=== PATIENT | female | born 1940 | race Caucasian/White ===

== ENCOUNTER 2017-11-26 09:01 | Inpatient (IN) | payer MEDICARE, BC ==
[2017-11-26 09:43] LABS: Basophils # (A) 0.1 k/uL (0-0.2); Basophils % (A) 0 %; Eosinophils # (A) 0.1 k/uL (0-0.7); Eosinophils % (A) 1 %; HCT 41.4 % (34.0-46.0); HGB 13.8 gm/dL (11.4-16.0); Lymphocytes # (A) 1.8 k/uL (1.0-4.8); Lymphocytes % (A) 13 %; MCH 28.4 pg (25.0-35.0); MCHC 33.2 g/dL (31.0-37.0); MCV 85.6 fL (80.0-100.0); Mean Platelet Volume 8.3; Monocytes # (A) 0.8 k/uL (0-1.0); Monocytes % (A) 6 %; Neutrophils # (A) 11.3 k/uL (1.3-7.7); Neutrophils % (A) 79 %; Platelet Count 183 k/uL (150-450); RBC 4.84 m/uL (3.80-5.40); RDW 13.2 % (11.5-15.5); WBC 14.3 k/uL (3.8-10.6)
--- NOTE | 2017-11-26 09:43 | ED ---
General Adult HPI - General Chief complaint: Altered Mental Status Stated complaint: altered mental status, weakness Time Seen by Provider: 11/26/17 09:05 Source: EMS, RN notes reviewed Mode of arrival: EMS - History of Present Illness Initial comments: This is a 77-year-old female who presents emergency Department for altered mental status. states that he woke up this morning and the patient was in this condition when she woke up. states yesterday she wasn't feeling well and didn't eat or drink much but was having no significant complaints. states this morning he talked to her and her words were all garbled and not making sense. Patient is able to follow some basic commands and seems to understandthe commands but cannot even count of 3. Patient tries to speak and all her words were garbled and none of them make sense. gives all history because she is unable to. states she has not been in any type of distress today didn't look like she was having difficulty breathing there's been no vomiting or diarrhea that he knows of. Patient has had no fever that he knows of. did not knows any facial droop or any weakness in a focal extremity. - Related Data Home Medications Medication Instructions Recorded Confirmed Atenolol/Chlorthalidone [Tenoretic 1 tab PO DAILY 11/26/17 11/26/17 100 Tablet] Atorvastatin Calcium [Lipitor] 20 mg PO MOTUWETHFRSA 11/26/17 11/26/17 Atorvastatin [Lipitor] 10 mg PO ANNE 11/26/17 11/26/17 Estradiol [Estrace] 1 mg PO MOWEFR 11/26/17 11/26/17 Fish Oil/Dha/Epa [Fish Oil 1,200 1 cap PO DAILY 11/26/17 11/26/17 mg Fish Oil] Gemfibrozil [Lopid] 600 mg PO AC-BID 11/26/17 11/26/17 Glucosamine/Chondr Anne A Sod [Osteo 1 tab PO BID 11/26/17 11/26/17 Bi-Flex Caplet] Levothyroxine Sodium [Synthroid] 44 mcg PO ANNE 11/26/17 11/26/17 Levothyroxine Sodium [Synthroid] 88 mcg PO MOTUWETHFRSA 11/26/17 11/26/17 Magnesium Oxide [Mag-Ox] 400 mg PO DAILY 11/26/17 11/26/17 Potassium Chloride ER [K-Dur 10] 10 meq PO DAILY 11/26/17 11/26/17 Solifenacin Succinate [Vesicare] 5 mg PO DAILY 11/26/17 11/26/17 Vitamin E (Dl,Tocopheryl Acet) 400 unit PO DAILY 11/26/17 11/26/17 [Vitamin E] Allergies Allergy/AdvReac Type Severity Reaction Status Date / Time No Known Allergies Allergy Verified 11/26/17 09:40 Review of Systems ROS Statement: Those systems with pertinent positive or pertinent negative responses have been documented in the HPI. ROS Other: All systems not noted in ROS Statement are negative. Past Medical History Past Medical History: Unable to Obtain History of Any Multi-Drug Resistant Organisms: None Reported Past Surgical History: Unable to Obtain Past Psychological History: No Psychological Hx Reported Smoking Status: Never smoker Past Alcohol Use History: None Reported Past Drug Use History: None Reported General Exam - General Exam Comments Initial Comments: GENERAL: Patient is well-developed and well-nourished. Patient is nontoxic and well- hydrated and is in no acute distress. ENT: Neck is soft and supple. No significant lymphadenopathy is noted. Oropharynx is clear. Moist mucous membranes. Neck has full range of motion without eliciting any pain. EYES: The sclera were anicteric and conjunctiva were pink and moist. Extraocular movements were intact and pupils were equal round and reactive to light. Eyelids were unremarkable. PULMONARY: Unlabored respirations. Good breath sounds bilaterally. No audible rales rhonchi or wheezing was noted. CARDIOVASCULAR: There is a regular rate and rhythm without any murmurs gallops or rubs. ABDOMEN: Patient has some slight left-sided abdominal pain.. No palpable organomegaly was noted. There is no palpable pulsatile mass. SKIN: Skin is clear with no lesions or rashes and otherwise unremarkable. NEUROLOGIC: Patient is alert and oriented unable to assess since patient cannot speak but she is able to understand basic commands and asked to sit up or move any of her extremities. Cranial nerves II through XII are grossly intact. Motor and sensory are also intact. Patient has garbled speech. Symmetrical smile. MUSCULOSKELETAL: Normal extremities with adequate strength and full range of motion. No lower extremity swelling or edema. No calf tenderness. LYMPHATICS: No significant lymphadenopathy is noted PSYCHIATRIC: Normal psychiatric evaluation. Normal interpersonal interactions appears functionally intact in deals appropriately with others. No signs of depression. No signs of anxiety. Course Vital Signs 11/26/17 11/26/17 11/26/17 09:03 10:03 11:05 Temperature 99.4 F Pulse Rate 77 83 71 Respiratory 17 18 18 Rate Blood Pressure 171/70 167/70 152/87 O2 Sat by Pulse 97 98 97 Oximetry Medical Decision Making - Medical Decision Making EKG shows sinus rhythm at 73 bpm WA interval is 224 QRS is 90 QT interval 394 QTC is 434. Patient's EKG does show some ST segment depression and T-wave inversion in the inferior leads. CT brain shows no acute abnormality. CT of the abdomen shows no significant abnormality. I will back into reevaluate the patient she continued to be unable to express herself but again continued to understand basic simple commands. - Lab Data Result diagrams: 11/26/17 09:20 11/26/17 09:20 Lab Results 11/26/17 11/26/17 11/26/17 Range/Units 09:20 09:20 09:20 WBC 14.3 H (3.8-10.6) k/uL RBC 4.84 (3.80-5.40) m/uL Hgb 13.8 (11.4-16.0) gm/dL Hct 41.4 (34.0-46.0) % MCV 85.6 (80.0-100.0) fL MCH 28.4 (25.0-35.0) pg MCHC 33.2 (31.0-37.0) g/dL RDW 13.2 (11.5-15.5) % Plt Count 183 (150-450) k/uL Neutrophils % 79 % Lymphocytes % 13 % Monocytes % 6 % Eosinophils % 1 % Basophils % 0 % Neutrophils # 11.3 H (1.3-7.7) k/uL Lymphocytes # 1.8 (1.0-4.8) k/uL Monocytes # 0.8 (0-1.0) k/uL Eosinophils # 0.1 (0-0.7) k/uL Basophils # 0.1 (0-0.2) k/uL PT (9.0-12.0) sec INR (<1.2) APTT (22.0-30.0) sec Sodium 140 (137-145) mmol/L Potassium 3.7 (3.5-5.1) mmol/L Chloride 103 (98-107) mmol/L Carbon Dioxide 20 L (22-30) mmol/L Anion Gap 17 mmol/L BUN 18 H (7-17) mg/dL Creatinine 0.91 (0.52-1.04) mg/dL Est GFR (CKD-EPI)AfAm 69 (>60 ml/min/1.73 sqM) Est GFR (CKD-EPI)NonAf 60 (>60 ml/min/1.73 sqM) Glucose 153 H (74-99) mg/dL Plasma Lactic Acid Ede (0.7-2.0) mmol/L Calcium 9.2 (8.4-10.2) mg/dL Total Bilirubin 0.9 (0.2-1.3) mg/dL AST 18 (14-36) U/L ALT 29 (9-52) U/L Alkaline Phosphatase 34 L (38-126) U/L Total Creatine Kinase 86 (30-135) U/L CK-MB (CK-2) 0.5 (0.0-2.4) ng/mL CK-MB (CK-2) Rel Index 0.6 Troponin I <0.012 (0.000-0.034) ng/mL Total Protein 6.3 (6.3-8.2) g/dL Albumin 4.0 (3.5-5.0) g/dL Urine Color Urine Appearance (Clear) Urine pH (5.0-8.0) Ur Specific Bristow (1.001-1.035) Urine Protein (Negative) Urine Glucose (UA) (Negative) Urine Ketones (Negative) Urine Blood (Negative) Urine Nitrite (Negative) Urine Bilirubin (Negative) Urine Urobilinogen (<2.0) mg/dL Ur Leukocyte Esterase (Negative) Urine RBC (0-5) /hpf Urine WBC (0-5) /hpf Ur Squamous Epith Cells (0-4) /hpf 11/26/17 11/26/17 11/26/17 Range/Units 09:20 09:20 09:20 WBC (3.8-10.6) k/uL RBC (3.80-5.40) m/uL Hgb (11.4-16.0) gm/dL Hct (34.0-46.0) % MCV (80.0-100.0) fL MCH (25.0-35.0) pg MCHC (31.0-37.0) g/dL RDW (11.5-15.5) % Plt Count (150-450) k/uL Neutrophils % % Lymphocytes % % Monocytes % % Eosinophils % % Basophils % % Neutrophils # (1.3-7.7) k/uL Lymphocytes # (1.0-4.8) k/uL Monocytes # (0-1.0) k/uL Eosinophils # (0-0.7) k/uL Basophils # (0-0.2) k/uL PT 10.8 (9.0-12.0) sec INR 1.1 (<1.2) APTT 19.5 L (22.0-30.0) sec Sodium (137-145) mmol/L Potassium (3.5-5.1) mmol/L Chloride (98-107) mmol/L Carbon Dioxide (22-30) mmol/L Anion Gap mmol/L BUN (7-17) mg/dL Creatinine (0.52-1.04) mg/dL Est GFR (CKD-EPI)AfAm (>60 ml/min/1.73 sqM) Est GFR (CKD-EPI)NonAf (>60 ml/min/1.73 sqM) Glucose (74-99) mg/dL Plasma Lactic Acid Ede 2.4 H* (0.7-2.0) mmol/L Calcium (8.4-10.2) mg/dL Total Bilirubin (0.2-1.3) mg/dL AST (14-36) U/L ALT (9-52) U/L Alkaline Phosphatase (38-126) U/L Total Creatine Kinase (30-135) U/L CK-MB (CK-2) (0.0-2.4) ng/mL CK-MB (CK-2) Rel Index Troponin I (0.000-0.034) ng/mL Total Protein (6.3-8.2) g/dL Albumin (3.5-5.0) g/dL Urine Color Yellow Urine Appearance Clear (Clear) Urine pH 6.0 (5.0-8.0) Ur Specific [place]ow 1.015 (1.001-1.035) Urine Protein Negative (Negative) Urine Glucose (UA) Negative (Negative) Urine Ketones Negative (Negative) Urine Blood Small H (Negative) Urine Nitrite Negative (Negative) Urine Bilirubin Negative (Negative) Urine Urobilinogen <2.0 (<2.0) mg/dL Ur Leukocyte Esterase Negative (Negative) Urine RBC 5 (0-5) /hpf Urine WBC <1 (0-5) /hpf Ur Squamous Epith Cells <1 (0-4) /hpf Disposition Clinical Impression: CVA (cerebral vascular accident) Disposition: ADMITTED IP TO THIS HOSP Referrals: Burke Wilson MD [Primary Care Provider] - 1-2 days Time of Disposition: 11:54
[2017-11-26 09:52] LABS: Appearance,Urine Clear (Clear); Bilirubin,Urine Negative (Negative); Blood,Urine Small (Negative); Color,Urine Yellow; Glucose,Urine (UA) Negative (Negative); Ketones,Urine Negative (Negative); Leukocyte Esterase,Urine Negative (Negative); Nitrite,Urine Negative (Negative); Protein,Urine Negative (Negative); RBC,Urine 5 /hpf (0-5); Specific Gravity,Urine 1.015 (1.001-1.035); Squamous Epithelial Cell,Urine <1 /hpf (0-4); Urobilinogen,Urine <2.0 mg/dL (<2.0); WBC,Urine <1 /hpf (0-5)
[2017-11-26 09:55] LABS: Calcium 9.2 mg/dL (8.4-10.2); Potassium 3.7 mmol/L (3.5-5.1); Total Bilirubin 0.9 mg/dL (0.2-1.3); Total Protein 6.3 g/dL (6.3-8.2)
[2017-11-26 10:02] LABS: INR 1.1 (<1.2); Prothrombin Time 10.8 sec (9.0-12.0)
[2017-11-26 10:12] LABS: Creatine Kinase 86 U/L (30-135)
--- NOTE | 2017-11-26 10:15 | CT ---
EXAMINATION TYPE: CT brain wo con DATE OF EXAM: 11/26/2017 COMPARISON: NONE HISTORY: Patient poor historian. COnfusion and weakness. CT DLP: 799.5 mGycm Automated exposure control for dose reduction was used. FINDINGS: Prominent choroid plexus cysts are noted. No midline shift or mass effect. No acute intracranial hemo rrhage. Mild generalized degenerative change. Intracranial atherosclerotic changes noted. IMPRESSION: Mild generalized degenerative change. If there is concern for acute ischemia correlate with MRI.
[2017-11-26 10:21] LABS: Partial Thromboplastin Time 19.5 sec (22.0-30.0)
[2017-11-26 10:25] LABS: Creatine Kinase MB 0.5 ng/mL (0.0-2.4); Troponin I <0.012 ng/mL (0.000-0.034)
--- NOTE | 2017-11-26 10:30 | XR ---
EXAMINATION TYPE: XR chest 2V DATE OF EXAM: 11/26/2017 COMPARISON: NONE HISTORY: Altered mental status TECHNIQUE: Frontal and lateral views of the chest are obtained. FINDINGS: There is no focal air space opacity, pleural effusion, or pneumothorax seen. The cardiac silhouette size is within normal limits. There are overlying cardiac leads and the patient is rotate d. The osseous structures are intact. IMPRESSION: No acute cardiopulmonary process.
[2017-11-26] MEDS ORDERED: RX INFO: IV CONTRAST WAS GIVEN 1 EACH MISC MISCELLANE PRN ×3 (10:50→12:28)
--- NOTE | 2017-11-26 11:47 | CT ---
EXAMINATION TYPE: CT abdomen pelvis w con DATE OF EXAM: 11/26/2017 COMPARISON: NONE HISTORY: Patient poor historian. abdominal pain. CT DLP: 955 mGycm Automated exposure control for dose reduction was used. TECHNIQUE: Helical acquisition of images from the lung bases through the pelvis have been completed. CONTRAST: Performed without Oral Contrast and with IV Contrast, patient injected with 80 mL of Isovue 300. FINDINGS: LUNG BASES: No significant abnormality is appreciated. AORTA: No significant abnormality is appreciated. LIVER/GB: Liver shows low attenuation possibly due to hepatic steatosis PANCREAS: No significant abnormality is seen. SPLEEN: No significant abnormality is seen. ADRENALS: No significant abnormality is seen. KIDNEYS: No significant abnormality is seen. REPRODUCTIVE ORGANS: Uterus is absent. Ovarian tissue suspected possibly bilaterally and is unremarka ble. BOWEL: Suspect the patient is post appendectomy. High dense material present at the level of the cec um may represent surgical clips. The stomach is not distended, difficult to exclude abnormal wall thi ckening. FREE AIR: No Free Air visible. ASCITES: None visible. PELVIC ADENOPATHY: None visualized. RETROPERITONEAL ADENOPATHY: No Retroperitoneal Adenopathy visible. URINARY BLADDER: No significant abnormality is seen. OSSEOUS STRUCTURES: Degenerative disc changes are present in the spine, anterolisthesis grade 1 L4-5 . Facet arthropathy also present. There is a spinal curvature. IMPRESSION: CONSIDER HEPATOCELLULAR DISEASE, HEPATIC STEATOSIS. DEGENERATIVE DISC DISEASE, FACET ARTHROPATHY, SPI NAL CURVATURE. Lack of distention of the stomach may limit evaluation. Postop changes.
[2017-11-26] MEDS ORDERED: ASPIRIN 325 MG TAB PO STA (12:08)
[2017-11-26] MEDS ORDERED: ACETAMINOPHEN TAB 325 MG TAB PO PRN (13:38)
--- NOTE | 2017-11-26 13:38 | P.HPIM ---
History of Present Illness H&P Date: 11/26/17 Chief Complaint: aphasia 77 years old female patient of Dr. Wilson with past medical history of hypertension, hyperlipidemia, hypothyroidism, overactive bladder presents in with confusion that started this morning. According to the family patient was not eating and drinking for the past 2 days. She woke up in the morning feeling confused, unable to speak appropriately. Patient was unable to comprehend and repeat appropriately. Her language was gibberish and lacked meaning. Patient denies any sensory or motor deficits. She denies any history of seizure or any similar episodes in the past. Patient denies any history of chest pain, palpitation, shortness of breath, abdominal pain, nausea or vomiting. No history of syncope or loss of consciousness prior to this episode. Patient is unable to provide much history is pleasantly confused. She does know where she is and can tell her name and date of . Vitals are stable with blood pressure slightly elevated 171/70. Saturating well on room air and afebrile. Patient did have a leukocytosis of 14.3 INR 1.1, lactic acid 2.4. Normal troponin. CT head negative for any acute abnormalities no masses seen. Did have prominent choroid plexus cyst. CT abdomen and pelvis was done as patient had some tenderness in the lower quadrant which was unremarkable. Due to patient's A. fib. Dysarthria MRI/MRA ordered. Neurology consulted from possible stroke versus brain mass. Review of Systems Constitutional: Denies chills, Denies fever, Denies lethargy, Denies malaise, Denies poor appetite, Denies weakness, Denies weight loss Eyes: denies decreased vision, denies diplopia, denies discharge, denies pain Ears: deny: decreased hearing Ears, nose, mouth and throat: Denies dental pain, Denies headache, Denies nasal discharge, Denies nose pain Cardiovascular: Denies chest pain, Denies decreased exercise tolerance, Denies edema, Denies high blood pressure, Denies irregular heart beat, Denies palpitations, Denies paroxysmal nocturnal dyspnea, Denies rapid heart beat, Denies shortness of breath Respiratory: Denies congestion, Denies cough, Denies cough with sputum, Denies dyspnea, Denies home oxygen, Denies wheezing Gastrointestinal: Denies abdominal pain, Denies change in bowel habits, Denies coffee ground emesis, Denies early satiety, Denies excessive gas, Denies heartburn, Denies hematemesis, Denies hematochezia, Denies loss of appetite, Denies nausea, Denies vomiting Genitourinary: Denies dysuria, Denies flank pain, Denies kidney stones, Denies menorrhagia, Denies urgency, Denies urinary frequency Musculoskeletal: Denies gait dysfunction, Denies limitation of motion, Denies morning stiffness, Denies muscle cramps Integumentary: Denies rash, Denies wounds, Denies brittle nails, Denies change in hair/nails, Denies darkening of skin Neurological: Denies balance difficulties, endorses change in speech, Denies double vision, Denies gait dysfunction, Denies loss of vision, Denies motor disturbance, Denies numbness, Denies paralysis, Denies paresthesias, Denies seizures Psychiatric: Denies anxiety, Denies depression Endocrine: Denies excessive sweating, Denies excessive thirst, Denies high blood sugars, Denies palpitations Hematologic/Lymphatic: Denies easy bruising, Denies lymphadenopathy Past Medical History Past Medical History: Hyperlipidemia, Hypertension, Osteoarthritis (OA), Thyroid Disorder Additional Past Medical History / Comment(s): Incontinent of urine at times. History of Any Multi-Drug Resistant Organisms: None Reported Past Surgical History: Appendectomy, Hysterectomy, Joint Replacement, Orthopedic Surgery Additional Past Surgical History / Comment(s): L knee arthroscopy, L total knee arthroplasty, colonoscopy, bilateral cataract removal/lens toric Smoking Status: Never smoker - Past Family History Father Family Medical History: Cancer Additional Family Medical History / Comment(s): Father had liver cancer and at the age of 52 yrs. Mother Family Medical History: Coronary Artery Disease (CAD), CVA/TIA Additional Family Medical History / Comment(s): Family believes pt's mother of a NE at the age of 85 yrs. Sister(s) Family Medical History: Cancer (Lymphoma 20 years ago) Additional Family Medical History / Comment(s): Patient lives with his has been. She has 2 kids both healthy without any medical problems. She denies any use of cane or walker at home. Does not wear oxygen at night Medications and Allergies Home Medications Medication Instructions Recorded Confirmed Type Atenolol/Chlorthalidone [Tenoretic 1 tab PO DAILY 11/26/17 11/26/17 History 100 Tablet] Atorvastatin Calcium [Lipitor] 20 mg PO MOTUWETHFRSA 11/26/17 11/26/17 History Atorvastatin [Lipitor] 10 mg PO CRUZ 11/26/17 11/26/17 History Estradiol [Estrace] 1 mg PO MOWEFR 11/26/17 11/26/17 History Fish Oil/Dha/Epa [Fish Oil 1,200 1 cap PO DAILY 11/26/17 11/26/17 History mg Fish Oil] Gemfibrozil [Lopid] 600 mg PO AC-BID 11/26/17 11/26/17 History Glucosamine/Chondr Cruz A Sod [Osteo 1 tab PO BID 11/26/17 11/26/17 History Bi-Flex Caplet] Levothyroxine Sodium [Synthroid] 44 mcg PO CRUZ 11/26/17 11/26/17 History Levothyroxine Sodium [Synthroid] 88 mcg PO MOTUWETHFRSA 11/26/17 11/26/17 History Magnesium Oxide [Mag-Ox] 400 mg PO DAILY 11/26/17 11/26/17 History Potassium Chloride ER [K-Dur 10] 10 meq PO DAILY 11/26/17 11/26/17 History Solifenacin Succinate [Vesicare] 5 mg PO DAILY 11/26/17 11/26/17 History Vitamin E (Dl,Tocopheryl Acet) 400 unit PO DAILY 11/26/17 11/26/17 History [Vitamin E] Allergies Allergy/AdvReac Type Severity Reaction Status Date / Time No Known Allergies Allergy Verified 11/26/17 09:40 Physical Exam Vitals: Vital Signs Temp Pulse Resp BP Pulse Ox 11/26/17 11:05 71 18 152/87 97 11/26/17 10:03 83 18 167/70 98 11/26/17 09:03 99.4 F 77 17 171/70 97 Intake and Output 11/25/17 11/26/17 11/26/17 22:59 06:59 14:59 Other: Weight 40.324 kg - Constitutional General appearance: cooperative, no acute distress, obese - EENT Eyes: anicteric sclerae, PERRLA, normal appearance ENT: hearing grossly normal - Neck Neck: no lymphadenopathy, normal ROM, no other, no rigidity, no stridor, no thyromegaly - Respiratory Respiratory: bilateral: CTA, negative: diminished, dullness, rales, rhonchi - Cardiovascular Rhythm: regular Heart sounds: normal: S1, S2 Abnormal Heart Sounds: no systolic murmur, no diastolic murmur, no rub, no S3 Gallop, no S4 Gallop, no click, no other - Gastrointestinal General gastrointestinal: normal bowel sounds, soft - Integumentary Integumentary: no rash - Neurologic Neurologic: CNII-XII intact, no motor or sensory deficit. Reflexes normal No nystagmus. Unable to comprehend or repeat words. Is able to tell her name, date of where she has. [place] when asked about the month or the year. Comprehension is normal intermittently. - Musculoskeletal Musculoskeletal: strength equal bilaterally - Psychiatric Psychiatric: A&O x's 2, appropriate affect Results CBC & Chem 7: 11/26/17 09:20 11/26/17 09:20 Labs: Abnormal Lab Results - Last 24 Hours (Table) 11/26/17 11/26/17 11/26/17 Range/Units 09:20 09:20 09:20 WBC 14.3 H (3.8-10.6) k/uL Neutrophils # 11.3 H (1.3-7.7) k/uL APTT 19.5 L (22.0-30.0) sec Carbon Dioxide 20 L (22-30) mmol/L BUN 18 H (7-17) mg/dL Glucose 153 H (74-99) mg/dL Plasma Lactic Acid Ede (0.7-2.0) mmol/L Alkaline Phosphatase 34 L (38-126) U/L Urine Blood (Negative) 11/26/17 11/26/17 Range/Units 09:20 09:20 WBC (3.8-10.6) k/uL Neutrophils # (1.3-7.7) k/uL APTT (22.0-30.0) sec Carbon Dioxide (22-30) mmol/L BUN (7-17) mg/dL Glucose (74-99) mg/dL Plasma Lactic Acid Ede 2.4 H* (0.7-2.0) mmol/L Alkaline Phosphatase (38-126) U/L Urine Blood Small H (Negative) Thrombosis Risk Factor Assmnt - DVT/VTE Prophylaxis DVT/VTE Prophylaxis: Pharmacologic Prophylaxis ordered - Choose All That Apply Any of the Below Risk Factors Present?: Yes Each Factor Represents 1 point: Obesity (BMI >25) Other Risk Factors: Yes Each Risk Factor Represents 3 Points: Age 75 years or older Other congenital or acquired thrombophilia - If yes, enter type in comment: Yes Each Risk Factor Represents 5 Points: Stroke (< 1 month) Thrombosis Risk Factor Assessment Total Risk Factor Score: 9 Thrombosis Risk Factor Assessment Level: High Risk Assessment and Plan Plan: #1 acute dysarthria/dysphagia likely secondary to stroke involving MCA. Wernicke's aphasia likely. CT brain was negative for any mass. MRI/MRA ordered. Neurology consult. Continue aspirin and statin. Echo ordered. Permissive hypertension. Treat blood pressure if systolic 220 speech evaluation #2 hyperlipidemia continue gemfibrozil and atorvastatin. Ordered lipid panel. #3 hypertension hold atenolol/chlorthalidone for permissive hypertension. #4 hypothyroidism continue levothyroxine 1-4 g on Sunday and 88 g rest of the days 5 DVT prophylaxis with SCDs and Lovenox every 24 hours #6 overactive bladder continue oxybutynin 10 mg by mouth daily 7 GI prophylaxis with Pepcid 20 mg daily. #8 leukocytosis likely reactive , repeat CBC tomorrow CODE STATUS full code Disposition patient to be in the hospital 1-2 inpatient nights.
[2017-11-26] MEDS ORDERED: IPRATROPIUM-ALBUTEROL 3 ML NEB INHALATION PRN (13:39)
[2017-11-26] MEDS ORDERED: ONDANSETRON 4 MG/2 ML VIAL IVP PRN (13:39)
[2017-11-26] MEDS: SODIUM CHLORIDE 0.9% 1,000 ML IV SCH (14:46)
[2017-11-26] MEDS: LEVOTHYROXINE 88 MCG TAB PO SCH (14:46)
[2017-11-26] MEDS: ATORVASTATIN 20 MG TAB PO SCH (14:46)
[2017-11-26] MEDS: GEMFIBROZIL 600 MG TAB PO SCH (18:35)
--- NOTE | 2017-11-26 18:57 | ECHOF ---
Referral Reason:Stroke MEASUREMENTS -------- HEIGHT: 167.6 cm WEIGHT: 85.3 kg BP: IVSd: 1.5 cm (0.6 - 1.1) LVIDd: 4.0 cm (3.9 - 5.3) LVPWd: 1.5 cm (0.6 - 1.1) IVSs: 1.5 cm LVIDs: 2.4 cm LVPWs: 1.7 cm Ao Diam: 3.1 cm (2.0 - 3.7) LA Diam: 3.4 cm (2.7 - 3.8) AV Cusp: 2.1 cm (1.5 - 2.6) EPSS: 0.4 cm MV E Kenton: 1.02 m/s MV DecT: 185 ms MV A Kenton: 1.07 m/s MV E/A Ratio: 0.95 RAP: 5.00 mmHg RVSP: 30.95 mmHg MV EF SLOPE: 56.42 mm/s (70 - 150) MV EXCURSION: 11.11 mm (> 18.000) FINDINGS -------- Sinus rhythm. This was a technically adequate study. This was a technically difficult study with suboptimal apica l views. Pt couldnt turn. The left ventricular size is normal. There is moderate concentric left ventricular hypertrophy. O verall left ventricular systolic function is normal with, an EF between 55 - 60 %. The right ventricle is normal in size and function. The left atrium is normal in size. The right atrium is normal in size. The aortic valve is trileaflet, and appears structurally normal. No aortic stenosis or regurgitation. The mitral valve leaflets are mildly thickened. There is trace mitral regurgitation. Trace tricuspid regurgitation present. The right ventricular systolic pressure, as measured by Dopp ler, is 30.95mmHg. Pulmonic valve appears structurally normal. The aortic root size is normal. The pericardium is normal. CONCLUSIONS -------- 1. Sinus rhythm. 2. This was a technically adequate study. 3. This was a technically difficult study with suboptimal apical views. Pt couldnt turn. 4. The left ventricular size is normal. 5. There is moderate concentric left ventricular hypertrophy. 6. Overall left ventricular systolic function is normal with, an EF between 55 - 60 %. 7. The right ventricle is normal in size and function. 8. The left atrium is normal in size. 9. The right atrium is normal in size. 10. The aortic valve is trileaflet, and appears structurally normal. No aortic stenosis or regurgitat ion. 11. The mitral valve leaflets are mildly thickened. 12. There is trace mitral regurgitation. 13. Trace tricuspid regurgitation present. 14. The right ventricular systolic pressure, as measured by Doppler, is 30.95mmHg. 15. Pulmonic valve appears structurally normal. 16. The aortic root size is normal. 17. The pericardium is normal. C[employer] FISH[employer] HAND: Heide Dennis RDCS
--- NOTE | 2017-11-26 21:20 | CONS ---
CONSULTATION DATE OF CONSULTATION: 11/26/2017. CHIEF COMPLAINT: Stroke. HISTORY OF PRESENT ILLNESS: Mrs Henderson is a pleasant, 77-year-old female, who is being evaluated by the neurology service per the request of Dr. Maldonado for a stroke. The patient was brought into [facility] Emergency room after her noticed that she was acting quite confused. He had tried to get her out of bed but she was not following any commands. According to the family, she had gone to bed the previous night without any of these symptoms. The patient was talking but she was not making much sense. When she did speak she is swallowing with no difficulties and does not appear to be having any lateralizing weakness. A CT scan of the brain was done, which showed small-vessel ischemic changes. Her CBC showed mild leukocytosis at 14.3. Her comprehensive metabolic profile showed slightly elevated BUN at 18 and hyperglycemia at 153. Her cardiac enzymes and urinalysis were normal. The patient was admitted for further workup and management and was started on aspirin 325 mg daily. She was not on any anti- platelet therapy at home. At the time of my evaluation, she is lying in her bed and appears to be in no acute distress. She appears to be having a receptive aphasia. PAST MEDICAL HISTORY: Dyslipidemia, hypertension, arthritis, hypothyroidism, history of appendectomy, hysterectomy, orthopedic surgeries, cataract surgery. SOCIAL HISTORY: There is no history of any tobacco, alcohol or drug use. FAMILY HISTORY: Positive for cancer, heart disease, and strokes. HOME MEDICATIONS: Reviewed in the chart. ALLERGIES: No known drug allergies. REVIEW OF SYSTEM: Unable to obtain due to her receptive aphasia. PHYSICAL EXAM: Vital signs show a temperature of 97.7, pulse 72, respiration 14, blood pressure 167/68. GENERAL APPEARANCE: The patient is a well-developed, elderly female, who appears to be in no acute distress. HEENT: Normocephalic, atraumatic, no facial asymmetry is seen. NECK: Supple with no masses felt. CARDIOVASCULAR: Regular rate and rhythm. ABDOMEN: Nontender nondistended. Extremities showed no edema or clubbing. Neurological exam the patient is awake. She does not follow any verbal commands. Does follow visual commands. No obvious lateralizing weakness is seen. Sensory exam was difficult to assess due to her aphasia. Language testing showed decreased comprehension, naming, and repetition. Fluency appears to be intact. No tremors or seizure-like activity is seen. No facial asymmetry is noticed on cranial nerve testing. IMPRESSION: 1. Acute ischemic stroke, left temporal region. 2. Receptive aphasia. 3. Hypertension. 4. Dyslipidemia. RECOMMENDATION: The patient does appear to have suffered an acute ischemic stroke involving the left temporal lobe. Her examination is consistent with a receptive aphasia/Wernicke aphasia. Her fluency is intact yet she has a deficit in naming, repetition, and comprehension. Speech therapy has been consulted. An MRI of the brain will be ordered along with a carotid Doppler, fasting lipid panel, EEG, and serum homocystine level. Continue aspirin for anti-platelet therapy. Continue heparin for DVT prophylaxis. Continue Pepcid for GI prophylaxis. Continue IV hydration as tolerated. I will continue to follow with you. Further recommendations to follow. Thank you for allowing me to participate in the care of your patient. If you have any questions, please feel free to contact me. Please send a copy of this dictation to Dr. Wilson and to Dr. Maldonado and to my office. MMISMAEL / JUANITO: [id number] /
[2017-11-27] MEDS: SODIUM CHLORIDE 0.9% 1,000 ML IV SCH ×2 (00:02→09:26)
[2017-11-27] MEDS: GEMFIBROZIL 600 MG TAB PO SCH (06:11)
[2017-11-27] MEDS: LEVOTHYROXINE 88 MCG TAB PO SCH (06:11)
[2017-11-27 07:10] LABS: Basophils % (A) 0 %; Eosinophils # (A) 0.1 k/uL (0-0.7); Eosinophils % (A) 1 %; HGB 13.4 gm/dL (11.4-16.0); Lymphocytes # (A) 1.9 k/uL (1.0-4.8); Lymphocytes % (A) 17 %; MCH 28.1 pg (25.0-35.0); MCHC 33.5 g/dL (31.0-37.0); MCV 83.9 fL (80.0-100.0); Mean Platelet Volume 7.8; Monocytes # (A) 0.9 k/uL (0-1.0); Monocytes % (A) 8 %; Neutrophils % (A) 71 %; Platelet Count 184 k/uL (150-450); RBC 4.76 m/uL (3.80-5.40); RDW 13.1 % (11.5-15.5); WBC 11.2 k/uL (3.8-10.6)
[2017-11-27 07:27] LABS: Albumin 3.9 g/dL (3.5-5.0); Calcium 9.3 mg/dL (8.4-10.2); Potassium 3.4 mmol/L (3.5-5.1); Total Bilirubin 0.9 mg/dL (0.2-1.3); Total Protein 6.2 g/dL (6.3-8.2)
[2017-11-27] MEDS ORDERED: MAGNESIUM OXIDE 400 MG TAB PO SCH (09:00)
[2017-11-27] MEDS ORDERED: FAMOTIDINE 20 MG TAB PO SCH (09:00)
[2017-11-27] MEDS ORDERED: ASPIRIN 325 MG TAB PO SCH (09:00)
[2017-11-27] MEDS ORDERED: ENOXAPARIN 40 MG/0.4 ML SYRINGE SQ SCH (09:00)
[2017-11-27] MEDS ORDERED: OXYBUTYNIN 10 MG TAB.ER.24 PO SCH (09:00)
[2017-11-27] MEDS: ATORVASTATIN 20 MG TAB PO SCH (11:46)
[2017-11-27] MEDS ORDERED: LORazepam 2 MG/ML INJ IV STA (12:06)
[2017-11-27] MEDS: DEXTROSE 5%-0.9% NACL 1,000 ML IV SCH (12:43)
[2017-11-27] MEDS: INSULIN ASPART 100 UNIT/ML 1 ML 10 ML VIAL SQ SCH ×3 (12:44→21:15)
[2017-11-27] MEDS ORDERED: DEXAMETHASONE SOD PHOSPHATE 4 MG/ML 1 ML VIAL IV SCH ×2 (13:00→18:00)
--- NOTE | 2017-11-27 13:43 | P.PN ---
Subjective Progress Note Date: 11/27/17 77 years old female patient of Dr. Wilson with past medical history of hypertension, hyperlipidemia, hypothyroidism, overactive bladder presents in with confusion that started this morning. According to the family patient was not eating and drinking for the past 2 days. She woke up in the morning feeling confused, unable to speak appropriately. Patient was unable to comprehend and repeat appropriately. Her language was gibberish and lacked meaning. Patient denies any sensory or motor deficits. She denies any history of seizure or any similar episodes in the past. Patient denies any history of chest pain, palpitation, shortness of breath, abdominal pain, nausea or vomiting. No history of syncope or loss of consciousness prior to this episode. Patient is unable to provide much history is pleasantly confused. She does know where she is and can tell her name and date of . Vitals are stable with blood pressure slightly elevated 171/70. Saturating well on room air and afebrile. Patient did have a leukocytosis of 14.3 INR 1.1, lactic acid 2.4. Normal troponin. CT head negative for any acute abnormalities no masses seen. Did have prominent choroid plexus cyst. CT abdomen and pelvis was done as patient had some tenderness in the lower quadrant which was unremarkable. Due to patient's A. fib. Dysarthria MRI/MRA ordered. Neurology consulted from possible stroke versus brain mass. 11/27: Echocardiogram reveals EF of 55-60%, trace mitral regurgitation, trace tricuspid regurgitation. Patient has been seen by Dr. 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 Homocysteine level is normal at 12.02. Triglycerides 201, cholesterol 201, LDL 128 and HDL 34. Repeat troponins came back negative. Patient was unable to swallow but her a.m. medications were given. Patient is having difficulty following directions. We will change what we can over to IV. MRI is scheduled for 4 this afternoon. PT OT and speech therapy are all involved. EEG is pending. EEG Objective - Vital Signs Vital signs: Vital Signs Temp 98.0 F 11/27/17 04:00 Pulse 89 11/27/17 04:00 Resp 16 11/27/17 04:00 BP 169/81 11/27/17 04:00 Pulse Ox 94 L 11/27/17 04:00 Intake & Output 04/09/18 04/10/18 04/10/18 18:59 06:59 18:59 Intake Total 1100 Balance 1100 Weight 88.1 kg 88 kg Intake: Intake, IV Titration 1100 Amount Sodium Chloride 0.9% 1, 1100 000 ml @ 100 mls/hr IV . Q10H [facility] Rx#:[id number] Oral 0 Other: Voiding Method Bedpan Bedpan Diaper Diaper Incontinent Incontinent # Voids 1 - Exam General appearance: cooperative, no acute distress, obese - EENT Eyes: anicteric sclerae, PERRLA, normal appearance ENT: hearing grossly normal - Neck Neck: no lymphadenopathy, normal ROM, no other, no rigidity, no stridor, no thyromegaly - Respiratory Respiratory: bilateral: CTA, negative: diminished, dullness, rales, rhonchi - Cardiovascular Rhythm: regular Heart sounds: normal: S1, S2 Abnormal Heart Sounds: no systolic murmur, no diastolic murmur, no rub, no S3 Gallop, no S4 Gallop, no click, no other - Gastrointestinal General gastrointestinal: normal bowel sounds, soft - Integumentary Integumentary: no rash - Neurologic Neurologic: CNII-XII intact, no motor or sensory deficit. Reflexes normal No nystagmus. Unable to comprehend or repeat words. Is able to tell her name, date of where she has. [place] when asked about the month or the year. Comprehension is normal intermittently. - Musculoskeletal Musculoskeletal: strength equal bilaterally - Psychiatric Psychiatric: A&O x's 1, increased confusion from admission, appropriate affect - Labs CBC & Chem 7: 11/27/17 06:29 11/27/17 06:29 Labs: Abnormal Lab Results - Last 24 Hours (Table) 11/26/17 11/26/17 11/26/17 Range/Units 09:20 09:20 09:20 WBC 14.3 H (3.8-10.6) k/uL Neutrophils # 11.3 H (1.3-7.7) k/uL APTT 19.5 L (22.0-30.0) sec Potassium (3.5-5.1) mmol/L Carbon Dioxide 20 L (22-30) mmol/L BUN 18 H (7-17) mg/dL Glucose 153 H (74-99) mg/dL Plasma Lactic Acid Ede (0.7-2.0) mmol/L Alkaline Phosphatase 34 L (38-126) U/L Total Protein (6.3-8.2) g/dL Triglycerides (<150) mg/dL Cholesterol (<200) mg/dL LDL Cholesterol, Calc (0-99) mg/dL HDL Cholesterol (40-60) mg/dL Urine Blood (Negative) 11/26/17 11/26/17 11/27/17 Range/Units 09:20 09:20 06:29 WBC (3.8-10.6) k/uL Neutrophils # (1.3-7.7) k/uL APTT (22.0-30.0) sec Potassium 3.4 L (3.5-5.1) mmol/L Carbon Dioxide (22-30) mmol/L BUN 18 H (7-17) mg/dL Glucose 123 H (74-99) mg/dL Plasma Lactic Acid Ede 2.4 H* (0.7-2.0) mmol/L Alkaline Phosphatase (38-126) U/L Total Protein 6.2 L (6.3-8.2) g/dL Triglycerides 201 H (<150) mg/dL Cholesterol 201 H (<200) mg/dL LDL Cholesterol, Calc 128 H (0-99) mg/dL HDL Cholesterol 33 L (40-60) mg/dL Urine Blood Small H (Negative) 11/27/17 Range/Units 06:29 WBC 11.2 H (3.8-10.6) k/uL Neutrophils # 8.0 H (1.3-7.7) k/uL APTT (22.0-30.0) sec Potassium (3.5-5.1) mmol/L Carbon Dioxide (22-30) mmol/L BUN (7-17) mg/dL Glucose (74-99) mg/dL Plasma Lactic Acid Ede (0.7-2.0) mmol/L Alkaline Phosphatase (38-126) U/L Total Protein (6.3-8.2) g/dL Triglycerides (<150) mg/dL Cholesterol (<200) mg/dL LDL Cholesterol, Calc (0-99) mg/dL HDL Cholesterol (40-60) mg/dL Urine Blood (Negative) Assessment and Plan Plan: 1. Acute ischemic stroke. Wernicke's aphasia likely. MRI/MRA ordered. Neurology consult appreciated. Continue aspirin and statin. Echo as above. Permissive hypertension. Treat blood pressure if systolic 220. PT, OT, speech therapy 2. Hyperlipidemia continue gemfibrozil and atorvastatin. Lipid panel as above. 3. Hypertension hold atenolol/chlorthalidone for permissive hypertension. 4. Hypothyroidism continue levothyroxine 1-4 g on Sunday and 88 g rest of the days 5. Overactive bladder continue oxybutynin 10 mg by mouth daily 6. Leukocytosis likely reactive , repeat CBC tomorrow 7. GI prophylaxis with Pepcid 20 mg daily. 8. DVT prophylaxis with SCDs and Lovenox every 24 hours CODE STATUS full code Discharge plan: Subacute rehab Impression and plan of care have been directed as dictated by the signing physician. Linda Mera nurse practitioner acting as scribe for signing physician.
[2017-11-27 14:03] LABS: Glucose,Whole Blood 179 mg/dL (75-99)
[2017-11-27] MEDS ORDERED: LORazepam 2 MG/ML INJ IV PRN (14:06)
--- NOTE | 2017-11-27 14:40 | CT ---
EXAMINATION TYPE: CODE STROKE: CT brain wo contr DATE OF EXAM: 11/27/2017 COMPARISON: NONE HISTORY: Seizure, unresponsive CT DLP: 1018.[address] of the brain was performed. The ventricles, basal cisterns and sulci overlying the cerebral convexities demonstrate mild enlargem ent. There is no evidence for intracranial hemorrhage or sulcal effacement. There is decreased attenuation about the periventricular white matter and deep white matter of both c erebral hemispheres, compatible with chronic small vessel ischemia. Differential diagnosis does inclu de demyelination. No mass effects are seen.No midline shift. Osseous calvarium is intact. If symptoms persist consider MRI. IMPRESSION: 1. Age related atrophic and chronic small vessel ischemic change without acute intracranial process s een at this time.
--- NOTE | 2017-11-27 15:39 | MR ---
EXAMINATION TYPE: MR angio head wo con DATE OF EXAM: 11/27/2017 3:04 PM COMPARISON: NONE HISTORY: Pt Confused, UnResponsive Three-dimensional [id number] intracranial MRA was performed with multiple intensity projection im ages submitted and source data reviewed at the workstation. The vertebrobasilar system as well as intracranial portions of the internal carotid arteries and thei r major tributaries are patent. Diminutive left A1 segment. I do not see evidence for sizable aneurys m or vascular malformation. IMPRESSION: No significant abnormality appreciated.
--- NOTE | 2017-11-27 15:56 | MR ---
EXAMINATION TYPE: MR brain wo/w mraneck wo/w con DATE OF EXAM: 11/27/2017 COMPARISON: CT brain earlier today. HISTORY: Pt Confused, UnResponsive, Gadavist 8.5ml TECHNIQUE: Multiplanar, multisequence images of the brain and brainstem is performed without and with IV contras t, utilizing 8.5 mL intravenous Gadavist . Multiplanar, multisequence images of the neck focusing on carotid and vertebral vessels was performed without and with IV contrast. 2-D and 3-D reconstructed i mages are created and reviewed. FINDINGS: Exam is noticed suboptimal as patient could not stay awake, was confused and unresponsive per technologist to commands. Diffusion weighted images demonstrate no evidence of a recent infarct o r other diffusion abnormality. There is no worrisome extra-axial fluid collection. There is ventricu lar and sulcal prominence consistent with diffuse cerebral atrophy Midline structures demonstrate nor mal morphology. The craniocervical junction appears within normal limits. Post contrast images demo nstrate no abnormal enhancement. The dural venous sinuses appear patent. The visualized sinuses are c lear and the globes are intact. There is three-vessel origin from aortic arch. The right common carotid artery shows normal origin fr om right brachiocephalic artery. There is no significant focal stenosis in common or internal carotid artery on the right including carotid bulb up to the petrous segment. There is no significant stenos is in left common or internal carotid artery clearly seen including at the level of the carotid bulb. There is no significant stenosis in visualized proximal external carotid arteries bilaterally. Motio n artifact limitation is present. There is dominant left vertebral artery. Vertebral arteries are pat ent to basilar junction. IMPRESSION: 1. No evidence of a recent infarct. 2. Mild diffuse age-related cerebral atrophy noted. 3. No significant focal stenosis in common or internal carotid arteries bilaterally clearly identifie d. Some motion artifact degradation noted.
[2017-11-27] MEDS: levETIRAcetam IV 1,000 MG in SALINE 1 100ML.BAG IVPB SCH (16:02)
--- NOTE | 2017-11-27 17:16 | P.PN ---
Subjective Progress Note Date: 11/27/17 Patient is a 77-year-old female who is being followed by the neurology service for stroke. Patient had gone to bed on Sunday night and no deficits were noted at that time. Patient woke up Sunday morning and was found to be very confused and was not able to understand what her was trying to say to her. She was not following any commands. Patient was speaking but not making sense. She did not appear to be having any lateralizing weakness. Computed tomography scan was done on admission which showed small vessel ischemic changes. Patient was admitted for further workup and was started on aspirin 325 mg daily. Patient was transferred up to the floor and was awake, alert, but not following any verbal commands. Staff reports patient was more somnolent this morning as compared to yesterday. Patient had gone down for EEG testing and had a seizure during EEG testing. No Ativan was given due to seizure activity stopping. Patient appeared to be in a postictal state. She was taken to MRI and had MRI/MRA of the head and neck with and without contrast. No evidence for recent infarct noted. Patient continues to be unarousable. She does respond to pain stimulus. Right upper extremity seems to be posturing. Patient has sonorous respirations with rate 14-20. Patient is clenching her jaw and grinding her teeth. Keppra 1000 mg was given IV. She will continue Keppra 1000 milligrams twice a day. No obvious facial asymmetry is noted. At the time of my evaluation, patient appears to be in mild distress. She will be transferred to the ICU. Objective - Vital Signs Vital signs: Vital Signs Temp 99.4 F 11/27/17 08:00 Pulse 96 11/27/17 16:00 Resp 18 11/27/17 16:00 BP 134/63 11/27/17 16:00 Pulse Ox 96 11/27/17 16:00 Intake & Output 11/26/17 11/27/17 11/27/17 18:59 06:59 18:59 Intake Total 1100 500 Balance 1100 500 Weight 88.1 kg 88 kg Intake: Intake, IV Titration 1100 500 Amount Sodium Chloride 0.9% 1, 1100 500 000 ml @ 100 mls/hr IV . Q10H [facility] Rx#:[id number] Oral 0 Other: Voiding Method Bedpan Bedpan Bedpan Diaper Diaper Diaper Incontinent Incontinent Incontinent # Voids 1 - Exam PHYSICAL EXAM: GENERAL APPEARANCE: Patient is a well-developed, female who appears to be in mild acute distress. HEENT: Normocephalic, atraumatic, no facial asymmetry is seen. Neck is supple with no masses felt. CARDIOVASCULAR: Heart rate is regular. Respirations are sonorous and mildly labored. ABDOMEN: Nontender, nondistended. EXTREMITIES: Show no edema or clubbing. Right upper extremity with signs of posturing. NEUROLOGICAL EXAM: Patient is not arousable but responds to painful stimuli. Pupils are equal and reactive to light. No obvious facial asymmetry is noted. Strength and sensory exam are not assessed due to her somnolence. Seizure activity was noted during the EEG and patient was loaded with Keppra 1000 mg IV. - Labs CBC & Chem 7: 11/27/17 06:29 11/27/17 06:29 Labs: Abnormal Lab Results - Last 24 Hours (Table) 11/27/17 11/27/17 11/27/17 Range/Units 06:29 06:29 14:00 WBC 11.2 H (3.8-10.6) k/uL Neutrophils # 8.0 H (1.3-7.7) k/uL Potassium 3.4 L (3.5-5.1) mmol/L BUN 18 H (7-17) mg/dL Glucose 123 H (74-99) mg/dL POC Glucose (mg/dL) 179 H (75-99) mg/dL Total Protein 6.2 L (6.3-8.2) g/dL Triglycerides 201 H (<150) mg/dL Cholesterol 201 H (<200) mg/dL LDL Cholesterol, Calc 128 H (0-99) mg/dL HDL Cholesterol 33 L (40-60) mg/dL Microbiology - Last 24 Hours (Table) 11/26/17 09:20 Blood Culture - Preliminary Blood No Growth after 24 hours Assessment and Plan Plan: Impression: 1. Acute ischemic stroke, left temporal region 2. Seizure 3. Receptive aphasia 4. Hypertension 5. Dyslipidemia Mentation: Patient does appear to have suffered an acute ischemic stroke involving the left temporal lobe. Her admitting examination was consistent with receptive aphasia which is consistent with left temporal region. Patient was alert and talking this morning. She was not following commands and continued with her receptive aphasia. Patient went down for EEG and had a seizure. Seizure resolved before Ativan was given. Patient was then taken to MRI. Upon returning to her room, change in neurological status was noted. Currently, patient is not arousable and appears to be in a postictal state. Due to her sonorous breathing and continued jaw clenching and teeth grinding, patient will be transferred to the ICU for possible need for airway assistance. Although patient is exhibiting postictal state, a new infarct cannot be ruled out. I will order an MRI and an EEG to be done in morning. Patient had MR angiogram of the head without contrast which showed no significant abnormality. Patient had MR of the brain with and without contrast and MR a of the neck with and without contrast. There was no evidence of recent infarct. Study did show mild diffuse age-related cerebral atrophy. There was no significant stenosis in common or internal carotid arteries bilaterally. Continue neurological checks. Continue seizure precautions. Continue rectal aspirin. Continue Keppra 1000 mg IV twice a day. I will continue to follow with you. Further recommendations to follow. I performed an examination of the patient and discussed the management with the RESIDENCE LIFE DIRECTOR. I have reviewed the RESIDENCE LIFE DIRECTOR notes and agree with the findings and plan of care.
[2017-11-27 17:47] LABS: Glucose,Whole Blood 197 mg/dL (75-99)
[2017-11-27 17:57] LABS: ABG Base Excess -2.4 mmol/L; ABG HCO3 22 mmol/L (21-25); ABG Oxygen Saturation 94.3 % (94-97); ABG PCO2 33 mmHg (35-45); ABG PH 7.43 (7.35-7.45); ABG PO2 73 mmHg (83-108); ABG TCO2 23 mmol/L (19-24)
--- NOTE | 2017-11-27 18:16 | XR ---
EXAMINATION TYPE: XR chest 1V portable DATE OF EXAM: 11/27/2017 COMPARISON: Yesterday HISTORY: Short of breath TECHNIQUE: Single frontal view of the chest is obtained. FINDINGS: Heart and mediastinum are normal. Lungs are clear. Diaphragm is normal. There are chest le ads. Bony thorax is intact. IMPRESSION: Normal chest. No change.
[2017-11-27] MEDS ORDERED: LABETALOL 5 MG/ML VIAL MDV IVP PRN ×2 (18:26→19:41)
[2017-11-27] MEDS ORDERED: PROPOFOL 100 ML IV ONE (18:50)
[2017-11-27] MEDS ORDERED: SUCCINYLCHOLINE CHLORIDE 100 MG/5 ML SYR IV ONE (19:18)
[2017-11-27] MEDS ORDERED: PROPOFOL 10 MG/ML 20 ML VIAL IV ONE (19:18)
--- NOTE | 2017-11-27 19:22 | EEG ---
ELECTROENCEPHALOGRAM REPORT DATE OF SERVICE: 11/27/2017 REASON FOR TESTING: Stroke. DESCRIPTION OF THE PROCEDURE: This EEG was performed using a 21-channel digital electroencephalograph, following international 10-20 system. DESCRIPTION OF THE RECORDING: From the beginning of the tracing, and with the patient's eyes closed, the background rhythm was mostly consisting of 7 Hz theta frequency in the posterior occipital leads. No obvious asymmetry is seen. Photic stimulation was performed, and during photic stimulation generalized sharp and slow wave activity is seen. Video monitoring was evaluated, and the patient was clinically having epileptic activity. More sharp wave activity is seen in the postictal state. Hyperventilation was not performed. Initially, her EKG lead showed a regular rate and rhythm. INTERPRETATION: This awake EEG is abnormal due to the presence of generalized epileptic activity seen during photic stimulation. Clinical correlation is recommended. ARTIE / JUANITO: [id number] /
--- NOTE | 2017-11-27 20:15 | XR ---
EXAMINATION TYPE: XR chest 1V portable DATE OF EXAM: 11/27/2017 COMPARISON: Today HISTORY: Tube placement TECHNIQUE: Single frontal view of the chest is obtained. FINDINGS: Endotracheal tube is in good position 4 cm from the odessa. Nasogastric tube appears in go od position. Lungs are clear of consolidation. There is no heart failure. There are chest leads. IMPRESSION: Endotracheal tube is in good position.
[2017-11-27] MEDS ORDERED: ACETAMINOPHEN SUPPOSITORY 650 MG SUPP RECTAL PRN (20:17)
[2017-11-27] MEDS ORDERED: NALOXONE 0.4 MG/ML 1 ML VIAL IV PRN (20:17)
[2017-11-27 20:45] LABS: ABG Base Excess -2.4 mmol/L; ABG HCO3 21 mmol/L (21-25); ABG Oxygen Saturation 98.4 % (94-97); ABG PCO2 29 mmHg (35-45); ABG PH 7.48 (7.35-7.45); ABG PO2 316 mmHg (83-108); ABG TCO2 22 mmol/L (19-24)
[2017-11-27 21:12] LABS: Glucose,Whole Blood 189 mg/dL (75-99)
[2017-11-27] MEDS: LABETALOL 5 MG/ML VIAL MDV IVP PRN ×3 (21:12→23:29)
[2017-11-27] MEDS: CHLORHEXIDINE GLUCONATE 15 ML CUP MUCOUS MEM SCH (21:15)
[2017-11-27] MEDS: PROPOFOL 1,000 MG in EMPTY BAG 1 BAG IV SCH ×2 (21:16→22:44)
--- NOTE | 2017-11-27 22:33 | CT ---
EXAMINATION TYPE: CT brain wo con DATE OF EXAM: 11/27/2017 COMPARISON: Today HISTORY: Altered mental status CT DLP: 822.6 mGycm Automated exposure control for dose reduction was used. FINDINGS: There is cerebral cortical atrophy. There is no mass effect nor midline shift. There is no sign of in tracranial hemorrhage. Calvarium is intact. IMPRESSION: CEREBRAL ATROPHY. NO ACUTE INTRACRANIAL ABNORMALITY. NO SIGN OF A CORTICAL INFARCT. NO CHANGE COMPARE D TO EXAM EARLIER TODAY.
[2017-11-28 00:03] LABS: HCT 29.1 % (34.0-46.0); HGB 10.2 gm/dL (11.4-16.0); MCH 28.6 pg (25.0-35.0); MCHC 34.9 g/dL (31.0-37.0); MCV 82.2 fL (80.0-100.0); Platelet Count 142 k/uL (150-450); RBC 3.55 m/uL (3.80-5.40); RDW 12.9 % (11.5-15.5); WBC 11.1 k/uL (3.8-10.6)
[2017-11-28 00:09] LABS: Glucose,Whole Blood 177 mg/dL (75-99)
[2017-11-28 00:21] LABS: D-Dimer 1.27 mg/L FEU (<0.60); INR 1.1 (<1.2); Partial Thromboplastin Time 22.4 sec (22.0-30.0); Prothrombin Time 10.8 sec (9.0-12.0)
[2017-11-28 00:31] LABS: Appearance,Urine Turbid (Clear); Bilirubin,Urine Negative (Negative); Blood,Urine Large (Negative); Color,Urine Yellow; Glucose,Urine (UA) Negative (Negative); Hyaline Casts,Urine 15 /lpf (0-2); Ketones,Urine Negative (Negative); Leukocyte Esterase,Urine Large (Negative); Mucus,Urine Rare /hpf; Nitrite,Urine Negative (Negative); PH, Urine 5.5 (5.0-8.0); Protein,Urine 1+ (Negative); RBC,Urine 38 /hpf (0-5); Specific Gravity,Urine 1.024 (1.001-1.035); Urobilinogen,Urine <2.0 mg/dL (<2.0); WBC,Urine 37 /hpf (0-5)
[2017-11-28] MEDS ORDERED: VANCOMYCIN IV PER PHARMACY 1 EACH MISC MISCELLANE PRN (00:52)
[2017-11-28] MEDS: IPRATROPIUM-ALBUTEROL 3 ML NEB INHALATION SCH ×6 (01:25→20:13)
[2017-11-28] MEDS ORDERED: DEXAMETHASONE SOD PHOSPHATE 4 MG/ML 1 ML VIAL IV PRN (01:27)
[2017-11-28] MEDS ORDERED: SODIUM CHLORIDE 0.9% IV ONE (01:28)
[2017-11-28] MEDS ORDERED: ACYCLOVIR SODIUM IV ONE (01:28)
[2017-11-28] MEDS ORDERED: VANCOMYCIN 1,500 MG in SODIUM CHLORIDE 0.9% 250 ML IVPB ONE (01:45)
[2017-11-28 01:59] LABS: Glucose,Whole Blood 145 mg/dL (75-99)
[2017-11-28] MEDS: DEXTROSE 5%-0.9% NACL 1,000 ML IV SCH (02:21)
[2017-11-28] MEDS: PROPOFOL 1,000 MG in EMPTY BAG 1 BAG IV SCH ×5 (02:55→19:14)
[2017-11-28] MEDS: levETIRAcetam IV 1,000 MG in SALINE 1 100ML.BAG IVPB SCH ×2 (04:39→16:59)
[2017-11-28 05:05] LABS: ABG Base Excess -3.7 mmol/L; ABG HCO3 20 mmol/L (21-25); ABG PCO2 27 mmHg (35-45); ABG PH 7.48 (7.35-7.45); ABG PO2 145 mmHg (83-108); ABG TCO2 21 mmol/L (19-24)
[2017-11-28 06:16] LABS: Basophils % (A) 0 %; Eosinophils # (A) 0.1 k/uL (0-0.7); Eosinophils % (A) 0 %; HCT 39.2 % (34.0-46.0); Lymphocytes # (A) 2.8 k/uL (1.0-4.8); Lymphocytes % (A) 16 %; MCH 28.5 pg (25.0-35.0); MCHC 33.7 g/dL (31.0-37.0); MCV 84.7 fL (80.0-100.0); Mean Platelet Volume 7.3; Monocytes # (A) 1.5 k/uL (0-1.0); Monocytes % (A) 8 %; Neutrophils # (A) 12.7 k/uL (1.3-7.7); Neutrophils % (A) 72 %; Platelet Count 189 k/uL (150-450); RBC 4.63 m/uL (3.80-5.40); RDW 12.9 % (11.5-15.5); WBC 17.5 k/uL (3.8-10.6)
[2017-11-28 06:21] LABS: HGB 13.2 gm/dL (11.4-16.0)
[2017-11-28] MEDS: LABETALOL 5 MG/ML VIAL MDV IVP PRN (06:23)
[2017-11-28 06:26] LABS: Calcium 8.7 mg/dL (8.4-10.2); Magnesium 1.7 mg/dL (1.6-2.3); Phosphorus 2.7 mg/dL (2.5-4.5); Potassium 3.4 mmol/L (3.5-5.1)
[2017-11-28] MEDS ORDERED: Magnesium Replacement Protocol 1 EACH MISC MISCELLANE PRN (06:55)
[2017-11-28] MEDS ORDERED: Potassium Replacement Protocol 1 EACH MISC MISCELLANE PRN (06:55)
[2017-11-28] MEDS ORDERED: POTASSIUM BICARBONATE/CIT AC 20 MEQ TABLET.EFF NG-TUBE SCH (07:00)
--- NOTE | 2017-11-28 07:45 | XR ---
EXAMINATION TYPE: XR chest 1V DATE OF EXAM: 11/28/2017 CLINICAL HISTORY: Difficulty breathing progress study. TECHNIQUE: Single AP portable semiupright view of the chest is obtained. COMPARISON: Chest x-ray from one day earlier and older studies. FINDINGS: And endotracheal tube and orogastric tube are stable in appearance. There is new left basi lar opacity. Right lung remains clear. No large pleural effusion or pneumothorax is seen bilaterally. Cardiac silhouette size is stable and within normal limits. Osseous structures are intact. IMPRESSION: New developing left basilar atelectasis and/or infiltrate.
[2017-11-28 07:53] LABS: Glucose,Whole Blood 138 mg/dL (75-99)
[2017-11-28] MEDS ORDERED: PIPERACILLIN-TAZOBACTAM 3.375 GM in DEXTROSE/WATER 1 50ML.BAG IVPB SCH ×2 (08:00→09:00)
[2017-11-28] MEDS ORDERED: FAMOTIDINE 20 MG/2 ML VIAL IV SCH (09:00)
[2017-11-28] MEDS ORDERED: cefTRIAXone IN SWFI 2,000 MG/20 ML SYRINGE IVP SCH (09:00)
[2017-11-28] MEDS: MAGNESIUM SULFATE-D5W PMX 1 GM in DEXTROSE/WATER 1 100ML.BAG IVPB SCH ×2 (09:03→11:15)
[2017-11-28] MEDS: INSULIN ASPART 100 UNIT/ML 1 ML 10 ML VIAL SQ SCH ×3 (09:04→18:44)
[2017-11-28] MEDS: LEVOTHYROXINE IVP 100 MCG/5 ML VIAL IV SCH (09:05)
[2017-11-28] MEDS: CHLORHEXIDINE GLUCONATE 15 ML CUP MUCOUS MEM SCH ×2 (09:05→21:43)
[2017-11-28] MEDS: PANTOPRAZOLE 40 MG/10 ML VIAL IV SCH (09:05)
--- NOTE | 2017-11-28 10:15 | P.CNPUL ---
History of Present Illness Consult date: 11/28/17 Reason for consult: other Chief complaint: Mental status changes, seizure, postictal state History of present illness: Consult dated 11/28/2017 77-year-old female who presented to the emergency department for mental status changes. She apparently was fine until she woke up in the morning according to her with the changes in her mental status. The patient states that apparently was not feeling well and did not eat or drink. Apparently were garbled according to her . She was seen in the emergency room and initially admitted to the sixth floor. She was seen by neurology. At sometime during the day yesterday she had a seizure may be during her EEG. A CAT scan was negative for ischemic stroke. She had an MRI/MRI which was also negative. I talked to the neurologist yesterday and the patient is a fairly thought to be post ictal. Anyway, after having one of my charge nurses go for the sixth floor to evaluate her, we ended up transferring her to the ICU. Here in the ICU , she had posturing and she was having some respiratory difficulty with sonorous respirations and I felt that she could not protect her airway. We had her intubated and mechanically ventilated. The patient is to have a lumbar puncture today. She has been having some fever and the thought that this could be meningitis. Again computed tomography scan and MRI/MRA were negative. Based on her medication profile, she likely has a history of hypertension hyperlipidemia hypothyroidism and possible urinary incontinence. She has NO KNOWN DRUG ALLERGIES. We do not know much about her social history. Currently , her vent settings include the assist control mode rate of 14 tidal volume 400 and FiO2 35% to be dropped down to 25% and a PEEP of 5. Arterial blood gases show a PaO2 of 145 a PaCO2 of 27 and a pH 7.48. These arterial blood gases are consistent with a respiratory alkalosis and a very mild metabolic acidosis. The pH for a PaCO2 of 27 should be about 7.5 to. She is on a dextrose and saline IV at 75 mL an hour propofol at 40 mics per kilogram per minute. Tube feeds have not been started as yet. She was admitted on November 26 and transferred to the ICU on the and intubated on the . Review of Systems ROS unobtainable: due to endotracheal tube Past Medical History Past Medical History: Hyperlipidemia, Hypertension, Osteoarthritis (OA), Thyroid Disorder Additional Past Medical History / Comment(s): Incontinent of urine at times. History of Any Multi-Drug Resistant Organisms: None Reported Past Surgical History: Appendectomy, Hysterectomy, Joint Replacement, Orthopedic Surgery Additional Past Surgical History / Comment(s): L knee arthroscopy, L total knee arthroplasty, colonoscopy, bilateral cataract removal/lens toric Smoking Status: Never smoker - Past Family History Father Family Medical History: Cancer Additional Family Medical History / Comment(s): Father had liver cancer and at the age of 52 yrs. Mother Family Medical History: Coronary Artery Disease (CAD), CVA/TIA Additional Family Medical History / Comment(s): Family believes pt's mother of a [place] at the age of 85 yrs. Sister(s) Family Medical History: Cancer (Lymphoma 20 years ago) Additional Family Medical History / Comment(s): Patient lives with his has been. She has 2 kids both healthy without any medical problems. She denies any use of cane or walker at home. Does not wear oxygen at night Medications and Allergies Home Medications Medication Instructions Recorded Confirmed Type Atenolol/Chlorthalidone [Tenoretic 1 tab PO DAILY 11/26/17 11/26/17 History 100 Tablet] Atorvastatin Calcium [Lipitor] 20 mg PO MOTUWETHFRSA 11/26/17 11/26/17 History Atorvastatin [Lipitor] 10 mg PO ANNE 11/26/17 11/26/17 History Estradiol [Estrace] 1 mg PO MOWEFR 11/26/17 11/26/17 History Fish Oil/Dha/Epa [Fish Oil 1,200 1 cap PO DAILY 11/26/17 11/26/17 History mg Fish Oil] Gemfibrozil [Lopid] 600 mg PO AC-BID 11/26/17 11/26/17 History Glucosamine/Chondr Anne A Sod [Osteo 1 tab PO BID 11/26/17 11/26/17 History Bi-Flex Caplet] Levothyroxine Sodium [Synthroid] 44 mcg PO ANNE 11/26/17 11/26/17 History Levothyroxine Sodium [Synthroid] 88 mcg PO MOTUWETHFRSA 11/26/17 11/26/17 History Magnesium Oxide [Mag-Ox] 400 mg PO DAILY 11/26/17 11/26/17 History Potassium Chloride ER [K-Dur 10] 10 meq PO DAILY 11/26/17 11/26/17 History Solifenacin Succinate [Vesicare] 5 mg PO DAILY 11/26/17 11/26/17 History Vitamin E (Dl,Tocopheryl Acet) 400 unit PO DAILY 11/26/17 11/26/17 History [Vitamin E] Allergies Allergy/AdvReac Type Severity Reaction Status Date / Time No Known Allergies Allergy Verified 11/26/17 09:40 Physical Exam Osteopathic Statement: *. No significant issues noted on an osteopathic structural exam other than those noted in the History and Physical/Consult. Vitals: Vital Signs Temp Pulse Pulse Resp BP BP Pulse Ox 11/28/17 08:25 84 22 11/28/17 08:13 85 22 11/28/17 07:10 99.8 F H 11/28/17 07:00 86 22 187/63 99 11/28/17 06:30 90 21 205/55 99 11/28/17 06:00 89 23 169/64 97 11/28/17 05:30 84 20 178/74 99 11/28/17 05:00 101.5 F H 88 28 H 166/49 98 11/28/17 04:30 88 29 H 197/63 100 11/28/17 04:00 101 F H 93 26 H 186/62 100 11/28/17 03:30 87 28 H 176/58 100 11/28/17 03:00 84 28 H 165/47 100 11/28/17 02:30 85 26 H 172/72 100 11/28/17 02:00 87 25 H 177/61 100 11/28/17 01:32 92 11/28/17 01:30 95 30 H 145/52 100 11/28/17 01:00 87 28 H 187/60 100 11/28/17 00:30 93 30 H 188/55 100 11/28/17 00:00 102.8 F H 90 26 H 186/67 100 11/27/17 23:30 93 24 180/66 100 11/27/17 23:00 101.8 F H 97 30 H 220/65 99 11/27/17 22:30 96 27 H 193/66 99 11/27/17 22:26 96 30 H 100 11/27/17 21:30 100 26 H 220/68 100 11/27/17 21:00 106 H 29 H 215/64 100 11/27/17 20:52 103 F H 104 H 28 H 219/99 100 11/27/17 20:50 103 H 219/99 100 11/27/17 20:40 103 H 219/99 100 11/27/17 20:30 103 H 148/68 100 11/27/17 20:20 102 H 148/68 100 11/27/17 20:10 103 H 148/68 100 11/27/17 20:00 101 H 148/68 100 11/27/17 19:50 102 H 148/68 100 11/27/17 19:40 100 148/68 100 11/27/17 19:30 105 H 158/98 94 L 11/27/17 19:20 108 H 158/98 100 11/27/17 19:10 118 H 158/98 100 11/27/17 19:00 121 H 225/98 98 11/27/17 18:50 117 H 218/77 94 L 11/27/17 18:40 108 H 227/129 94 L 11/27/17 18:30 118 H 198/99 91 L 11/27/17 18:20 104 H 198/99 94 L 11/27/17 18:10 103 H 208/84 95 11/27/17 18:00 110 H 201/90 96 11/27/17 17:50 103 H 213/88 94 L 11/27/17 17:40 107 H 218/90 95 11/27/17 17:33 97.9 F 119 H 11/27/17 16:00 96 18 134/63 96 11/27/17 11:25 96 16 173/77 97 Intake and Output 11/27/17 11/28/17 11/28/17 22:59 06:59 14:59 Intake Total 238.72 1423.818 Output Total 150 770 Balance 88.72 653.818 Intake: IV 200 1250 Acyclovir Sodium 500 mg 100 In Sodium Chloride 0.9% 100 ml @ 100 mls/hr IVPB Q8H [facility] Rx#:[id number] Sodium Chloride 0.9% 1, 200 900 000 ml @ 100 mls/hr IV . Q10H [facility] Rx#:[id number] Vancomycin 1,500 mg In 250 Sodium Chloride 0.9% 250 ml @ 125 mls/hr IVPB ONCE ONE Rx#:[id number] Intake, IV Titration 38.72 173.818 Amount Propofol 1,000 mg In 38.72 173.818 Empty Bag 1 bag @ Titrate IV .Q0M [facility] Rx#: [id number] Output: Urine 150 770 Other: Voiding Method Indwelling Catheter Indwelling Catheter Weight 97 kg ABP, PAP, CO, CI - Last 8 Hours Arterial Blood Pressure 141/62 Arterial Blood Pressure 145/63 Arterial Blood Pressure 140/62 Arterial Blood Pressure 143/66 Arterial Blood Pressure 118/111 Arterial Blood Pressure 113/66 No acute distress, sedated, with an oral endotracheal tube and NG tube in place. HEENT examination is grossly unremarkable. Mucous membranes are moist. Neck supple. Full range of motion. No adenopathy thyromegaly or neck vein distention. Cardiovascular examination reveals regular rhythm rate. S1-S2 normal. No S3 or S4. No discernible murmur noted. Lungs reveal mostly clear breath sounds. A few scattered rhonchi. No wheezes or crackles. Abdomen soft bowel sounds are heard. No masses or tenderness. Extremities are intact. No cyanosis clubbing or edema. Skin is without rash or lesion. Neurologic examination could not be properly assessed. The patient is currently sedated. Results - Laboratory Findings CBC and BMP: 11/28/17 06:06 11/28/17 06:06 ABG ABG pH 7.48 (7.35-7.45) H 11/28/17 05:00 ABG pCO2 27 mmHg (35-45) L 11/28/17 05:00 ABG pO2 145 mmHg (83-108) H 11/28/17 05:00 ABG O2 Saturation 99.0 % (94-97) H 11/28/17 05:00 PT/INR, D-dimer PT 10.8 sec (9.0-12.0) 11/27/17 23:55 INR 1.1 (<1.2) 11/27/17 23:55 D-Dimer 1.27 mg/L FEU (<0.60) H 11/27/17 23:55 Abnormal lab findings: Abnormal Labs 11/26/17 11/26/17 11/26/17 09:20 09:20 09:20 WBC 14.3 H RBC Hgb Hct Plt Count Neutrophils # 11.3 H Monocytes # APTT 19.5 L D-Dimer ABG pH ABG pCO2 ABG pO2 ABG HCO3 ABG O2 Saturation Potassium Carbon Dioxide 20 L BUN 18 H Glucose 153 H POC Glucose (mg/dL) Plasma Lactic Acid Ede Alkaline Phosphatase 34 L Total Protein Triglycerides Cholesterol LDL Cholesterol, Calc HDL Cholesterol Urine Appearance Urine Protein Urine Blood Ur Leukocyte Esterase Urine RBC Urine WBC Hyaline Casts Urine Mucus 11/26/17 11/26/17 11/27/17 09:20 09:20 06:29 WBC RBC Hgb Hct Plt Count Neutrophils # Monocytes # APTT D-Dimer ABG pH ABG pCO2 ABG pO2 ABG HCO3 ABG O2 Saturation Potassium 3.4 L Carbon Dioxide BUN 18 H Glucose 123 H POC Glucose (mg/dL) Plasma Lactic Acid Ede 2.4 H* Alkaline Phosphatase Total Protein 6.2 L Triglycerides 201 H Cholesterol 201 H LDL Cholesterol, Calc 128 H HDL Cholesterol 33 L Urine Appearance Urine Protein Urine Blood Small H Ur Leukocyte Esterase Urine RBC Urine WBC Hyaline Casts Urine Mucus 11/27/17 11/27/17 11/27/17 06:29 14:00 17:37 WBC 11.2 H RBC Hgb Hct Plt Count Neutrophils # 8.0 H Monocytes # APTT D-Dimer ABG pH ABG pCO2 ABG pO2 ABG HCO3 ABG O2 Saturation Potassium Carbon Dioxide BUN Glucose POC Glucose (mg/dL) 179 H 197 H Plasma Lactic Acid Ede Alkaline Phosphatase Total Protein Triglycerides Cholesterol LDL Cholesterol, Calc HDL Cholesterol Urine Appearance Urine Protein Urine Blood Ur Leukocyte Esterase Urine RBC Urine WBC Hyaline Casts Urine Mucus 11/27/17 11/27/17 11/27/17 17:54 20:43 21:11 WBC RBC Hgb Hct Plt Count Neutrophils # Monocytes # APTT D-Dimer ABG pH 7.48 H ABG pCO2 33 L 29 L ABG pO2 73 L 316 H ABG HCO3 ABG O2 Saturation 98.4 H Potassium Carbon Dioxide BUN Glucose POC Glucose (mg/dL) 189 H Plasma Lactic Acid Ede Alkaline Phosphatase Total Protein Triglycerides Cholesterol LDL Cholesterol, Calc HDL Cholesterol Urine Appearance Urine Protein Urine Blood Ur Leukocyte Esterase Urine RBC Urine WBC Hyaline Casts Urine Mucus 11/27/17 11/27/17 11/28/17 23:55 23:55 00:06 WBC 11.1 H RBC 3.55 L Hgb 10.2 L D Hct 29.1 L Plt Count 142 L Neutrophils # Monocytes # APTT D-Dimer 1.27 H ABG pH ABG pCO2 ABG pO2 ABG HCO3 ABG O2 Saturation Potassium Carbon Dioxide BUN Glucose POC Glucose (mg/dL) 177 H Plasma Lactic Acid Ede Alkaline Phosphatase Total Protein Triglycerides Cholesterol LDL Cholesterol, Calc HDL Cholesterol Urine Appearance Urine Protein Urine Blood Ur Leukocyte Esterase Urine RBC Urine WBC Hyaline Casts Urine Mucus 11/28/17 11/28/17 11/28/17 00:15 01:58 05:00 WBC RBC Hgb Hct Plt Count Neutrophils # Monocytes # APTT D-Dimer ABG pH 7.48 H ABG pCO2 27 L ABG pO2 145 H ABG HCO3 20 L ABG O2 Saturation 99.0 H Potassium Carbon Dioxide BUN Glucose POC Glucose (mg/dL) 145 H Plasma Lactic Acid Ede Alkaline Phosphatase Total Protein Triglycerides Cholesterol LDL Cholesterol, Calc HDL Cholesterol Urine Appearance Turbid H Urine Protein 1+ H Urine Blood Large H Ur Leukocyte Esterase Large H Urine RBC 38 H Urine WBC 37 H Hyaline Casts 15 H Urine Mucus Rare H 11/28/17 11/28/17 11/28/17 06:06 06:06 07:52 WBC 17.5 H RBC Hgb Hct Plt Count Neutrophils # 12.7 H Monocytes # 1.5 H APTT D-Dimer ABG pH ABG pCO2 ABG pO2 ABG HCO3 ABG O2 Saturation Potassium 3.4 L Carbon Dioxide 21 L BUN 24 H Glucose 148 H POC Glucose (mg/dL) 138 H Plasma Lactic Acid Ede Alkaline Phosphatase Total Protein Triglycerides Cholesterol LDL Cholesterol, Calc HDL Cholesterol Urine Appearance Urine Protein Urine Blood Ur Leukocyte Esterase Urine RBC Urine WBC Hyaline Casts Urine Mucus - Diagnostic Findings Chest x-ray: image reviewed (Labs x-rays a medications are all reviewed.) Assessment and Plan Assessment: Assessment Altered mental status, likely representing either a new onset seizure with a postictal state or possible meningitis Possible CVA, although, scanning is negative. Acute respiratory failure secondary to patient unable to protect her airway, requiring intubation and mechanical ventilation History of hypertension History of hyperlipidemia History of hypothyroidism Plan: Plan dated 11/28/2017 The patient's currently on antibiotics for presumed meningitis. A lumbar puncture is being performed by anesthesia. Her antibiotics including Rocephin and vancomycin and Zosyn and acyclovir. Her antibiotic should be Rocephin and vancomycin and ampicillin and acyclovir. Listeria monocytogenes would be one possible cause of her meningitis if that is the correct diagnosis. The patient remains on mechanical ventilator. FiO2 was dropped from 35-25%. We'll start tube feedings on the patient. Patient will continue with IV fluids. Additional recommendations and suggestions forthcoming. Prognosis is guarded since we don't have a clear-cut etiology at this time. I was able to speak to the neurologist yesterday. He feels that this patient had a new-onset seizure with a postictal state. One other possibility might be posterior reversible encephalopathy syndrome. We'll discuss with neurology about this. Time with Patient: Greater than 30
--- NOTE | 2017-11-28 10:43 | P.PCN ---
Date of Procedure: 11/28/17 Surgeon: Josh Lala Pathology: none sent Condition: stable Disposition: PACU Description of Procedure: PREOPERATIVE DIAGNOSIS: 1-rule out meningitis POSTOPERATIVE DIAGNOSIS: same PROCEDURE 1. Diagnostic lumbar puncture ANESTHESIA: Local with 1% lidocaine; patient currently intubated/sedated in ICU EBL: Minimal PROCEDURE INDICATION: This is a 77-year-old patient with altered mental status due to CVA vs. meningitis, currently intubated for airway protection in ICU; anesthesia service consulted for diagnostic LP to rule out meningitis. Patient has not had any blood thinners PROCEDURE DESCRIPTION / TECHNIQUE: The patient was seen and identified in the preoperative area. Risks, benefits, complications, and alternatives were discussed with the patient, including but not limited to bleeding, infection, nerve damage, allergic reactions to medications, and spinal headache. The patient agreed to proceed with the procedure and signed the consent after all questions were answered. Vital signs were stable. Patient was turned to the lateral decubitus position with the help of the ICU nursing staff. Time out was completed to confirm patient position, procedure, and allergies. The patient was placed in the sitting position on procedure table with help from nursing staff. The lumbosacral area was prepped and draped in the usual sterile fashion. Vital signs were closely monitored during the procedure. The patient had extremely poor landmarks as spinous processes in the lumbar spine were barely palpable. After localization with 1% lidocaine, a 22-gauge 3.5-inch spinal needle was placed in what was presumed to be the L3-L4 interspace. What was presumed to be a dural pop was noted but no cerebrospinal fluid returned. The needle was repositioned but no CSF could be obtained. I then attempted the procedure at a higher level (L2-L3) but no CSF could be obtained. After a total of three attempts with several repositionings, the procedure was aborted. Bandages were applied by ICU team. COMPLICATIONS: None COMMENTS: None DISPOSITION / PLANS: Vital signs were stable after procedure and the patient was returned to the care of the intensivists. Recommend consulting interventional radiology team for LP under fluoroscopic guidance.
[2017-11-28] MEDS: ACYCLOVIR SODIUM 500 MG in SODIUM CHLORIDE 0.9% 100 ML IVPB SCH ×2 (11:16→17:00)
[2017-11-28] MEDS: ASPIRIN 300 MG SUPP RECTAL SCH (11:16)
[2017-11-28 12:47] LABS: Glucose,Whole Blood 182 mg/dL (75-99)
[2017-11-28] MEDS ORDERED: AMPICILLIN 2,000 MG in SODIUM CHLORIDE 0.9% 100 ML IVPB SCH (13:00)
[2017-11-28] MEDS: DEXAMETHASONE SOD PHOSPHATE 4 MG/ML 1 ML VIAL IV SCH ×2 (14:17→18:44)
[2017-11-28] MEDS: VANCOMYCIN 1,500 MG in SODIUM CHLORIDE 0.9% 250 ML IVPB SCH (14:18)
--- NOTE | 2017-11-28 14:47 | P.PN ---
Subjective Progress Note Date: 11/28/17 77 years old female patient of Dr. Wilson with past medical history of hypertension, hyperlipidemia, hypothyroidism, overactive bladder presents in with confusion that started this morning. According to the family patient was not eating and drinking for the past 2 days. She woke up in the morning feeling confused, unable to speak appropriately. Patient was unable to comprehend and repeat appropriately. Her language was gibberish and lacked meaning. Patient denies any sensory or motor deficits. She denies any history of seizure or any similar episodes in the past. Patient denies any history of chest pain, palpitation, shortness of breath, abdominal pain, nausea or vomiting. No history of syncope or loss of consciousness prior to this episode. Patient is unable to provide much history is pleasantly confused. She does know where she is and can tell her name and date of . Vitals are stable with blood pressure slightly elevated 171/70. Saturating well on room air and afebrile. Patient did have a leukocytosis of 14.3 INR 1.1, lactic acid 2.4. Normal troponin. CT head negative for any acute abnormalities no masses seen. Did have prominent choroid plexus cyst. CT abdomen and pelvis was done as patient had some tenderness in the lower quadrant which was unremarkable. Due to patient's A. fib. Dysarthria MRI/MRA ordered. Neurology consulted from possible stroke versus brain mass. 11/27: Echocardiogram reveals EF of 55-60%, trace mitral regurgitation, trace tricuspid regurgitation. Patient has been seen by Dr. 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 Homocysteine level is normal at 12.02. Triglycerides 201, cholesterol 201, LDL 128 and HDL 34. Repeat troponins came back negative. Patient was unable to swallow but her a.m. medications were given. Patient is having difficulty following directions. We will change what we can over to IV. MRI is scheduled for 4 this afternoon. PT OT and speech therapy are all involved. EEG is pending. EEG 11/28: When patient went for EEG yesterday afternoon, she developed seizure activity while having the procedure done. The seizure activity stopped without any medication. She was subsequently post ictal and was transferred to the intensive care unit. She underwent MRI and MRI/MRA of the head and neck that showed no evidence of recent infarct. Patient was unarousable after this responded to pain stimuli. There was concern decorticated posturing at that time. Patient was started on Keppra 1000 mg IV twice daily. She also underwent a repeat CAT scan of the brain that showed cerebral atrophy. No acute intracranial abnormality seen. No sign of cortical infarct. No change. Repeat chest x-ray shows no developing left basilar atelectasis and/or infiltrate. LP was attempted by anesthesia which was unsuccessful. She continued to have posturing and respiratory status was declining and patient was intubated and placed on mechanical ventilation. There is order for interventional radiology to perform lumbar puncture. She is currently on antimicrobials in the form of Rocephin, vancomycin, acyclovir and ampicillin. Patient also developed fever up to 103 there was consult placed with Dr. Roche. Dr. Nash is intensive care management. Objective - Vital Signs Vital signs: Vital Signs Temp 101.3 F H 11/28/17 08:00 Pulse 98 11/28/17 11:06 Resp 25 H 11/28/17 11:06 BP 122/72 11/28/17 11:00 Pulse Ox 96 11/28/17 11:00 Intake & Output 11/27/17 11/28/17 11/28/17 18:59 06:59 18:59 Intake Total 500 1662.538 842.273 Output Total 920 275 Balance 500 742.538 567.273 Weight 97 kg 97 kg Intake: IV 1450 750 Acyclovir Sodium 500 mg 100 100 In Sodium Chloride 0.9% 100 ml @ 100 mls/hr IVPB Q8H [facility] Rx#:[id number] Magnesium Sulfate-D5w Pmx 200 1 gm In Dextrose/Water 1 100ml.bag @ 100 mls/hr IVPB Q1H [facility] Rx#: [id number] Piperacillin-Tazobactam 3 50 .375 gm In Dextrose/Water 1 50ml.bag @ 12.5 mls/hr IVPB Q12HR [facility] Rx#: [id number] Sodium Chloride 0.9% 1, 1100 400 000 ml @ 100 mls/hr IV . Q10H [facility] Rx#:[id number] Vancomycin 1,500 mg In 250 Sodium Chloride 0.9% 250 ml @ 125 mls/hr IVPB ONCE ONE Rx#:[id number] Intake, IV Titration 500 212.538 92.273 Amount Propofol 1,000 mg In 212.538 92.273 Empty Bag 1 bag @ Titrate IV .Q0M [facility] Rx#: [id number] Sodium Chloride 0.9% 1, 500 000 ml @ 100 mls/hr IV . Q10H [facility] Rx#:[id number] Output: Urine 920 275 Other: Voiding Method Bedpan Indwelling Catheter Indwelling Catheter Diaper Incontinent ABP, PAP, CO, CI - Last Documented Arterial Blood Pressure 141/62 - Exam General appearance: cooperative, no acute distress, obese - EENT Eyes: anicteric sclerae, PERRLA, normal appearance ENT: hearing grossly normal - Neck Neck: no lymphadenopathy, normal ROM, no other, no rigidity, no stridor, no thyromegaly - Respiratory Respiratory: bilateral: CTA, negative: diminished, dullness, rales, rhonchi - Cardiovascular Rhythm: regular Heart sounds: normal: S1, S2 Abnormal Heart Sounds: no systolic murmur, no diastolic murmur, no rub, no S3 Gallop, no S4 Gallop, no click, no other - Gastrointestinal General gastrointestinal: normal bowel sounds, soft - Integumentary Integumentary: no rash - Neurologic Neurologic: CNII-XII intact, no motor or sensory deficit. Reflexes normal No nystagmus. Unable to comprehend or repeat words. Is able to tell her name, date of where she has. [place] when asked about the month or the year. Comprehension is normal intermittently. - Musculoskeletal Musculoskeletal: strength equal bilaterally - Psychiatric Psychiatric: A&O x's 1, increased confusion from admission, appropriate affect - Labs CBC & Chem 7: 11/28/17 06:06 11/28/17 06:06 Labs: Abnormal Lab Results - Last 24 Hours (Table) 11/27/17 11/27/17 11/27/17 Range/Units 14:00 17:37 17:54 WBC (3.8-10.6) k/uL RBC (3.80-5.40) m/uL Hgb (11.4-16.0) gm/dL Hct (34.0-46.0) % Plt Count (150-450) k/uL Neutrophils # (1.3-7.7) k/uL Monocytes # (0-1.0) k/uL D-Dimer (<0.60) mg/L FEU ABG pH (7.35-7.45) ABG pCO2 33 L (35-45) mmHg ABG pO2 73 L (83-108) mmHg ABG HCO3 (21-25) mmol/L ABG O2 Saturation (94-97) % Potassium (3.5-5.1) mmol/L Carbon Dioxide (22-30) mmol/L BUN (7-17) mg/dL Glucose (74-99) mg/dL POC Glucose (mg/dL) 179 H 197 H (75-99) mg/dL Urine Appearance (Clear) Urine Protein (Negative) Urine Blood (Negative) Ur Leukocyte Esterase (Negative) Urine RBC (0-5) /hpf Urine WBC (0-5) /hpf Hyaline Casts (0-2) /lpf Urine Mucus (None) /hpf 11/27/17 11/27/17 11/27/17 Range/Units 20:43 21:11 23:55 WBC 11.1 H (3.8-10.6) k/uL RBC 3.55 L (3.80-5.40) m/uL Hgb 10.2 L D (11.4-16.0) gm/dL Hct 29.1 L (34.0-46.0) % Plt Count 142 L (150-450) k/uL Neutrophils # (1.3-7.7) k/uL Monocytes # (0-1.0) k/uL D-Dimer (<0.60) mg/L FEU ABG pH 7.48 H (7.35-7.45) ABG pCO2 29 L (35-45) mmHg ABG pO2 316 H (83-108) mmHg ABG HCO3 (21-25) mmol/L ABG O2 Saturation 98.4 H (94-97) % Potassium (3.5-5.1) mmol/L Carbon Dioxide (22-30) mmol/L BUN (7-17) mg/dL Glucose (74-99) mg/dL POC Glucose (mg/dL) 189 H (75-99) mg/dL Urine Appearance (Clear) Urine Protein (Negative) Urine Blood (Negative) Ur Leukocyte Esterase (Negative) Urine RBC (0-5) /hpf Urine WBC (0-5) /hpf Hyaline Casts (0-2) /lpf Urine Mucus (None) /hpf 11/27/17 11/28/17 11/28/17 Range/Units 23:55 00:06 00:15 WBC (3.8-10.6) k/uL RBC (3.80-5.40) m/uL Hgb (11.4-16.0) gm/dL Hct (34.0-46.0) % Plt Count (150-450) k/uL Neutrophils # (1.3-7.7) k/uL Monocytes # (0-1.0) k/uL D-Dimer 1.27 H (<0.60) mg/L FEU ABG pH (7.35-7.45) ABG pCO2 (35-45) mmHg ABG pO2 (83-108) mmHg ABG HCO3 (21-25) mmol/L ABG O2 Saturation (94-97) % Potassium (3.5-5.1) mmol/L Carbon Dioxide (22-30) mmol/L BUN (7-17) mg/dL Glucose (74-99) mg/dL POC Glucose (mg/dL) 177 H (75-99) mg/dL Urine Appearance Turbid H (Clear) Urine Protein 1+ H (Negative) Urine Blood Large H (Negative) Ur Leukocyte Esterase Large H (Negative) Urine RBC 38 H (0-5) /hpf Urine WBC 37 H (0-5) /hpf Hyaline Casts 15 H (0-2) /lpf Urine Mucus Rare H (None) /hpf 11/28/17 11/28/17 11/28/17 Range/Units 01:58 05:00 06:06 WBC (3.8-10.6) k/uL RBC (3.80-5.40) m/uL Hgb (11.4-16.0) gm/dL Hct (34.0-46.0) % Plt Count (150-450) k/uL Neutrophils # (1.3-7.7) k/uL Monocytes # (0-1.0) k/uL D-Dimer (<0.60) mg/L FEU ABG pH 7.48 H (7.35-7.45) ABG pCO2 27 L (35-45) mmHg ABG pO2 145 H (83-108) mmHg ABG HCO3 20 L (21-25) mmol/L ABG O2 Saturation 99.0 H (94-97) % Potassium 3.4 L (3.5-5.1) mmol/L Carbon Dioxide 21 L (22-30) mmol/L BUN 24 H (7-17) mg/dL Glucose 148 H (74-99) mg/dL POC Glucose (mg/dL) 145 H (75-99) mg/dL Urine Appearance (Clear) Urine Protein (Negative) Urine Blood (Negative) Ur Leukocyte Esterase (Negative) Urine RBC (0-5) /hpf Urine WBC (0-5) /hpf Hyaline Casts (0-2) /lpf Urine Mucus (None) /hpf 11/28/17 11/28/17 11/28/17 Range/Units 06:06 07:52 12:45 WBC 17.5 H (3.8-10.6) k/uL RBC (3.80-5.40) m/uL Hgb (11.4-16.0) gm/dL Hct (34.0-46.0) % Plt Count (150-450) k/uL Neutrophils # 12.7 H (1.3-7.7) k/uL Monocytes # 1.5 H (0-1.0) k/uL D-Dimer (<0.60) mg/L FEU ABG pH (7.35-7.45) ABG pCO2 (35-45) mmHg ABG pO2 (83-108) mmHg ABG HCO3 (21-25) mmol/L ABG O2 Saturation (94-97) % Potassium (3.5-5.1) mmol/L Carbon Dioxide (22-30) mmol/L BUN (7-17) mg/dL Glucose (74-99) mg/dL POC Glucose (mg/dL) 138 H 182 H (75-99) mg/dL Urine Appearance (Clear) Urine Protein (Negative) Urine Blood (Negative) Ur Leukocyte Esterase (Negative) Urine RBC (0-5) /hpf Urine WBC (0-5) /hpf Hyaline Casts (0-2) /lpf Urine Mucus (None) /hpf Microbiology - Last 24 Hours (Table) 11/26/17 09:20 Blood Culture - Preliminary Blood No Growth after 48 hours 11/27/17 20:55 Sputum Culture - Preliminary Sputum 11/28/17 00:15 Urine Culture - Preliminary Urine,Catheterized Assessment and Plan Plan: 1. Acute metabolic encephalopathy of unclear etiology, with new onset of seizure possible meningitis, encephalitis. Acute stroke has been ruled out. Neurology, pulmonary medicine, infectious disease consults in place. Patient is currently on antimicrobials in the form of ampicillin, ceftriaxone, acyclovir and vancomycin. Patient started on dexamethasone 4 mg IV every 6 hours. Continue Keppra 1000 mg twice daily IV piggyback, Ativan 1 mg every 6 hours as needed for seizure, Tylenol by suppository An interventional radiology to perform a diagnostic lumbar puncture. 2. Acute hypoxic respiratory failure secondary to inability to protect her airway. Patient has been intubated and on mechanical ventilation. Dr. Hernandez is managing. 3. Hyperlipidemia. Lipid panel as above. 4. Hypertension hold atenolol/chlorthalidone. 5. Hypothyroidism continue levothyroxine 44 g on Sunday and 88 g rest of the days and just IV 6. Overactive bladder. Hold oxybutynin 10 mg by mouth daily 7. Leukocytosis likely reactive. 7. GI prophylaxis with Protonix daily. 8. DVT prophylaxis with SCDs . CODE STATUS full code Discharge plan: Subacute rehab Impression and plan of care have been directed as dictated by the signing physician. Linda Mera nurse practitioner acting as scribe for signing physician.
--- NOTE | 2017-11-28 15:21 | P.CONS ---
History of Present Illness - Reason for Consult Consult date: 11/28/17 - History of Present Illness 77 years old female came into [facility] emergency center on November 26 and according to the family was not eating and drinking for the past 2 days. She went to bed on Sunday evening and was feeling fine. She woke up in the morning not feeling well and had some abdominal discomfort for which she took pepto-bismol but there was no vomiting or diarrhea at that time. She then developed confusion and difficulty with her speech. Patient was unable to comprehend and repeat appropriately. Her language was gibberish and lacked meaning. Patient denies any sensory or motor deficits. She denies any history of seizure or any similar episodes in the past. Patient was pleasantly confused. She does know where she is and can tell her name and date of . She presented afebrile with white count of 14.3. Vitals are stable with blood pressure slightly elevated 171/70. Saturating well on room air and afebrile. Patient did have a leukocytosis of 14.3. Urinalysis showed a small amount of blood otherwise negative for infection. Lactic acid 2.4. Normal troponin. CT head negative for any acute abnormalities no masses seen. Did have prominent choroid plexus cyst. CT abdomen and pelvis was done as patient had some tenderness in the lower quadrant which was unremarkable. Patient was initially admitted to the selective care unit where she was seen by neurology. By the following morning patient had more confusion and was having difficulty following any commands. She was made nothing by mouth. Echocardiogram reveals EF of 55-60%, trace mitral regurgitation, trace tricuspid regurgitation. Homocysteine level is normal at 12.02. Triglycerides 201, cholesterol 201, LDL 128 and HDL 34. Repeat troponins came back negative. Patient went for EEG yesterday afternoon, she developed seizure activity while having the procedure done. The seizure activity stopped without any medication. She was subsequently post ictal and not responding normally. She underwent MRI and MRI/ MRA of the head and neck that showed no evidence of recent infarct. Patient was unarousable after this responded to pain stimuli. There was concern decorticated posturing at that time. Patient was started on Keppra 1000 mg IV twice daily. She also underwent a repeat CAT scan of the brain that showed cerebral atrophy. No acute intracranial abnormality seen. No sign of cortical infarct. No change. Repeat chest x-ray shows no developing left basilar atelectasis and/or infiltrate. She was transferred into the intensive care unit. LP was attempted by anesthesia which was unsuccessful. She continued to have posturing and respiratory status was declining and patient was intubated and placed on mechanical ventilation. Interventional radiology to perform diagnostic lumbar puncture. She is currently on antimicrobials in the form of Rocephin, vancomycin, acyclovir and ampicillin. Patient also developed fever up to 103 yesterday afternoon and patient also developed a petechial papule rash that was new.. Patient is followed by Dr. Nash is intensive care management. Family states the patient has not had any recent travel. She goes to [facility] to visit her daughter and went to [place] for Thanksgiving. Family denied any bird, bat exposure. One month ago she did have the flu and this is what she thought was going on on Sunday morning when she woke up. They deny any unusual animal exposures. Review of Systems ROS unobtainable: due to mental status Past Medical History Past Medical History: Hyperlipidemia, Hypertension, Osteoarthritis (OA), Thyroid Disorder Additional Past Medical History / Comment(s): Incontinent of urine at times. History of Any Multi-Drug Resistant Organisms: None Reported Past Surgical History: Appendectomy, Hysterectomy, Joint Replacement, Orthopedic Surgery Additional Past Surgical History / Comment(s): L knee arthroscopy, L total knee arthroplasty, colonoscopy, bilateral cataract removal/lens toric Smoking Status: Never smoker - Past Family History Father Family Medical History: Cancer Additional Family Medical History / Comment(s): Father had liver cancer and at the age of 52 yrs. Mother Family Medical History: Coronary Artery Disease (CAD), CVA/TIA Additional Family Medical History / Comment(s): Family believes pt's mother of a CO at the age of 85 yrs. Sister(s) Family Medical History: Cancer (Lymphoma 20 years ago) Additional Family Medical History / Comment(s): Patient lives with his has been. She has 2 kids both healthy without any medical problems. She denies any use of cane or walker at home. Does not wear oxygen at night Medications and Allergies Home Medications Medication Instructions Recorded Confirmed Type Atenolol/Chlorthalidone [Tenoretic 1 tab PO DAILY 11/26/17 11/26/17 History 100 Tablet] Atorvastatin Calcium [Lipitor] 20 mg PO MOTUWETHFRSA 11/26/17 11/26/17 History Atorvastatin [Lipitor] 10 mg PO CRUZ 11/26/17 11/26/17 History Estradiol [Estrace] 1 mg PO MOWEFR 11/26/17 11/26/17 History Fish Oil/Dha/Epa [Fish Oil 1,200 1 cap PO DAILY 11/26/17 11/26/17 History mg Fish Oil] Gemfibrozil [Lopid] 600 mg PO AC-BID 11/26/17 11/26/17 History Glucosamine/Chondr Cruz A Sod [Osteo 1 tab PO BID 11/26/17 11/26/17 History Bi-Flex Caplet] Levothyroxine Sodium [Synthroid] 44 mcg PO CRUZ 11/26/17 11/26/17 History Levothyroxine Sodium [Synthroid] 88 mcg PO MOTUWETHFRSA 11/26/17 11/26/17 History Magnesium Oxide [Mag-Ox] 400 mg PO DAILY 11/26/17 11/26/17 History Potassium Chloride ER [K-Dur 10] 10 meq PO DAILY 11/26/17 11/26/17 History Solifenacin Succinate [Vesicare] 5 mg PO DAILY 11/26/17 11/26/17 History Vitamin E (Dl,Tocopheryl Acet) 400 unit PO DAILY 11/26/17 11/26/17 History [Vitamin E] Allergies Allergy/AdvReac Type Severity Reaction Status Date / Time No Known Allergies Allergy Verified 11/26/17 09:40 Physical Exam Vitals: Vital Signs Temp Pulse Pulse Resp BP BP Pulse Ox 11/28/17 11:06 98 25 H 11/28/17 11:00 89 14 122/72 96 11/28/17 10:53 92 22 11/28/17 10:00 85 194/61 98 11/28/17 09:00 95 202/58 99 11/28/17 08:25 84 22 11/28/17 08:13 85 22 11/28/17 08:00 101.3 F H 81 170/56 99 11/28/17 07:10 99.8 F H 11/28/17 07:00 86 22 187/63 99 11/28/17 06:30 90 21 205/55 99 11/28/17 06:00 89 23 169/64 97 11/28/17 05:30 84 20 178/74 99 11/28/17 05:00 101.5 F H 88 28 H 166/49 98 11/28/17 04:30 88 29 H 197/63 100 11/28/17 04:00 101 F H 93 26 H 186/62 100 11/28/17 03:30 87 28 H 176/58 100 11/28/17 03:00 84 28 H 165/47 100 11/28/17 02:30 85 26 H 172/72 100 11/28/17 02:00 87 25 H 177/61 100 11/28/17 01:32 92 11/28/17 01:30 95 30 H 145/52 100 11/28/17 01:00 87 28 H 187/60 100 11/28/17 00:30 93 30 H 188/55 100 11/28/17 00:00 102.8 F H 90 26 H 186/67 100 11/27/17 23:30 93 24 180/66 100 11/27/17 23:00 101.8 F H 97 30 H 220/65 99 11/27/17 22:30 96 27 H 193/66 99 11/27/17 22:26 96 30 H 100 11/27/17 21:30 100 26 H 220/68 100 11/27/17 21:00 106 H 29 H 215/64 100 11/27/17 20:52 103 F H 104 H 28 H 219/99 100 11/27/17 20:50 103 H 219/99 100 11/27/17 20:40 103 H 219/99 100 11/27/17 20:30 103 H 148/68 100 11/27/17 20:20 102 H 148/68 100 11/27/17 20:10 103 H 148/68 100 11/27/17 20:00 101 H 148/68 100 11/27/17 19:50 102 H 148/68 100 11/27/17 19:40 100 148/68 100 11/27/17 19:30 105 H 158/98 94 L 11/27/17 19:20 108 H 158/98 100 11/27/17 19:10 118 H 158/98 100 11/27/17 19:00 121 H 225/98 98 11/27/17 18:50 117 H 218/77 94 L 04/10/18 18:40 108 H 227/129 94 L 11/27/17 18:30 118 H 198/99 91 L 11/27/17 18:20 104 H 198/99 94 L 11/27/17 18:10 103 H 208/84 95 11/27/17 18:00 110 H 201/90 96 11/27/17 17:50 103 H 213/88 94 L 11/27/17 17:40 107 H 218/90 95 11/27/17 17:33 97.9 F 119 H 11/27/17 16:00 96 18 134/63 96 Intake and Output 11/27/17 11/28/17 11/28/17 22:59 06:59 14:59 Intake Total 238.72 1423.818 842.273 Output Total 150 770 275 Balance 88.72 653.818 567.273 Intake: IV 200 1250 750 Acyclovir Sodium 500 mg 100 100 In Sodium Chloride 0.9% 100 ml @ 100 mls/hr IVPB Q8H [facility] Rx#:[id number] Magnesium Sulfate-D5w Pmx 200 1 gm In Dextrose/Water 1 100ml.bag @ 100 mls/hr IVPB Q1H [facility] Rx#: [id number] Piperacillin-Tazobactam 3 50 .375 gm In Dextrose/Water 1 50ml.bag @ 12.5 mls/hr IVPB Q12HR [facility] Rx#: [id number] Sodium Chloride 0.9% 1, 200 900 400 000 ml @ 100 mls/hr IV . Q10H [facility] Rx#:[id number] Vancomycin 1,500 mg In 250 Sodium Chloride 0.9% 250 ml @ 125 mls/hr IVPB ONCE ONE Rx#:[id number] Intake, IV Titration 38.72 173.818 92.273 Amount Propofol 1,000 mg In 38.72 173.818 92.273 Empty Bag 1 bag @ Titrate IV .Q0M [facility] Rx#: [id number] Output: Urine 150 770 275 Other: Voiding Method Indwelling Catheter Indwelling Catheter Indwelling Catheter Weight 97 kg 97 kg ABP, PAP, CO, CI - Last 8 Hours Arterial Blood Pressure 141/62 Arterial Blood Pressure 145/63 Arterial Blood Pressure 140/62 Gen: This is a 77-year-old female. She is intubated and on mechanical ventilation in the intensive care unit. She appears to be comfortable. HEENT: Head is atraumatic, normocephalic. Pupils equal, round. Sclerae is anicteric. Mucous membranes are moist. NECK: Supple. No JVD. No lymphadenopathy. No thyromegaly. LUNGS: Diminished with a few scattered rhonchi. No intercostal retractions. HEART: Regular rate and rhythm. No murmur. ABDOMEN: Soft. Bowel sounds are present. No masses. No tenderness. SKIN: Patient has rash noted on her abdomen and extremities some areas it is petechial like is not blanchable or other areas papule-like. EXTREMITIES: No pedal edema. NEUROLOGICAL: Patient is intubated but off sedation. Results Results: Laboratory Results WBC 17.5 k/uL (3.8-10.6) H 11/28/17 06:06 RBC 4.63 m/uL (3.80-5.40) 11/28/17 06:06 Hgb 13.2 gm/dL (11.4-16.0) D 11/28/17 06:06 Hct 39.2 % (34.0-46.0) 11/28/17 06:06 MCV 84.7 fL (80.0-100.0) 11/28/17 06:06 MCH 28.5 pg (25.0-35.0) 11/28/17 06:06 MCHC 33.7 g/dL (31.0-37.0) 11/28/17 06:06 RDW 12.9 % (11.5-15.5) 11/28/17 06:06 Plt Count 189 k/uL (150-450) 11/28/17 06:06 Neutrophils % 72 % 11/28/17 06:06 Lymphocytes % 16 % 11/28/17 06:06 Monocytes % 8 % 11/28/17 06:06 Eosinophils % 0 % 11/28/17 06:06 Basophils % 0 % 11/28/17 06:06 Neutrophils # 12.7 k/uL (1.3-7.7) H 11/28/17 06:06 Lymphocytes # 2.8 k/uL (1.0-4.8) 11/28/17 06:06 Monocytes # 1.5 k/uL (0-1.0) H 11/28/17 06:06 Eosinophils # 0.1 k/uL (0-0.7) 11/28/17 06:06 Basophils # 0.0 k/uL (0-0.2) 11/28/17 06:06 Manual Slide Review Performed 11/28/17 06:06 PT 10.8 sec (9.0-12.0) 11/27/17 23:55 INR 1.1 (<1.2) 11/27/17 23:55 APTT 22.4 sec (22.0-30.0) 11/27/17 23:55 Fibrinogen 436 mg/dL (200-500) 11/28/17 06:06 D-Dimer 1.27 mg/L FEU (<0.60) H 11/27/17 23:55 Sample Site jorge 11/28/17 05:00 ABG pH 7.48 (7.35-7.45) H 11/28/17 05:00 ABG pCO2 27 mmHg (35-45) L 11/28/17 05:00 ABG pO2 145 mmHg (83-108) H 11/28/17 05:00 ABG HCO3 20 mmol/L (21-25) L 11/28/17 05:00 ABG Total CO2 21 mmol/L (19-24) 11/28/17 05:00 ABG O2 Saturation 99.0 % (94-97) H 11/28/17 05:00 ABG Base Excess -3.7 mmol/L 11/28/17 05:00 Nico Test Yes 11/28/17 05:00 FiO2 50 % 11/28/17 05:00 Sodium 140 mmol/L (137-145) 11/28/17 06:06 Potassium 3.4 mmol/L (3.5-5.1) L 11/28/17 06:06 Chloride 103 mmol/L (98-107) 11/28/17 06:06 Carbon Dioxide 21 mmol/L (22-30) L 11/28/17 06:06 Anion Gap 16 mmol/L 11/28/17 06:06 BUN 24 mg/dL (7-17) H 11/28/17 06:06 Creatinine 0.98 mg/dL (0.52-1.04) 11/28/17 06:06 Est GFR (CKD-EPI)AfAm 63 (>60 ml/min/1.73 sqM) 11/28/17 06:06 Est GFR (CKD-EPI)NonAf 55 (>60 ml/min/1.73 sqM) 11/28/17 06:06 Glucose 148 mg/dL (74-99) H 11/28/17 06:06 POC Glucose (mg/dL) 182 mg/dL (75-99) H 11/28/17 12:45 POC Glu Cake Icer ID Hawa Parisi 11/28/17 12:45 Lactic Ac Sepsis Rflx Y 11/26/17 10:13 Plasma Lactic Acid Ede 1.1 mmol/L (0.7-2.0) 11/26/17 14:14 Calcium 8.7 mg/dL (8.4-10.2) 11/28/17 06:06 Phosphorus 2.7 mg/dL (2.5-4.5) 11/28/17 06:06 Magnesium 1.7 mg/dL (1.6-2.3) 11/28/17 06:06 Total Bilirubin 0.9 mg/dL (0.2-1.3) 11/27/17 06:29 AST 18 U/L (14-36) 11/27/17 06:29 ALT 27 U/L (9-52) 11/27/17 06:29 Alkaline Phosphatase 43 U/L (38-126) 11/27/17 06:29 Total Creatine Kinase 86 U/L (30-135) 11/26/17 09:20 CK-MB (CK-2) 0.5 ng/mL (0.0-2.4) 11/26/17 09:20 CK-MB (CK-2) Rel Index 0.6 11/26/17 09:20 Troponin I <0.012 ng/mL (0.000-0.034) 11/26/17 20:56 Total Protein 6.2 g/dL (6.3-8.2) L 11/27/17 06:29 Albumin 3.9 g/dL (3.5-5.0) 11/27/17 06:29 Triglycerides 201 mg/dL (<150) H 11/27/17 06:29 Cholesterol 201 mg/dL (<200) H 11/27/17 06:29 LDL Cholesterol, Calc 128 mg/dL (0-99) H 11/27/17 06:29 HDL Cholesterol 33 mg/dL (40-60) L 11/27/17 06:29 Homocysteine 12.02 umol/L (4.00-14.00) 11/26/17 20:56 Urine Color Yellow 11/28/17 00:15 Urine Appearance Turbid (Clear) H 11/28/17 00:15 Urine pH 5.5 (5.0-8.0) 11/28/17 00:15 Ur Specific [place] 1.024 (1.001-1.035) 11/28/17 00:15 Urine Protein 1+ (Negative) H 11/28/17 00:15 Urine Glucose (UA) Negative (Negative) 11/28/17 00:15 Urine Ketones Negative (Negative) 11/28/17 00:15 Urine Blood Large (Negative) H 11/28/17 00:15 Urine Nitrite Negative (Negative) 11/28/17 00:15 Urine Bilirubin Negative (Negative) 11/28/17 00:15 Urine Urobilinogen <2.0 mg/dL (<2.0) 11/28/17 00:15 Ur Leukocyte Esterase Large (Negative) H 11/28/17 00:15 Urine RBC 38 /hpf (0-5) H 11/28/17 00:15 Urine WBC 37 /hpf (0-5) H 11/28/17 00:15 Ur Squamous Epith Cells <1 /hpf (0-4) 11/26/17 09:20 Hyaline Casts 15 /lpf (0-2) H 11/28/17 00:15 Urine Mucus Rare /hpf (None) H 11/28/17 00:15 CBC & Chem 7: 11/28/17 06:06 11/28/17 06:06 Labs: Abnormal Lab Results - Last 24 Hours (Table) 11/27/17 11/27/17 11/27/17 Range/Units 14:00 17:37 17:54 WBC (3.8-10.6) k/uL RBC (3.80-5.40) m/uL Hgb (11.4-16.0) gm/dL Hct (34.0-46.0) % Plt Count (150-450) k/uL Neutrophils # (1.3-7.7) k/uL Monocytes # (0-1.0) k/uL D-Dimer (<0.60) mg/L FEU ABG pH (7.35-7.45) ABG pCO2 33 L (35-45) mmHg ABG pO2 73 L (83-108) mmHg ABG HCO3 (21-25) mmol/L ABG O2 Saturation (94-97) % Potassium (3.5-5.1) mmol/L Carbon Dioxide (22-30) mmol/L BUN (7-17) mg/dL Glucose (74-99) mg/dL POC Glucose (mg/dL) 179 H 197 H (75-99) mg/dL Urine Appearance (Clear) Urine Protein (Negative) Urine Blood (Negative) Ur Leukocyte Esterase (Negative) Urine RBC (0-5) /hpf Urine WBC (0-5) /hpf Hyaline Casts (0-2) /lpf Urine Mucus (None) /hpf 11/27/17 11/27/17 11/27/17 Range/Units 20:43 21:11 23:55 WBC 11.1 H (3.8-10.6) k/uL RBC 3.55 L (3.80-5.40) m/uL Hgb 10.2 L D (11.4-16.0) gm/dL Hct 29.1 L (34.0-46.0) % Plt Count 142 L (150-450) k/uL Neutrophils # (1.3-7.7) k/uL Monocytes # (0-1.0) k/uL D-Dimer (<0.60) mg/L FEU ABG pH 7.48 H (7.35-7.45) ABG pCO2 29 L (35-45) mmHg ABG pO2 316 H (83-108) mmHg ABG HCO3 (21-25) mmol/L ABG O2 Saturation 98.4 H (94-97) % Potassium (3.5-5.1) mmol/L Carbon Dioxide (22-30) mmol/L BUN (7-17) mg/dL Glucose (74-99) mg/dL POC Glucose (mg/dL) 189 H (75-99) mg/dL Urine Appearance (Clear) Urine Protein (Negative) Urine Blood (Negative) Ur Leukocyte Esterase (Negative) Urine RBC (0-5) /hpf Urine WBC (0-5) /hpf Hyaline Casts (0-2) /lpf Urine Mucus (None) /hpf 11/27/17 11/28/17 11/28/17 Range/Units 23:55 00:06 00:15 WBC (3.8-10.6) k/uL RBC (3.80-5.40) m/uL Hgb (11.4-16.0) gm/dL Hct (34.0-46.0) % Plt Count (150-450) k/uL Neutrophils # (1.3-7.7) k/uL Monocytes # (0-1.0) k/uL D-Dimer 1.27 H (<0.60) mg/L FEU ABG pH (7.35-7.45) ABG pCO2 (35-45) mmHg ABG pO2 (83-108) mmHg ABG HCO3 (21-25) mmol/L ABG O2 Saturation (94-97) % Potassium (3.5-5.1) mmol/L Carbon Dioxide (22-30) mmol/L BUN (7-17) mg/dL Glucose (74-99) mg/dL POC Glucose (mg/dL) 177 H (75-99) mg/dL Urine Appearance Turbid H (Clear) Urine Protein 1+ H (Negative) Urine Blood Large H (Negative) Ur Leukocyte Esterase Large H (Negative) Urine RBC 38 H (0-5) /hpf Urine WBC 37 H (0-5) /hpf Hyaline Casts 15 H (0-2) /lpf Urine Mucus Rare H (None) /hpf 11/28/17 11/28/17 11/28/17 Range/Units 01:58 05:00 06:06 WBC (3.8-10.6) k/uL RBC (3.80-5.40) m/uL Hgb (11.4-16.0) gm/dL Hct (34.0-46.0) % Plt Count (150-450) k/uL Neutrophils # (1.3-7.7) k/uL Monocytes # (0-1.0) k/uL D-Dimer (<0.60) mg/L FEU ABG pH 7.48 H (7.35-7.45) ABG pCO2 27 L (35-45) mmHg ABG pO2 145 H (83-108) mmHg ABG HCO3 20 L (21-25) mmol/L ABG O2 Saturation 99.0 H (94-97) % Potassium 3.4 L (3.5-5.1) mmol/L Carbon Dioxide 21 L (22-30) mmol/L BUN 24 H (7-17) mg/dL Glucose 148 H (74-99) mg/dL POC Glucose (mg/dL) 145 H (75-99) mg/dL Urine Appearance (Clear) Urine Protein (Negative) Urine Blood (Negative) Ur Leukocyte Esterase (Negative) Urine RBC (0-5) /hpf Urine WBC (0-5) /hpf Hyaline Casts (0-2) /lpf Urine Mucus (None) /hpf 11/28/17 11/28/17 11/28/17 Range/Units 06:06 07:52 12:45 WBC 17.5 H (3.8-10.6) k/uL RBC (3.80-5.40) m/uL Hgb (11.4-16.0) gm/dL Hct (34.0-46.0) % Plt Count (150-450) k/uL Neutrophils # 12.7 H (1.3-7.7) k/uL Monocytes # 1.5 H (0-1.0) k/uL D-Dimer (<0.60) mg/L FEU ABG pH (7.35-7.45) ABG pCO2 (35-45) mmHg ABG pO2 (83-108) mmHg ABG HCO3 (21-25) mmol/L ABG O2 Saturation (94-97) % Potassium (3.5-5.1) mmol/L Carbon Dioxide (22-30) mmol/L BUN (7-17) mg/dL Glucose (74-99) mg/dL POC Glucose (mg/dL) 138 H 182 H (75-99) mg/dL Urine Appearance (Clear) Urine Protein (Negative) Urine Blood (Negative) Ur Leukocyte Esterase (Negative) Urine RBC (0-5) /hpf Urine WBC (0-5) /hpf Hyaline Casts (0-2) /lpf Urine Mucus (None) /hpf Microbiology - Last 24 Hours (Table) 11/26/17 09:20 Blood Culture - Preliminary Blood No Growth after 48 hours 11/27/17 20:55 Sputum Culture - Preliminary Sputum 11/28/17 00:15 Urine Culture - Preliminary Urine,Catheterized Assessment and Plan Plan: This is a 77-year-old female patient who presented with mental status changes and subsequently developed a witnessed seizure activity, rash and fever with postictal state and further decline of her mental status, requiring intubation and mechanical ventilation to secure airway. There is concern for meningitis, encephalitis, stroke. Patient is currently on Keppra for seizure activity and neurology is following. Lumbar puncture to be scheduled today and diagnostic tests ordered. At this time, antimicrobials will be streamlined to acyclovir, vancomycin and ceftriaxone. Continue supportive care. Further recommendations as patient progresses. The above dictated assessment and findings were discussed with Dr. Roche. The impression and plan of care have been directed as dictated. Linda Mera nurse practitioner acting as scribe for Dr. Roche.
--- NOTE | 2017-11-28 16:22 | FL ---
EXAMINATION TYPE: FL guided lumbar puncture LP DATE OF EXAM: 11/28/2017 COMPARISON: CT and MRI brain from yesterday. CT abdomen and pelvis from 2 days ago. HISTORY: Confusion, possible meningitis. Failed on floor lumbar spinal puncture. TECHNIQUE: Fluoroscopic assisted lumbar puncture for CSF analysis. FINDINGS: Fluoroscopic guidance was provided during lumbar puncture procedure performed by myself. A total of 64 seconds of fluoroscopic time was utilized during the procedure and one spot image was s aved. Benefits, alternatives, and risks were discussed with patient's by anesthesiologist. Informed consent was obtained on floor. Overlying skin is prepped and draped in usual sterile fashion. Review of CT shows targeted level of L 2 just above scoliotic curvature and degenerative change with spinal canal stenosis mid lumbar spine. Lidocaine is used as anesthetic. Under fluoroscopic guidance, access mid L2 level between L2 and L3 spinous processes was successful. There is successful withdrawal of approximately 15 cc of slightly t inged CSF fluid. There is fairly rapid flow of CSF noted. Patient was intubated with sedation control by anesthesia before during and after procedure. Vital si gns were monitored before throughout and after procedure. Patient was taken to ICU shortly after proc edure was terminated. IMPRESSION: Successful, uncomplicated fluoroscopic assisted lumbar puncture for CSF obtainment/analys is.
[2017-11-28 17:33] LABS: Glucose,CSF 97 mg/dL (40-70); Total Protein,CSF 198 mg/dL (12-60)
[2017-11-28 18:05] LABS: Appearance,CSF Blood Tinged; CSF Tube Number 4; CSF Tube Volume 3.5; Nucleated Cells, CSF 170 u/L (0-5); Red Blood Cell,CSF 1230 u/L (0-10)
[2017-11-28 18:06] LABS: Diff, Total Cells Cnt, CSF 100; Mononuclear WBC,CSF 66 %; Polynuclear WBC,CSF 34 %
[2017-11-28 18:30] LABS: Glucose,Whole Blood 176 mg/dL (75-99)
[2017-11-28] MEDS: SODIUM CHLORIDE 0.9% 1,000 ML IV SCH (18:44)
--- NOTE | 2017-11-28 19:34 | P.PN ---
Subjective Progress Note Date: 11/28/17 Patient is a 77-year-old female who is being followed by the neurology service for stroke. Patient had gone to bed on Sunday night and no deficits were noted at that time. Patient woke up Sunday morning and was found to be very confused and was not able to understand what her was trying to say to her. She was not following any commands. Patient was speaking but not making sense. She did not appear to be having any lateralizing weakness. Computed tomography scan was done on admission which showed small vessel ischemic changes. Patient was admitted for further workup and was started on aspirin 325 mg daily. Patient was transferred up to the floor and was awake, alert, but not following any verbal commands. Staff reports patient was more somnolent this morning as compared to yesterday. Patient had gone down for EEG testing and had a seizure during EEG testing. No Ativan was given due to seizure activity stopping. Patient appeared to be in a postictal state. She was taken to MRI and had MRI/MRA of the head and neck with and without contrast. No evidence for recent infarct noted. Patient continues to be unarousable. She does respond to pain stimulus. Right upper extremity seems to be posturing. Patient has sonorous respirations with rate 14-20. Patient is clenching her jaw and grinding her teeth. Keppra 1000 mg was given IV. She will continue Keppra 1000 milligrams twice a day. No obvious facial asymmetry is noted. At the time of my evaluation, patient appears to be in mild distress. She will be transferred to the ICU. 11/28/2017 Patient is a 77-year-old female who is being followed by the neurology service for altered mental status. Patient is currently intubated on mechanical ventilation in the ICU setting. Patient had originally come in with strokelike symptoms but MRIs have been negative for any recent infarct. Patient had a seizure while having the EEG done and neurological status was declining so patient was taken to the ICU and intubated. Patient did spike a temperature of 103 and infectious disease was consulted. Patient is currently sedated on the ventilator. Staff reports while on sedation holiday patient had minimal withdrawal to pain and continues to posture. She was started on antibiotics and is being followed by infectious disease. At the time of my evaluation, patient appears to be resting comfortably and is in no acute distress. Family is at the bedside. Objective - Vital Signs Vital signs: Vital Signs Temp 98.6 F 11/28/17 16:00 Pulse 92 11/28/17 19:00 Resp 24 11/28/17 19:00 BP 153/48 11/28/17 19:00 Pulse Ox 93 L 11/28/17 19:00 Intake & Output 11/28/17 11/28/17 11/29/17 06:59 18:59 06:59 Intake Total 4734.420 7184.273 223.4 Output Total 920 540 150 Balance 398.113 0455.273 73.4 Weight 97 kg 97 kg Intake: IV 1450 2100 100 Acyclovir Sodium 500 mg 100 200 In Sodium Chloride 0.9% 100 ml @ 100 mls/hr IVPB Q8H [facility] Rx#:[id number] Ampicillin 2,000 mg In 200 Sodium Chloride 0.9% 100 ml @ 200 mls/hr IVPB Q6HR [facility] Rx#:[id number] Magnesium Sulfate-D5w Pmx 200 1 gm In Dextrose/Water 1 100ml.bag @ 100 mls/hr IVPB Q1H [facility] Rx#: [id number] Piperacillin-Tazobactam 3 50 .375 gm In Dextrose/Water 1 50ml.bag @ 12.5 mls/hr IVPB Q12HR [facility] Rx#: [id number] Sodium Chloride 0.9% 1, 1100 1000 000 ml @ 100 mls/hr IV . Q10H [facility] Rx#:[id number] Sodium Chloride 0.9% 1, 100 100 000 ml @ 100 mls/hr IV . Q10H [facility] Rx#:[id number] Vancomycin 1,500 mg In 250 250 Sodium Chloride 0.9% 250 ml @ 125 mls/hr IVPB ONCE ONE Rx#:[id number] levETIRAcetam IV 1,000 mg 100 In Saline 1 100ml.bag @ 400 mls/hr IVPB Q12H [facility] Rx#:[id number] Intake, IV Titration 212.538 92.273 89.4 Amount Propofol 1,000 mg In 212.538 92.273 89.4 Empty Bag 1 bag @ Titrate IV .Q0M [facility] Rx#: [id number] Tube Feeding 126 34 Output: Urine 920 540 150 Other: Voiding Method Indwelling Catheter Indwelling Catheter ABP, PAP, CO, CI - Last Documented Arterial Blood Pressure 141/62 - Exam PHYSICAL EXAM: GENERAL APPEARANCE: Patient is a well-developed, female who is intubated on mechanical ventilation. HEENT: Normocephalic, atraumatic, no facial asymmetry is seen. Neck is supple with no masses felt. CARDIOVASCULAR: Heart rate is regular. ABDOMEN: Nontender, nondistended. EXTREMITIES: Show no edema or clubbing. NEUROLOGICAL EXAM: A meaningful neurological exam could not be performed due to patient being intubated on mechanical ventilation and sedated. - Labs CBC & Chem 7: 11/28/17 06:06 11/28/17 06:06 Labs: Abnormal Lab Results - Last 24 Hours (Table) 11/27/17 11/27/17 11/27/17 Range/Units 20:43 21:11 23:55 WBC 11.1 H (3.8-10.6) k/uL RBC 3.55 L (3.80-5.40) m/uL Hgb 10.2 L D (11.4-16.0) gm/dL Hct 29.1 L (34.0-46.0) % Plt Count 142 L (150-450) k/uL Neutrophils # (1.3-7.7) k/uL Monocytes # (0-1.0) k/uL D-Dimer (<0.60) mg/L FEU ABG pH 7.48 H (7.35-7.45) ABG pCO2 29 L (35-45) mmHg ABG pO2 316 H (83-108) mmHg ABG HCO3 (21-25) mmol/L ABG O2 Saturation 98.4 H (94-97) % Potassium (3.5-5.1) mmol/L Carbon Dioxide (22-30) mmol/L BUN (7-17) mg/dL Glucose (74-99) mg/dL POC Glucose (mg/dL) 189 H (75-99) mg/dL Magnesium (1.6-2.3) mg/dL Urine Appearance (Clear) Urine Protein (Negative) Urine Blood (Negative) Ur Leukocyte Esterase (Negative) Urine RBC (0-5) /hpf Urine WBC (0-5) /hpf Hyaline Casts (0-2) /lpf Urine Mucus (None) /hpf CSF RBC (0-10) u/L CSF Tot Nucleated Cells (0-5) u/L CSF Glucose (40-70) mg/dL CSF Total Protein (12-60) mg/dL 11/27/17 11/28/17 11/28/17 Range/Units 23:55 00:06 00:15 WBC (3.8-10.6) k/uL RBC (3.80-5.40) m/uL Hgb (11.4-16.0) gm/dL Hct (34.0-46.0) % Plt Count (150-450) k/uL Neutrophils # (1.3-7.7) k/uL Monocytes # (0-1.0) k/uL D-Dimer 1.27 H (<0.60) mg/L FEU ABG pH (7.35-7.45) ABG pCO2 (35-45) mmHg ABG pO2 (83-108) mmHg ABG HCO3 (21-25) mmol/L ABG O2 Saturation (94-97) % Potassium (3.5-5.1) mmol/L Carbon Dioxide (22-30) mmol/L BUN (7-17) mg/dL Glucose (74-99) mg/dL POC Glucose (mg/dL) 177 H (75-99) mg/dL Magnesium (1.6-2.3) mg/dL Urine Appearance Turbid H (Clear) Urine Protein 1+ H (Negative) Urine Blood Large H (Negative) Ur Leukocyte Esterase Large H (Negative) Urine RBC 38 H (0-5) /hpf Urine WBC 37 H (0-5) /hpf Hyaline Casts 15 H (0-2) /lpf Urine Mucus Rare H (None) /hpf CSF RBC (0-10) u/L CSF Tot Nucleated Cells (0-5) u/L CSF Glucose (40-70) mg/dL CSF Total Protein (12-60) mg/dL 11/28/17 11/28/17 11/28/17 Range/Units 01:58 05:00 06:06 WBC (3.8-10.6) k/uL RBC (3.80-5.40) m/uL Hgb (11.4-16.0) gm/dL Hct (34.0-46.0) % Plt Count (150-450) k/uL Neutrophils # (1.3-7.7) k/uL Monocytes # (0-1.0) k/uL D-Dimer (<0.60) mg/L FEU ABG pH 7.48 H (7.35-7.45) ABG pCO2 27 L (35-45) mmHg ABG pO2 145 H (83-108) mmHg ABG HCO3 20 L (21-25) mmol/L ABG O2 Saturation 99.0 H (94-97) % Potassium 3.4 L (3.5-5.1) mmol/L Carbon Dioxide 21 L (22-30) mmol/L BUN 24 H (7-17) mg/dL Glucose 148 H (74-99) mg/dL POC Glucose (mg/dL) 145 H (75-99) mg/dL Magnesium (1.6-2.3) mg/dL Urine Appearance (Clear) Urine Protein (Negative) Urine Blood (Negative) Ur Leukocyte Esterase (Negative) Urine RBC (0-5) /hpf Urine WBC (0-5) /hpf Hyaline Casts (0-2) /lpf Urine Mucus (None) /hpf CSF RBC (0-10) u/L CSF Tot Nucleated Cells (0-5) u/L CSF Glucose (40-70) mg/dL CSF Total Protein (12-60) mg/dL 11/28/17 11/28/17 11/28/17 Range/Units 06:06 07:52 12:45 WBC 17.5 H (3.8-10.6) k/uL RBC (3.80-5.40) m/uL Hgb (11.4-16.0) gm/dL Hct (34.0-46.0) % Plt Count (150-450) k/uL Neutrophils # 12.7 H (1.3-7.7) k/uL Monocytes # 1.5 H (0-1.0) k/uL D-Dimer (<0.60) mg/L FEU ABG pH (7.35-7.45) ABG pCO2 (35-45) mmHg ABG pO2 (83-108) mmHg ABG HCO3 (21-25) mmol/L ABG O2 Saturation (94-97) % Potassium (3.5-5.1) mmol/L Carbon Dioxide (22-30) mmol/L BUN (7-17) mg/dL Glucose (74-99) mg/dL POC Glucose (mg/dL) 138 H 182 H (75-99) mg/dL Magnesium (1.6-2.3) mg/dL Urine Appearance (Clear) Urine Protein (Negative) Urine Blood (Negative) Ur Leukocyte Esterase (Negative) Urine RBC (0-5) /hpf Urine WBC (0-5) /hpf Hyaline Casts (0-2) /lpf Urine Mucus (None) /hpf CSF RBC (0-10) u/L CSF Tot Nucleated Cells (0-5) u/L CSF Glucose (40-70) mg/dL CSF Total Protein (12-60) mg/dL 11/28/17 11/28/17 11/28/17 Range/Units 15:30 17:14 18:28 WBC (3.8-10.6) k/uL RBC (3.80-5.40) m/uL Hgb (11.4-16.0) gm/dL Hct (34.0-46.0) % Plt Count (150-450) k/uL Neutrophils # (1.3-7.7) k/uL Monocytes # (0-1.0) k/uL D-Dimer (<0.60) mg/L FEU ABG pH (7.35-7.45) ABG pCO2 (35-45) mmHg ABG pO2 (83-108) mmHg ABG HCO3 (21-25) mmol/L ABG O2 Saturation (94-97) % Potassium (3.5-5.1) mmol/L Carbon Dioxide (22-30) mmol/L BUN (7-17) mg/dL Glucose (74-99) mg/dL POC Glucose (mg/dL) 176 H (75-99) mg/dL Magnesium 2.4 H (1.6-2.3) mg/dL Urine Appearance (Clear) Urine Protein (Negative) Urine Blood (Negative) Ur Leukocyte Esterase (Negative) Urine RBC (0-5) /hpf Urine WBC (0-5) /hpf Hyaline Casts (0-2) /lpf Urine Mucus (None) /hpf CSF RBC 1230 H (0-10) u/L CSF Tot Nucleated Cells 170 H (0-5) u/L CSF Glucose 97 H (40-70) mg/dL CSF Total Protein 198 H (12-60) mg/dL Microbiology - Last 24 Hours (Table) 11/26/17 09:20 Blood Culture - Preliminary Blood No Growth after 48 hours 11/27/17 20:55 Sputum Culture - Preliminary Sputum 11/28/17 00:15 Urine Culture - Preliminary Urine,Catheterized Assessment and Plan Plan: Impression: 1. Altered mental status 2. Seizure 3. Respiratory failure 4. Fever Recommendation: Patient is currently intubated on mechanical ventilation in the ICU. As mentioned above, patient spiked a fever and infectious disease was consulted. Patient is being followed by ICU advanced nursing professor. Patient is on Keppra 1000 mg IV twice a day and no further seizure activity reported. Repeat EEG from this morning showed muscle artifact but no seizure activity. Patient had computed tomography scan of the brain as well as MRI/MRA which showed no evidence of recent infarct or aneurysm. Study did show mild diffuse age- related cerebral atrophy. There was no significant stenosis in common or internal carotid arteries bilaterally. Patient underwent a lumbar puncture performed in interventional radiology. Results are pending. She is currently on antimicrobials per infectious disease including acyclovir, vancomycin and ceftriaxone. Continue current ICU management. Continue neurological checks. Continue seizure precautions. Continue rectal aspirin. Continue Keppra 1000 mg IV twice a day. I will continue to follow with you. Further recommendations to follow. I performed an examination of the patient and discussed the management with the FISHING BOAT MATE. I have reviewed the FISHING BOAT MATE notes and agree with the findings and plan of care.
--- NOTE | 2017-11-28 20:17 | EEG ---
ELECTROENCEPHALOGRAM REPORT DATE OF SERVICE: 11/28/2017 REASON FOR TESTING: Stroke and seizure. CURRENT ANTIEPILEPTIC MEDICATIONS: Keppra. DESCRIPTION OF THE PROCEDURE: This EEG was performed using a 21-channel digital electroencephalograph, following international 10-20 system. DESCRIPTION OF THE RECORDING: From the beginning of the tracing, and with the patient's eyes closed, the background rhythm was mostly consisting of 7 Hz theta frequency in the posterior occipital leads. Frequent muscle artifacts are seen throughout the tracing. Photic stimulation was performed, with no driving response seen. No pathological waves were elicited. No epileptiform discharges were seen. INTERPRETATION: This EEG is limited due to the frequency of muscle artifacts. No obvious epileptiform discharges were seen. The absence of epileptiform discharges does not rule out the diagnosis of epilepsy; therefore clinical correlation is recommended. MMODL / IJN: [id number] /
[2017-11-28] MEDS: cefTRIAXone IN SWFI 2,000 MG/20 ML SYRINGE IVP SCH (21:42)
[2017-11-28] MEDS ORDERED: ACETAMINOPHEN IV (For NPO) 1,000 MG in EMPTY BAG 1 BAG IVPB PRN (23:17)
--- NOTE | 2017-11-28 23:58 | P.CON ---
Consult Note - . Consult date: 11/28/17 Assessment/Plan:: 77 years old female came into [facility] emergency center on November 26 and according to the family was not eating and drinking for the past 2 days. She went to bed on Sunday evening and was feeling fine. She woke up in the morning not feeling well and had some abdominal discomfort for which she took pepto-bismol but there was no vomiting or diarrhea at that time. She then developed confusion and difficulty with her speech. Patient was unable to comprehend and repeat appropriately. Her language was gibberish and lacked meaning. Patient denies any sensory or motor deficits. She denies any history of seizure or any similar episodes in the past. Patient was pleasantly confused. She does know where she is and can tell her name and date of . She presented afebrile with white count of 14.3. Vitals are stable with blood pressure slightly elevated 171/70. Saturating well on room air and afebrile. Patient did have a leukocytosis of 14.3. Urinalysis showed a small amount of blood otherwise negative for infection. Lactic acid 2.4. Normal troponin. CT head negative for any acute abnormalities no masses seen. Did have prominent choroid plexus cyst. CT abdomen and pelvis was done as patient had some tenderness in the lower quadrant which was unremarkable. Patient was initially admitted to the selective care unit where she was seen by neurology. By the following morning patient had more confusion and was having difficulty following any commands. She was made nothing by mouth. Echocardiogram reveals EF of 55-60%, trace mitral regurgitation, trace tricuspid regurgitation. Homocysteine level is normal at 12.02. Triglycerides 201, cholesterol 201, LDL 128 and HDL 34. Repeat troponins came back negative. Patient went for EEG yesterday afternoon, she developed seizure activity while having the procedure done. The seizure activity stopped without any medication. She was subsequently post ictal and not responding normally. She underwent MRI and MRI/ MRA of the head and neck that showed no evidence of recent infarct. Patient was unarousable after this responded to pain stimuli. There was concern decorticated posturing at that time. Patient was started on Keppra 1000 mg IV twice daily. She also underwent a repeat CAT scan of the brain that showed cerebral atrophy. No acute intracranial abnormality seen. No sign of cortical infarct. No change. Repeat chest x-ray shows no developing left basilar atelectasis and/or infiltrate. She was transferred into the intensive care unit. LP was attempted by anesthesia which was unsuccessful. She continued to have posturing and respiratory status was declining and patient was intubated and placed on mechanical ventilation. Interventional radiology to perform diagnostic lumbar puncture. She is currently on antimicrobials in the form of Rocephin, vancomycin, acyclovir and ampicillin. Patient also developed fever up to 103 yesterday afternoon and patient also developed a petechial papule rash that was new. Patient is followed by Dr. Nash is intensive care management. Family states the patient has not had any recent travel. She goes to visit her daughter and went to [place] for [employer]. Family denied any bird, bat exposure. One month ago she did have the flu and this is what she thought was going on on Sunday morning when she woke up. They deny any unusual animal exposures. Please see the consult note is dictated by nurse practitioner Mrs. Linda Mera. Is noted the patient has had a rapid decline of her status associated with high- grade fever, altered mental status and respiratory failure requiring intubation and sedation with mechanical ventilation. The patient's family is present. We review the findings. There is evidence of fever with altered mental status and leukocytosis which is strongly consistent with a central nervous system infection. Lumbar puncture has now been performed and there is evidence of pleocytosis and consequently bacterial meningitis with seem to be most likely, and with the rash in 77-year-old could be consistent with meningococcal infection. We await the Gram stain to help further direct prophylactic therapy if needed. Antibiotic therapy was adjusted with 2 g of Rocephin every 12 hours, with the development of the rash ampicillin was discontinued, she has no alcoholism and seems to be a low risk for listeria, vancomycin is being utilized for now. With the concern for encephalitis acyclovir is also been initiated and will be continued until we have further data from her lumbar puncture. The family is aware of the severity and acuity of the illness and there is potential for long- term effects and potential even for . I agree with evaluation, assessment and plan as dictated by nurse practitioner Mrs. Linda Mera.
[2017-11-29 00:22] LABS: Glucose,Whole Blood 231 mg/dL (75-99)
[2017-11-29] MEDS: INSULIN ASPART 100 UNIT/ML 1 ML 10 ML VIAL SQ SCH ×4 (00:31→18:57)
[2017-11-29] MEDS: DEXAMETHASONE SOD PHOSPHATE 4 MG/ML 1 ML VIAL IV SCH ×4 (00:33→18:41)
[2017-11-29] MEDS: IPRATROPIUM-ALBUTEROL 3 ML NEB INHALATION SCH ×7 (00:34→23:30)
[2017-11-29] MEDS: PROPOFOL 1,000 MG in EMPTY BAG 1 BAG IV SCH ×6 (00:37→23:36)
[2017-11-29] MEDS: ACYCLOVIR SODIUM 500 MG in SODIUM CHLORIDE 0.9% 100 ML IVPB SCH ×3 (01:14→18:42)
[2017-11-29] MEDS: levETIRAcetam IV 1,000 MG in SALINE 1 100ML.BAG IVPB SCH ×2 (03:05→14:46)
[2017-11-29] MEDS: SODIUM CHLORIDE 0.9% 1,000 ML IV SCH ×2 (03:05→14:46)
[2017-11-29 04:39] LABS: ABG Base Excess -3.9 mmol/L; ABG HCO3 21 mmol/L (21-25); ABG Oxygen Saturation 97.2 % (94-97); ABG PCO2 34 mmHg (35-45); ABG PO2 103 mmHg (83-108); ABG TCO2 22 mmol/L (19-24)
[2017-11-29 04:48] LABS: Basophils % (A) 0 %; Eosinophils # (A) 0.1 k/uL (0-0.7); Eosinophils % (A) 0 %; HCT 38.5 % (34.0-46.0); HGB 12.3 gm/dL (11.4-16.0); Lymphocytes # (A) 0.9 k/uL (1.0-4.8); Lymphocytes % (A) 6 %; MCH 27.8 pg (25.0-35.0); MCHC 31.9 g/dL (31.0-37.0); MCV 87.1 fL (80.0-100.0); Mean Platelet Volume 8.4; Monocytes # (A) 0.8 k/uL (0-1.0); Monocytes % (A) 5 %; Neutrophils # (A) 13.9 k/uL (1.3-7.7); Neutrophils % (A) 88 %; Platelet Count 146 k/uL (150-450); RBC 4.42 m/uL (3.80-5.40); RDW 13.4 % (11.5-15.5); WBC 15.8 k/uL (3.8-10.6)
[2017-11-29 04:58] LABS: Calcium 8.3 mg/dL (8.4-10.2); Magnesium 2.4 mg/dL (1.6-2.3); Phosphorus 3.1 mg/dL (2.5-4.5)
[2017-11-29 05:01] LABS: Potassium 2.8 mmol/L (3.5-5.1)
[2017-11-29] MEDS: POTASSIUM BICARBONATE/CIT AC 20 MEQ TABLET.EFF NG-TUBE SCH ×4 (05:59→22:15)
[2017-11-29] MEDS: VANCOMYCIN 1,500 MG in SODIUM CHLORIDE 0.9% 250 ML IVPB SCH ×2 (06:04→21:50)
[2017-11-29 06:08] LABS: Glucose,Whole Blood 193 mg/dL (75-99)
[2017-11-29] MEDS: CHLORHEXIDINE GLUCONATE 15 ML CUP MUCOUS MEM SCH ×2 (08:18→20:18)
[2017-11-29] MEDS: LEVOTHYROXINE IVP 100 MCG/5 ML VIAL IV SCH (08:18)
[2017-11-29] MEDS: cefTRIAXone IN SWFI 2,000 MG/20 ML SYRINGE IVP SCH ×2 (08:18→20:29)
[2017-11-29] MEDS: PANTOPRAZOLE 40 MG/10 ML VIAL IV SCH (08:18)
[2017-11-29] MEDS: ASPIRIN 300 MG SUPP RECTAL SCH (08:18)
--- NOTE | 2017-11-29 08:39 | XR ---
EXAMINATION TYPE: XR chest 1V DATE OF EXAM: 11/29/2017 COMPARISON: 11/28/2017 HISTORY: 77-year-old female follow-up chest x-ray abnormality TECHNIQUE: Single frontal view of the chest is obtained. FINDINGS: ET tube tip at the level of the medial clavicular heads. NG tube courses below the diaphragm. Heart r emains normal size. Aorta within normal limits. Focal airspace opacity in the retrocardiac region raul ears slightly increased. There may be a trace left effusion now. IMPRESSION: Interval increase in left basilar infiltrate and/or atelectasis. A trace left effusion appears new.
--- NOTE | 2017-11-29 09:39 | P.PN ---
Subjective Progress Note Date: 11/29/17 Principal diagnosis: Mental status changes with respiratory failure, seizures, rule out CVA and meningitis Progress note dated 11/29/2017 77-year-old female admitted with a diagnosis of mental status changes. The patient was initially thought to have a CVA. In addition, she apparently had some seizures during her EEG. The neurologist felt like her mental status changes were secondary to the postictal state following his seizures. Anyway, a computed tomography scan MRI/MRA did not reveal any ischemic stroke or hemorrhagic stroke. The patient apparently had an EEG. He did reveal some seizure activity. In addition, meningitis was a concern. Lumbar puncture showed evidence of elevated white blood cells and elevated protein but glucose was also high. The patient was started on Rocephin and vancomycin as well as Zosyn and acyclovir. The Zosyn was discontinued. The patient apparently developed a rash which was thought to be related to ampicillin administration. The rash developed before the ampicillin was given. The patient will have lines placed. I did talk to the family yesterday. Been keeping them informed. The patient has a history of acute respiratory failure with inability to protect airway, necessitating intubation and mechanical ventilation, hypertension, hyperlipidemia and hypothyroidism. The patient's on the volume assist control mode, rate of 14, tidal volume 400, and FiO2 35% PEEP of 5. Arterial blood gases show a PaO2 of 103 a PaCO2 34 and a pH is 7.39. The patient is currently on propofol at 40 mics per kilogram per minute, saline IV to 100 mL an hour and tube feeds with vital high protein at 34 with a goal of 34 mL per hour. Chest x-ray is okay. The elevated glucose in the cerebrospinal fluid is not consistent with meningitis. Objective - Vital Signs Vital signs: Vital Signs Temp 96.3 F L 11/29/17 05:00 Pulse 62 11/29/17 07:56 Resp 14 11/29/17 07:00 BP 131/49 11/29/17 07:00 Pulse Ox 98 11/29/17 07:00 Intake & Output 11/28/17 11/29/17 11/29/17 18:59 06:59 18:59 Intake Total 2318.273 2138.6 50.7 Output Total 540 1075 Balance 9068.477 2351.6 50.7 Weight 97 kg 96.2 kg Intake: IV 2100 1300 Acyclovir Sodium 500 mg 200 In Sodium Chloride 0.9% 100 ml @ 100 mls/hr IVPB Q8H [facility] Rx#:[id number] Ampicillin 2,000 mg In 200 Sodium Chloride 0.9% 100 ml @ 200 mls/hr IVPB Q6HR [facility] Rx#:[id number] Magnesium Sulfate-D5w Pmx 200 1 gm In Dextrose/Water 1 100ml.bag @ 100 mls/hr IVPB Q1H [facility] Rx#: [id number] Piperacillin-Tazobactam 3 50 .375 gm In Dextrose/Water 1 50ml.bag @ 12.5 mls/hr IVPB Q12HR [facility] Rx#: [id number] Sodium Chloride 0.9% 1, 1000 000 ml @ 100 mls/hr IV . Q10H [facility] Rx#:[id number] Sodium Chloride 0.9% 1, 100 1300 000 ml @ 100 mls/hr IV . Q10H [facility] Rx#:[id number] Vancomycin 1,500 mg In 250 Sodium Chloride 0.9% 250 ml @ 125 mls/hr IVPB ONCE ONE Rx#:[id number] levETIRAcetam IV 1,000 mg 100 In Saline 1 100ml.bag @ 400 mls/hr IVPB Q12H [facility] Rx#:[id number] Intake, IV Titration 92.273 264.6 50.7 Amount Propofol 1,000 mg In 92.273 264.6 50.7 Empty Bag 1 bag @ Titrate IV .Q0M [facility] Rx#: [id number] Tube Feeding 126 544 Other 30 Output: Urine 540 1075 Other: Voiding Method Indwelling Catheter Indwelling Catheter ABP, PAP, CO, CI - Last Documented Arterial Blood Pressure 141/62 - Exam No acute distress, sedated, with an orally place NG tube and endotracheal tube. HEENT examination is grossly unremarkable. Mucous membranes are moist. Neck supple. Full range of motion. No adenopathy thyromegaly or neck vein distention. Cardiovascular examination reveals regular rhythm rate. S1-S2 normal. No S3 or S4. No discernible murmur noted. Lungs reveal a few scattered rhonchi. Breath sounds are equal. No crackles. No wheezes. Abdomen soft bowel sounds are heard. No masses or tenderness. Extremities are intact. No cyanosis clubbing or edema. Skin is without rash or lesion. Neurologic examination is difficult to assess given the patient's mental status changes and sedation - Labs CBC & Chem 7: 11/29/17 04:15 11/29/17 04:15 Labs: Abnormal Lab Results - Last 24 Hours (Table) 11/28/17 11/28/17 11/28/17 Range/Units 12:45 15:30 17:14 WBC (3.8-10.6) k/uL Plt Count (150-450) k/uL Neutrophils # (1.3-7.7) k/uL Lymphocytes # (1.0-4.8) k/uL ABG pCO2 (35-45) mmHg ABG O2 Saturation (94-97) % Potassium (3.5-5.1) mmol/L Carbon Dioxide (22-30) mmol/L BUN (7-17) mg/dL Glucose (74-99) mg/dL POC Glucose (mg/dL) 182 H (75-99) mg/dL Calcium (8.4-10.2) mg/dL Magnesium 2.4 H (1.6-2.3) mg/dL CSF RBC 1230 H (0-10) u/L CSF Tot Nucleated Cells 170 H (0-5) u/L CSF Glucose 97 H (40-70) mg/dL CSF Total Protein 198 H (12-60) mg/dL 11/28/17 11/29/17 11/29/17 Range/Units 18:28 00:20 04:15 WBC 15.8 H (3.8-10.6) k/uL Plt Count 146 L (150-450) k/uL Neutrophils # 13.9 H (1.3-7.7) k/uL Lymphocytes # 0.9 L (1.0-4.8) k/uL ABG pCO2 (35-45) mmHg ABG O2 Saturation (94-97) % Potassium (3.5-5.1) mmol/L Carbon Dioxide (22-30) mmol/L BUN (7-17) mg/dL Glucose (74-99) mg/dL POC Glucose (mg/dL) 176 H 231 H (75-99) mg/dL Calcium (8.4-10.2) mg/dL Magnesium (1.6-2.3) mg/dL CSF RBC (0-10) u/L CSF Tot Nucleated Cells (0-5) u/L CSF Glucose (40-70) mg/dL CSF Total Protein (12-60) mg/dL 11/29/17 11/29/17 11/29/17 Range/Units 04:15 04:34 06:07 WBC (3.8-10.6) k/uL Plt Count (150-450) k/uL Neutrophils # (1.3-7.7) k/uL Lymphocytes # (1.0-4.8) k/uL ABG pCO2 34 L (35-45) mmHg ABG O2 Saturation 97.2 H (94-97) % Potassium 2.8 L* (3.5-5.1) mmol/L Carbon Dioxide 20 L (22-30) mmol/L BUN 25 H (7-17) mg/dL Glucose 225 H (74-99) mg/dL POC Glucose (mg/dL) 193 H (75-99) mg/dL Calcium 8.3 L (8.4-10.2) mg/dL Magnesium 2.4 H (1.6-2.3) mg/dL CSF RBC (0-10) u/L CSF Tot Nucleated Cells (0-5) u/L CSF Glucose (40-70) mg/dL CSF Total Protein (12-60) mg/dL Microbiology - Last 24 Hours (Table) 11/28/17 01:45 Blood Culture - Preliminary Blood No Growth after 24 hours 11/28/17 02:05 Blood Culture - Preliminary Blood No Growth after 24 hours 11/28/17 15:30 CSF Gram Stain - Preliminary Cerebral Spinal Fluid CSF Culture - Preliminary 11/27/17 20:55 Gram Stain - Preliminary Sputum Sputum Culture - Preliminary 11/26/17 09:20 Blood Culture - Preliminary Blood No Growth after 48 hours 11/28/17 00:15 Urine Culture - Preliminary Urine,Catheterized Assessment and Plan Assessment: Assessment Altered mental status, likely representing either a new onset seizure with a postictal state or possible meningitis Possible CVA, although, scanning is negative. Acute respiratory failure secondary to patient unable to protect her airway, requiring intubation and mechanical ventilation History of hypertension History of hyperlipidemia History of hypothyroidism Possible meningitis given the findings on lumbar puncture Plan: Plan dated 11/28/2017 The patient's currently on antibiotics for presumed meningitis. A lumbar puncture is being performed by anesthesia. Her antibiotics including Rocephin and vancomycin and Zosyn and acyclovir. Her antibiotic should be Rocephin and vancomycin and ampicillin and acyclovir. Listeria monocytogenes would be one possible cause of her meningitis if that is the correct diagnosis. The patient remains on mechanical ventilator. FiO2 was dropped from 35-25%. We'll start tube feedings on the patient. Patient will continue with IV fluids. Additional recommendations and suggestions forthcoming. Prognosis is guarded since we don't have a clear-cut etiology at this time. I was able to speak to the neurologist yesterday. He feels that this patient had a new-onset seizure with a postictal state. One other possibility might be posterior reversible encephalopathy syndrome. We'll discuss with neurology about this. Plan dated 11/29/2017 The patient's currently on appropriate antibiotics. We'll continue to follow closely. Labs x-rays a medications are all reviewed. The patient remains on Rocephin and vancomycin and acyclovir. Additional recommendations and suggestions are forthcoming. Hyaline a central line replaced. Additional recommendations and suggestions are forthcoming. Critical care time 36 minutes Time with Patient: Greater than 30
[2017-11-29] MEDS ORDERED: CISATRACURIUM 2 MG/ML 5 ML VIAL IV ONE (09:41)
--- NOTE | 2017-11-29 11:36 | PCN ---
PROCEDURE NOTE TRIPLE LUMEN CATHETER PLACEMENT: Indication: Hemodynamic monitoring/Intravenous access. A time-out was completed verifying correct patient, procedure, site, positioning, and implant(s) or special equipment if applicable. The patient was placed in a dependent position appropriate for triple lumen catheter placement based on the vein to be cannulated. The patient's right groin was prepped and draped in sterile fashion. 1% Lidocaine was used to anesthetize the surrounding skin area. A triple lumen 9F Cordis catheter was introduced into the common femoral vein using Seldinger technique. The catheter was threaded smoothly over the guide wire and appropriate blood return was obtained. Each lumen of the catheter was evacuated of air and flushed with sterile saline. The catheter was then sutured in place to the skin and a sterile dressing applied. Perfusion to the extremity distal to the point of catheter insertion was checked and found to be adequate. PREOPERATIVE DIAGNOSIS: Administration of fluids and pressors. POSTOPERATIVE DIAGNOSIS: Administration of fluids and pressors. There were no immediate complications. The catheter was sutured in place. There was good blood return from all 3 ports. The patient tolerated the procedure well and a sterile dressing was applied by the nurse. MMODL / IJN: [id number] /
--- NOTE | 2017-11-29 12:03 | P.PN ---
Subjective Progress Note Date: 11/29/17 77 years old female patient of Dr. Wilson with past medical history of hypertension, hyperlipidemia, hypothyroidism, overactive bladder presents in with confusion that started this morning. According to the family patient was not eating and drinking for the past 2 days. She woke up in the morning feeling confused, unable to speak appropriately. Patient was unable to comprehend and repeat appropriately. Her language was gibberish and lacked meaning. Patient denies any sensory or motor deficits. She denies any history of seizure or any similar episodes in the past. Patient denies any history of chest pain, palpitation, shortness of breath, abdominal pain, nausea or vomiting. No history of syncope or loss of consciousness prior to this episode. Patient is unable to provide much history is pleasantly confused. She does know where she is and can tell her name and date of . Vitals are stable with blood pressure slightly elevated 171/70. Saturating well on room air and afebrile. Patient did have a leukocytosis of 14.3 INR 1.1, lactic acid 2.4. Normal troponin. CT head negative for any acute abnormalities no masses seen. Did have prominent choroid plexus cyst. CT abdomen and pelvis was done as patient had some tenderness in the lower quadrant which was unremarkable. Due to patient's A. fib. Dysarthria MRI/MRA ordered. Neurology consulted from possible stroke versus brain mass. 11/27: Echocardiogram reveals EF of 55-60%, trace mitral regurgitation, trace tricuspid regurgitation. Patient has been seen by Dr. 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 Homocysteine level is normal at 12.02. Triglycerides 201, cholesterol 201, LDL 128 and HDL 34. Repeat troponins came back negative. Patient was unable to swallow but her a.m. medications were given. Patient is having difficulty following directions. We will change what we can over to IV. MRI is scheduled for 4 this afternoon. PT OT and speech therapy are all involved. EEG is pending. EEG 11/28: When patient went for EEG yesterday afternoon, she developed seizure activity while having the procedure done. The seizure activity stopped without any medication. She was subsequently post ictal and was transferred to the intensive care unit. She underwent MRI and MRI/MRA of the head and neck that showed no evidence of recent infarct. Patient was unarousable after this responded to pain stimuli. There was concern decorticated posturing at that time. Patient was started on Keppra 1000 mg IV twice daily. She also underwent a repeat CAT scan of the brain that showed cerebral atrophy. No acute intracranial abnormality seen. No sign of cortical infarct. No change. Repeat chest x-ray shows no developing left basilar atelectasis and/or infiltrate. LP was attempted by anesthesia which was unsuccessful. She continued to have posturing and respiratory status was declining and patient was intubated and placed on mechanical ventilation. There is order for interventional radiology to perform lumbar puncture. She is currently on antimicrobials in the form of Rocephin, vancomycin, acyclovir and ampicillin. Patient also developed fever up to 103 there was consult placed with Dr. Roche. Dr. Nash is intensive care management. 11/29: Repeat EEG was limited due to muscle artifact. No obvious epileptiform discharges. Lumbar puncture was finally obtained by interventional radiology with removal of 15 mL of slightly tinge spinal fluid with evidence of pleocytosis consistent with meningeal coccal infection. Dr. Roche as adjusted Rocephin to 2 g every 12 hours. Ampicillin was discontinued. Neurology continues to follow. Patient is on Keppra 1000 mg twice daily IV as well as rectal aspirin. Patient has been afebrile since yesterday at 8 AM. Vital signs have been stable and patient has not required vasopressors. She remains intubated and on mechanical ventilation. White count is down slightly from yesterday to 15, potassium is low at 2.8 and will be replaced by protocol. Influenza testing came back negative. Blood cultures remain with no growth. Cerebral spinal fluid cultures are in progress. 2 feedings have been started. Objective - Vital Signs Vital signs: Vital Signs Temp 96.3 F L 11/29/17 05:00 Pulse 62 11/29/17 07:56 Resp 14 11/29/17 07:00 BP 131/49 11/29/17 07:00 Pulse Ox 98 11/29/17 07:00 Intake & Output 11/28/17 11/29/17 11/29/17 18:59 06:59 18:59 Intake Total 2318.273 2138.6 50.7 Output Total 540 1075 Balance 5365.735 2410.6 50.7 Weight 97 kg 96.2 kg Intake: IV 2100 1300 Acyclovir Sodium 500 mg 200 In Sodium Chloride 0.9% 100 ml @ 100 mls/hr IVPB Q8H [facility] Rx#:[id number] Ampicillin 2,000 mg In 200 Sodium Chloride 0.9% 100 ml @ 200 mls/hr IVPB Q6HR [facility] Rx#:[id number] Magnesium Sulfate-D5w Pmx 200 1 gm In Dextrose/Water 1 100ml.bag @ 100 mls/hr IVPB Q1H [facility] Rx#: [id number] Piperacillin-Tazobactam 3 50 .375 gm In Dextrose/Water 1 50ml.bag @ 12.5 mls/hr IVPB Q12HR [facility] Rx#: [id number] Sodium Chloride 0.9% 1, 1000 000 ml @ 100 mls/hr IV . Q10H [facility] Rx#:[id number] Sodium Chloride 0.9% 1, 100 1300 000 ml @ 100 mls/hr IV . Q10H [facility] Rx#:[id number] Vancomycin 1,500 mg In 250 Sodium Chloride 0.9% 250 ml @ 125 mls/hr IVPB ONCE ONE Rx#:[id number] levETIRAcetam IV 1,000 mg 100 In Saline 1 100ml.bag @ 400 mls/hr IVPB Q12H [facility] Rx#:[id number] Intake, IV Titration 92.273 264.6 50.7 Amount Propofol 1,000 mg In 92.273 264.6 50.7 Empty Bag 1 bag @ Titrate IV .Q0M [facility] Rx#: [id number] Tube Feeding 126 544 Other 30 Output: Urine 540 1075 Other: Voiding Method Indwelling Catheter Indwelling Catheter ABP, PAP, CO, CI - Last Documented Arterial Blood Pressure 141/62 - Exam General appearance: no acute distress, obese - EENT Eyes: anicteric sclerae, PERRLA, normal appearance, ET tube and gastric tube in place orally ENT: hearing grossly normal - Neck Neck: no lymphadenopathy, normal ROM, no other, no rigidity, no stridor, no thyromegaly - Respiratory Respiratory: bilateral: Rhonchi, negative: Wheezes - Cardiovascular Rhythm: regular Heart sounds: normal: S1, S2 Abnormal Heart Sounds: no systolic murmur, no diastolic murmur, no rub, no S3 Gallop, no S4 Gallop, no click, no other - Gastrointestinal General gastrointestinal: normal bowel sounds, soft - Integumentary Integumentary: no rash - Neurologic Neurologic: Patient is on sedation - Musculoskeletal Musculoskeletal: Unable to evaluate - Psychiatric Psychiatric: On sedation - Labs CBC & Chem 7: 11/29/17 04:15 11/29/17 04:15 Labs: Abnormal Lab Results - Last 24 Hours (Table) 11/28/17 11/28/17 11/28/17 Range/Units 12:45 15:30 17:14 WBC (3.8-10.6) k/uL Plt Count (150-450) k/uL Neutrophils # (1.3-7.7) k/uL Lymphocytes # (1.0-4.8) k/uL ABG pCO2 (35-45) mmHg ABG O2 Saturation (94-97) % Potassium (3.5-5.1) mmol/L Carbon Dioxide (22-30) mmol/L BUN (7-17) mg/dL Glucose (74-99) mg/dL POC Glucose (mg/dL) 182 H (75-99) mg/dL Calcium (8.4-10.2) mg/dL Magnesium 2.4 H (1.6-2.3) mg/dL CSF RBC 1230 H (0-10) u/L CSF Tot Nucleated Cells 170 H (0-5) u/L CSF Glucose 97 H (40-70) mg/dL CSF Total Protein 198 H (12-60) mg/dL 11/28/17 11/29/17 11/29/17 Range/Units 18:28 00:20 04:15 WBC 15.8 H (3.8-10.6) k/uL Plt Count 146 L (150-450) k/uL Neutrophils # 13.9 H (1.3-7.7) k/uL Lymphocytes # 0.9 L (1.0-4.8) k/uL ABG pCO2 (35-45) mmHg ABG O2 Saturation (94-97) % Potassium (3.5-5.1) mmol/L Carbon Dioxide (22-30) mmol/L BUN (7-17) mg/dL Glucose (74-99) mg/dL POC Glucose (mg/dL) 176 H 231 H (75-99) mg/dL Calcium (8.4-10.2) mg/dL Magnesium (1.6-2.3) mg/dL CSF RBC (0-10) u/L CSF Tot Nucleated Cells (0-5) u/L CSF Glucose (40-70) mg/dL CSF Total Protein (12-60) mg/dL 11/29/17 11/29/17 11/29/17 Range/Units 04:15 04:34 06:07 WBC (3.8-10.6) k/uL Plt Count (150-450) k/uL Neutrophils # (1.3-7.7) k/uL Lymphocytes # (1.0-4.8) k/uL ABG pCO2 34 L (35-45) mmHg ABG O2 Saturation 97.2 H (94-97) % Potassium 2.8 L* (3.5-5.1) mmol/L Carbon Dioxide 20 L (22-30) mmol/L BUN 25 H (7-17) mg/dL Glucose 225 H (74-99) mg/dL POC Glucose (mg/dL) 193 H (75-99) mg/dL Calcium 8.3 L (8.4-10.2) mg/dL Magnesium 2.4 H (1.6-2.3) mg/dL CSF RBC (0-10) u/L CSF Tot Nucleated Cells (0-5) u/L CSF Glucose (40-70) mg/dL CSF Total Protein (12-60) mg/dL Microbiology - Last 24 Hours (Table) 11/28/17 01:45 Blood Culture - Preliminary Blood No Growth after 24 hours 11/28/17 02:05 Blood Culture - Preliminary Blood No Growth after 24 hours 11/28/17 15:30 CSF Gram Stain - Preliminary Cerebral Spinal Fluid CSF Culture - Preliminary 11/27/17 20:55 Gram Stain - Preliminary Sputum Sputum Culture - Preliminary 11/26/17 09:20 Blood Culture - Preliminary Blood No Growth after 48 hours 11/28/17 00:15 Urine Culture - Preliminary Urine,Catheterized Assessment and Plan Plan: 1. Acute metabolic encephalopathy with new onset of seizure secondary to meningitis, encephalitis. Acute stroke has been ruled out. Neurology, pulmonary medicine, infectious disease consults in place. Patient is currently on antimicrobials in the form of ceftriaxone, acyclovir and vancomycin. Patient started on dexamethasone discontinued. Continue Keppra 1000 mg twice daily IV piggyback, Ativan 1 mg every 6 hours as needed for seizure, Tylenol by suppository, aspirin daily rectally. 2. Acute hypoxic respiratory failure secondary to inability to protect her airway. Patient has been intubated and on mechanical ventilation. Dr. Nash is managing. 3. Hyperlipidemia. Lipid panel as above. 4. Hypertension hold atenolol/chlorthalidone. 5. Hypothyroidism continue levothyroxine 44 g on Sunday and 88 g rest of the days and just IV 6. Overactive bladder. Hold oxybutynin 10 mg by mouth daily 7. Leukocytosis likely reactive. 7. GI prophylaxis with Protonix daily. 8. DVT prophylaxis with SCDs . CODE STATUS full code Discharge plan: Subacute rehab Impression and plan of care have been directed as dictated by the signing physician. Linda Mera nurse practitioner acting as scribe for signing physician.
--- NOTE | 2017-11-29 12:06 | PCN ---
PROCEDURE NOTE ARTERIAL LINE PLACEMENT: Indication Hemodynamic monitoring. A time-out was completed verifying correct patient, procedure, site, positioning, and implant(s) or special equipment if applicable. Nico's test was performed to ensure adequate perfusion. The patient's right wrist was prepped and draped in sterile fashion. 1% Lidocaine was used to anesthetize the area. An 18G Arrow arterial line was introduced into the right radial artery. The catheter was threaded over the guide wire and the needle was removed with appropriate pulsatile blood return. Blood loss was minimal. The catheter was then sutured in place to the skin and a sterile dressing applied. Perfusion to the extremity distal to the point of catheter insertion was checked and found to be adequate. The patient tolerated the procedure well and there were no complications. The right radial line was inserted without immediate complications. The line was sutured in place. Good waveform noted. The line was flushed. MMODL / IJN: [id number] /
[2017-11-29 12:38] LABS: Glucose,Whole Blood 208 mg/dL (75-99)
[2017-11-29 13:43] LABS: West Nile Virus IgM Antibody 0.08 INDEX (<0.90)
[2017-11-29] MEDS: LORazepam 2 MG/ML INJ IV PRN (18:42)
[2017-11-29 18:49] LABS: Glucose,Whole Blood 172 mg/dL (75-99)
--- NOTE | 2017-11-29 22:59 | P.PN ---
Subjective Progress Note Date: 11/29/17 Principal diagnosis: altered mental status 77 years old female came into [facility] emergency center on November 26 and according to the family was not eating and drinking for the past 2 days. She went to bed on Sunday evening and was feeling fine. She woke up in the morning not feeling well and had some abdominal discomfort for which she took pepto-bismol but there was no vomiting or diarrhea at that time. She then developed confusion and difficulty with her speech. Patient was unable to comprehend and repeat appropriately. Her language was gibberish and lacked meaning. Patient denies any sensory or motor deficits. She denies any history of seizure or any similar episodes in the past. Patient was pleasantly confused. She does know where she is and can tell her name and date of . She presented afebrile with white count of 14.3. Vitals are stable with blood pressure slightly elevated 171/70. Saturating well on room air and afebrile. Patient did have a leukocytosis of 14.3. Urinalysis showed a small amount of blood otherwise negative for infection. Lactic acid 2.4. Normal troponin. CT head negative for any acute abnormalities no masses seen. Did have prominent choroid plexus cyst. CT abdomen and pelvis was done as patient had some tenderness in the lower quadrant which was unremarkable. Patient was initially admitted to the selective care unit where she was seen by neurology. By the following morning patient had more confusion and was having difficulty following any commands. She was made nothing by mouth. Echocardiogram reveals EF of 55-60%, trace mitral regurgitation, trace tricuspid regurgitation. Homocysteine level is normal at 12.02. Triglycerides 201, cholesterol 201, LDL 128 and HDL 34. Repeat troponins came back negative. Patient went for EEG yesterday afternoon, she developed seizure activity while having the procedure done. The seizure activity stopped without any medication. She was subsequently post ictal and not responding normally. She underwent MRI and MRI/ MRA of the head and neck that showed no evidence of recent infarct. Patient was unarousable after this responded to pain stimuli. There was concern decorticated posturing at that time. Patient was started on Keppra 1000 mg IV twice daily. She also underwent a repeat CAT scan of the brain that showed cerebral atrophy. No acute intracranial abnormality seen. No sign of cortical infarct. No change. Repeat chest x-ray shows no developing left basilar atelectasis and/or infiltrate. She was transferred into the intensive care unit. LP was attempted by anesthesia which was unsuccessful. She continued to have posturing and respiratory status was declining and patient was intubated and placed on mechanical ventilation. Interventional radiology to perform diagnostic lumbar puncture. She is currently on antimicrobials in the form of Rocephin, vancomycin, acyclovir and ampicillin. Patient also developed fever up to 103 yesterday afternoon and patient also developed a petechial papule rash that was new.. Patient is followed by Dr. Nash is intensive care management. Family states the patient has not had any recent travel. She goes to [facility] to visit her daughter and went to [place] for Thanksgiving. Family denied any bird, bat exposure. One month ago she did have the flu and this is what she thought was going on on Sunday morning when she woke up. They deny any unusual animal exposures. 11/29/2017 reveals the patient to have improved fever. Temperature 96.3 today. She is hemodynamically stable and not in vasopressor therapy. She continues to have poor mental status and respiratory failure and remains intubated and sedated and mechanically ventilated. The patient appears to be more comfortable today. Did not seem to be having the episodes of spontaneous posturing movements. Objective - Vital Signs Vital signs: Vital Signs Temp 98.4 F 11/29/17 20:00 Pulse 77 11/29/17 20:00 Resp 18 11/29/17 20:00 BP 148/76 11/29/17 09:00 Pulse Ox 98 11/29/17 20:00 Intake & Output 11/29/17 11/29/17 11/30/17 06:59 18:59 06:59 Intake Total 2138.6 2098.9 479.9 Output Total 1075 710 185 Balance 1063.6 1388.9 294.9 Weight 96.2 kg Intake: IV 1300 1400 300 Acyclovir Sodium 500 mg 200 In Sodium Chloride 0.9% 100 ml @ 100 mls/hr IVPB Q8H SANCHEZ Rx#:[id number] Sodium Chloride 0.9% 1, 1300 1100 300 000 ml @ 100 mls/hr IV . Q10H SANCHEZ Rx#:[id number] levETIRAcetam IV 1,000 mg 100 In Saline 1 100ml.bag @ 400 mls/hr IVPB Q12H SANCHEZ Rx#:[id number] Intake, IV Titration 264.6 132.9 111.9 Amount Propofol 1,000 mg In 264.6 132.9 111.9 Empty Bag 1 bag @ Titrate IV .Q0M SANCHEZ Rx#: [id number] Tube Feeding 544 476 68 Other 30 90 Output: Urine 1075 710 185 Other: Voiding Method Indwelling Catheter Indwelling Catheter Indwelling Catheter ABP, PAP, CO, CI - Last Documented Arterial Blood Pressure 154/47 - Exam Gen: This is a 77-year-old female. She is intubated and on mechanical ventilation in the intensive care unit. She appears to be comfortable. HEENT: Head is atraumatic, normocephalic. Pupils equal, round. Sclerae is anicteric. Mucous membranes are moist. NECK: Supple. No JVD. No lymphadenopathy. No thyromegaly. LUNGS: Diminished with a few scattered rhonchi. No intercostal retractions. HEART: Regular rate and rhythm. No murmur. ABDOMEN: Soft. Bowel sounds are present. No masses. No tenderness. SKIN: Patient has rash noted on her abdomen and extremities some areas it is petechial like is not blanchable or other areas papule-like. EXTREMITIES: No pedal edema. NEUROLOGICAL: Patient is intubated and sedated less rigidity noted today, less posturing is noted. - Labs CBC & Chem 7: 11/29/17 04:15 11/29/17 14:00 Labs: Abnormal Lab Results - Last 24 Hours (Table) 11/28/17 11/29/17 11/29/17 Range/Units 06:06 00:20 04:15 WBC 15.8 H (3.8-10.6) k/uL Plt Count 146 L (150-450) k/uL Neutrophils # 13.9 H (1.3-7.7) k/uL Lymphocytes # 0.9 L (1.0-4.8) k/uL Pathologist Review See comment A ABG pCO2 (35-45) mmHg ABG O2 Saturation (94-97) % Potassium (3.5-5.1) mmol/L Carbon Dioxide (22-30) mmol/L BUN (7-17) mg/dL Glucose (74-99) mg/dL POC Glucose (mg/dL) 231 H (75-99) mg/dL Calcium (8.4-10.2) mg/dL Magnesium (1.6-2.3) mg/dL 11/29/17 11/29/17 11/29/17 Range/Units 04:15 04:34 06:07 WBC (3.8-10.6) k/uL Plt Count (150-450) k/uL Neutrophils # (1.3-7.7) k/uL Lymphocytes # (1.0-4.8) k/uL Pathologist Review ABG pCO2 34 L (35-45) mmHg ABG O2 Saturation 97.2 H (94-97) % Potassium 2.8 L* (3.5-5.1) mmol/L Carbon Dioxide 20 L (22-30) mmol/L BUN 25 H (7-17) mg/dL Glucose 225 H (74-99) mg/dL POC Glucose (mg/dL) 193 H (75-99) mg/dL Calcium 8.3 L (8.4-10.2) mg/dL Magnesium 2.4 H (1.6-2.3) mg/dL 11/29/17 11/29/17 11/29/17 Range/Units 12:35 14:00 18:48 WBC (3.8-10.6) k/uL Plt Count (150-450) k/uL Neutrophils # (1.3-7.7) k/uL Lymphocytes # (1.0-4.8) k/uL Pathologist Review ABG pCO2 (35-45) mmHg ABG O2 Saturation (94-97) % Potassium 3.1 L (3.5-5.1) mmol/L Carbon Dioxide (22-30) mmol/L BUN (7-17) mg/dL Glucose (74-99) mg/dL POC Glucose (mg/dL) 208 H 172 H (75-99) mg/dL Calcium (8.4-10.2) mg/dL Magnesium (1.6-2.3) mg/dL Microbiology - Last 24 Hours (Table) 11/28/17 15:30 CSF Gram Stain - Preliminary Cerebral Spinal Fluid CSF Culture - Preliminary 11/26/17 09:20 Blood Culture - Preliminary Blood No Growth after 72 hours 11/28/17 00:15 Urine Culture - Final Urine,Catheterized 11/28/17 01:45 Blood Culture - Preliminary Blood No Growth after 24 hours 11/28/17 02:05 Blood Culture - Preliminary Blood No Growth after 24 hours 11/27/17 20:55 Gram Stain - Preliminary Sputum Sputum Culture - Preliminary Laboratory Results WBC 15.8 k/uL (3.8-10.6) H 11/29/17 04:15 RBC 4.42 m/uL (3.80-5.40) 11/29/17 04:15 Hgb 12.3 gm/dL (11.4-16.0) 11/29/17 04:15 Hct 38.5 % (34.0-46.0) 11/29/17 04:15 MCV 87.1 fL (80.0-100.0) 11/29/17 04:15 MCH 27.8 pg (25.0-35.0) 11/29/17 04:15 MCHC 31.9 g/dL (31.0-37.0) 11/29/17 04:15 RDW 13.4 % (11.5-15.5) 11/29/17 04:15 Plt Count 146 k/uL (150-450) L 11/29/17 04:15 Neutrophils % 88 % 11/29/17 04:15 Lymphocytes % 6 % 11/29/17 04:15 Monocytes % 5 % 11/29/17 04:15 Eosinophils % 0 % 11/29/17 04:15 Basophils % 0 % 11/29/17 04:15 Neutrophils # 13.9 k/uL (1.3-7.7) H 11/29/17 04:15 Lymphocytes # 0.9 k/uL (1.0-4.8) L 11/29/17 04:15 Monocytes # 0.8 k/uL (0-1.0) 11/29/17 04:15 Eosinophils # 0.1 k/uL (0-0.7) 11/29/17 04:15 Basophils # 0.0 k/uL (0-0.2) 11/29/17 04:15 Manual Slide Review Performed 11/28/17 06:06 Pathologist Review See comment A 11/28/17 06:06 PT 10.8 sec (9.0-12.0) 11/27/17 23:55 INR 1.1 (<1.2) 04/10/18 23:55 APTT 22.4 sec (22.0-30.0) 11/27/17 23:55 Fibrinogen 436 mg/dL (200-500) 11/28/17 06:06 D-Dimer 1.27 mg/L FEU (<0.60) H 11/27/17 23:55 Sample Site Left Brachial 11/29/17 04:34 ABG pH 7.40 (7.35-7.45) 11/29/17 04:34 ABG pCO2 34 mmHg (35-45) L 11/29/17 04:34 ABG pO2 103 mmHg (83-108) 11/29/17 04:34 ABG HCO3 21 mmol/L (21-25) 11/29/17 04:34 ABG Total CO2 22 mmol/L (19-24) 11/29/17 04:34 ABG O2 Saturation 97.2 % (94-97) H 11/29/17 04:34 ABG Base Excess -3.9 mmol/L 11/29/17 04:34 Nico Test Yes 11/29/17 04:34 FiO2 35 % 11/29/17 04:34 Sodium 140 mmol/L (137-145) 11/29/17 04:15 Potassium 3.1 mmol/L (3.5-5.1) L 11/29/17 14:00 Chloride 105 mmol/L (98-107) 11/29/17 04:15 Carbon Dioxide 20 mmol/L (22-30) L 11/29/17 04:15 Anion Gap 15 mmol/L 11/29/17 04:15 BUN 25 mg/dL (7-17) H 11/29/17 04:15 Creatinine 0.80 mg/dL (0.52-1.04) 11/29/17 04:15 Est GFR (CKD-EPI)AfAm 81 (>60 ml/min/1.73 sqM) 11/29/17 04:15 Est GFR (CKD-EPI)NonAf 71 (>60 ml/min/1.73 sqM) 11/29/17 04:15 Glucose 225 mg/dL (74-99) H 11/29/17 04:15 POC Glucose (mg/dL) 172 mg/dL (75-99) H 11/29/17 18:48 POC Glu Lpta Hwaa Cox 11/29/17 18:[address] Glu mg/dL 126 11/28/17 06:06 Hemoglobin A1c 6.0 % (4.0-6.0) 11/28/17 06:06 Lactic Ac Sepsis Rflx Y 11/26/17 10:13 Plasma Lactic Acid Ede 1.1 mmol/L (0.7-2.0) 11/26/17 14:14 Calcium 8.3 mg/dL (8.4-10.2) L 11/29/17 04:15 Phosphorus 3.1 mg/dL (2.5-4.5) 11/29/17 04:15 Magnesium 2.4 mg/dL (1.6-2.3) H 11/29/17 04:15 Total Bilirubin 0.9 mg/dL (0.2-1.3) 11/27/17 06:29 AST 18 U/L (14-36) 11/27/17 06:29 ALT 27 U/L (9-52) 11/27/17 06:29 Alkaline Phosphatase 43 U/L (38-126) 11/27/17 06:29 Total Creatine Kinase 86 U/L (30-135) 11/26/17 09:20 CK-MB (CK-2) 0.5 ng/mL (0.0-2.4) 11/26/17 09:20 CK-MB (CK-2) Rel Index 0.6 11/26/17 09:20 Troponin I <0.012 ng/mL (0.000-0.034) 11/26/17 20:56 Total Protein 6.2 g/dL (6.3-8.2) L 11/27/17 06:29 Albumin 3.9 g/dL (3.5-5.0) 11/27/17 06:29 Triglycerides 201 mg/dL (<150) H 11/27/17 06:29 Cholesterol 201 mg/dL (<200) H 11/27/17 06:29 LDL Cholesterol, Calc 128 mg/dL (0-99) H 11/27/17 06:29 HDL Cholesterol 33 mg/dL (40-60) L 11/27/17 06:29 Homocysteine 12.02 umol/L (4.00-14.00) 11/26/17 20:56 Urine Color Yellow 11/28/17 00:15 Urine Appearance Turbid (Clear) H 11/28/17 00:15 Urine pH 5.5 (5.0-8.0) 11/28/17 00:15 Ur Specific [place] 1.024 (1.001-1.035) 11/28/17 00:15 Urine Protein 1+ (Negative) H 11/28/17 00:15 Urine Glucose (UA) Negative (Negative) 11/28/17 00:15 Urine Ketones Negative (Negative) 11/28/17 00:15 Urine Blood Large (Negative) H 11/28/17 00:15 Urine Nitrite Negative (Negative) 11/28/17 00:15 Urine Bilirubin Negative (Negative) 11/28/17 00:15 Urine Urobilinogen <2.0 mg/dL (<2.0) 11/28/17 00:15 Ur Leukocyte Esterase Large (Negative) H 11/28/17 00:15 Urine RBC 38 /hpf (0-5) H 11/28/17 00:15 Urine WBC 37 /hpf (0-5) H 11/28/17 00:15 Ur Squamous Epith Cells <1 /hpf (0-4) 11/26/17 09:20 Hyaline Casts 15 /lpf (0-2) H 11/28/17 00:15 Urine Mucus Rare /hpf (None) H 11/28/17 00:15 CSF Tube Number 4 11/28/17 15:30 CSF Volume 3.5 11/28/17 15:30 CSF Appearance Blood Tinged 11/28/17 15:30 CSF Color [place] 11/28/17 15:30 CSF RBC 1230 u/L (0-10) H 11/28/17 15:30 CSF Tot Nucleated Cells 170 u/L (0-5) H 11/28/17 15:30 CSF Mononuclear WBCs % 66 % 11/28/17 15:30 CSF Polynuclear WBCs % 34 % 11/28/17 15:30 CSF Glucose 97 mg/dL (40-70) H 11/28/17 15:30 CSF Total Protein 198 mg/dL (12-60) H 11/28/17 15:30 West Nile Virus IgG Ab 0.03 INDEX (<1.30) 11/28/17 06:30 West Nile Virus IgM Ab 0.08 INDEX (<0.90) 11/28/17 06:30 HSV I DNA PCR Not detected (Not detected) 11/28/17 06:30 HSV II DNA PCR Not detected (Not detected) 11/28/17 06:30 HSV (PCR) Source Blood - EDTA 11/28/17 06:30 Influenza Type A RNA Not Detected (Not Detectd) 11/28/17 16:54 Influenza Type B (PCR) Not Detected (Not Detectd) 11/28/17 16:54 Virus Source (()) 11/28/17 16:54 Viral Test See Below 11/28/17 16:54 Virus Analysis Interp See Below 11/28/17 16:54 Microbiology 11/28/17 15:30 Cerebral Spinal Fluid CSF Gram Stain - Preliminary 11/28/17 15:30 Cerebral Spinal Fluid CSF Culture - Preliminary 11/26/17 09:20 Blood Blood Culture - Preliminary No Growth after 72 hours 11/28/17 00:15 Urine,Catheterized Urine Culture - Final 11/28/17 01:45 Blood Blood Culture - Preliminary No Growth after 24 hours 11/28/17 02:05 Blood Blood Culture - Preliminary No Growth after 24 hours 11/27/17 20:55 Sputum Gram Stain - Preliminary 11/27/17 20:55 Sputum Sputum Culture - Preliminary Assessment and Plan (1) Acute bacterial meningitis Narrative/Plan: Is noted the patient has had a rapid decline of her status associated with high- grade fever, altered mental status and respiratory failure requiring intubation and sedation with mechanical ventilation. The patient's family is present. We review the findings. There is evidence of fever with altered mental status and leukocytosis which is strongly consistent with a central nervous system infection. Lumbar puncture has now been performed and there is evidence of pleocytosis and consequently bacterial meningitis with seem to be most likely, and with the rash in 77-year-old could be consistent with meningococcal infection. We await the Gram stain to help further direct prophylactic therapy if needed. Antibiotic therapy was adjusted with 2 g of Rocephin every 12 hours, with the development of the rash ampicillin was discontinued, she has no alcoholism and seems to be a low risk for listeria, vancomycin is being utilized for now. With the concern for encephalitis acyclovir is also been initiated and will be continued until we have further data from her lumbar puncture. The family is aware of the severity and acuity of the illness and there is potential for long- term effects and potential even for . 11/29/2017 patient has some improvement in that she is no longer febrile and is less rigid. Oxygenation is stable and she has not and vasopressor therapy. Laboratory is contacted and the Gram stain reveals evidence of the many PMNs but no bacteria are seen. Other studies are pending. Blood cultures are negative so far. Leukocytosis is noted. The patient's skin lesions are stable and have not progressed. Antibiotic therapy continues. If the PCR comes back negative for HSV 1 and 2 as well as Varicela then acyclovir can be discontinued. Current Visit: Yes Status: Acute Code(s): G00.9 - BACTERIAL MENINGITIS, UNSPECIFIED SNOMED Code(s): 74750849 (2) Fever Current Visit: Yes Status: Acute Code(s): R50.9 - FEVER, UNSPECIFIED SNOMED Code(s): 816133839 (3) Leukocytosis Current Visit: Yes Status: Acute Code(s): D72.829 - ELEVATED WHITE BLOOD CELL COUNT, UNSPECIFIED SNOMED Code(s): 330874001 (4) Seizure Current Visit: Yes Status: Acute Code(s): R56.9 - UNSPECIFIED CONVULSIONS SNOMED Code(s): 60739792
[2017-11-30 00:12] LABS: Glucose,Whole Blood 166 mg/dL (75-99)
[2017-11-30] MEDS: POTASSIUM BICARBONATE/CIT AC 20 MEQ TABLET.EFF NG-TUBE SCH ×3 (00:25→07:37)
[2017-11-30] MEDS: SODIUM CHLORIDE 0.9% 1,000 ML IV SCH ×3 (00:26→20:26)
[2017-11-30] MEDS: DEXAMETHASONE SOD PHOSPHATE 4 MG/ML 1 ML VIAL IV SCH ×4 (00:30→20:26)
[2017-11-30] MEDS: INSULIN ASPART 100 UNIT/ML 1 ML 10 ML VIAL SQ SCH ×4 (00:36→17:34)
[2017-11-30] MEDS: ACYCLOVIR SODIUM 500 MG in SODIUM CHLORIDE 0.9% 100 ML IVPB SCH ×4 (02:11→17:39)
[2017-11-30] MEDS: IPRATROPIUM-ALBUTEROL 3 ML NEB INHALATION SCH ×6 (03:32→23:08)
[2017-11-30] MEDS: PROPOFOL 1,000 MG in EMPTY BAG 1 BAG IV SCH ×4 (03:41→22:30)
[2017-11-30] MEDS: levETIRAcetam IV 1,000 MG in SALINE 1 100ML.BAG IVPB SCH ×2 (03:41→15:50)
[2017-11-30] MEDS: LORazepam 2 MG/ML INJ IV PRN ×2 (04:11→11:40)
[2017-11-30 04:55] LABS: ABG Base Excess 0.8 mmol/L; ABG HCO3 25 mmol/L (21-25); ABG Oxygen Saturation 98.4 % (94-97); ABG PCO2 34 mmHg (35-45); ABG PH 7.47 (7.35-7.45); ABG PO2 102 mmHg (83-108); ABG TCO2 26 mmol/L (19-24)
[2017-11-30 05:19] LABS: Anion Gap 11 mmol/L; Basophils % (A) 0 %; Blood Urea Nitrogen 26 mg/dL (7-17); Carbon Dioxide 24 mmol/L (22-30); Chloride 106 mmol/L (98-107); Eosinophils % (A) 0 %; Glucose 195 mg/dL (74-99); HCT 34.1 % (34.0-46.0); HGB 11.4 gm/dL (11.4-16.0); Lymphocytes # (A) 0.8 k/uL (1.0-4.8); Lymphocytes % (A) 7 %; MCH 28.1 pg (25.0-35.0); MCHC 33.4 g/dL (31.0-37.0); Magnesium 2.2 mg/dL (1.6-2.3); Mean Platelet Volume 8.7; Monocytes # (A) 0.5 k/uL (0-1.0); Monocytes % (A) 5 %; Neutrophils # (A) 9.7 k/uL (1.3-7.7); Neutrophils % (A) 87 %; Phosphorus 2.4 mg/dL (2.5-4.5); Platelet Count 164 k/uL (150-450); Potassium 3.5 mmol/L (3.5-5.1); RBC 4.06 m/uL (3.80-5.40); RDW 13.3 % (11.5-15.5); Sodium 141 mmol/L (137-145); WBC 11.2 k/uL (3.8-10.6)
[2017-11-30 06:05] LABS: Glucose,Whole Blood 148 mg/dL (75-99)
--- NOTE | 2017-11-30 08:29 | XR ---
EXAMINATION TYPE: XR chest 1V DATE OF EXAM: 11/30/2017 COMPARISON: 11/29/2017 INDICATION: Follow-up previous abnormal chest TECHNIQUE: Single frontal view of the chest is obtained. FINDINGS: The heart size is normal. The pulmonary vasculature is normal. There is improved aeration at the left lung base. There is an endotracheal tube present with the tip above the odessa. Nasogastric tube transverses the thorax. EKG leads overlie the chest. IMPRESSION: 1. Lines and catheters discussed above.
[2017-11-30] MEDS: CHLORHEXIDINE GLUCONATE 15 ML CUP MUCOUS MEM SCH ×2 (09:04→20:26)
[2017-11-30] MEDS: PANTOPRAZOLE 40 MG/10 ML VIAL IV SCH (09:04)
[2017-11-30] MEDS: LEVOTHYROXINE IVP 100 MCG/5 ML VIAL IV SCH (09:04)
[2017-11-30] MEDS: cefTRIAXone IN SWFI 2,000 MG/20 ML SYRINGE IVP SCH ×2 (09:05→20:26)
--- NOTE | 2017-11-30 09:47 | P.PN ---
Subjective Progress Note Date: 11/30/17 Principal diagnosis: Mental status changes with respiratory failure, seizures, rule out CVA and meningitis Progress note dated 11/29/2017 77-year-old female admitted with a diagnosis of mental status changes. The patient was initially thought to have a CVA. In addition, she apparently had some seizures during her EEG. The neurologist felt like her mental status changes were secondary to the postictal state following his seizures. Anyway, a computed tomography scan MRI/MRA did not reveal any ischemic stroke or hemorrhagic stroke. The patient apparently had an EEG. He did reveal some seizure activity. In addition, meningitis was a concern. Lumbar puncture showed evidence of elevated white blood cells and elevated protein but glucose was also high. The patient was started on Rocephin and vancomycin as well as Zosyn and acyclovir. The Zosyn was discontinued. The patient apparently developed a rash which was thought to be related to ampicillin administration. The rash developed before the ampicillin was given. The patient will have lines placed. I did talk to the family yesterday. Been keeping them informed. The patient has a history of acute respiratory failure with inability to protect airway, necessitating intubation and mechanical ventilation, hypertension, hyperlipidemia and hypothyroidism. The patient's on the volume assist control mode, rate of 14, tidal volume 400, and FiO2 35% PEEP of 5. Arterial blood gases show a PaO2 of 103 a PaCO2 34 and a pH is 7.39. The patient is currently on propofol at 40 mics per kilogram per minute, saline IV to 100 mL an hour and tube feeds with vital high protein at 34 with a goal of 34 mL per hour. Chest x-ray is okay. The elevated glucose in the cerebrospinal fluid is not consistent with meningitis. Progress note dated 11/30/2017 77-year-old female admitted with a diagnosis of mental status changes. The mental status changes were initially thought to be related to CVA. Also, the neurologist felt that maybe this was all from his seizure and the patient had mental status changes from a post ictal state. More recently, they're concerned about meningitis. A lumbar puncture did reveal evidence of high- protein is some white blood cells. The glucose was also high. The patient was started on empiric therapy. Nitro meningitis including Rocephin and vancomycin and acyclovir. Currently, the patient still on the mechanical ventilator. Cultures from the cerebrospinal fluid S4 negative. CT and MRI/MRA of the brain was negative for stroke. The patient will have a daily interruption of sedation today with a spontaneous breathing trial if she is awake and alert. She currently remains on the ventilator. She is currently on the assist control mode rate of 14, tidal volume 400, FiO2 35% and PEEP of 5. The patient has a blood gas with a PaO2 of 102 PaCO2 of 34 and a pH is 7.47. The patient is on propofol at 40 mics per kilogram per minute is saline IV at 100 mL an hour and vital high protein at 30 with a goal of 30 mL per hour. The patient does have a history of hypertension hyperlipidemia and hypothyroidism. Objective - Vital Signs Vital signs: Vital Signs Temp 98.5 F 11/30/17 04:00 Pulse 66 11/30/17 08:13 Resp 18 11/30/17 07:00 BP 148/76 11/29/17 09:00 Pulse Ox 96 11/30/17 07:00 Intake & Output 11/29/17 11/30/17 11/30/17 18:59 06:59 18:59 Intake Total 2098.9 1946.587 256.520 Output Total 710 800 75 Balance 1388.9 1146.587 181.520 Weight 97.8 kg Intake: IV 1400 1200 100 Acyclovir Sodium 500 mg 200 In Sodium Chloride 0.9% 100 ml @ 100 mls/hr IVPB Q8H [facility] Rx#:[id number] Sodium Chloride 0.9% 1, 1100 1200 100 000 ml @ 100 mls/hr IV . Q10H [facility] Rx#:[id number] levETIRAcetam IV 1,000 mg 100 In Saline 1 100ml.bag @ 400 mls/hr IVPB Q12H [facility] Rx#:[id number] Intake, IV Titration 132.9 270.587 122.520 Amount Propofol 1,000 mg In 132.9 270.587 122.520 Empty Bag 1 bag @ Titrate IV .Q0M [facility] Rx#: [id number] Tube Feeding 476 476 34 Other 90 Output: Urine 710 800 75 Other: Voiding Method Indwelling Catheter Indwelling Catheter ABP, PAP, CO, CI - Last Documented Arterial Blood Pressure 171/51 - Exam No acute distress, sedated, with an orally place NG tube and endotracheal tube. HEENT examination is grossly unremarkable. Mucous membranes are moist. Neck supple. Full range of motion. No adenopathy thyromegaly or neck vein distention. Cardiovascular examination reveals regular rhythm rate. S1-S2 normal. No S3 or S4. No discernible murmur noted. Lungs reveal a few scattered rhonchi. Breath sounds are equal. No crackles. No wheezes. Abdomen soft bowel sounds are heard. No masses or tenderness. Extremities are intact. No cyanosis clubbing or edema. Skin is without rash or lesion. Neurologic examination is difficult to assess given the patient's mental status changes and sedation - Labs CBC & Chem 7: 11/30/17 04:50 11/30/17 04:50 Labs: Abnormal Lab Results - Last 24 Hours (Table) 11/28/17 11/29/17 11/29/17 Range/Units 06:06 12:35 14:00 WBC (3.8-10.6) k/uL Neutrophils # (1.3-7.7) k/uL Lymphocytes # (1.0-4.8) k/uL Pathologist Review See comment A ABG pH (7.35-7.45) ABG pCO2 (35-45) mmHg ABG Total CO2 (19-24) mmol/L ABG O2 Saturation (94-97) % Potassium 3.1 L (3.5-5.1) mmol/L BUN (7-17) mg/dL Glucose (74-99) mg/dL POC Glucose (mg/dL) 208 H (75-99) mg/dL Calcium (8.4-10.2) mg/dL Phosphorus (2.5-4.5) mg/dL 11/29/17 11/30/17 11/30/17 Range/Units 18:48 00:10 04:50 WBC (3.8-10.6) k/uL Neutrophils # (1.3-7.7) k/uL Lymphocytes # (1.0-4.8) k/uL Pathologist Review ABG pH (7.35-7.45) ABG pCO2 (35-45) mmHg ABG Total CO2 (19-24) mmol/L ABG O2 Saturation (94-97) % Potassium (3.5-5.1) mmol/L BUN 26 H (7-17) mg/dL Glucose 195 H (74-99) mg/dL POC Glucose (mg/dL) 172 H 166 H (75-99) mg/dL Calcium 8.0 L (8.4-10.2) mg/dL Phosphorus 2.4 L (2.5-4.5) mg/dL 11/30/17 11/30/17 11/30/17 Range/Units 04:50 04:52 06:04 WBC 11.2 H (3.8-10.6) k/uL Neutrophils # 9.7 H (1.3-7.7) k/uL Lymphocytes # 0.8 L (1.0-4.8) k/uL Pathologist Review ABG pH 7.47 H (7.35-7.45) ABG pCO2 34 L (35-45) mmHg ABG Total CO2 26 H (19-24) mmol/L ABG O2 Saturation 98.4 H (94-97) % Potassium (3.5-5.1) mmol/L BUN (7-17) mg/dL Glucose (74-99) mg/dL POC Glucose (mg/dL) 148 H (75-99) mg/dL Calcium (8.4-10.2) mg/dL Phosphorus (2.5-4.5) mg/dL Microbiology - Last 24 Hours (Table) 11/27/17 20:55 Gram Stain - Final Sputum Sputum Culture - Final 11/28/17 01:45 Blood Culture - Preliminary Blood No Growth after 48 hours 11/28/17 02:05 Blood Culture - Preliminary Blood No Growth after 48 hours 11/26/17 09:20 Blood Culture Gram Stain - Preliminary Blood 11/26/17 09:20 Blood Culture - Final Blood 11/28/17 15:30 CSF Gram Stain - Preliminary Cerebral Spinal Fluid CSF Culture - Preliminary 11/28/17 00:15 Urine Culture - Final Urine,Catheterized Assessment and Plan Assessment: Assessment Altered mental status, likely representing either a new onset seizure with a postictal state or possible meningitis Possible CVA, although, scanning is negative. Acute respiratory failure secondary to patient unable to protect her airway, requiring intubation and mechanical ventilation History of hypertension History of hyperlipidemia History of hypothyroidism Possible meningitis given the findings on lumbar puncture Plan: Plan dated 11/28/2017 The patient's currently on antibiotics for presumed meningitis. A lumbar puncture is being performed by anesthesia. Her antibiotics including Rocephin and vancomycin and Zosyn and acyclovir. Her antibiotic should be Rocephin and vancomycin and ampicillin and acyclovir. Listeria monocytogenes would be one possible cause of her meningitis if that is the correct diagnosis. The patient remains on mechanical ventilator. FiO2 was dropped from 35-25%. We'll start tube feedings on the patient. Patient will continue with IV fluids. Additional recommendations and suggestions forthcoming. Prognosis is guarded since we don't have a clear-cut etiology at this time. I was able to speak to the neurologist yesterday. He feels that this patient had a new-onset seizure with a postictal state. One other possibility might be posterior reversible encephalopathy syndrome. We'll discuss with neurology about this. Plan dated 11/29/2017 The patient's currently on appropriate antibiotics. We'll continue to follow closely. Labs x-rays a medications are all reviewed. The patient remains on Rocephin and vancomycin and acyclovir. Additional recommendations and suggestions are forthcoming. Hyaline a central line replaced. Additional recommendations and suggestions are forthcoming. Critical care time 36 minutes Plan dated 11/30/2017 The patient will have a daily interruption of sedation with a spontaneous breathing trial if she's awake and alert. She remains on antibiotics. The patient is currently receiving nourishment with vital high protein at a goal rate of 30 mL per hour. She remains on the ventilator. Computed tomography scan of the brain was negative. MRI/MRA of the brain was negative. In addition , all microbiology and microbiology studies are negative thus far including the cerebral spinal fluid. Additional recommendations and suggestions are forthcoming. Prognosis is guarded. Critical care time is 34 minutes Time with Patient: Greater than 30
[2017-11-30] MEDS: LABETALOL 5 MG/ML VIAL MDV IVP PRN ×6 (10:31→22:23)
[2017-11-30 11:07] LABS: Glucose,Whole Blood 198 mg/dL (75-99)
[2017-11-30] MEDS: ASPIRIN 300 MG SUPP RECTAL SCH (11:43)
[2017-11-30] MEDS ORDERED: cloNIDine HCL/PF 100 MCG in SODIUM CHLORIDE 0.9% 100 ML IVPB ONE (12:39)
[2017-11-30] MEDS ORDERED: cloNIDine 0.1 MG/24HR PATCH 1 PATCH PATCH TRANSDERM SCH (12:45)
[2017-11-30] MEDS ORDERED: VANCOMYCIN TROUGH DUE 1 EACH MISC MISCELLANE ONE (13:00)
--- NOTE | 2017-11-30 14:51 | P.PN ---
Subjective Progress Note Date: 11/30/17 77 years old female patient of Dr. Wilson with past medical history of hypertension, hyperlipidemia, hypothyroidism, overactive bladder presents in with confusion that started this morning. According to the family patient was not eating and drinking for the past 2 days. She woke up in the morning feeling confused, unable to speak appropriately. Patient was unable to comprehend and repeat appropriately. Her language was gibberish and lacked meaning. Patient denies any sensory or motor deficits. She denies any history of seizure or any similar episodes in the past. Patient denies any history of chest pain, palpitation, shortness of breath, abdominal pain, nausea or vomiting. No history of syncope or loss of consciousness prior to this episode. Patient is unable to provide much history is pleasantly confused. She does know where she is and can tell her name and date of . Vitals are stable with blood pressure slightly elevated 171/70. Saturating well on room air and afebrile. Patient did have a leukocytosis of 14.3 INR 1.1, lactic acid 2.4. Normal troponin. CT head negative for any acute abnormalities no masses seen. Did have prominent choroid plexus cyst. CT abdomen and pelvis was done as patient had some tenderness in the lower quadrant which was unremarkable. Due to patient's A. fib. Dysarthria MRI/MRA ordered. Neurology consulted from possible stroke versus brain mass. 11/27: Echocardiogram reveals EF of 55-60%, trace mitral regurgitation, trace tricuspid regurgitation. Patient has been seen by Dr. 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 Homocysteine level is normal at 12.02. Triglycerides 201, cholesterol 201, LDL 128 and HDL 34. Repeat troponins came back negative. Patient was unable to swallow but her a.m. medications were given. Patient is having difficulty following directions. We will change what we can over to IV. MRI is scheduled for 4 this afternoon. PT OT and speech therapy are all involved. EEG is pending. EEG 11/28: When patient went for EEG yesterday afternoon, she developed seizure activity while having the procedure done. The seizure activity stopped without any medication. She was subsequently post ictal and was transferred to the intensive care unit. She underwent MRI and MRI/MRA of the head and neck that showed no evidence of recent infarct. Patient was unarousable after this responded to pain stimuli. There was concern decorticated posturing at that time. Patient was started on Keppra 1000 mg IV twice daily. She also underwent a repeat CAT scan of the brain that showed cerebral atrophy. No acute intracranial abnormality seen. No sign of cortical infarct. No change. Repeat chest x-ray shows no developing left basilar atelectasis and/or infiltrate. LP was attempted by anesthesia which was unsuccessful. She continued to have posturing and respiratory status was declining and patient was intubated and placed on mechanical ventilation. There is order for interventional radiology to perform lumbar puncture. She is currently on antimicrobials in the form of Rocephin, vancomycin, acyclovir and ampicillin. Patient also developed fever up to 103 there was consult placed with Dr. Roche. Dr. Nash is intensive care management. 11/29: Repeat EEG was limited due to muscle artifact. No obvious epileptiform discharges. Lumbar puncture was finally obtained by interventional radiology with removal of 15 mL of slightly tinge spinal fluid with evidence of pleocytosis consistent with meningeal coccal infection. Dr. Roche as adjusted Rocephin to 2 g every 12 hours. Ampicillin was discontinued. Neurology continues to follow. Patient is on Keppra 1000 mg twice daily IV as well as rectal aspirin. Patient has been afebrile since yesterday at 8 AM. Vital signs have been stable and patient has not required vasopressors. She remains intubated and on mechanical ventilation. White count is down slightly from yesterday to 15, potassium is low at 2.8 and will be replaced by protocol. Influenza testing came back negative. Blood cultures remain with no growth. Cerebral spinal fluid cultures are in progress. 2 feedings have been started. 11/30. Patient noted to have some spontaneous movement. Sedation was withdrawn. Patient squeezed hand on command. Blood pressure continued to be high with systolic systolic 192/51 respiratory rate 14. Patient still intubated requiring minimal vent settings. Pupils are equal and responsive to light. CSF analysis suggest increased glucose increased routine. Cultures not growing anything so far. West Nile virus negative. Comprehensive viral panel negative. Continue a acyclovir, ceftriaxone stopped seizure-like activity noted by the nurse when patient had a sedation vacation and received 1 mg of Ativan. Continue Keppra 1000 mg twice daily. Further recommendation pending from neurology. Objective - Vital Signs Vital signs: Vital Signs Temp 98.5 F 11/30/17 04:00 Pulse 79 04/13/18 14:05 Resp 16 11/30/17 14:05 BP 155/49 11/30/17 14:05 Pulse Ox 99 11/30/17 14:05 Intake & Output 11/29/17 11/30/17 11/30/17 18:59 06:59 18:59 Intake Total 2098.9 3662.339 7032.455 Output Total 710 800 835 Balance 1388.9 1146.587 535.455 Weight 97.8 kg 97.8 kg Intake: IV 1400 1200 921 Acyclovir Sodium 500 mg 200 100 In Sodium Chloride 0.9% 100 ml @ 100 mls/hr IVPB Q8H [facility] Rx#:[id number] Pressure Bag 21 Sodium Chloride 0.9% 1, 1100 1200 800 000 ml @ 100 mls/hr IV . Q10H [facility] Rx#:[id number] levETIRAcetam IV 1,000 mg 100 In Saline 1 100ml.bag @ 400 mls/hr IVPB Q12H [facility] Rx#:[id number] Intake, IV Titration 132.9 270.587 185.455 Amount Propofol 1,000 mg In 132.9 270.587 185.455 Empty Bag 1 bag @ Titrate IV .Q0M [facility] Rx#: [id number] Tube Feeding 476 476 204 Other 90 60 Output: Urine 710 800 835 Other: Voiding Method Indwelling Catheter Indwelling Catheter Indwelling Catheter ABP, PAP, CO, CI - Last Documented Arterial Blood Pressure 197/54 - Exam General appearance: no acute distress, obese - EENT Eyes: anicteric sclerae, PERRLA, normal appearance, ET tube and gastric tube in place orally ENT: hearing grossly normal - Neck Neck: no lymphadenopathy, normal ROM, no other, no rigidity, no stridor, no thyromegaly - Respiratory Respiratory: bilateral: Rhonchi, negative: Wheezes - Cardiovascular Rhythm: regular Heart sounds: normal: S1, S2 Abnormal Heart Sounds: no systolic murmur, no diastolic murmur, no rub, no S3 Gallop, no S4 Gallop, no click, no other - Gastrointestinal General gastrointestinal: normal bowel sounds, soft - Integumentary Integumentary: no rash - Neurologic Neurologic: Patient is on sedation - Musculoskeletal Musculoskeletal: Unable to evaluate - Psychiatric Psychiatric: On sedation - Labs CBC & Chem 7: 11/30/17 04:50 11/30/17 04:50 Labs: Abnormal Lab Results - Last 24 Hours (Table) 11/29/17 11/30/17 11/30/17 Range/Units 18:48 00:10 04:50 WBC (3.8-10.6) k/uL Neutrophils # (1.3-7.7) k/uL Lymphocytes # (1.0-4.8) k/uL ABG pH (7.35-7.45) ABG pCO2 (35-45) mmHg ABG Total CO2 (19-24) mmol/L ABG O2 Saturation (94-97) % BUN 26 H (7-17) mg/dL Glucose 195 H (74-99) mg/dL POC Glucose (mg/dL) 172 H 166 H (75-99) mg/dL Calcium 8.0 L (8.4-10.2) mg/dL Phosphorus 2.4 L (2.5-4.5) mg/dL 11/30/17 11/30/17 11/30/17 Range/Units 04:50 04:52 06:04 WBC 11.2 H (3.8-10.6) k/uL Neutrophils # 9.7 H (1.3-7.7) k/uL Lymphocytes # 0.8 L (1.0-4.8) k/uL ABG pH 7.47 H (7.35-7.45) ABG pCO2 34 L (35-45) mmHg ABG Total CO2 26 H (19-24) mmol/L ABG O2 Saturation 98.4 H (94-97) % BUN (7-17) mg/dL Glucose (74-99) mg/dL POC Glucose (mg/dL) 148 H (75-99) mg/dL Calcium (8.4-10.2) mg/dL Phosphorus (2.5-4.5) mg/dL 11/30/17 Range/Units 11:05 WBC (3.8-10.6) k/uL Neutrophils # (1.3-7.7) k/uL Lymphocytes # (1.0-4.8) k/uL ABG pH (7.35-7.45) ABG pCO2 (35-45) mmHg ABG Total CO2 (19-24) mmol/L ABG O2 Saturation (94-97) % BUN (7-17) mg/dL Glucose (74-99) mg/dL POC Glucose (mg/dL) 198 H (75-99) mg/dL Calcium (8.4-10.2) mg/dL Phosphorus (2.5-4.5) mg/dL Microbiology - Last 24 Hours (Table) 11/26/17 09:20 Blood Culture Gram Stain - Preliminary Blood 11/27/17 20:55 Gram Stain - Final Sputum Sputum Culture - Final 11/28/17 01:45 Blood Culture - Preliminary Blood No Growth after 48 hours 11/28/17 02:05 Blood Culture - Preliminary Blood No Growth after 48 hours 11/26/17 09:20 Blood Culture - Final Blood 11/28/17 15:30 CSF Gram Stain - Preliminary Cerebral Spinal Fluid CSF Culture - Preliminary 11/28/17 00:15 Urine Culture - Final Urine,Catheterized Assessment and Plan Plan: 1. Acute metabolic encephalopathy with new onset of seizure secondary to meningitis, encephalitis. Acute stroke has been ruled out. Neurology, pulmonary medicine, infectious disease consults in place. Patient is currently on antimicrobials in the form of ceftriaxone, acyclovir and vancomycin. Patient started on dexamethasone dose reduced to q12 hr Continue Keppra 1000 mg twice daily IV piggyback, Ativan 1 mg every 6 hours as needed for seizure, Tylenol by suppository, aspirin daily rectally. 2. Acute hypoxic respiratory failure secondary to inability to protect her airway. Patient has been intubated and on mechanical ventilation. Dr. Nash is managing. 3. Hyperlipidemia. Lipid panel as above. 4. Hypertension hold atenolol/chlorthalidone. 5. Hypothyroidism continue levothyroxine 44 g on Sunday and 88 g rest of the days and just IV 6. Overactive bladder. Hold oxybutynin 10 mg by mouth daily 7. Leukocytosis likely reactive. 7. GI prophylaxis with Protonix daily. 8. DVT prophylaxis with SCDs . CODE STATUS full code Discharge plan: Subacute rehab
[2017-11-30] MEDS: amLODIPine 5 MG TAB PO SCH (15:45)
[2017-11-30] MEDS: cloNIDine HCL 0.1 MG TAB PO SCH ×2 (15:45→22:00)
[2017-11-30] MEDS: VANCOMYCIN 1,500 MG in SODIUM CHLORIDE 0.9% 250 ML IVPB SCH (15:50)
[2017-11-30 17:32] LABS: Glucose,Whole Blood 172 mg/dL (75-99)
--- NOTE | 2017-11-30 19:49 | P.PN ---
Subjective Progress Note Date: 11/30/17 Patient is a 77-year-old female who is being followed by the neurology service for stroke. Patient had gone to bed on Sunday night and no deficits were noted at that time. Patient woke up Sunday morning and was found to be very confused and was not able to understand what her was trying to say to her. She was not following any commands. Patient was speaking but not making sense. She did not appear to be having any lateralizing weakness. Computed tomography scan was done on admission which showed small vessel ischemic changes. Patient was admitted for further workup and was started on aspirin 325 mg daily. Patient was transferred up to the floor and was awake, alert, but not following any verbal commands. Staff reports patient was more somnolent this morning as compared to yesterday. Patient had gone down for EEG testing and had a seizure during EEG testing. No Ativan was given due to seizure activity stopping. Patient appeared to be in a postictal state. She was taken to MRI and had MRI/MRA of the head and neck with and without contrast. No evidence for recent infarct noted. Patient continues to be unarousable. She does respond to pain stimulus. Right upper extremity seems to be posturing. Patient has sonorous respirations with rate 14-20. Patient is clenching her jaw and grinding her teeth. Keppra 1000 mg was given IV. She will continue Keppra 1000 milligrams twice a day. No obvious facial asymmetry is noted. At the time of my evaluation, patient appears to be in mild distress. She will be transferred to the ICU. 11/28/2017 Patient is a 77-year-old female who is being followed by the neurology service for altered mental status. Patient is currently intubated on mechanical ventilation in the ICU setting. Patient had originally come in with strokelike symptoms but MRIs have been negative for any recent infarct. Patient had a seizure while having the EEG done and neurological status was declining so patient was taken to the ICU and intubated. Patient did spike a temperature of 103 and infectious disease was consulted. Patient is currently sedated on the ventilator. Staff reports while on sedation holiday patient had minimal withdrawal to pain and continues to posture. She was started on antibiotics and is being followed by infectious disease. At the time of my evaluation, patient appears to be resting comfortably and is in no acute distress. Family is at the bedside. 11/30/2017 Patient is a 77-year-old female who is being followed by the neurology service. Patient remains intubated on mechanical ventilator. Patient was given sedation holiday and staff informs me she was able to follow commands by squeezing hands today. She was unable to remain off the ventilator and she currently is back on sedation. Questionable seizure activity during sedation holiday. Patient was given Ativan. No further seizure activity noted. Patient is currently on Keppra thousand milligrams twice a day. Infectious disease continues to follow. At the time of my evaluation, patient is sedated on mechanical ventilation and appears to be in no acute distress. Family is at the bedside. Objective - Vital Signs Vital signs: Vital Signs Temp 98.6 F 11/30/17 16:00 Pulse 64 11/30/17 17:10 Resp 13 11/30/17 17:00 BP 143/51 11/30/17 17:00 Pulse Ox 100 11/30/17 17:00 Intake & Output 11/30/17 11/30/17 12/01/17 06:59 18:59 06:59 Intake Total 9552.503 4482.455 Output Total 800 1235 Balance 1146.587 713.455 Weight 97.8 kg 97.8 kg Intake: IV 1200 1333 Acyclovir Sodium 500 mg 100 In Sodium Chloride 0.9% 100 ml @ 100 mls/hr IVPB Q8H [facility] Rx#:[id number] Pressure Bag 33 Sodium Chloride 0.9% 1, 1200 1200 000 ml @ 100 mls/hr IV . Q10H SANCHEZ Rx#:[id number] Intake, IV Titration 270.587 185.455 Amount Propofol 1,000 mg In 270.587 185.455 Empty Bag 1 bag @ Titrate IV .Q0M S[facility]HEZ Rx#: [id number] Tube Feeding 476 340 Other 90 Output: Urine 800 1235 Other: Voiding Method Indwelling Catheter Indwelling Catheter ABP, PAP, CO, CI - Last Documented Arterial Blood Pressure 157/45 - Exam PHYSICAL EXAM: GENERAL APPEARANCE: Patient is a well-developed, female who is intubated on mechanical ventilation. HEENT: Normocephalic, atraumatic, no facial asymmetry is seen. Neck is supple with no masses felt. CARDIOVASCULAR: Heart rate is regular. ABDOMEN: Nontender, nondistended. EXTREMITIES: Show no edema or clubbing. NEUROLOGICAL EXAM: A meaningful neurological exam could not be performed due to patient being intubated on mechanical ventilation and sedated. - Labs CBC & Chem 7: 11/30/17 04:50 11/30/17 04:50 Labs: Abnormal Lab Results - Last 24 Hours (Table) 11/30/17 11/30/17 11/30/17 Range/Units 00:10 04:50 04:50 WBC 11.2 H (3.8-10.6) k/uL Neutrophils # 9.7 H (1.3-7.7) k/uL Lymphocytes # 0.8 L (1.0-4.8) k/uL ABG pH (7.35-7.45) ABG pCO2 (35-45) mmHg ABG Total CO2 (19-24) mmol/L ABG O2 Saturation (94-97) % BUN 26 H (7-17) mg/dL Glucose 195 H (74-99) mg/dL POC Glucose (mg/dL) 166 H (75-99) mg/dL Calcium 8.0 L (8.4-10.2) mg/dL Phosphorus 2.4 L (2.5-4.5) mg/dL 11/30/17 11/30/17 11/30/17 Range/Units 04:52 06:04 11:05 WBC (3.8-10.6) k/uL Neutrophils # (1.3-7.7) k/uL Lymphocytes # (1.0-4.8) k/uL ABG pH 7.47 H (7.35-7.45) ABG pCO2 34 L (35-45) mmHg ABG Total CO2 26 H (19-24) mmol/L ABG O2 Saturation 98.4 H (94-97) % BUN (7-17) mg/dL Glucose (74-99) mg/dL POC Glucose (mg/dL) 148 H 198 H (75-99) mg/dL Calcium (8.4-10.2) mg/dL Phosphorus (2.5-4.5) mg/dL 11/30/17 Range/Units 17:29 WBC (3.8-10.6) k/uL Neutrophils # (1.3-7.7) k/uL Lymphocytes # (1.0-4.8) k/uL ABG pH (7.35-7.45) ABG pCO2 (35-45) mmHg ABG Total CO2 (19-24) mmol/L ABG O2 Saturation (94-97) % BUN (7-17) mg/dL Glucose (74-99) mg/dL POC Glucose (mg/dL) 172 H (75-99) mg/dL Calcium (8.4-10.2) mg/dL Phosphorus (2.5-4.5) mg/dL Microbiology - Last 24 Hours (Table) 11/26/17 09:20 Blood Culture Gram Stain - Preliminary Blood 11/27/17 20:55 Gram Stain - Final Sputum Sputum Culture - Final 11/28/17 01:45 Blood Culture - Preliminary Blood No Growth after 48 hours 11/28/17 02:05 Blood Culture - Preliminary Blood No Growth after 48 hours 11/26/17 09:20 Blood Culture - Final Blood 11/28/17 15:30 CSF Gram Stain - Preliminary Cerebral Spinal Fluid CSF Culture - Preliminary Assessment and Plan Plan: Impression: 1. Metabolic encephalopathy 2. Seizure 3. Respiratory failure 4. Meningitis Recommendation: Patient is currently intubated on mechanical ventilation in the ICU. As mentioned above, patient spiked a fever and infectious disease was consulted. Patient is being followed by ICU certified medical coder. Patient is on Keppra 1000 mg IV twice a day and no further seizure activity reported. Repeat EEG showed muscle artifact but no seizure activity. Patient had computed tomography scan of the brain as well as MRI/MRA which showed no evidence of recent infarct or aneurysm. Study did show mild diffuse age-related cerebral atrophy. There was no significant stenosis in common or internal carotid arteries bilaterally. Patient underwent a lumbar puncture performed in interventional radiology. Patient diagnosed with meningitis. She is currently on antimicrobials per infectious disease including acyclovir, vancomycin and ceftriaxone. Continue current ICU management. Continue neurological checks. Continue seizure precautions. Continue rectal aspirin. Continue Keppra 1000 mg IV twice a day. I will continue to follow with you. Further recommendations to follow. I performed an examination of the patient and discussed the management with the MINERAL RESOURCES INSPECTOR. I have reviewed the MINERAL RESOURCES INSPECTOR notes and agree with the findings and plan of care.
--- NOTE | 2017-11-30 22:06 | P.PN ---
Subjective Progress Note Date: 11/30/17 Principal diagnosis: altered mental status 77 years old female came into [facility] emergency center on November 26 and according to the family was not eating and drinking for the past 2 days. She went to bed on Sunday evening and was feeling fine. She woke up in the morning not feeling well and had some abdominal discomfort for which she took pepto-bismol but there was no vomiting or diarrhea at that time. She then developed confusion and difficulty with her speech. Patient was unable to comprehend and repeat appropriately. Her language was gibberish and lacked meaning. Patient denies any sensory or motor deficits. She denies any history of seizure or any similar episodes in the past. Patient was pleasantly confused. She does know where she is and can tell her name and date of . She presented afebrile with white count of 14.3. Vitals are stable with blood pressure slightly elevated 171/70. Saturating well on room air and afebrile. Patient did have a leukocytosis of 14.3. Urinalysis showed a small amount of blood otherwise negative for infection. Lactic acid 2.4. Normal troponin. CT head negative for any acute abnormalities no masses seen. Did have prominent choroid plexus cyst. CT abdomen and pelvis was done as patient had some tenderness in the lower quadrant which was unremarkable. Patient was initially admitted to the selective care unit where she was seen by neurology. By the following morning patient had more confusion and was having difficulty following any commands. She was made nothing by mouth. Echocardiogram reveals EF of 55-60%, trace mitral regurgitation, trace tricuspid regurgitation. Homocysteine level is normal at 12.02. Triglycerides 201, cholesterol 201, LDL 128 and HDL 34. Repeat troponins came back negative. Patient went for EEG yesterday afternoon, she developed seizure activity while having the procedure done. The seizure activity stopped without any medication. She was subsequently post ictal and not responding normally. She underwent MRI and MRI/ MRA of the head and neck that showed no evidence of recent infarct. Patient was unarousable after this responded to pain stimuli. There was concern decorticated posturing at that time. Patient was started on Keppra 1000 mg IV twice daily. She also underwent a repeat CAT scan of the brain that showed cerebral atrophy. No acute intracranial abnormality seen. No sign of cortical infarct. No change. Repeat chest x-ray shows no developing left basilar atelectasis and/or infiltrate. She was transferred into the intensive care unit. LP was attempted by anesthesia which was unsuccessful. She continued to have posturing and respiratory status was declining and patient was intubated and placed on mechanical ventilation. Interventional radiology to perform diagnostic lumbar puncture. She is currently on antimicrobials in the form of Rocephin, vancomycin, acyclovir and ampicillin. Patient also developed fever up to 103 yesterday afternoon and patient also developed a petechial papule rash that was new.. Patient is followed by Dr. Nash is intensive care management. Family states the patient has not had any recent travel. She goes to [facility] to visit her daughter and went to [place] for Thanksgiving. Family denied any bird, bat exposure. One month ago she did have the flu and this is what she thought was going on on Sunday morning when she woke up. They deny any unusual animal exposures. 11/29/2017 reveals the patient to have improved fever. Temperature 96.3 today. She is hemodynamically stable and not in vasopressor therapy. She continues to have poor mental status and respiratory failure and remains intubated and sedated and mechanically ventilated. The patient appears to be more comfortable today. Did not seem to be having the episodes of spontaneous posturing movements. 11/30/2017 reveals evidence of some improvement. The patient's fever is resolved. She has actually become hypertensive and is requiring multiple agents to improve her blood pressure. She had a sedation holiday at which point in time she felt commands from the nurse, hand squeezing occurred. The patient was agitated and is again sedated and doing well with sedation, is synchronous with the ventilator without other acute changes being noted Objective - Vital Signs Vital signs: Vital Signs Temp 98.6 F 11/30/17 16:00 Pulse 80 11/30/17 21:00 Resp 17 11/30/17 19:30 BP 157/55 11/30/17 19:30 Pulse Ox 100 11/30/17 19:30 Intake & Output 11/30/17 11/30/17 12/01/17 06:59 18:59 06:59 Intake Total 2546.392 4912.455 137 Output Total 800 1235 100 Balance 1146.587 963.455 37 Weight 97.8 kg 97.8 kg Intake: IV 1200 1583 103 Acyclovir Sodium 500 mg 100 In Sodium Chloride 0.9% 100 ml @ 100 mls/hr IVPB Q8H SANCHEZ Rx#:[id number] Pressure Bag 33 3 Sodium Chloride 0.9% 1, 1200 1200 100 000 ml @ 100 mls/hr IV . Q10H SANCHEZ Rx#:[id number] Vanco 250 Intake, IV Titration 270.587 185.455 Amount Propofol 1,000 mg In 270.587 185.455 Empty Bag 1 bag @ Titrate IV .Q0M SANCHEZ Rx#: [id number] Tube Feeding 476 340 34 Other 90 Output: Urine 800 1235 100 Other: Voiding Method Indwelling Catheter Indwelling Catheter ABP, PAP, CO, CI - Last Documented Arterial Blood Pressure 169/44 - Exam Gen: This is a 77-year-old female. She is intubated and on mechanical ventilation in the intensive care unit. She appears to be comfortable. HEENT: Head is atraumatic, normocephalic. Pupils equal, round. Sclerae is anicteric. Mucous membranes are moist. NECK: Supple. No JVD. No lymphadenopathy. No thyromegaly. LUNGS: Diminished with a few scattered rhonchi. No intercostal retractions. HEART: Regular rate and rhythm. No murmur. ABDOMEN: Soft. Bowel sounds are present. No masses. No tenderness. SKIN: Patient has rash noted on her abdomen and extremities some areas it is petechial like is not blanchable or other areas papule-like. EXTREMITIES: No pedal edema. NEUROLOGICAL: Patient is intubated and sedated patient is much more comfortable in appearance, she is no longer rigid and no posturing is noted. - Labs CBC & Chem 7: 11/30/17 04:50 11/30/17 04:50 Labs: Abnormal Lab Results - Last 24 Hours (Table) 11/30/17 11/30/17 11/30/17 Range/Units 00:10 04:50 04:50 WBC 11.2 H (3.8-10.6) k/uL Neutrophils # 9.7 H (1.3-7.7) k/uL Lymphocytes # 0.8 L (1.0-4.8) k/uL ABG pH (7.35-7.45) ABG pCO2 (35-45) mmHg ABG Total CO2 (19-24) mmol/L ABG O2 Saturation (94-97) % BUN 26 H (7-17) mg/dL Glucose 195 H (74-99) mg/dL POC Glucose (mg/dL) 166 H (75-99) mg/dL Calcium 8.0 L (8.4-10.2) mg/dL Phosphorus 2.4 L (2.5-4.5) mg/dL 11/30/17 11/30/17 11/30/17 Range/Units 04:52 06:04 11:05 WBC (3.8-10.6) k/uL Neutrophils # (1.3-7.7) k/uL Lymphocytes # (1.0-4.8) k/uL ABG pH 7.47 H (7.35-7.45) ABG pCO2 34 L (35-45) mmHg ABG Total CO2 26 H (19-24) mmol/L ABG O2 Saturation 98.4 H (94-97) % BUN (7-17) mg/dL Glucose (74-99) mg/dL POC Glucose (mg/dL) 148 H 198 H (75-99) mg/dL Calcium (8.4-10.2) mg/dL Phosphorus (2.5-4.5) mg/dL 11/30/17 Range/Units 17:29 WBC (3.8-10.6) k/uL Neutrophils # (1.3-7.7) k/uL Lymphocytes # (1.0-4.8) k/uL ABG pH (7.35-7.45) ABG pCO2 (35-45) mmHg ABG Total CO2 (19-24) mmol/L ABG O2 Saturation (94-97) % BUN (7-17) mg/dL Glucose (74-99) mg/dL POC Glucose (mg/dL) 172 H (75-99) mg/dL Calcium (8.4-10.2) mg/dL Phosphorus (2.5-4.5) mg/dL Microbiology - Last 24 Hours (Table) 11/28/17 15:30 CSF Gram Stain - Preliminary Cerebral Spinal Fluid CSF Culture - Preliminary 11/26/17 09:20 Blood Culture Gram Stain - Preliminary Blood 11/27/17 20:55 Gram Stain - Final Sputum Sputum Culture - Final 11/28/17 01:45 Blood Culture - Preliminary Blood No Growth after 48 hours 11/28/17 02:05 Blood Culture - Preliminary Blood No Growth after 48 hours 11/26/17 09:20 Blood Culture - Final Blood Laboratory Results WBC 11.2 k/uL (3.8-10.6) H 11/30/17 04:50 RBC 4.06 m/uL (3.80-5.40) 11/30/17 04:50 Hgb 11.4 gm/dL (11.4-16.0) 11/30/17 04:50 Hct 34.1 % (34.0-46.0) 11/30/17 04:50 MCV 84.0 fL (80.0-100.0) 11/30/17 04:50 MCH 28.1 pg (25.0-35.0) 11/30/17 04:50 MCHC 33.4 g/dL (31.0-37.0) 11/30/17 04:50 RDW 13.3 % (11.5-15.5) 11/30/17 04:50 Plt Count 164 k/uL (150-450) 11/30/17 04:50 Neutrophils % 87 % 11/30/17 04:50 Lymphocytes % 7 % 11/30/17 04:50 Monocytes % 5 % 11/30/17 04:50 Eosinophils % 0 % 11/30/17 04:50 Basophils % 0 % 11/30/17 04:50 Neutrophils # 9.7 k/uL (1.3-7.7) H 11/30/17 04:50 Lymphocytes # 0.8 k/uL (1.0-4.8) L 11/30/17 04:50 Monocytes # 0.5 k/uL (0-1.0) 11/30/17 04:50 Eosinophils # 0.0 k/uL (0-0.7) 11/30/17 04:50 Basophils # 0.0 k/uL (0-0.2) 11/30/17 04:50 Manual Slide Review Performed 11/28/17 06:06 Pathologist Review See comment A 11/28/17 06:06 PT 10.8 sec (9.0-12.0) 11/27/17 23:55 INR 1.1 (<1.2) 11/27/17 23:55 APTT 22.4 sec (22.0-30.0) 11/27/17 23:55 Fibrinogen 436 mg/dL (200-500) 11/28/17 06:06 D-Dimer 1.27 mg/L FEU (<0.60) H 11/27/17 23:55 Sample Site jorge 11/30/17 04:52 ABG pH 7.47 (7.35-7.45) H 11/30/17 04:52 ABG pCO2 34 mmHg (35-45) L 11/30/17 04:52 ABG pO2 102 mmHg (83-108) 11/30/17 04:52 ABG HCO3 25 mmol/L (21-25) 11/30/17 04:52 ABG Total CO2 26 mmol/L (19-24) H 11/30/17 04:52 ABG O2 Saturation 98.4 % (94-97) H 11/30/17 04:52 ABG Base Excess 0.8 mmol/L 11/30/17 04:52 Nico Test Yes 11/30/17 04:52 FiO2 35 % 11/30/17 04:52 Sodium 141 mmol/L (137-145) 11/30/17 04:50 Potassium 3.5 mmol/L (3.5-5.1) 11/30/17 04:50 Chloride 106 mmol/L (98-107) 11/30/17 04:50 Carbon Dioxide 24 mmol/L (22-30) 11/30/17 04:50 Anion Gap 11 mmol/L 11/30/17 04:50 BUN 26 mg/dL (7-17) H 11/30/17 04:50 Creatinine 0.70 mg/dL (0.52-1.04) 11/30/17 04:50 Est GFR (CKD-EPI)AfAm >90 (>60 ml/min/1.73 sqM) 11/30/17 04:50 Est GFR (CKD-EPI)NonAf 83 (>60 ml/min/1.73 sqM) 11/30/17 04:50 Glucose 195 mg/dL (74-99) H 11/30/17 04:50 POC Glucose (mg/dL) 172 mg/dL (75-99) H 11/30/17 17:29 POC Glu Scrap Burner ID Meaghan Kelley 11/30/17 17:[address] Glu mg/dL 126 04/11/18 06:06 Hemoglobin A1c 6.0 % (4.0-6.0) 11/28/17 06:06 Lactic Ac Sepsis Rflx Y 11/26/17 10:13 Plasma Lactic Acid Ede 1.1 mmol/L (0.7-2.0) 11/26/17 14:14 Calcium 8.0 mg/dL (8.4-10.2) L 11/30/17 04:50 Phosphorus 2.4 mg/dL (2.5-4.5) L 11/30/17 04:50 Magnesium 2.2 mg/dL (1.6-2.3) 11/30/17 04:50 Total Bilirubin 0.9 mg/dL (0.2-1.3) 11/27/17 06:29 AST 18 U/L (14-36) 11/27/17 06:29 ALT 27 U/L (9-52) 11/27/17 06:29 Alkaline Phosphatase 43 U/L (38-126) 11/27/17 06:29 Total Creatine Kinase 86 U/L (30-135) 11/26/17 09:20 CK-MB (CK-2) 0.5 ng/mL (0.0-2.4) 11/26/17 09:20 CK-MB (CK-2) Rel Index 0.6 11/26/17 09:20 Troponin I <0.012 ng/mL (0.000-0.034) 11/26/17 20:56 Total Protein 6.2 g/dL (6.3-8.2) L 11/27/17 06:29 Albumin 3.9 g/dL (3.5-5.0) 11/27/17 06:29 Triglycerides 201 mg/dL (<150) H 11/27/17 06:29 Cholesterol 201 mg/dL (<200) H 11/27/17 06:29 LDL Cholesterol, Calc 128 mg/dL (0-99) H 11/27/17 06:29 HDL Cholesterol 33 mg/dL (40-60) L 11/27/17 06:29 Homocysteine 12.02 umol/L (4.00-14.00) 11/26/17 20:56 Urine Color Yellow 11/28/17 00:15 Urine Appearance Turbid (Clear) H 11/28/17 00:15 Urine pH 5.5 (5.0-8.0) 11/28/17 00:15 Ur Specific [place] 1.024 (1.001-1.035) 11/28/17 00:15 Urine Protein 1+ (Negative) H 11/28/17 00:15 Urine Glucose (UA) Negative (Negative) 11/28/17 00:15 Urine Ketones Negative (Negative) 11/28/17 00:15 Urine Blood Large (Negative) H 11/28/17 00:15 Urine Nitrite Negative (Negative) 11/28/17 00:15 Urine Bilirubin Negative (Negative) 11/28/17 00:15 Urine Urobilinogen <2.0 mg/dL (<2.0) 11/28/17 00:15 Ur Leukocyte Esterase Large (Negative) H 11/28/17 00:15 Urine RBC 38 /hpf (0-5) H 11/28/17 00:15 Urine WBC 37 /hpf (0-5) H 11/28/17 00:15 Ur Squamous Epith Cells <1 /hpf (0-4) 11/26/17 09:20 Hyaline Casts 15 /lpf (0-2) H 11/28/17 00:15 Urine Mucus Rare /hpf (None) H 11/28/17 00:15 CSF Tube Number 4 11/28/17 15:30 CSF Volume 3.5 11/28/17 15:30 CSF Appearance Blood Tinged 11/28/17 15:30 CSF Color [place] 11/28/17 15:30 CSF RBC 1230 u/L (0-10) H 11/28/17 15:30 CSF Tot Nucleated Cells 170 u/L (0-5) H 11/28/17 15:30 CSF Mononuclear WBCs % 66 % 11/28/17 15:30 CSF Polynuclear WBCs % 34 % 11/28/17 15:30 CSF Glucose 97 mg/dL (40-70) H 11/28/17 15:30 CSF Total Protein 198 mg/dL (12-60) H 11/28/17 15:30 Vancomycin Trough 15.1 ug/mL 11/30/17 13:50 West Nile Virus IgG Ab 0.03 INDEX (<1.30) 11/28/17 06:30 West Nile Virus IgM Ab 0.08 INDEX (<0.90) 11/28/17 06:30 HSV I DNA PCR Not detected (Not detected) 11/28/17 06:30 HSV II DNA PCR Not detected (Not detected) 11/28/17 06:30 HSV (PCR) Source Blood - EDTA 11/28/17 06:30 Influenza Type A RNA Not Detected (Not Detectd) 11/28/17 16:54 Influenza Type B (PCR) Not Detected (Not Detectd) 11/28/17 16:54 Virus Source (()) 11/28/17 16:54 Viral Test See Below 11/28/17 16:54 Virus Analysis Interp See Below 11/28/17 16:54 Microbiology 11/28/17 15:30 Cerebral Spinal Fluid CSF Gram Stain - Preliminary 11/28/17 15:30 Cerebral Spinal Fluid CSF Culture - Preliminary 11/26/17 09:20 Blood Blood Culture Gram Stain - Preliminary 11/27/17 20:55 Sputum Gram Stain - Final 11/27/17 20:55 Sputum Sputum Culture - Final 11/28/17 01:45 Blood Blood Culture - Preliminary No Growth after 48 hours 11/28/17 02:05 Blood Blood Culture - Preliminary No Growth after 48 hours 11/26/17 09:20 Blood Blood Culture - Final 11/28/17 00:15 Urine,Catheterized Urine Culture - Final Assessment and Plan (1) Acute bacterial meningitis Narrative/Plan: Is noted the patient has had a rapid decline of her status associated with high- grade fever, altered mental status and respiratory failure requiring intubation and sedation with mechanical ventilation. The patient's family is present. We review the findings. There is evidence of fever with altered mental status and leukocytosis which is strongly consistent with a central nervous system infection. Lumbar puncture has now been performed and there is evidence of pleocytosis and consequently bacterial meningitis with seem to be most likely, and with the rash in 77-year-old could be consistent with meningococcal infection. We await the Gram stain to help further direct prophylactic therapy if needed. Antibiotic therapy was adjusted with 2 g of Rocephin every 12 hours, with the development of the rash ampicillin was discontinued, she has no alcoholism and seems to be a low risk for listeria, vancomycin is being utilized for now. With the concern for encephalitis acyclovir is also been initiated and will be continued until we have further data from her lumbar puncture. The family is aware of the severity and acuity of the illness and there is potential for long- term effects and potential even for . 11/29/2017 patient has some improvement in that she is no longer febrile and is less rigid. Oxygenation is stable and she has not and vasopressor therapy. Laboratory is contacted and the Gram stain reveals evidence of the many PMNs but no bacteria are seen. Other studies are pending. Blood cultures are negative so far. Leukocytosis is noted. The patient's skin lesions are stable and have not progressed. Antibiotic therapy continues. If the PCR comes back negative for HSV 1 and 2 as well as Varicela then acyclovir can be discontinued. 11/30/2017 the patient has had some further improvement. She is afebrile, her spasticity has improved and she follows command when she was a sedation holiday earlier in the day. Viral studies are negative for HSV 1, HSV-2 and Varicella and constantly acyclovir has been discontinued. The CSF Gram stain is negative and the culture is negative at this point in time. Of note the patient did receive intravenous antibiotic therapy for many hours for the lumbar puncture was actually performed. It is possible that we will not be able to find a pathogen. With negative blood cultures and rapid clearance of the CSF streptococcus pneumoniae would be the most likely, and statistically would be the most likely. No evidence of any listeria or meningo coccus at this time. Once culture is final will be able to discontinue isolation Fortunately the patient started to show some improvement this is related to the family that is [id number], her neurological recovery is still very difficult to ascertain at this point in time unclear if she had a further seizure again today. Of note West Nile testing is negative as expected epidemiologically. Antibiotic therapy continues at this time with vancomycin and high-dose Rocephin. Current Visit: Yes Status: Acute Code(s): G00.9 - BACTERIAL MENINGITIS, UNSPECIFIED SNOMED Code(s): 93779121 (2) Fever Current Visit: Yes Status: Acute Code(s): R50.9 - FEVER, UNSPECIFIED SNOMED Code(s): 932098828 (3) Leukocytosis Current Visit: Yes Status: Acute Code(s): D72.829 - ELEVATED WHITE BLOOD CELL COUNT, UNSPECIFIED SNOMED Code(s): 119435174 (4) Seizure Current Visit: Yes Status: Acute Code(s): R56.9 - UNSPECIFIED CONVULSIONS SNOMED Code(s): 44193648
[2017-11-30 23:49] LABS: Glucose,Whole Blood 150 mg/dL (75-99)
[2017-12-01] MEDS: INSULIN ASPART 100 UNIT/ML 1 ML 10 ML VIAL SQ SCH ×4 (00:33→18:31)
[2017-12-01] MEDS: IPRATROPIUM-ALBUTEROL 3 ML NEB INHALATION SCH ×6 (03:06→19:34)
[2017-12-01] MEDS: PROPOFOL 1,000 MG in EMPTY BAG 1 BAG IV SCH ×2 (03:15→07:05)
[2017-12-01] MEDS: levETIRAcetam IV 1,000 MG in SALINE 1 100ML.BAG IVPB SCH ×2 (03:15→15:47)
[2017-12-01 04:09] LABS: ABG Base Excess 0.6 mmol/L; ABG HCO3 25 mmol/L (21-25); ABG PCO2 37 mmHg (35-45); ABG PH 7.43 (7.35-7.45); ABG PO2 85 mmHg (83-108); ABG TCO2 26 mmol/L (19-24)
[2017-12-01 04:43] LABS: HCT 30.7 % (34.0-46.0); HGB 10.2 gm/dL (11.4-16.0); MCH 28.3 pg (25.0-35.0); MCHC 33.2 g/dL (31.0-37.0); MCV 85.3 fL (80.0-100.0); Mean Platelet Volume 7.8; Platelet Count 212 k/uL (150-450); RDW 13.4 % (11.5-15.5); WBC 10.7 k/uL (3.8-10.6)
[2017-12-01 04:54] LABS: Anion Gap 10 mmol/L; Blood Urea Nitrogen 29 mg/dL (7-17); Calcium 7.8 mg/dL (8.4-10.2); Carbon Dioxide 25 mmol/L (22-30); Chloride 107 mmol/L (98-107); Glucose 188 mg/dL (74-99); Magnesium 2.1 mg/dL (1.6-2.3); Phosphorus 2.8 mg/dL (2.5-4.5); Potassium 3.9 mmol/L (3.5-5.1); Sodium 142 mmol/L (137-145)
[2017-12-01] MEDS: LABETALOL 5 MG/ML VIAL MDV IVP PRN ×5 (05:19→13:26)
[2017-12-01] MEDS: LORazepam 2 MG/ML INJ IV PRN (05:19)
[2017-12-01 06:00] LABS: Glucose,Whole Blood 191 mg/dL (75-99)
[2017-12-01] MEDS ORDERED: POTASSIUM BICARBONATE/CIT AC 20 MEQ TABLET.EFF NG-TUBE SCH (06:00)
[2017-12-01] MEDS: VANCOMYCIN 1,500 MG in SODIUM CHLORIDE 0.9% 250 ML IVPB SCH ×2 (06:05→22:08)
[2017-12-01] MEDS: SODIUM CHLORIDE 0.9% 1,000 ML IV SCH ×2 (06:05→16:00)
--- NOTE | 2017-12-01 06:50 | XR ---
EXAMINATION TYPE: XR chest 1V DATE OF EXAM: 12/01/2017 HISTORY: follow up. REFERENCE: Previous study dated 11/30/2017. FINDINGS: The patient is ET tube and NG tube remain in place, unchanged in appearance. There is mild vascular congestion without rolando edema. There is a small left pleural effusion. Heart size upper limits of normal. There is some left basilar airspace disease. IMPRESSION: WORSENING LEFT BASILAR AIRSPACE DISEASE WITH A SMALL, CONCOMITANT EFFUSION.
[2017-12-01] MEDS: DEXAMETHASONE SOD PHOSPHATE 4 MG/ML 1 ML VIAL IV SCH ×2 (08:37→20:24)
[2017-12-01] MEDS: CHLORHEXIDINE GLUCONATE 15 ML CUP MUCOUS MEM SCH (08:37)
[2017-12-01] MEDS: LEVOTHYROXINE IVP 100 MCG/5 ML VIAL IV SCH (08:38)
[2017-12-01] MEDS: cefTRIAXone IN SWFI 2,000 MG/20 ML SYRINGE IVP SCH ×2 (08:42→20:24)
[2017-12-01] MEDS: cloNIDine HCL 0.1 MG TAB PO SCH ×3 (08:42→22:08)
[2017-12-01] MEDS: amLODIPine 5 MG TAB PO SCH (08:42)
--- NOTE | 2017-12-01 10:51 | P.PN ---
Subjective Progress Note Date: 12/01/17 Principal diagnosis: Mental status changes with respiratory failure, seizures, rule out CVA and meningitis Progress note dated 11/29/2017 77-year-old female admitted with a diagnosis of mental status changes. The patient was initially thought to have a CVA. In addition, she apparently had some seizures during her EEG. The neurologist felt like her mental status changes were secondary to the postictal state following his seizures. Anyway, a computed tomography scan MRI/MRA did not reveal any ischemic stroke or hemorrhagic stroke. The patient apparently had an EEG. He did reveal some seizure activity. In addition, meningitis was a concern. Lumbar puncture showed evidence of elevated white blood cells and elevated protein but glucose was also high. The patient was started on Rocephin and vancomycin as well as Zosyn and acyclovir. The Zosyn was discontinued. The patient apparently developed a rash which was thought to be related to ampicillin administration. The rash developed before the ampicillin was given. The patient will have lines placed. I did talk to the family yesterday. Been keeping them informed. The patient has a history of acute respiratory failure with inability to protect airway, necessitating intubation and mechanical ventilation, hypertension, hyperlipidemia and hypothyroidism. The patient's on the volume assist control mode, rate of 14, tidal volume 400, and FiO2 35% PEEP of 5. Arterial blood gases show a PaO2 of 103 a PaCO2 34 and a pH is 7.39. The patient is currently on propofol at 40 mics per kilogram per minute, saline IV to 100 mL an hour and tube feeds with vital high protein at 34 with a goal of 34 mL per hour. Chest x-ray is okay. The elevated glucose in the cerebrospinal fluid is not consistent with meningitis. Progress note dated 11/30/2017 77-year-old female admitted with a diagnosis of mental status changes. The mental status changes were initially thought to be related to CVA. Also, the neurologist felt that maybe this was all from his seizure and the patient had mental status changes from a post ictal state. More recently, they're concerned about meningitis. A lumbar puncture did reveal evidence of high- protein is some white blood cells. The glucose was also high. The patient was started on empiric therapy. Nitro meningitis including Rocephin and vancomycin and acyclovir. Currently, the patient still on the mechanical ventilator. Cultures from the cerebrospinal fluid S4 negative. CT and MRI/MRA of the brain was negative for stroke. The patient will have a daily interruption of sedation today with a spontaneous breathing trial if she is awake and alert. She currently remains on the ventilator. She is currently on the assist control mode rate of 14, tidal volume 400, FiO2 35% and PEEP of 5. The patient has a blood gas with a PaO2 of 102 PaCO2 of 34 and a pH is 7.47. The patient is on propofol at 40 mics per kilogram per minute is saline IV at 100 mL an hour and vital high protein at 30 with a goal of 30 mL per hour. The patient does have a history of hypertension hyperlipidemia and hypothyroidism. Progress note dated 12/01/2017 This is a 77-year-old female admitted with a diagnosis of mental status changes. The mental status changes initially were thought to be either related to CVA or post ictal state as the patient did have seizures. Anyway, more recently, they were thinking about possible meningitis. A lumbar puncture was done and did reveal evidence of high-protein but so far microbiology is negative. In addition, the glucose was high and not low. The patient was started on empiric therapy for meningitis including Rocephin and vancomycin and acyclovir. The patient currently still on the mechanical ventilator. Today we are going to do a daily interruption of sedation. We'll see whether or not her mental status has improved. CT and MRI/MRA of the brain were negative for stroke. Currently, the patient is on the volume assist control with a rate of 14 tidal volume 400 FiO2 35% PEEP of 5. Arterial blood gases show a PaO2 of 85 the PaCO2 37 and a pH of 7.43. Her propofol is currently off. She is on a saline IV at 100 mL an hour and vital high protein at a rate of 34 with a goal of 34. Objective - Vital Signs Vital signs: Vital Signs Temp 98.6 F 12/01/17 08:00 Pulse 80 12/01/17 09:00 Resp 24 12/01/17 09:00 BP 162/73 12/01/17 09:00 Pulse Ox 98 12/01/17 09:00 Intake & Output 11/30/17 12/01/17 12/01/17 18:59 06:59 18:59 Intake Total 2198.455 1734 535.550 Output Total 1235 1005 200 Balance 963.455 729 335.550 Weight 97.8 kg 100.1 kg Intake: IV 1583 1236 309 Acyclovir Sodium 500 mg 100 In Sodium Chloride 0.9% 100 ml @ 100 mls/hr IVPB Q8H [facility] Rx#:[id number] Pressure Bag 33 36 9 Sodium Chloride 0.9% 1, 1200 1200 300 000 ml @ 100 mls/hr IV . Q10H [facility] Rx#:[id number] Vanco 250 Intake, IV Titration 185.455 94.550 Amount Propofol 1,000 mg In 185.455 Empty Bag 1 bag @ Titrate IV .Q0M [facility] Rx#: [id number] Propofol 1,000 mg In 94.550 Empty Bag 1 bag @ Titrate IV .Q0M [facility] Rx#: [id number] Tube Feeding 340 408 102 Other 90 90 30 Output: Urine 1235 1005 200 Other: Voiding Method Indwelling Catheter Indwelling Catheter Indwelling Catheter ABP, PAP, CO, CI - Last Documented Arterial Blood Pressure 181/53 - Exam No acute distress, sedated, with an orally place NG tube and endotracheal tube. HEENT examination is grossly unremarkable. Mucous membranes are moist. Neck supple. Full range of motion. No adenopathy thyromegaly or neck vein distention. Cardiovascular examination reveals regular rhythm rate. S1-S2 normal. No S3 or S4. No discernible murmur noted. Lungs reveal a few scattered rhonchi. Breath sounds are equal. No crackles. No wheezes. Abdomen soft bowel sounds are heard. No masses or tenderness. Extremities are intact. No cyanosis clubbing or edema. Skin is without rash or lesion. Neurologic examination is difficult to assess given the patient's mental status changes and sedation - Labs CBC & Chem 7: 12/01/17 04:30 12/01/17 04:30 Labs: Abnormal Lab Results - Last 24 Hours (Table) 11/30/17 11/30/17 11/30/17 Range/Units 11:05 17:29 23:47 WBC (3.8-10.6) k/uL RBC (3.80-5.40) m/uL Hgb (11.4-16.0) gm/dL Hct (34.0-46.0) % ABG Total CO2 (19-24) mmol/L BUN (7-17) mg/dL Glucose (74-99) mg/dL POC Glucose (mg/dL) 198 H 172 H 150 H (75-99) mg/dL Calcium (8.4-10.2) mg/dL 12/01/17 12/01/17 12/01/17 Range/Units 04:00 04:30 04:30 WBC 10.7 H (3.8-10.6) k/uL RBC 3.60 L (3.80-5.40) m/uL Hgb 10.2 L (11.4-16.0) gm/dL Hct 30.7 L (34.0-46.0) % ABG Total CO2 26 H (19-24) mmol/L BUN 29 H (7-17) mg/dL Glucose 188 H (74-99) mg/dL POC Glucose (mg/dL) (75-99) mg/dL Calcium 7.8 L (8.4-10.2) mg/dL 12/01/17 Range/Units 05:58 WBC (3.8-10.6) k/uL RBC (3.80-5.40) m/uL Hgb (11.4-16.0) gm/dL Hct (34.0-46.0) % ABG Total CO2 (19-24) mmol/L BUN (7-17) mg/dL Glucose (74-99) mg/dL POC Glucose (mg/dL) 191 H (75-99) mg/dL Calcium (8.4-10.2) mg/dL Microbiology - Last 24 Hours (Table) 11/26/17 09:20 Blood Culture Gram Stain - Preliminary Blood Blood Culture - Preliminary Diphtheroid species 11/28/17 01:45 Blood Culture - Preliminary Blood No Growth after 72 hours 11/28/17 02:05 Blood Culture - Preliminary Blood No Growth after 72 hours 11/28/17 15:30 CSF Gram Stain - Preliminary Cerebral Spinal Fluid CSF Culture - Preliminary 11/27/17 20:55 Gram Stain - Final Sputum Sputum Culture - Final Assessment and Plan Assessment: Assessment Altered mental status, likely representing either a new onset seizure with a postictal state or possible meningitis Possible CVA, although, scanning is negative. Acute respiratory failure secondary to patient unable to protect her airway, requiring intubation and mechanical ventilation History of hypertension History of hyperlipidemia History of hypothyroidism Possible meningitis given the findings on lumbar puncture Plan: Plan dated 11/28/2017 The patient's currently on antibiotics for presumed meningitis. A lumbar puncture is being performed by anesthesia. Her antibiotics including Rocephin and vancomycin and Zosyn and acyclovir. Her antibiotic should be Rocephin and vancomycin and ampicillin and acyclovir. Listeria monocytogenes would be one possible cause of her meningitis if that is the correct diagnosis. The patient remains on mechanical ventilator. FiO2 was dropped from 35-25%. We'll start tube feedings on the patient. Patient will continue with IV fluids. Additional recommendations and suggestions forthcoming. Prognosis is guarded since we don't have a clear-cut etiology at this time. I was able to speak to the neurologist yesterday. He feels that this patient had a new-onset seizure with a postictal state. One other possibility might be posterior reversible encephalopathy syndrome. We'll discuss with neurology about this. Plan dated 11/29/2017 The patient's currently on appropriate antibiotics. We'll continue to follow closely. Labs x-rays a medications are all reviewed. The patient remains on Rocephin and vancomycin and acyclovir. Additional recommendations and suggestions are forthcoming. Hyaline a central line replaced. Additional recommendations and suggestions are forthcoming. Critical care time 36 minutes Plan dated 11/30/2017 The patient will have a daily interruption of sedation with a spontaneous breathing trial if she's awake and alert. She remains on antibiotics. The patient is currently receiving nourishment with vital high protein at a goal rate of 30 mL per hour. She remains on the ventilator. Computed tomography scan of the brain was negative. MRI/MRA of the brain was negative. In addition , all microbiology and microbiology studies are negative thus far including the cerebral spinal fluid. Additional recommendations and suggestions are forthcoming. Prognosis is guarded. Critical care time is 34 minutes Plan dated 12/01/2017 The patient will have another daily interruption of sedation. Hopefully her mental status has improved. She is being nourished with vital high protein at goal. She is get a saline IV at 100 mL an hour. Propofol is currently off. Blood gases are reasonable. Labs x-rays a medications are reviewed. Prognosis is guarded. Critical care time 34 minutes Time with Patient: Greater than 30
[2017-12-01] MEDS ORDERED: RX INFO: IV CONTRAST WAS GIVEN 1 EACH MISC MISCELLANE PRN (11:09)
[2017-12-01] MEDS: PANTOPRAZOLE 40 MG/10 ML VIAL IV SCH (11:28)
[2017-12-01 11:48] LABS: Glucose,Whole Blood 129 mg/dL (75-99)
[2017-12-01] MEDS ORDERED: CLEVIDIPINE BUTYRATE 25 MG/50 ML VIAL IV ONE (14:03)
[2017-12-01] MEDS: CLEVIDIPINE BUTYRATE 25 MG in EMPTY BAG 1 BAG IV SCH ×2 (14:10→19:02)
[2017-12-01] MEDS ORDERED: FUROSEMIDE 10 MG/ML 4 ML VIAL IV STA (14:55)
[2017-12-01] MEDS ORDERED: POTASSIUM CHLORIDE 20 MEQ in WATER FOR INJECTION 1 100ML.BAG IVPB STA (14:56)
[2017-12-01] MEDS: ASPIRIN 300 MG SUPP RECTAL SCH (15:58)
[2017-12-01 18:27] LABS: Glucose,Whole Blood 135 mg/dL (75-99)
--- NOTE | 2017-12-01 18:29 | P.PN ---
Subjective Progress Note Date: 12/01/17 Principal diagnosis: Meningitis 77 years old female patient of Dr. Wilson with past medical history of hypertension, hyperlipidemia, hypothyroidism, overactive bladder presents in with confusion that started this morning. According to the family patient was not eating and drinking for the past 2 days. She woke up in the morning feeling confused, unable to speak appropriately. Patient was unable to comprehend and repeat appropriately. Her language was gibberish and lacked meaning. Patient denies any sensory or motor deficits. She denies any history of seizure or any similar episodes in the past. Patient denies any history of chest pain, palpitation, shortness of breath, abdominal pain, nausea or vomiting. No history of syncope or loss of consciousness prior to this episode. Patient is unable to provide much history is pleasantly confused. She does know where she is and can tell her name and date of . Vitals are stable with blood pressure slightly elevated 171/70. Saturating well on room air and afebrile. Patient did have a leukocytosis of 14.3 INR 1.1, lactic acid 2.4. Normal troponin. CT head negative for any acute abnormalities no masses seen. Did have prominent choroid plexus cyst. CT abdomen and pelvis was done as patient had some tenderness in the lower quadrant which was unremarkable. Due to patient's A. fib. Dysarthria MRI/MRA ordered. Neurology consulted from possible stroke versus brain mass. 11/27: Echocardiogram reveals EF of 55-60%, trace mitral regurgitation, trace tricuspid regurgitation. Patient has been seen by Dr. 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 Homocysteine level is normal at 12.02. Triglycerides 201, cholesterol 201, LDL 128 and HDL 34. Repeat troponins came back negative. Patient was unable to swallow but her a.m. medications were given. Patient is having difficulty following directions. We will change what we can over to IV. MRI is scheduled for 4 this afternoon. PT OT and speech therapy are all involved. EEG is pending. EEG 11/28: When patient went for EEG yesterday afternoon, she developed seizure activity while having the procedure done. The seizure activity stopped without any medication. She was subsequently post ictal and was transferred to the intensive care unit. She underwent MRI and MRI/MRA of the head and neck that showed no evidence of recent infarct. Patient was unarousable after this responded to pain stimuli. There was concern decorticated posturing at that time. Patient was started on Keppra 1000 mg IV twice daily. She also underwent a repeat CAT scan of the brain that showed cerebral atrophy. No acute intracranial abnormality seen. No sign of cortical infarct. No change. Repeat chest x-ray shows no developing left basilar atelectasis and/or infiltrate. LP was attempted by anesthesia which was unsuccessful. She continued to have posturing and respiratory status was declining and patient was intubated and placed on mechanical ventilation. There is order for interventional radiology to perform lumbar puncture. She is currently on antimicrobials in the form of Rocephin, vancomycin, acyclovir and ampicillin. Patient also developed fever up to 103 there was consult placed with Dr. Roche. Dr. Nash is intensive care management. 11/29: Repeat EEG was limited due to muscle artifact. No obvious epileptiform discharges. Lumbar puncture was finally obtained by interventional radiology with removal of 15 mL of slightly tinge spinal fluid with evidence of pleocytosis consistent with meningeal coccal infection. Dr. Roche as adjusted Rocephin to 2 g every 12 hours. Ampicillin was discontinued. Neurology continues to follow. Patient is on Keppra 1000 mg twice daily IV as well as rectal aspirin. Patient has been afebrile since yesterday at 8 AM. Vital signs have been stable and patient has not required vasopressors. She remains intubated and on mechanical ventilation. White count is down slightly from yesterday to 15, potassium is low at 2.8 and will be replaced by protocol. Influenza testing came back negative. Blood cultures remain with no growth. Cerebral spinal fluid cultures are in progress. 2 feedings have been started. 11/30. Patient noted to have some spontaneous movement. Sedation was withdrawn. Patient squeezed hand on command. Blood pressure continued to be high with systolic systolic 192/51 respiratory rate 14. Patient still intubated requiring minimal vent settings. Pupils are equal and responsive to light. CSF analysis suggest increased glucose increased routine. Cultures not growing anything so far. West Nile virus negative. Comprehensive viral panel negative. Continue a acyclovir, ceftriaxone stopped seizure-like activity noted by the nurse when patient had a sedation vacation and received 1 mg of Ativan. Continue Keppra 1000 mg twice daily. Further recommendation pending from neurology. 12/01: Patient remains in ICU, and was extubated a few hours ago, patient remains to be hypertensive, without any respiratory difficulties when seen, she has some generalized edema noted, Lasix IV 40 mg to be given today, cultures are currently pending, Dr. Roche and Dr. Nash following closely. Patient is lethargic when seen, no verbal communication from patient today reveal blood culture shows diphtheroid species from specimen 11/26/2017. cleviprex started for bp control Objective - Vital Signs Vital signs: Vital Signs Temp 99.1 F 12/01/17 12:00 Pulse 80 12/01/17 15:35 Resp 17 12/01/17 13:00 BP 172/61 12/01/17 13:00 Pulse Ox 95 12/01/17 13:00 Intake & Output 11/30/17 12/01/17 12/01/17 18:59 06:59 18:59 Intake Total 2198.455 1734 1627.083 Output Total 1235 1005 1475 Balance 963.455 729 152.083 Weight 97.8 kg 100.1 kg Intake: IV 1583 1236 1133 Acyclovir Sodium 500 mg 100 In Sodium Chloride 0.9% 100 ml @ 100 mls/hr IVPB Q8H [facility] Rx#:[id number] Pressure Bag 33 36 33 Sodium Chloride 0.9% 1, 1200 1200 1100 000 ml @ 100 mls/hr IV . Q10H [facility] Rx#:[id number] Vanco 250 Intake, IV Titration 185.455 298.083 Amount Clevidipine Butyrate 25 3.533 mg In Empty Bag 1 bag @ 1 MG/HR 2 mls/hr IV .Q24H [facility] Rx#:[id number] Potassium Chloride 20 meq 100 In Water For Injection 1 100ml.bag @ 50 mls/hr IVPB ONCE [facility] Rx#: [id number] Propofol 1,000 mg In 185.455 Empty Bag 1 bag @ Titrate IV .Q0M [facility] Rx#: [id number] Propofol 1,000 mg In 94.550 Empty Bag 1 bag @ Titrate IV .Q0M [facility] Rx#: [id number] levETIRAcetam IV 1,000 mg 100 In Saline 1 100ml.bag @ 400 mls/hr IVPB Q12H [facility] Rx#:[id number] Tube Feeding 340 408 136 Other 90 90 60 Output: Urine 1235 1005 1475 Other: Voiding Method Indwelling Catheter Indwelling Catheter Indwelling Catheter ABP, PAP, CO, CI - Last Documented Arterial Blood Pressure 196/57 - Constitutional General appearance: Present: cooperative, no acute distress, obese - EENT Eyes: Present: anicteric sclerae, EOMI, PERRLA, dentition normal, normal appearance ENT: Present: NA/AT, normal oropharynx - Neck Neck: Present: normal ROM - Respiratory Respiratory: bilateral: CTA, diminished - Cardiovascular Heart sounds: normal: S1, S2 - Gastrointestinal General gastrointestinal: Present: normal bowel sounds, soft - Integumentary Integumentary: Present: decreased turgor, normal - Neurologic Neurologic: Present: CNII-XII intact - Musculoskeletal Musculoskeletal: Present: gait normal, strength equal bilaterally - Psychiatric Psychiatric: Present: A&O x's 3, appropriate affect, intact judgment & insight - Labs CBC & Chem 7: 12/01/17 04:30 12/01/17 04:30 Labs: Abnormal Lab Results - Last 24 Hours (Table) 11/30/17 12/01/17 12/01/17 Range/Units 23:47 04:00 04:30 WBC (3.8-10.6) k/uL RBC (3.80-5.40) m/uL Hgb (11.4-16.0) gm/dL Hct (34.0-46.0) % ABG Total CO2 26 H (19-24) mmol/L BUN 29 H (7-17) mg/dL Glucose 188 H (74-99) mg/dL POC Glucose (mg/dL) 150 H (75-99) mg/dL Calcium 7.8 L (8.4-10.2) mg/dL 12/01/17 12/01/17 12/01/17 Range/Units 04:30 05:58 11:31 WBC 10.7 H (3.8-10.6) k/uL RBC 3.60 L (3.80-5.40) m/uL Hgb 10.2 L (11.4-16.0) gm/dL Hct 30.7 L (34.0-46.0) % ABG Total CO2 (19-24) mmol/L BUN (7-17) mg/dL Glucose (74-99) mg/dL POC Glucose (mg/dL) 191 H 129 H (75-99) mg/dL Calcium (8.4-10.2) mg/dL Microbiology - Last 24 Hours (Table) 11/28/17 15:30 CSF Gram Stain - Preliminary Cerebral Spinal Fluid CSF Culture - Preliminary 11/26/17 09:20 Blood Culture Gram Stain - Preliminary Blood Blood Culture - Preliminary Diphtheroid species 11/28/17 01:45 Blood Culture - Preliminary Blood No Growth after 72 hours 11/28/17 02:05 Blood Culture - Preliminary Blood No Growth after 72 hours Laboratory Results WBC 10.7 k/uL (3.8-10.6) H 12/01/17 04:30 RBC 3.60 m/uL (3.80-5.40) L 12/01/17 04:30 Hgb 10.2 gm/dL (11.4-16.0) L 12/01/17 04:30 Hct 30.7 % (34.0-46.0) L 12/01/17 04:30 MCV 85.3 fL (80.0-100.0) 12/01/17 04:30 MCH 28.3 pg (25.0-35.0) 12/01/17 04:30 MCHC 33.2 g/dL (31.0-37.0) 12/01/17 04:30 RDW 13.4 % (11.5-15.5) 12/01/17 04:30 Plt Count 212 k/uL (150-450) 12/01/17 04:30 Neutrophils % 87 % 11/30/17 04:50 Lymphocytes % 7 % 11/30/17 04:50 Monocytes % 5 % 11/30/17 04:50 Eosinophils % 0 % 11/30/17 04:50 Basophils % 0 % 11/30/17 04:50 Neutrophils # 9.7 k/uL (1.3-7.7) H 11/30/17 04:50 Lymphocytes # 0.8 k/uL (1.0-4.8) L 11/30/17 04:50 Monocytes # 0.5 k/uL (0-1.0) 11/30/17 04:50 Eosinophils # 0.0 k/uL (0-0.7) 11/30/17 04:50 Basophils # 0.0 k/uL (0-0.2) 11/30/17 04:50 Manual Slide Review Performed 11/28/17 06:06 Pathologist Review See comment A 11/28/17 06:06 PT 10.8 sec (9.0-12.0) 11/27/17 23:55 INR 1.1 (<1.2) 11/27/17 23:55 APTT 22.4 sec (22.0-30.0) 11/27/17 23:55 Fibrinogen 436 mg/dL (200-500) 11/28/17 06:06 D-Dimer 1.27 mg/L FEU (<0.60) H 11/27/17 23:55 Sample Site jorge 12/01/17 04:00 ABG pH 7.43 (7.35-7.45) 12/01/17 04:00 ABG pCO2 37 mmHg (35-45) 12/01/17 04:00 ABG pO2 85 mmHg (83-108) 12/01/17 04:00 ABG HCO3 25 mmol/L (21-25) 12/01/17 04:00 ABG Total CO2 26 mmol/L (19-24) H 12/01/17 04:00 ABG O2 Saturation 96.0 % (94-97) 12/01/17 04:00 ABG Base Excess 0.6 mmol/L 12/01/17 04:00 Nico Test no 12/01/17 04:00 FiO2 35 % 12/01/17 04:00 Sodium 142 mmol/L (137-145) 12/01/17 04:30 Potassium 3.9 mmol/L (3.5-5.1) 12/01/17 04:30 Chloride 107 mmol/L (98-107) 12/01/17 04:30 Carbon Dioxide 25 mmol/L (22-30) 12/01/17 04:30 Anion Gap 10 mmol/L 12/01/17 04:30 BUN 29 mg/dL (7-17) H 12/01/17 04:30 Creatinine 0.70 mg/dL (0.52-1.04) 12/01/17 04:30 Est GFR (CKD-EPI)AfAm >90 (>60 ml/min/1.73 sqM) 12/01/17 04:30 Est GFR (CKD-EPI)NonAf 83 (>60 ml/min/1.73 sqM) 12/01/17 04:30 Glucose 188 mg/dL (74-99) H 12/01/17 04:30 POC Glucose (mg/dL) 129 mg/dL (75-99) H 12/01/17 11:31 POC Glu Medical Scientist ID Meaghan Kelley 12/01/17 11:[address] Glu mg/dL 126 11/28/17 06:06 Hemoglobin A1c 6.0 % (4.0-6.0) 11/28/17 06:06 Lactic Ac Sepsis Rflx Y 11/26/17 10:13 Plasma Lactic Acid Ede 1.1 mmol/L (0.7-2.0) 11/26/17 14:14 Calcium 7.8 mg/dL (8.4-10.2) L 12/01/17 04:30 Phosphorus 2.8 mg/dL (2.5-4.5) 12/01/17 04:30 Magnesium 2.1 mg/dL (1.6-2.3) 12/01/17 04:30 Total Bilirubin 0.9 mg/dL (0.2-1.3) 11/27/17 06:29 AST 18 U/L (14-36) 11/27/17 06:29 ALT 27 U/L (9-52) 11/27/17 06:29 Alkaline Phosphatase 43 U/L (38-126) 11/27/17 06:29 Total Creatine Kinase 86 U/L (30-135) 11/26/17 09:20 CK-MB (CK-2) 0.5 ng/mL (0.0-2.4) 11/26/17 09:20 CK-MB (CK-2) Rel Index 0.6 11/26/17 09:20 Troponin I <0.012 ng/mL (0.000-0.034) 11/26/17 20:56 Total Protein 6.2 g/dL (6.3-8.2) L 11/27/17 06:29 Albumin 3.9 g/dL (3.5-5.0) 11/27/17 06:29 Triglycerides 201 mg/dL (<150) H 11/27/17 06:29 Cholesterol 201 mg/dL (<200) H 11/27/17 06:29 LDL Cholesterol, Calc 128 mg/dL (0-99) H 11/27/17 06:29 HDL Cholesterol 33 mg/dL (40-60) L 11/27/17 06:29 Homocysteine 12.02 umol/L (4.00-14.00) 11/26/17 20:56 Urine Color Yellow 11/28/17 00:15 Urine Appearance Turbid (Clear) H 11/28/17 00:15 Urine pH 5.5 (5.0-8.0) 11/28/17 00:15 Ur Specific [place] 1.024 (1.001-1.035) 11/28/17 00:15 Urine Protein 1+ (Negative) H 11/28/17 00:15 Urine Glucose (UA) Negative (Negative) 11/28/17 00:15 Urine Ketones Negative (Negative) 11/28/17 00:15 Urine Blood Large (Negative) H 11/28/17 00:15 Urine Nitrite Negative (Negative) 11/28/17 00:15 Urine Bilirubin Negative (Negative) 11/28/17 00:15 Urine Urobilinogen <2.0 mg/dL (<2.0) 11/28/17 00:15 Ur Leukocyte Esterase Large (Negative) H 11/28/17 00:15 Urine RBC 38 /hpf (0-5) H 11/28/17 00:15 Urine WBC 37 /hpf (0-5) H 11/28/17 00:15 Ur Squamous Epith Cells <1 /hpf (0-4) 11/26/17 09:20 Hyaline Casts 15 /lpf (0-2) H 11/28/17 00:15 Urine Mucus Rare /hpf (None) H 11/28/17 00:15 CSF Tube Number 4 11/28/17 15:30 CSF Volume 3.5 11/28/17 15:30 CSF Appearance Blood Tinged 11/28/17 15:30 CSF Color [place] 11/28/17 15:30 CSF RBC 1230 u/L (0-10) H 11/28/17 15:30 CSF Tot Nucleated Cells 170 u/L (0-5) H 11/28/17 15:30 CSF Mononuclear WBCs % 66 % 11/28/17 15:30 CSF Polynuclear WBCs % 34 % 11/28/17 15:30 CSF Glucose 97 mg/dL (40-70) H 11/28/17 15:30 CSF Total Protein 198 mg/dL (12-60) H 11/28/17 15:30 Vancomycin Trough 15.1 ug/mL 11/30/17 13:50 West Nile Virus IgG Ab 0.03 INDEX (<1.30) 11/28/17 06:30 West Nile Virus IgM Ab 0.08 INDEX (<0.90) 11/28/17 06:30 HSV I DNA PCR Not detected (Not detected) 11/28/17 06:30 HSV II DNA PCR Not detected (Not detected) 11/28/17 06:30 HSV (PCR) Source Blood - EDTA 11/28/17 06:30 Influenza Type A RNA Not Detected (Not Detectd) 11/28/17 16:54 Influenza Type B (PCR) Not Detected (Not Detectd) 11/28/17 16:54 Virus Source (()) 11/28/17 16:54 Viral Test See Below 11/28/17 16:54 Virus Analysis Interp See Below 11/28/17 16:54 Assessment and Plan Plan: 1. Acute metabolic encephalopathy with new onset of seizure secondary to meningitis, encephalitis. Acute stroke has been ruled out. Neurology, pulmonary medicine, infectious disease consults in place. Patient is currently on antimicrobials in the form of ceftriaxone, acyclovir and vancomycin. Patient started on dexamethasone dose reduced to q12 hr Continue Keppra 1000 mg twice daily IV piggyback, Ativan 1 mg every 6 hours as needed for seizure, Tylenol by suppository, aspirin daily rectally. 2. Acute hypoxic respiratory failure secondary to inability to protect her airway. Patient has been intubated and on mechanical ventilation .12/[address] Nash is managing. 3. Hyperlipidemia. Lipid panel as above. 4. hypertensive encephalothathy with hypertensive emergency, , on clevidipine 25 mg IV every 24 hours, amlodipine 5 mg daily, labetalol 10 mg IV every 30 minutes when necessary, 5. Hypothyroidism continue levothyroxine 44 g on Sunday and 88 g rest of the days and just IV currently IV 37 g daily 6. Seizure, on Keppra 1000 mg IV every 12 hours, MRI/MRA showed no evidence of recent infarct or aneurysm, has age related cerebral atrophy, no stenosis and, no internal carotid arteries bilaterally, LP showed meningitis cultures are pending 7. Overactive bladder. Hold oxybutynin 10 mg by mouth daily 8. Bacteremia, with diphtheroids species unknown significance whether this is an important nosocomial infection, Dr. Roche is following 9. Anasarca, Lasix 40 mg IV to be given today, and will be clinical decided on a daily basis 10 Leukocytosis likely reactive. 11. GI prophylaxis with Protonix daily. 12. DVT prophylaxis with SCDs . CODE STATUS full code Discharge plan: Subacute rehab
--- NOTE | 2017-12-01 19:36 | P.PN ---
Subjective Progress Note Date: 12/01/17 Patient is a 77-year-old female who is being followed by the neurology service for stroke. Patient had gone to bed on Sunday night and no deficits were noted at that time. Patient woke up Sunday morning and was found to be very confused and was not able to understand what her was trying to say to her. She was not following any commands. Patient was speaking but not making sense. She did not appear to be having any lateralizing weakness. Computed tomography scan was done on admission which showed small vessel ischemic changes. Patient was admitted for further workup and was started on aspirin 325 mg daily. Patient was transferred up to the floor and was awake, alert, but not following any verbal commands. Staff reports patient was more somnolent this morning as compared to yesterday. Patient had gone down for EEG testing and had a seizure during EEG testing. No Ativan was given due to seizure activity stopping. Patient appeared to be in a postictal state. She was taken to MRI and had MRI/MRA of the head and neck with and without contrast. No evidence for recent infarct noted. Patient continues to be unarousable. She does respond to pain stimulus. Right upper extremity seems to be posturing. Patient has sonorous respirations with rate 14-20. Patient is clenching her jaw and grinding her teeth. Keppra 1000 mg was given IV. She will continue Keppra 1000 milligrams twice a day. No obvious facial asymmetry is noted. At the time of my evaluation, patient appears to be in mild distress. She will be transferred to the ICU. 11/28/2017 Patient is a 77-year-old female who is being followed by the neurology service for altered mental status. Patient is currently intubated on mechanical ventilation in the ICU setting. Patient had originally come in with strokelike symptoms but MRIs have been negative for any recent infarct. Patient had a seizure while having the EEG done and neurological status was declining so patient was taken to the ICU and intubated. Patient did spike a temperature of 103 and infectious disease was consulted. Patient is currently sedated on the ventilator. Staff reports while on sedation holiday patient had minimal withdrawal to pain and continues to posture. She was started on antibiotics and is being followed by infectious disease. At the time of my evaluation, patient appears to be resting comfortably and is in no acute distress. Family is at the bedside. 11/30/2017 Patient is a 77-year-old female who is being followed by the neurology service. Patient remains intubated on mechanical ventilator. Patient was given sedation holiday and staff informs me she was able to follow commands by squeezing hands today. She was unable to remain off the ventilator and she currently is back on sedation. Questionable seizure activity during sedation holiday. Patient was given Ativan. No further seizure activity noted. Patient is currently on Keppra thousand milligrams twice a day. Infectious disease continues to follow. At the time of my evaluation, patient is sedated on mechanical ventilation and appears to be in no acute distress. Family is at the bedside. 12/01/2017 Patient is a 77-year-old female who is being followed by the neurology service for altered mental status. Patient originally presented to the hospital with symptoms of stroke. Studies of the brain did not reveal any evidence of stroke. Patient spiked a fever and infectious disease was consulted. Patient was diagnosed with meningitis and place an IV antibiotics. Patient has been intubated in the ICU unit. Patient was extubated this morning and is awake and following commands. At the time of my evaluation, patient's resting comfortably in bed and appears to be in no acute distress. Objective - Vital Signs Vital signs: Vital Signs Temp 98.7 F 12/01/17 16:00 Pulse 94 12/01/17 19:24 Resp 16 12/01/17 19:00 BP 153/63 12/01/17 19:00 Pulse Ox 95 12/01/17 19:00 Intake & Output 12/01/17 12/01/17 12/02/17 06:59 18:59 06:59 Intake Total 1734 1735.233 115.2 Output Total 1005 1875 350 Balance 729 -139.767 -234.8 Weight 100.1 kg Intake: IV 1236 1236 103 Pressure Bag 36 36 3 Sodium Chloride 0.9% 1, 1200 1200 100 000 ml @ 100 mls/hr IV . Q10H [facility] Rx#:[id number] Intake, IV Titration 303.233 12.2 Amount Clevidipine Butyrate 25 8.683 12.2 mg In Empty Bag 1 bag @ 1 MG/HR 2 mls/hr IV .Q24H [facility] Rx#:[id number] Potassium Chloride 20 meq 100 In Water For Injection 1 100ml.bag @ 50 mls/hr IVPB ONCE STA Rx#: [id number] Propofol 1,000 mg In 94.550 Empty Bag 1 bag @ Titrate IV .Q0M [facility] Rx#: [id number] levETIRAcetam IV 1,000 mg 100 In Saline 1 100ml.bag @ 400 mls/hr IVPB Q12H [facility] Rx#:[id number] Tube Feeding 408 136 Other 90 60 Output: Urine 1005 1875 350 Other: Voiding Method Indwelling Catheter Indwelling Catheter ABP, PAP, CO, CI - Last Documented Arterial Blood Pressure 166/50 - Exam PHYSICAL EXAM: GENERAL APPEARANCE: Patient is a well-developed, female who is extubated on 4 L nasal cannula. HEENT: Normocephalic, atraumatic, no facial asymmetry is seen. Neck is supple with no masses felt. CARDIOVASCULAR: Heart rate is regular. ABDOMEN: Nontender, nondistended. EXTREMITIES: Show no edema or clubbing. NEUROLOGICAL EXAM: Patient is still somewhat lethargic but responds to her name. She follows simple commands. She is moving all her extremities. No obvious facial asymmetry is noted. No tremors or seizure-like activity is seen. - Labs CBC & Chem 7: 12/01/17 04:30 12/01/17 04:30 Labs: Abnormal Lab Results - Last 24 Hours (Table) 11/30/17 12/01/17 12/01/17 Range/Units 23:47 04:00 04:30 WBC (3.8-10.6) k/uL RBC (3.80-5.40) m/uL Hgb (11.4-16.0) gm/dL Hct (34.0-46.0) % ABG Total CO2 26 H (19-24) mmol/L BUN 29 H (7-17) mg/dL Glucose 188 H (74-99) mg/dL POC Glucose (mg/dL) 150 H (75-99) mg/dL Calcium 7.8 L (8.4-10.2) mg/dL 12/01/17 12/01/17 12/01/17 Range/Units 04:30 05:58 11:31 WBC 10.7 H (3.8-10.6) k/uL RBC 3.60 L (3.80-5.40) m/uL Hgb 10.2 L (11.4-16.0) gm/dL Hct 30.7 L (34.0-46.0) % ABG Total CO2 (19-24) mmol/L BUN (7-17) mg/dL Glucose (74-99) mg/dL POC Glucose (mg/dL) 191 H 129 H (75-99) mg/dL Calcium (8.4-10.2) mg/dL 12/01/17 Range/Units 18:25 WBC (3.8-10.6) k/uL RBC (3.80-5.40) m/uL Hgb (11.4-16.0) gm/dL Hct (34.0-46.0) % ABG Total CO2 (19-24) mmol/L BUN (7-17) mg/dL Glucose (74-99) mg/dL POC Glucose (mg/dL) 135 H (75-99) mg/dL Calcium (8.4-10.2) mg/dL Microbiology - Last 24 Hours (Table) 11/28/17 15:30 CSF Gram Stain - Preliminary Cerebral Spinal Fluid CSF Culture - Preliminary 11/26/17 09:20 Blood Culture Gram Stain - Preliminary Blood Blood Culture - Preliminary Diphtheroid species 11/28/17 01:45 Blood Culture - Preliminary Blood No Growth after 72 hours 11/28/17 02:05 Blood Culture - Preliminary Blood No Growth after 72 hours Assessment and Plan Plan: Impression: 1. Metabolic encephalopathy 2. Seizure 3. Respiratory failure 4. Meningitis Recommendation: Patient is currently extubated on 4 L nasal cannula in the ICU. Patient is being followed by ICU food service director. Patient is on Keppra 1000 mg IV twice a day and no further seizure activity reported. Repeat EEG showed muscle artifact but no seizure activity. Patient had repeat EEG done this morning and results are pending. Patient had computed tomography scan of the brain as well as MRI/MRA which showed no evidence of recent infarct or aneurysm. Study did show mild diffuse age-related cerebral atrophy. There was no significant stenosis in common or internal carotid arteries bilaterally. Patient underwent a lumbar puncture performed in interventional radiology. Patient diagnosed with meningitis. She is currently on antimicrobials per infectious disease including acyclovir, vancomycin and ceftriaxone. Continue current ICU management. Continue neurological checks. Continue seizure precautions. Continue rectal aspirin. Continue Keppra 1000 mg IV twice a day. I will continue to follow with you. Further recommendations to follow. I performed an examination of the patient and discussed the management with the SPECIAL NEEDS TEACHER. I have reviewed the SPECIAL NEEDS TEACHER notes and agree with the findings and plan of care.
[2017-12-02 00:12] LABS: Glucose,Whole Blood 155 mg/dL (75-99)
[2017-12-02] MEDS: INSULIN ASPART 100 UNIT/ML 1 ML 10 ML VIAL SQ SCH ×5 (00:15→20:31)
[2017-12-02] MEDS: levETIRAcetam IV 1,000 MG in SALINE 1 100ML.BAG IVPB SCH (03:32)
[2017-12-02] MEDS: SODIUM CHLORIDE 0.9% 1,000 ML IV SCH ×2 (03:33→10:00)
[2017-12-02 05:15] LABS: HGB 10.4 gm/dL (11.4-16.0); MCH 29.1 pg (25.0-35.0); MCHC 34.6 g/dL (31.0-37.0); MCV 84.1 fL (80.0-100.0); Mean Platelet Volume 7.5; Platelet Count 253 k/uL (150-450); RBC 3.57 m/uL (3.80-5.40); RDW 13.2 % (11.5-15.5); WBC 12.5 k/uL (3.8-10.6)
[2017-12-02 05:28] LABS: Anion Gap 9 mmol/L; Blood Urea Nitrogen 27 mg/dL (7-17); Calcium 8.2 mg/dL (8.4-10.2); Carbon Dioxide 29 mmol/L (22-30); Chloride 107 mmol/L (98-107); Glucose 135 mg/dL (74-99); Phosphorus 2.8 mg/dL (2.5-4.5); Potassium 3.8 mmol/L (3.5-5.1); Sodium 145 mmol/L (137-145)
[2017-12-02 05:39] LABS: Glucose,Whole Blood 129 mg/dL (75-99)
[2017-12-02] MEDS: POTASSIUM CHLORIDE 10 MEQ in WATER FOR INJECTION 1 100ML.BAG IVPB SCH ×2 (05:58→08:38)
[2017-12-02] MEDS ORDERED: LEVOTHYROXINE 88 MCG TAB PO SCH (06:30)
--- NOTE | 2017-12-02 06:34 | XR ---
EXAMINATION TYPE: XR chest 1V DATE OF EXAM: 12/02/2017 HISTORY: Extubation. REFERENCE: Previous study dated 12/01/2017. FINDINGS: The patient's ET tube and NG tube been removed. Heart size upper limits of normal. There is improved aeration at the left lung base. There continues to be some left basilar airspace disease. T here is a small left effusion. IMPRESSION: IMPROVED AERATION, LEFT LUNG BASE.
[2017-12-02] MEDS: IPRATROPIUM-ALBUTEROL 3 ML NEB INHALATION SCH ×4 (08:00→19:24)
[2017-12-02] MEDS: ASPIRIN 300 MG SUPP RECTAL SCH (08:38)
[2017-12-02] MEDS: LEVOTHYROXINE IVP 100 MCG/5 ML VIAL IV SCH (08:51)
[2017-12-02] MEDS: PANTOPRAZOLE 40 MG/10 ML VIAL IV SCH (08:52)
[2017-12-02] MEDS: DEXAMETHASONE SOD PHOSPHATE 4 MG/ML 1 ML VIAL IV SCH ×2 (08:53→20:31)
[2017-12-02] MEDS: CLEVIDIPINE BUTYRATE 25 MG in EMPTY BAG 1 BAG IV SCH (08:54)
[2017-12-02] MEDS ORDERED: ATORVASTATIN 10 MG TAB PO SCH (09:00)
[2017-12-02] MEDS: cloNIDine HCL 0.1 MG TAB PO SCH ×3 (10:21→21:19)
[2017-12-02] MEDS: amLODIPine 5 MG TAB PO SCH (10:21)
[2017-12-02] MEDS: cefTRIAXone IN SWFI 2,000 MG/20 ML SYRINGE IVP SCH ×2 (10:27→20:33)
--- NOTE | 2017-12-02 11:00 | P.PN ---
Subjective Progress Note Date: 12/02/17 Principal diagnosis: Mental status changes with respiratory failure, seizures, rule out CVA and meningitis Progress note dated 11/29/2017 77-year-old female admitted with a diagnosis of mental status changes. The patient was initially thought to have a CVA. In addition, she apparently had some seizures during her EEG. The neurologist felt like her mental status changes were secondary to the postictal state following his seizures. Anyway, a computed tomography scan MRI/MRA did not reveal any ischemic stroke or hemorrhagic stroke. The patient apparently had an EEG. He did reveal some seizure activity. In addition, meningitis was a concern. Lumbar puncture showed evidence of elevated white blood cells and elevated protein but glucose was also high. The patient was started on Rocephin and vancomycin as well as Zosyn and acyclovir. The Zosyn was discontinued. The patient apparently developed a rash which was thought to be related to ampicillin administration. The rash developed before the ampicillin was given. The patient will have lines placed. I did talk to the family yesterday. Been keeping them informed. The patient has a history of acute respiratory failure with inability to protect airway, necessitating intubation and mechanical ventilation, hypertension, hyperlipidemia and hypothyroidism. The patient's on the volume assist control mode, rate of 14, tidal volume 400, and FiO2 35% PEEP of 5. Arterial blood gases show a PaO2 of 103 a PaCO2 34 and a pH is 7.39. The patient is currently on propofol at 40 mics per kilogram per minute, saline IV to 100 mL an hour and tube feeds with vital high protein at 34 with a goal of 34 mL per hour. Chest x-ray is okay. The elevated glucose in the cerebrospinal fluid is not consistent with meningitis. Progress note dated 11/30/2017 77-year-old female admitted with a diagnosis of mental status changes. The mental status changes were initially thought to be related to CVA. Also, the neurologist felt that maybe this was all from his seizure and the patient had mental status changes from a post ictal state. More recently, they're concerned about meningitis. A lumbar puncture did reveal evidence of high- protein is some white blood cells. The glucose was also high. The patient was started on empiric therapy. Nitro meningitis including Rocephin and vancomycin and acyclovir. Currently, the patient still on the mechanical ventilator. Cultures from the cerebrospinal fluid S4 negative. CT and MRI/MRA of the brain was negative for stroke. The patient will have a daily interruption of sedation today with a spontaneous breathing trial if she is awake and alert. She currently remains on the ventilator. She is currently on the assist control mode rate of 14, tidal volume 400, FiO2 35% and PEEP of 5. The patient has a blood gas with a PaO2 of 102 PaCO2 of 34 and a pH is 7.47. The patient is on propofol at 40 mics per kilogram per minute is saline IV at 100 mL an hour and vital high protein at 30 with a goal of 30 mL per hour. The patient does have a history of hypertension hyperlipidemia and hypothyroidism. Progress note dated 12/01/2017 This is a 77-year-old female admitted with a diagnosis of mental status changes. The mental status changes initially were thought to be either related to CVA or post ictal state as the patient did have seizures. Anyway, more recently, they were thinking about possible meningitis. A lumbar puncture was done and did reveal evidence of high-protein but so far microbiology is negative. In addition, the glucose was high and not low. The patient was started on empiric therapy for meningitis including Rocephin and vancomycin and acyclovir. The patient currently still on the mechanical ventilator. Today we are going to do a daily interruption of sedation. We'll see whether or not her mental status has improved. CT and MRI/MRA of the brain were negative for stroke. Currently, the patient is on the volume assist control with a rate of 14 tidal volume 400 FiO2 35% PEEP of 5. Arterial blood gases show a PaO2 of 85 the PaCO2 37 and a pH of 7.43. Her propofol is currently off. She is on a saline IV at 100 mL an hour and vital high protein at a rate of 34 with a goal of 34. Progress note dated 12/02/2017 77-year-old female admitted with a diagnosis of mental status changes. Mental status changes was initially thought to be related to ischemic event in the brain. Secondarily, he was all related to a postictal state with the patient having new onset seizures. More recently, meningitis was given consideration. A lumbar puncture did show evidence of an elevated protein. Cultures and gram stains were negative. CSF sugars were elevated though. She was started on empiric therapy with Rocephin and vancomycin and acyclovir. The patient was finally extubated yesterday. She seemed be very awake and alert. Has really come around very nicely in the last 24 hours. Currently, she is just on O2 at 4 L. She is still receiving IV Cleviprex at 3 mg per hour and is saline IV at 100 mL now her to be turned down. In addition we'll resume her oral blood pressure medications including clonidine and amlodipine. We will also begin to feed her as well. Blood cultures were positive for diphtheroids thought to be a contaminant. Chest x-ray shows improved aeration at the left lung base. Objective - Vital Signs Vital signs: Vital Signs Temp 98.7 F 12/02/17 04:00 Pulse 88 12/02/17 08:25 Resp 17 12/02/17 07:00 BP 160/60 12/02/17 07:00 Pulse Ox 93 L 12/02/17 07:00 Intake & Output 12/01/17 12/02/17 12/02/17 18:59 06:59 18:59 Intake Total 8818.824 8487.2 206 Output Total 1875 2150 200 Balance -139.767 -601.8 6 Weight 102.4 kg Intake: IV 1236 1486 206 Pressure Bag 36 36 6 Sodium Chloride 0.9% 1, 1200 1200 200 000 ml @ 100 mls/hr IV . Q10H [facility] Rx#:[id number] Vancomycin 1,500 mg In 250 Sodium Chloride 0.9% 250 ml @ 125 mls/hr IVPB ONCE ONE Rx#:[id number] Intake, IV Titration 303.233 62.2 Amount Clevidipine Butyrate 25 8.683 62.2 mg In Empty Bag 1 bag @ 1 MG/HR 2 mls/hr IV .Q24H [facility] Rx#:[id number] Potassium Chloride 20 meq 100 In Water For Injection 1 100ml.bag @ 50 mls/hr IVPB ONCE [facility] Rx#: [id number] Propofol 1,000 mg In 94.550 Empty Bag 1 bag @ Titrate IV .Q0M [facility] Rx#: [id number] levETIRAcetam IV 1,000 mg 100 In Saline 1 100ml.bag @ 400 mls/hr IVPB Q12H [facility] Rx#:[id number] Tube Feeding 136 Other 60 Output: Urine 1875 2150 200 Other: Voiding Method Indwelling Catheter Indwelling Catheter # Bowel Movements 1 ABP, PAP, CO, CI - Last Documented Arterial Blood Pressure 142/48 - Exam No acute distress, currently on nasal O2. Alert and oriented 3. HEENT examination is grossly unremarkable. Mucous membranes are moist. Neck supple. Full range of motion. No adenopathy thyromegaly or neck vein distention. Cardiovascular examination reveals regular rhythm rate. S1-S2 normal. No S3 or S4. No discernible murmur noted. Lungs reveal a few scattered rhonchi. Breath sounds are equal. No crackles. No wheezes. Abdomen soft bowel sounds are heard. No masses or tenderness. Extremities are intact. No cyanosis clubbing or edema. Skin is without rash or lesion. Neurologic examination appears to be relatively normal. - Labs CBC & Chem 7: 12/02/17 05:00 12/02/17 05:00 Labs: Abnormal Lab Results - Last 24 Hours (Table) 12/01/17 12/01/17 12/02/17 Range/Units 11:31 18:25 00:09 WBC (3.8-10.6) k/uL RBC (3.80-5.40) m/uL Hgb (11.4-16.0) gm/dL Hct (34.0-46.0) % BUN (7-17) mg/dL Glucose (74-99) mg/dL POC Glucose (mg/dL) 129 H 135 H 155 H (75-99) mg/dL Calcium (8.4-10.2) mg/dL 12/02/17 12/02/17 12/02/17 Range/Units 05:00 05:00 05:37 WBC 12.5 H (3.8-10.6) k/uL RBC 3.57 L (3.80-5.40) m/uL Hgb 10.4 L (11.4-16.0) gm/dL Hct 30.0 L (34.0-46.0) % BUN 27 H (7-17) mg/dL Glucose 135 H (74-99) mg/dL POC Glucose (mg/dL) 129 H (75-99) mg/dL Calcium 8.2 L (8.4-10.2) mg/dL Microbiology - Last 24 Hours (Table) 11/26/17 09:20 Blood Culture Gram Stain - Final Blood Blood Culture - Final Diphtheroid species 11/28/17 01:45 Blood Culture - Preliminary Blood No Growth after 96 hours 11/28/17 02:05 Blood Culture - Preliminary Blood No Growth after 96 hours 11/28/17 15:30 CSF Gram Stain - Preliminary Cerebral Spinal Fluid CSF Culture - Preliminary Assessment and Plan Assessment: Assessment Altered mental status, likely representing either a new onset seizure with a postictal state or possible meningitis Status post successful extubation on 12/01/2017 Possible CVA, although, scanning is negative. Acute respiratory failure secondary to patient unable to protect her airway, requiring intubation and mechanical ventilation History of hypertension History of hyperlipidemia History of hypothyroidism Possible meningitis given the findings on lumbar puncture Plan: Plan dated 11/28/2017 The patient's currently on antibiotics for presumed meningitis. A lumbar puncture is being performed by anesthesia. Her antibiotics including Rocephin and vancomycin and Zosyn and acyclovir. Her antibiotic should be Rocephin and vancomycin and ampicillin and acyclovir. Listeria monocytogenes would be one possible cause of her meningitis if that is the correct diagnosis. The patient remains on mechanical ventilator. FiO2 was dropped from 35-25%. We'll start tube feedings on the patient. Patient will continue with IV fluids. Additional recommendations and suggestions forthcoming. Prognosis is guarded since we don't have a clear-cut etiology at this time. I was able to speak to the neurologist yesterday. He feels that this patient had a new-onset seizure with a postictal state. One other possibility might be posterior reversible encephalopathy syndrome. We'll discuss with neurology about this. Plan dated 11/29/2017 The patient's currently on appropriate antibiotics. We'll continue to follow closely. Labs x-rays a medications are all reviewed. The patient remains on Rocephin and vancomycin and acyclovir. Additional recommendations and suggestions are forthcoming. Hyaline a central line replaced. Additional recommendations and suggestions are forthcoming. Critical care time 36 minutes Plan dated 11/30/2017 The patient will have a daily interruption of sedation with a spontaneous breathing trial if she's awake and alert. She remains on antibiotics. The patient is currently receiving nourishment with vital high protein at a goal rate of 30 mL per hour. She remains on the ventilator. Computed tomography scan of the brain was negative. MRI/MRA of the brain was negative. In addition , all microbiology and microbiology studies are negative thus far including the cerebral spinal fluid. Additional recommendations and suggestions are forthcoming. Prognosis is guarded. Critical care time is 34 minutes Plan dated 12/01/2017 The patient will have another daily interruption of sedation. Hopefully her mental status has improved. She is being nourished with vital high protein at goal. She is get a saline IV at 100 mL an hour. Propofol is currently off. Blood gases are reasonable. Labs x-rays a medications are reviewed. Prognosis is guarded. Critical care time 34 minutes Plan dated 12/02/2017 The patient seemed to be improving. Still on Celebrex. We will start her home blood pressure medications including amlodipine and clonidine. We'll see for can wean the clavicle Pleurx off. We'll advance her diet. Additional recommendations and suggestions are forthcoming. Labs x-rays a medications are reviewed reviewed. Chest x-ray shows improved aeration left lung base. We'll continue to follow. Critical care time 32 minutes Time with Patient: Greater than 30
[2017-12-02 12:23] LABS: Glucose,Whole Blood 155 mg/dL (75-99)
--- NOTE | 2017-12-02 13:48 | EEG ---
ELECTROENCEPHALOGRAM REPORT DATE OF SERVICE: 12/01/2017. REASON FOR TESTING: Altered mental status. DESCRIPTION OF THE PROCEDURE: This EEG was performed using a 21 channel digital electroencephalograph, following international 10-20 system. DESCRIPTION OF THE RECORDING: From the beginning of the tracing, and with patient's eyes closed, the background rhythm was mostly consisting of 8 Hz alpha frequency in the posterior occipital leads. No obvious asymmetry is seen. Occasional movement artifacts are seen. Photic stimulation was performed with a minimal driving response seen. No pathological waves were elicited. Hyperventilation was not performed. If the patient remains awake throughout the tracing. No epileptiform discharges were seen. Her EKG lead showed a regular rate and rhythm. INTERPRETATION: This awake EEG can be considered within normal limits. This is improved when compared to her previous EEG. No epileptiform discharges were seen. The absence of epileptiform discharges does not rule out the diagnosis of epilepsy, therefore clinical correlation is recommended. MMMYRNAL / IJFlaca: [id number] /
[2017-12-02] MEDS: VANCOMYCIN 1,500 MG in SODIUM CHLORIDE 0.9% 250 ML IVPB SCH (13:54)
--- NOTE | 2017-12-02 15:33 | P.PN ---
Subjective Progress Note Date: 12/02/17 Patient is a 77-year-old female who is being followed by the neurology service for stroke. Patient had gone to bed on Sunday night and no deficits were noted at that time. Patient woke up Sunday morning and was found to be very confused and was not able to understand what her was trying to say to her. She was not following any commands. Patient was speaking but not making sense. She did not appear to be having any lateralizing weakness. Computed tomography scan was done on admission which showed small vessel ischemic changes. Patient was admitted for further workup and was started on aspirin 325 mg daily. Patient was transferred up to the floor and was awake, alert, but not following any verbal commands. Staff reports patient was more somnolent this morning as compared to yesterday. Patient had gone down for EEG testing and had a seizure during EEG testing. No Ativan was given due to seizure activity stopping. Patient appeared to be in a postictal state. She was taken to MRI and had MRI/MRA of the head and neck with and without contrast. No evidence for recent infarct noted. Patient continues to be unarousable. She does respond to pain stimulus. Right upper extremity seems to be posturing. Patient has sonorous respirations with rate 14-20. Patient is clenching her jaw and grinding her teeth. Keppra 1000 mg was given IV. She will continue Keppra 1000 milligrams twice a day. No obvious facial asymmetry is noted. At the time of my evaluation, patient appears to be in mild distress. She will be transferred to the ICU. 11/28/2017 Patient is a 77-year-old female who is being followed by the neurology service for altered mental status. Patient is currently intubated on mechanical ventilation in the ICU setting. Patient had originally come in with strokelike symptoms but MRIs have been negative for any recent infarct. Patient had a seizure while having the EEG done and neurological status was declining so patient was taken to the ICU and intubated. Patient did spike a temperature of 103 and infectious disease was consulted. Patient is currently sedated on the ventilator. Staff reports while on sedation holiday patient had minimal withdrawal to pain and continues to posture. She was started on antibiotics and is being followed by infectious disease. At the time of my evaluation, patient appears to be resting comfortably and is in no acute distress. Family is at the bedside. 11/30/2017 Patient is a 77-year-old female who is being followed by the neurology service. Patient remains intubated on mechanical ventilator. Patient was given sedation holiday and staff informs me she was able to follow commands by squeezing hands today. She was unable to remain off the ventilator and she currently is back on sedation. Questionable seizure activity during sedation holiday. Patient was given Ativan. No further seizure activity noted. Patient is currently on Keppra thousand milligrams twice a day. Infectious disease continues to follow. At the time of my evaluation, patient is sedated on mechanical ventilation and appears to be in no acute distress. Family is at the bedside. 12/01/2017 Patient is a 77-year-old female who is being followed by the neurology service for altered mental status. Patient originally presented to the hospital with symptoms of stroke. Studies of the brain did not reveal any evidence of stroke. Patient spiked a fever and infectious disease was consulted. Patient was diagnosed with meningitis and place an IV antibiotics. Patient has been intubated in the ICU unit. Patient was extubated this morning and is awake and following commands. At the time of my evaluation, patient's resting comfortably in bed and appears to be in no acute distress. 12/02/2017 Patient is 77-year-old female who is being followed by the neurology service for altered mental status. Patient came in with symptoms of stroke and was found to have meningitis. Patient has been treated in the ICU and continues in the ICU. Patient is extubated. She is awake alert and following commands. She is improving on a daily basis. At the time of my evaluation, patient's resting comfortably and appears to be in no acute distress. Objective - Vital Signs Vital signs: Vital Signs Temp 98.7 F 12/02/17 04:00 Pulse 91 12/02/17 12:13 Resp 17 12/02/17 07:00 BP 160/60 12/02/17 07:00 Pulse Ox 93 L 12/02/17 07:00 Intake & Output 12/01/17 12/02/17 12/02/17 18:59 06:59 18:59 Intake Total 3922.928 9228.2 242.333 Output Total 1875 2150 200 Balance -139.767 -601.8 42.333 Weight 102.4 kg Intake: IV 1236 1486 206 Pressure Bag 36 36 6 Sodium Chloride 0.9% 1, 1200 1200 200 000 ml @ 100 mls/hr IV . Q10H [facility] Rx#:[id number] Vancomycin 1,500 mg In 250 Sodium Chloride 0.9% 250 ml @ 125 mls/hr IVPB ONCE ONE Rx#:[id number] Intake, IV Titration 303.233 62.2 36.333 Amount Clevidipine Butyrate 25 8.683 62.2 36.333 mg In Empty Bag 1 bag @ 1 MG/HR 2 mls/hr IV .Q24H [facility] Rx#:[id number] Potassium Chloride 20 meq 100 In Water For Injection 1 100ml.bag @ 50 mls/hr IVPB ONCE [facility] Rx#: [id number] Propofol 1,000 mg In 94.550 Empty Bag 1 bag @ Titrate IV .Q0M [facility] Rx#: [id number] levETIRAcetam IV 1,000 mg 100 In Saline 1 100ml.bag @ 400 mls/hr IVPB Q12H [facility] Rx#:[id number] Tube Feeding 136 Other 60 Output: Urine 1875 2150 200 Other: Voiding Method Indwelling Catheter Indwelling Catheter # Bowel Movements 1 ABP, PAP, CO, CI - Last Documented Arterial Blood Pressure 142/48 - Exam PHYSICAL EXAM: GENERAL APPEARANCE: Patient is a well-developed, female who is extubated on 4 L nasal cannula. HEENT: Normocephalic, atraumatic, no facial asymmetry is seen. Neck is supple with no masses felt. CARDIOVASCULAR: Heart rate is regular. ABDOMEN: Nontender, nondistended. EXTREMITIES: Show no edema or clubbing. NEUROLOGICAL EXAM: Patient is is much more alert and conversant. She is oriented 3. She follows simple commands. She is moving all her extremities. Strength is 3+/5 in bilateral lower extremities and 4/5 in bilateral upper extremities. No obvious facial asymmetry is noted. No tremors or seizure-like activity is seen. - Labs CBC & Chem 7: 12/02/17 05:00 12/02/17 05:00 Labs: Abnormal Lab Results - Last 24 Hours (Table) 12/01/17 12/02/17 12/02/17 Range/Units 18:25 00:09 05:00 WBC (3.8-10.6) k/uL RBC (3.80-5.40) m/uL Hgb (11.4-16.0) gm/dL Hct (34.0-46.0) % BUN 27 H (7-17) mg/dL Glucose 135 H (74-99) mg/dL POC Glucose (mg/dL) 135 H 155 H (75-99) mg/dL Calcium 8.2 L (8.4-10.2) mg/dL 12/02/17 12/02/17 12/02/17 Range/Units 05:00 05:37 12:18 WBC 12.5 H (3.8-10.6) k/uL RBC 3.57 L (3.80-5.40) m/uL Hgb 10.4 L (11.4-16.0) gm/dL Hct 30.0 L (34.0-46.0) % BUN (7-17) mg/dL Glucose (74-99) mg/dL POC Glucose (mg/dL) 129 H 155 H (75-99) mg/dL Calcium (8.4-10.2) mg/dL Microbiology - Last 24 Hours (Table) 11/26/17 09:20 Blood Culture Gram Stain - Final Blood Blood Culture - Final Diphtheroid species 11/28/17 01:45 Blood Culture - Preliminary Blood No Growth after 96 hours 11/28/17 02:05 Blood Culture - Preliminary Blood No Growth after 96 hours 11/28/17 15:30 CSF Gram Stain - Preliminary Cerebral Spinal Fluid CSF Culture - Preliminary Assessment and Plan Plan: Impression: 1. Infectious encephalopathy 2. Seizure 3. Respiratory failure 4. Meningitis Recommendation: Patient is extubated on nasal cannula in the ICU. Patient is being followed by ICU tag marker. Patient is on Keppra 1000 mg IV twice a day and no further seizure activity reported. This can be switched to oral Keppra as patient begins to tolerate oral medications. Repeat EEG is normal. EEG is improved from last EEG. No seizures have been reported. As you recall, patient had computed tomography scan of the brain as well as MRI/MRA which showed no evidence of recent infarct or aneurysm. Study did show mild diffuse age-related cerebral atrophy. There was no significant stenosis in common or internal carotid arteries bilaterally. Patient continues to be followed by infectious disease. Continue current ICU management. Continue neurological checks. Continue seizure precautions. Can change from rectal aspirin to oral low-dose 81 mg aspirin daily. I will continue to follow with you on an as- needed basis. Feel free to call with any questions or concerns. I performed an examination of the patient and discussed the management with the DISTRICT LOSS PREVENTION MANAGER. I have reviewed the DISTRICT LOSS PREVENTION MANAGER notes and agree with the findings and plan of care.
[2017-12-02] MEDS ORDERED: CHLORTHALIDONE 25 MG TAB PO SCH ×2 (15:45→15:46)
--- NOTE | 2017-12-02 17:21 | P.PN ---
Subjective Principal diagnosis: Meningitis 77 years old female patient of Dr. Wilson with past medical history of hypertension, hyperlipidemia, hypothyroidism, overactive bladder presents in with confusion that started this morning. According to the family patient was not eating and drinking for the past 2 days. She woke up in the morning feeling confused, unable to speak appropriately. Patient was unable to comprehend and repeat appropriately. Her language was gibberish and lacked meaning. Patient denies any sensory or motor deficits. She denies any history of seizure or any similar episodes in the past. Patient denies any history of chest pain, palpitation, shortness of breath, abdominal pain, nausea or vomiting. No history of syncope or loss of consciousness prior to this episode. Patient is unable to provide much history is pleasantly confused. She does know where she is and can tell her name and date of . Vitals are stable with blood pressure slightly elevated 171/70. Saturating well on room air and afebrile. Patient did have a leukocytosis of 14.3 INR 1.1, lactic acid 2.4. Normal troponin. CT head negative for any acute abnormalities no masses seen. Did have prominent choroid plexus cyst. CT abdomen and pelvis was done as patient had some tenderness in the lower quadrant which was unremarkable. Due to patient's A. fib. Dysarthria MRI/MRA ordered. Neurology consulted from possible stroke versus brain mass. 11/27: Echocardiogram reveals EF of 55-60%, trace mitral regurgitation, trace tricuspid regurgitation. Patient has been seen by Dr. 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 Homocysteine level is normal at 12.02. Triglycerides 201, cholesterol 201, LDL 128 and HDL 34. Repeat troponins came back negative. Patient was unable to swallow but her a.m. medications were given. Patient is having difficulty following directions. We will change what we can over to IV. MRI is scheduled for 4 this afternoon. PT OT and speech therapy are all involved. EEG is pending. EEG 11/28: When patient went for EEG yesterday afternoon, she developed seizure activity while having the procedure done. The seizure activity stopped without any medication. She was subsequently post ictal and was transferred to the intensive care unit. She underwent MRI and MRI/MRA of the head and neck that showed no evidence of recent infarct. Patient was unarousable after this responded to pain stimuli. There was concern decorticated posturing at that time. Patient was started on Keppra 1000 mg IV twice daily. She also underwent a repeat CAT scan of the brain that showed cerebral atrophy. No acute intracranial abnormality seen. No sign of cortical infarct. No change. Repeat chest x-ray shows no developing left basilar atelectasis and/or infiltrate. LP was attempted by anesthesia which was unsuccessful. She continued to have posturing and respiratory status was declining and patient was intubated and placed on mechanical ventilation. There is order for interventional radiology to perform lumbar puncture. She is currently on antimicrobials in the form of Rocephin, vancomycin, acyclovir and ampicillin. Patient also developed fever up to 103 there was consult placed with Dr. Roche. Dr. Nash is intensive care management. 11/29: Repeat EEG was limited due to muscle artifact. No obvious epileptiform discharges. Lumbar puncture was finally obtained by interventional radiology with removal of 15 mL of slightly tinge spinal fluid with evidence of pleocytosis consistent with meningeal coccal infection. Dr. Roche as adjusted Rocephin to 2 g every 12 hours. Ampicillin was discontinued. Neurology continues to follow. Patient is on Keppra 1000 mg twice daily IV as well as rectal aspirin. Patient has been afebrile since yesterday at 8 AM. Vital signs have been stable and patient has not required vasopressors. She remains intubated and on mechanical ventilation. White count is down slightly from yesterday to 15, potassium is low at 2.8 and will be replaced by protocol. Influenza testing came back negative. Blood cultures remain with no growth. Cerebral spinal fluid cultures are in progress. 2 feedings have been started. 11/30. Patient noted to have some spontaneous movement. Sedation was withdrawn. Patient squeezed hand on command. Blood pressure continued to be high with systolic systolic 192/51 respiratory rate 14. Patient still intubated requiring minimal vent settings. Pupils are equal and responsive to light. CSF analysis suggest increased glucose increased routine. Cultures not growing anything so far. West Nile virus negative. Comprehensive viral panel negative. Continue a acyclovir, ceftriaxone stopped seizure-like activity noted by the nurse when patient had a sedation vacation and received 1 mg of Ativan. Continue Keppra 1000 mg twice daily. Further recommendation pending from neurology. 12/01: Patient remains in ICU, and was extubated a few hours ago, patient remains to be hypertensive, without any respiratory difficulties when seen, she has some generalized edema noted, Lasix IV 40 mg to be given today, cultures are currently pending, Dr. Roche and Dr. Nash following closely. Patient is lethargic when seen, no verbal communication from patient today reveal blood culture shows diphtheroid species from specimen 11/26/2017. cleviprex started for bp control Objective - Vital Signs Vital signs: Vital Signs Temp 98.1 F 12/02/17 12:00 Pulse 88 12/02/17 16:15 Resp 9 L 12/02/17 15:00 BP 156/76 12/02/17 15:00 Pulse Ox 97 12/02/17 15:00 Intake & Output 12/01/17 12/02/17 12/02/17 18:59 06:59 18:59 Intake Total 4494.470 7330.2 242.333 Output Total 1875 2150 200 Balance -139.767 -601.8 42.333 Weight 102.4 kg Intake: IV 1236 1486 206 Pressure Bag 36 36 6 Sodium Chloride 0.9% 1, 1200 1200 200 000 ml @ 100 mls/hr IV . Q10H [facility] Rx#:[id number] Vancomycin 1,500 mg In 250 Sodium Chloride 0.9% 250 ml @ 125 mls/hr IVPB ONCE ONE Rx#:[id number] Intake, IV Titration 303.233 62.2 36.333 Amount Clevidipine Butyrate 25 8.683 62.2 36.333 mg In Empty Bag 1 bag @ 1 MG/HR 2 mls/hr IV .Q24H [facility] Rx#:[id number] Potassium Chloride 20 meq 100 In Water For Injection 1 100ml.bag @ 50 mls/hr IVPB ONCE [facility] Rx#: [id number] Propofol 1,000 mg In 94.550 Empty Bag 1 bag @ Titrate IV .Q0M [facility] Rx#: [id number] levETIRAcetam IV 1,000 mg 100 In Saline 1 100ml.bag @ 400 mls/hr IVPB Q12H [facility] Rx#:[id number] Tube Feeding 136 Other 60 Output: Urine 1875 2150 200 Other: Voiding Method Indwelling Catheter Indwelling Catheter # Bowel Movements 1 ABP, PAP, CO, CI - Last Documented Arterial Blood Pressure 162/52 - Constitutional General appearance: Present: cooperative, no acute distress - EENT Eyes: Present: anicteric sclerae, EOMI, PERRLA, dentition normal, normal appearance ENT: Present: NA/AT, normal oropharynx - Neck Neck: Present: normal ROM. Absent: lymphadenopathy, other, rigidity, stridor, thyromegaly - Respiratory Respiratory: bilateral: CTA, negative: diminished, dullness, rales, rhonchi, wheezing, prolonged expiration, prolonged inspiration, other - Cardiovascular Rhythm: regular Heart sounds: normal: S1 Abnormal Heart Sounds: Absent: systolic murmur, diastolic murmur, rub, S3 Gallop , S4 Gallop, click, other - Gastrointestinal General gastrointestinal: Present: normal bowel sounds, soft - Integumentary Integumentary: Present: decreased turgor, normal - Neurologic Neurologic: Present: CNII-XII intact. Absent: focal deficits - Musculoskeletal Musculoskeletal: Present: generalized weakness, strength equal bilaterally - Psychiatric Psychiatric: Present: A&O x's 3, appropriate affect - Labs CBC & Chem 7: 12/02/17 05:00 12/02/17 05:00 Labs: Abnormal Lab Results - Last 24 Hours (Table) 12/01/17 12/02/17 12/02/17 Range/Units 18:25 00:09 05:00 WBC (3.8-10.6) k/uL RBC (3.80-5.40) m/uL Hgb (11.4-16.0) gm/dL Hct (34.0-46.0) % BUN 27 H (7-17) mg/dL Glucose 135 H (74-99) mg/dL POC Glucose (mg/dL) 135 H 155 H (75-99) mg/dL Calcium 8.2 L (8.4-10.2) mg/dL 12/02/17 12/02/17 12/02/17 Range/Units 05:00 05:37 12:18 WBC 12.5 H (3.8-10.6) k/uL RBC 3.57 L (3.80-5.40) m/uL Hgb 10.4 L (11.4-16.0) gm/dL Hct 30.0 L (34.0-46.0) % BUN (7-17) mg/dL Glucose (74-99) mg/dL POC Glucose (mg/dL) 129 H 155 H (75-99) mg/dL Calcium (8.4-10.2) mg/dL Microbiology - Last 24 Hours (Table) 11/26/17 09:20 Blood Culture Gram Stain - Final Blood Blood Culture - Final Diphtheroid species 11/28/17 01:45 Blood Culture - Preliminary Blood No Growth after 96 hours 11/28/17 02:05 Blood Culture - Preliminary Blood No Growth after 96 hours 11/28/17 15:30 CSF Gram Stain - Preliminary Cerebral Spinal Fluid CSF Culture - Preliminary Assessment and Plan Plan: 1. Acute metabolic encephalopathy with new onset of seizure secondary to meningitis, encephalitis. Acute stroke has been ruled out. Neurology, pulmonary medicine, infectious disease consults in place. Patient is currently on antimicrobials in the form of ceftriaxone, acyclovir and vancomycin. Patient started on dexamethasone dose reduced to q12 hr Continue Keppra 1000 mg twice daily IV piggyback, Ativan 1 mg every 6 hours as needed for seizure, Tylenol by suppository, aspirin daily rectally. 2. Acute hypoxic respiratory failure secondary to inability to protect her airway. Patient has been intubated and on mechanical ventilation .12/[address] Nash is managing. 3. Hyperlipidemia. Lipid panel as above. 4. hypertensive encephalothathy with hypertensive emergency, , on clevidipine 25 mg IV every 24 hours, to be wean today. start tenoretic 100/50 daily amlodipine 5 mg daily, labetalol 10 mg IV every 30 minutes when necessary, 5. Hypothyroidism continue levothyroxine 44 g on Sunday and 88 g rest of the days and just IV currently IV 37 g daily 6. Seizure, on Keppra 1000 mg IV every 12 hours, MRI/MRA showed no evidence of recent infarct or aneurysm, has age related cerebral atrophy, no stenosis and, no internal carotid arteries bilaterally, LP showed meningitis cultures are pending 7. Overactive bladder. Hold oxybutynin 10 mg by mouth daily 8. Bacteremia, with diphtheroids species unknown significance whether this is an important nosocomial infection, Dr. Roche is following 9. Anasarca, Lasix 40 mg IV to be given today, and will be clinical decided on a daily basis 10 Leukocytosis likely reactive. 11. GI prophylaxis with Protonix daily. 12. DVT prophylaxis with SCDs . CODE STATUS full code Discharge plan: Subacute rehab
[2017-12-02 17:29] LABS: Glucose,Whole Blood 146 mg/dL (75-99)
[2017-12-02] MEDS: ATENOLOL 50 MG TAB PO SCH (17:29)
[2017-12-02] MEDS: CHLORTHALIDONE 25 MG TAB PO SCH (17:36)
[2017-12-02 19:57] LABS: Glucose,Whole Blood 166 mg/dL (75-99)
[2017-12-02] MEDS: levETIRAcetam 500 MG TAB PO SCH (20:31)
[2017-12-03] MEDS: CLEVIDIPINE BUTYRATE 25 MG in EMPTY BAG 1 BAG IV SCH ×2 (02:01→08:49)
[2017-12-03 05:09] LABS: HCT 32.2 % (34.0-46.0); MCH 28.9 pg (25.0-35.0); MCHC 34.2 g/dL (31.0-37.0); MCV 84.6 fL (80.0-100.0); Mean Platelet Volume 7.8; Platelet Count 262 k/uL (150-450); RBC 3.81 m/uL (3.80-5.40); RDW 13.4 % (11.5-15.5); WBC 14.1 k/uL (3.8-10.6)
[2017-12-03 05:19] LABS: Anion Gap 9 mmol/L; Blood Urea Nitrogen 26 mg/dL (7-17); Calcium 8.8 mg/dL (8.4-10.2); Carbon Dioxide 29 mmol/L (22-30); Chloride 106 mmol/L (98-107); Glucose 139 mg/dL (74-99); Phosphorus 3.5 mg/dL (2.5-4.5); Potassium 4.3 mmol/L (3.5-5.1); Sodium 144 mmol/L (137-145)
[2017-12-03] MEDS: VANCOMYCIN 1,500 MG in SODIUM CHLORIDE 0.9% 250 ML IVPB SCH ×2 (06:11→21:19)
[2017-12-03] MEDS: LEVOTHYROXINE 88 MCG TAB PO SCH (06:12)
[2017-12-03 07:03] LABS: Glucose,Whole Blood 112 mg/dL (75-99)
--- NOTE | 2017-12-03 07:30 | XR ---
EXAMINATION TYPE: XR chest 1V portable DATE OF EXAM: 12/03/2017 Comparison: 12/02/2017 Clinical History: 77-year-old female shortness of breath Findings: Heart upper limits of normal in size. Aorta and pulmonary vasculature within normal limits. Continued improving aeration at the left base with some residual patchy density. Impression: Continued improving aeration at the left base. Some residual atelectasis/infiltrate remains.
[2017-12-03] MEDS: IPRATROPIUM-ALBUTEROL 3 ML NEB INHALATION SCH ×4 (07:40→20:03)
[2017-12-03] MEDS: PANTOPRAZOLE 40 MG TABLET PO SCH (08:50)
[2017-12-03] MEDS: CHLORTHALIDONE 25 MG TAB PO SCH (08:50)
[2017-12-03] MEDS: amLODIPine 5 MG TAB PO SCH (08:50)
[2017-12-03] MEDS: levETIRAcetam 500 MG TAB PO SCH ×2 (08:50→20:41)
[2017-12-03] MEDS: ATENOLOL 50 MG TAB PO SCH (08:50)
[2017-12-03] MEDS: cloNIDine HCL 0.1 MG TAB PO SCH (08:50)
[2017-12-03] MEDS: cefTRIAXone IN SWFI 2,000 MG/20 ML SYRINGE IVP SCH ×2 (08:51→20:41)
[2017-12-03] MEDS: SODIUM CHLORIDE 0.9% 1,000 ML IV SCH (08:51)
[2017-12-03] MEDS: DEXAMETHASONE SOD PHOSPHATE 4 MG/ML 1 ML VIAL IV SCH (08:51)
[2017-12-03] MEDS: INSULIN ASPART 100 UNIT/ML 1 ML 10 ML VIAL SQ SCH ×4 (08:52→20:41)
[2017-12-03 09:38] VITALS: BMI 36.3
[2017-12-03] MEDS: ASPIRIN 325 MG TAB PO SCH (09:53)
--- NOTE | 2017-12-03 12:06 | P.PN ---
Subjective Progress Note Date: 12/03/17 77-year-old female patient who initially presented to the hospital because of altered mentation. The patient was confused and was having difficulty with speech. Her vitals were stable at a time of admission. She had a white cell count of 14.3. The lactic acid level was at 2.4. Troponins were negative. CAT scan of the head showed no acute abnormalities. CAT scan of the abdomen and pelvis done to evaluate some lower abdominal discomfort and that came back negative. The EEG was done and while having the procedure the patient had some seizure activity for which she was placed on IV Keppra 1000 mg every 12 hours. She underwent a repeat CAT scan of the brain that showed no acute intracranial abnormalities. Lumbar puncture was done and the patient was covered with broad- spectrum antibiotics including a combination of IV Rocephin, IV vancomycin, IV acyclovir and IV ampicillin. The patient developed also fever of 103 and she also developed a petechial rash that was new. At that point she got moved to the intensive care unit. She was having altered mentation. She was intubated and placed on a mechanical ventilator. Note that she had a rapid decline in her neuro status with high-grade fever and altered mentation and respiratory failure requiring intubation and mechanical ventilation. The lumbar puncture showed evidence of pleocytosis yet the cultures came back all negative. The HSV by PCR was also negative for HSV meningitis. Upon subsequent follow-up, the patient's fever improved. She remained hemodynamically stable without the need for any pressors. She was extubated on 12/01/2017. There was a very high ongoing suspicion for PATTERN DRAFTER infection. The working diagnosis still bacterial meningitis. The patient remains on a combination of Rocephin and vancomycin under the care of Dr. Roche. She did not have any further episodes of seizure activity. She is afebrile for now. She has hypertensive and currently she is on Drip. Neurologically she is fully recovered and she is alert and orientated 3. She has no good recollection of the events that led her to come in to the hospital and to the ICU. The blood culture was positive for diphtheroid species which is a contaminant. The CSF final culture was negative. The rest of the blood cultures came back all negative. Objective - Vital Signs Vital signs: Vital Signs Temp 98.2 F 12/03/17 08:00 Pulse 65 12/03/17 11:33 Resp 22 04/16/18 10:00 BP 162/78 12/03/17 10:00 Pulse Ox 95 12/03/17 10:00 Intake & Output 12/02/17 12/03/17 12/03/17 18:59 06:59 18:59 Intake Total 1802.333 312.667 456.2 Output Total 1550 1425 525 Balance 252.333 -1112.333 -68.8 Weight 102.1 kg 102.1 kg Intake: IV 286 279 69 0.9% Normal Saline 240 60 Normal Saline: Pressure 36 39 9 Bag Sodium Chloride 0.9% 1, 250 000 ml @ 100 mls/hr IV . Q10H [facility] Rx#:[id number] Intake, IV Titration 316.333 33.667 27.2 Amount Clevidipine Butyrate 25 36.333 13.667 27.2 mg In Empty Bag 1 bag @ 1 MG/HR 2 mls/hr IV .Q24H [facility] Rx#:[id number] Potassium Chloride 10 meq 100 In Water For Injection 1 100ml.bag @ 100 mls/hr IVPB Q1H [facility] Rx#: [id number] Sodium Chloride 0.9% 1, 180 20 000 ml @ 20 mls/hr IV . Q24H [facility] Rx#:[id number] Oral 1200 360 Output: Urine 1550 1425 525 Other: Voiding Method Indwelling Catheter Indwelling Catheter Indwelling Catheter ABP, PAP, CO, CI - Last Documented Arterial Blood Pressure 170/55 - Exam General appearance: Present: cooperative, no acute distress - EENT Eyes: Present: anicteric sclerae, EOMI, PERRLA, dentition normal, normal appearance ENT: Present: NA/AT, normal oropharynx - Neck Neck: Present: normal ROM. Absent: lymphadenopathy, other, rigidity, stridor, thyromegaly - Respiratory Respiratory: bilateral: CTA, negative: diminished, dullness, rales, rhonchi, wheezing, prolonged expiration, prolonged inspiration, other - Cardiovascular Rhythm: regular Heart sounds: normal: S1 Abnormal Heart Sounds: Absent: systolic murmur, diastolic murmur, rub, S3 Gallop , S4 Gallop, click, other - Gastrointestinal General gastrointestinal: Present: normal bowel sounds, soft - Integumentary Integumentary: Present: decreased turgor, normal - Neurologic Neurologic: Present: CNII-XII intact. Absent: focal deficits - Musculoskeletal Musculoskeletal: Present: generalized weakness, strength equal bilaterally - Psychiatric Psychiatric: Present: A&O x's 3, appropriate affect - Labs CBC & Chem 7: 12/03/17 05:00 12/03/17 05:00 Labs: Abnormal Lab Results - Last 24 Hours (Table) 12/02/17 12/02/17 12/02/17 Range/Units 12:18 17:26 19:55 WBC (3.8-10.6) k/uL Hgb (11.4-16.0) gm/dL Hct (34.0-46.0) % BUN (7-17) mg/dL Glucose (74-99) mg/dL POC Glucose (mg/dL) 155 H 146 H 166 H (75-99) mg/dL 12/03/17 12/03/17 12/03/17 Range/Units 05:00 05:00 07:00 WBC 14.1 H (3.8-10.6) k/uL Hgb 11.0 L (11.4-16.0) gm/dL Hct 32.2 L (34.0-46.0) % BUN 26 H (7-17) mg/dL Glucose 139 H (74-99) mg/dL POC Glucose (mg/dL) 112 H (75-99) mg/dL Microbiology - Last 24 Hours (Table) 11/28/17 01:45 Blood Culture - Preliminary Blood No Growth after 120 hours 11/28/17 02:05 Blood Culture - Preliminary Blood No Growth after 120 hours 11/28/17 15:30 CSF Gram Stain - Final Cerebral Spinal Fluid CSF Culture - Final Assessment and Plan Plan: Assessment 1 acute PATTERN DRAFTER infection likely in the form of meningitis, improving and the patient is currently afebrile and hemodynamically stable and neurologic function have been gradually improving 2 seizures of a new onset currently on IV Keppra, likely secondary to PATTERN DRAFTER infection 3 intubation mechanical ventilation for airway protection, recovered and the patient is currently on 4 L of oxygen by nasal cannula 4 hyperlipidemia 5 hypertension currently on The proximal for blood pressure control and the patient is also on a combination of Tenomin, Norvasc, chlorthalidone, Catapres and labetalol on an estimated basis every 4-6 hours 6 hypothyroidism 7 overactive bladder Plan Continue the current antibiotic coverage. Continue monitoring the mental status. Wean off Cleviprex and continue with the Tenormin, chlorthalidone, Catapres and Norvasc.. The patient is improved significantly. Neurologically there is significant recovery in her condition. She is a bit weak and she will need rehabilitation as soon as the patient is off the Cleviprex drip. We'll continue to follow. Switch to Keppra to oral. We'll follow.
[2017-12-03 12:12] LABS: Glucose,Whole Blood 134 mg/dL (75-99)
--- NOTE | 2017-12-03 12:26 | P.PN ---
Subjective 77 years old female patient of Dr. Wilson with past medical history of hypertension, hyperlipidemia, hypothyroidism, overactive bladder presents in with confusion that started this morning. According to the family patient was not eating and drinking for the past 2 days. She woke up in the morning feeling confused, unable to speak appropriately. Patient was unable to comprehend and repeat appropriately. Her language was gibberish and lacked meaning. Patient denies any sensory or motor deficits. She denies any history of seizure or any similar episodes in the past. Patient denies any history of chest pain, palpitation, shortness of breath, abdominal pain, nausea or vomiting. No history of syncope or loss of consciousness prior to this episode. Patient is unable to provide much history is pleasantly confused. She does know where she is and can tell her name and date of . Vitals are stable with blood pressure slightly elevated 171/70. Saturating well on room air and afebrile. Patient did have a leukocytosis of 14.3 INR 1.1, lactic acid 2.4. Normal troponin. CT head negative for any acute abnormalities no masses seen. Did have prominent choroid plexus cyst. CT abdomen and pelvis was done as patient had some tenderness in the lower quadrant which was unremarkable. Due to patient's A. fib. Dysarthria MRI/MRA ordered. Neurology consulted from possible stroke versus brain mass. 11/27: Echocardiogram reveals EF of 55-60%, trace mitral regurgitation, trace tricuspid regurgitation. Patient has been seen by Dr. 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 Homocysteine level is normal at 12.02. Triglycerides 201, cholesterol 201, LDL 128 and HDL 34. Repeat troponins came back negative. Patient was unable to swallow but her a.m. medications were given. Patient is having difficulty following directions. We will change what we can over to IV. MRI is scheduled for 4 this afternoon. PT OT and speech therapy are all involved. EEG is pending. EEG 11/28: When patient went for EEG yesterday afternoon, she developed seizure activity while having the procedure done. The seizure activity stopped without any medication. She was subsequently post ictal and was transferred to the intensive care unit. She underwent MRI and MRI/MRA of the head and neck that showed no evidence of recent infarct. Patient was unarousable after this responded to pain stimuli. There was concern decorticated posturing at that time. Patient was started on Keppra 1000 mg IV twice daily. She also underwent a repeat CAT scan of the brain that showed cerebral atrophy. No acute intracranial abnormality seen. No sign of cortical infarct. No change. Repeat chest x-ray shows no developing left basilar atelectasis and/or infiltrate. LP was attempted by anesthesia which was unsuccessful. She continued to have posturing and respiratory status was declining and patient was intubated and placed on mechanical ventilation. There is order for interventional radiology to perform lumbar puncture. She is currently on antimicrobials in the form of Rocephin, vancomycin, acyclovir and ampicillin. Patient also developed fever up to 103 there was consult placed with Dr. Roche. Dr. Nash is intensive care management. 11/29: Repeat EEG was limited due to muscle artifact. No obvious epileptiform discharges. Lumbar puncture was finally obtained by interventional radiology with removal of 15 mL of slightly tinge spinal fluid with evidence of pleocytosis consistent with meningeal coccal infection. Dr. Roche as adjusted Rocephin to 2 g every 12 hours. Ampicillin was discontinued. Neurology continues to follow. Patient is on Keppra 1000 mg twice daily IV as well as rectal aspirin. Patient has been afebrile since yesterday at 8 AM. Vital signs have been stable and patient has not required vasopressors. She remains intubated and on mechanical ventilation. White count is down slightly from yesterday to 15, potassium is low at 2.8 and will be replaced by protocol. Influenza testing came back negative. Blood cultures remain with no growth. Cerebral spinal fluid cultures are in progress. 2 feedings have been started. 11/30. Patient noted to have some spontaneous movement. Sedation was withdrawn. Patient squeezed hand on command. Blood pressure continued to be high with systolic systolic 192/51 respiratory rate 14. Patient still intubated requiring minimal vent settings. Pupils are equal and responsive to light. CSF analysis suggest increased glucose increased routine. Cultures not growing anything so far. West Nile virus negative. Comprehensive viral panel negative. Continue a acyclovir, ceftriaxone stopped seizure-like activity noted by the nurse when patient had a sedation vacation and received 1 mg of Ativan. Continue Keppra 1000 mg twice daily. Further recommendation pending from neurology. 12/01: Patient remains in ICU, and was extubated a few hours ago, patient remains to be hypertensive, without any respiratory difficulties when seen, she has some generalized edema noted, Lasix IV 40 mg to be given today, cultures are currently pending, Dr. Roche and Dr. Nash following closely. Patient is lethargic when seen, no verbal communication from patient today reveal blood culture shows diphtheroid species from specimen 11/26/2017. cleviprex started for bp control 12/02: Patient was seen and evaluated today, daughters was at the bedside. Patient is doing well, she was extubated yesterday with no complications. Repeat x-ray shows continued improving aeration at the left base, residual atelectasis and infiltrate remains. She continues to be hypertensive, clonidine increased to 0.2 mg 3 times a day in hopes to wean off Clevidipine so she can be moved out of the ICU. She is awake and answering questions appropriately. Objective - Vital Signs Vital signs: Vital Signs Temp 98.2 F 12/03/17 08:00 Pulse 65 12/03/17 11:33 Resp 22 12/03/17 10:00 BP 162/78 12/03/17 10:00 Pulse Ox 95 12/03/17 10:00 Intake & Output 12/02/17 12/03/17 12/03/17 18:59 06:59 18:59 Intake Total 1802.333 312.667 456.2 Output Total 1550 1425 525 Balance 252.333 -1112.333 -68.8 Weight 102.1 kg 102.1 kg Intake: IV 286 279 69 0.9% Normal Saline 240 60 Normal Saline: Pressure 36 39 9 Bag Sodium Chloride 0.9% 1, 250 000 ml @ 100 mls/hr IV . Q10H [facility] Rx#:[id number] Intake, IV Titration 316.333 33.667 27.2 Amount Clevidipine Butyrate 25 36.333 13.667 27.2 mg In Empty Bag 1 bag @ 1 MG/HR 2 mls/hr IV .Q24H [facility] Rx#:[id number] Potassium Chloride 10 meq 100 In Water For Injection 1 100ml.bag @ 100 mls/hr IVPB Q1H [facility] Rx#: [id number] Sodium Chloride 0.9% 1, 180 20 000 ml @ 20 mls/hr IV . Q24H [facility] Rx#:[id number] Oral 1200 360 Output: Urine 1550 1425 525 Other: Voiding Method Indwelling Catheter Indwelling Catheter Indwelling Catheter ABP, PAP, CO, CI - Last Documented Arterial Blood Pressure 170/55 - Exam - Constitutional General appearance: Present: cooperative, no acute distress - EENT Eyes: Present: anicteric sclerae, EOMI, PERRLA, dentition normal, normal appearance ENT: Present: NA/AT, normal oropharynx - Neck Neck: Present: normal ROM. Absent: lymphadenopathy, other, rigidity, stridor, thyromegaly - Respiratory Respiratory: bilateral: CTA, negative: diminished, dullness, rales, rhonchi, wheezing, prolonged expiration, prolonged inspiration, other - Cardiovascular Rhythm: regular Heart sounds: normal: S1 Abnormal Heart Sounds: Absent: systolic murmur, diastolic murmur, rub, S3 Gallop , S4 Gallop, click, other - Gastrointestinal General gastrointestinal: Present: normal bowel sounds, soft - Integumentary Integumentary: Present: decreased turgor, normal - Neurologic Neurologic: Present: CNII-XII intact. Absent: focal deficits - Musculoskeletal Musculoskeletal: Present: generalized weakness, strength equal bilaterally - Psychiatric Psychiatric: Present: A&O x's 3, appropriate affect - Labs CBC & Chem 7: 12/03/17 05:00 12/03/17 05:00 Labs: Abnormal Lab Results - Last 24 Hours (Table) 12/02/17 12/02/17 12/02/17 Range/Units 12:18 17:26 19:55 WBC (3.8-10.6) k/uL Hgb (11.4-16.0) gm/dL Hct (34.0-46.0) % BUN (7-17) mg/dL Glucose (74-99) mg/dL POC Glucose (mg/dL) 155 H 146 H 166 H (75-99) mg/dL 12/03/17 12/03/17 12/03/17 Range/Units 05:00 05:00 07:00 WBC 14.1 H (3.8-10.6) k/uL Hgb 11.0 L (11.4-16.0) gm/dL Hct 32.2 L (34.0-46.0) % BUN 26 H (7-17) mg/dL Glucose 139 H (74-99) mg/dL POC Glucose (mg/dL) 112 H (75-99) mg/dL Microbiology - Last 24 Hours (Table) 11/28/17 01:45 Blood Culture - Preliminary Blood No Growth after 120 hours 11/28/17 02:05 Blood Culture - Preliminary Blood No Growth after 120 hours 11/28/17 15:30 CSF Gram Stain - Final Cerebral Spinal Fluid CSF Culture - Final Assessment and Plan Plan: 1. Acute metabolic encephalopathy with new onset of seizure secondary to meningitis, encephalitis. Acute stroke has been ruled out. Neurology, pulmonary medicine, infectious disease consults in place. Patient is currently on antimicrobials in the form of ceftriaxone, acyclovir and vancomycin. Patient started on dexamethasone dose reduced to q24 hr Continue Keppra 1000 mg twice daily IV piggyback, Ativan 1 mg every 6 hours as needed for seizure 2. Acute hypoxic respiratory failure secondary to inability to protect her airway. Patient has been intubated and on mechanical ventilation, 12/[address] Nash is managing. 3. Hyperlipidemia. Lipid panel completed, on diet control. 4. hypertensive encephalothathy with hypertensive emergency, on clevidipine 25 mg IV every 24 hours, to be wean today. Norvasc 5mg daily, Atenolol 100mg daily , Chlorthalidone 25 mg daily, Clonidine 0.2mg TID and Lebetaolol 10mg Q30 minutes PRN. 5. Hypothyroidism continue levothyroxine 44 g on Sunday and 88 g rest of the days 6. Seizure, on Keppra 1000 mg IV every 12 hours, MRI/MRA showed no evidence of recent infarct or aneurysm, has age related cerebral atrophy, no stenosis and no internal carotid arteries bilaterally, LP showed meningitis cultures are pending 7. Overactive bladder. Hold oxybutynin 10 mg by mouth daily 8. Bacteremia, with diphtheroids species unknown significance whether this is an important nosocomial infection, Dr. Roche is following 9. Anasarca, Lasix 40 mg IV to be given today, and will be clinical decided on a daily basis 10 Leukocytosis likely reactive. 11. GI prophylaxis with Protonix daily. 12. DVT prophylaxis with SCDs . CODE STATUS full code Discharge plan: Subacute rehab The above impression and plan of care have been discussed and directed by signing physician. Humera Vila nurse practitioner acting as scribe for signing physician.
[2017-12-03 16:57] LABS: Glucose,Whole Blood 170 mg/dL (75-99)
[2017-12-03] MEDS: cloNIDine HCL 0.2 MG TAB PO SCH ×2 (17:02→21:19)
[2017-12-03 20:04] LABS: Glucose,Whole Blood 192 mg/dL (75-99)
[2017-12-03] MEDS: MELATONIN 5 MG TABLET PO SCH (21:19)
--- NOTE | 2017-12-03 22:04 | P.PN ---
Subjective Progress Note Date: 12/03/17 Principal diagnosis: altered mental status 77 years old female came into [facility] emergency center on November 26 and according to the family was not eating and drinking for the past 2 days. She went to bed on Sunday evening and was feeling fine. She woke up in the morning not feeling well and had some abdominal discomfort for which she took pepto-bismol but there was no vomiting or diarrhea at that time. She then developed confusion and difficulty with her speech. Patient was unable to comprehend and repeat appropriately. Her language was gibberish and lacked meaning. Patient denies any sensory or motor deficits. She denies any history of seizure or any similar episodes in the past. Patient was pleasantly confused. She does know where she is and can tell her name and date of . She presented afebrile with white count of 14.3. Vitals are stable with blood pressure slightly elevated 171/70. Saturating well on room air and afebrile. Patient did have a leukocytosis of 14.3. Urinalysis showed a small amount of blood otherwise negative for infection. Lactic acid 2.4. Normal troponin. CT head negative for any acute abnormalities no masses seen. Did have prominent choroid plexus cyst. CT abdomen and pelvis was done as patient had some tenderness in the lower quadrant which was unremarkable. Patient was initially admitted to the selective care unit where she was seen by neurology. By the following morning patient had more confusion and was having difficulty following any commands. She was made nothing by mouth. Echocardiogram reveals EF of 55-60%, trace mitral regurgitation, trace tricuspid regurgitation. Homocysteine level is normal at 12.02. Triglycerides 201, cholesterol 201, LDL 128 and HDL 34. Repeat troponins came back negative. Patient went for EEG yesterday afternoon, she developed seizure activity while having the procedure done. The seizure activity stopped without any medication. She was subsequently post ictal and not responding normally. She underwent MRI and MRI/ MRA of the head and neck that showed no evidence of recent infarct. Patient was unarousable after this responded to pain stimuli. There was concern decorticated posturing at that time. Patient was started on Keppra 1000 mg IV twice daily. She also underwent a repeat CAT scan of the brain that showed cerebral atrophy. No acute intracranial abnormality seen. No sign of cortical infarct. No change. Repeat chest x-ray shows no developing left basilar atelectasis and/or infiltrate. She was transferred into the intensive care unit. LP was attempted by anesthesia which was unsuccessful. She continued to have posturing and respiratory status was declining and patient was intubated and placed on mechanical ventilation. Interventional radiology to perform diagnostic lumbar puncture. She is currently on antimicrobials in the form of Rocephin, vancomycin, acyclovir and ampicillin. Patient also developed fever up to 103 yesterday afternoon and patient also developed a petechial papule rash that was new.. Patient is followed by Dr. Nash is intensive care management. Family states the patient has not had any recent travel. She goes to [place] to visit her daughter and went to [place] for Thanksgiving. Family denied any bird, bat exposure. One month ago she did have the flu and this is what she thought was going on on Sunday morning when she woke up. They deny any unusual animal exposures. 11/29/2017 reveals the patient to have improved fever. Temperature 96.3 today. She is hemodynamically stable and not in vasopressor therapy. She continues to have poor mental status and respiratory failure and remains intubated and sedated and mechanically ventilated. The patient appears to be more comfortable today. Did not seem to be having the episodes of spontaneous posturing movements. 11/30/2017 reveals evidence of some improvement. The patient's fever is resolved. She has actually become hypertensive and is requiring multiple agents to improve her blood pressure. She had a sedation holiday at which point in time she felt commands from the nurse, hand squeezing occurred. The patient was agitated and is again sedated and doing well with sedation, is synchronous with the ventilator without other acute changes being noted 12/03/2017 the patient is now had a marked improvement. Her mental status has recovered and she has been extubated and is doing well. Neurologically she is awake and alert started to person place and time. Still feels quite weak. Objective - Vital Signs Vital signs: Vital Signs Temp 98.6 F 12/03/17 16:00 Pulse 62 12/03/17 20:13 Resp 18 12/03/17 19:00 BP 157/72 12/03/17 16:00 Pulse Ox 93 L 12/03/17 19:00 Intake & Output 12/03/17 12/03/17 12/04/17 06:59 18:59 06:59 Intake Total 219.919 9149.067 23.367 Output Total 1425 915 75 Balance -1112.333 127.067 -51.633 Weight 102.1 kg 102.1 kg Intake: IV 279 253 23 0.9% Normal Saline 240 220 20 Normal Saline: Pressure 39 33 3 Bag Intake, IV Titration 33.667 69.067 0.367 Amount Clevidipine Butyrate 25 13.667 69.067 0.367 mg In Empty Bag 1 bag @ 1 MG/HR 2 mls/hr IV .Q24H SANCHEZ Rx#:[id number] Sodium Chloride 0.9% 1, 20 000 ml @ 20 mls/hr IV . Q24H SANCHEZ Rx#:[id number] Oral 720 Output: Urine 1425 915 75 Other: Voiding Method Indwelling Catheter Indwelling Catheter ABP, PAP, CO, CI - Last Documented Arterial Blood Pressure 170/49 - Exam Gen: This is a 77-year-old female. She has been extubated She appears to be comfortable. HEENT: Head is atraumatic, normocephalic. Pupils equal, round. Sclerae is anicteric. Mucous membranes are moist. NECK: Supple. No JVD. No lymphadenopathy. No thyromegaly. LUNGS: Diminished with a few scattered rhonchi. No intercostal retractions. HEART: Regular rate and rhythm. No murmur. ABDOMEN: Soft. Bowel sounds are present. No masses. No tenderness. SKIN: Patient has rash noted on her abdomen and extremities some areas it is petechial like is not blanchable or other areas papule-like. EXTREMITIES: No pedal edema. NEUROLOGICAL: Extubated, awake and alert oriented to person place and time. Able to move all extremities. Appears to have no acute gross focal sensory motor deficits. Is concerned because she does have amnesia of the last many days. - Labs CBC & Chem 7: 12/03/17 05:00 12/03/17 05:00 Labs: Abnormal Lab Results - Last 24 Hours (Table) 12/03/17 12/03/17 12/03/17 Range/Units 05:00 05:00 07:00 WBC 14.1 H (3.8-10.6) k/uL Hgb 11.0 L (11.4-16.0) gm/dL Hct 32.2 L (34.0-46.0) % BUN 26 H (7-17) mg/dL Glucose 139 H (74-99) mg/dL POC Glucose (mg/dL) 112 H (75-99) mg/dL 12/03/17 12/03/17 12/03/17 Range/Units 12:09 16:55 20:02 WBC (3.8-10.6) k/uL Hgb (11.4-16.0) gm/dL Hct (34.0-46.0) % BUN (7-17) mg/dL Glucose (74-99) mg/dL POC Glucose (mg/dL) 134 H 170 H 192 H (75-99) mg/dL Microbiology - Last 24 Hours (Table) 11/28/17 01:45 Blood Culture - Preliminary Blood No Growth after 120 hours 11/28/17 02:05 Blood Culture - Preliminary Blood No Growth after 120 hours 11/28/17 15:30 CSF Gram Stain - Final Cerebral Spinal Fluid CSF Culture - Final Laboratory Results WBC 14.1 k/uL (3.8-10.6) H 12/03/17 05:00 RBC 3.81 m/uL (3.80-5.40) 12/03/17 05:00 Hgb 11.0 gm/dL (11.4-16.0) L 12/03/17 05:00 Hct 32.2 % (34.0-46.0) L 12/03/17 05:00 MCV 84.6 fL (80.0-100.0) 12/03/17 05:00 MCH 28.9 pg (25.0-35.0) 12/03/17 05:00 MCHC 34.2 g/dL (31.0-37.0) 12/03/17 05:00 RDW 13.4 % (11.5-15.5) 12/03/17 05:00 Plt Count 262 k/uL (150-450) 12/03/17 05:00 Neutrophils % 87 % 11/30/17 04:50 Lymphocytes % 7 % 11/30/17 04:50 Monocytes % 5 % 11/30/17 04:50 Eosinophils % 0 % 11/30/17 04:50 Basophils % 0 % 11/30/17 04:50 Neutrophils # 9.7 k/uL (1.3-7.7) H 11/30/17 04:50 Lymphocytes # 0.8 k/uL (1.0-4.8) L 11/30/17 04:50 Monocytes # 0.5 k/uL (0-1.0) 11/30/17 04:50 Eosinophils # 0.0 k/uL (0-0.7) 11/30/17 04:50 Basophils # 0.0 k/uL (0-0.2) 11/30/17 04:50 Manual Slide Review Performed 11/28/17 06:06 Pathologist Review See comment A 11/28/17 06:06 PT 10.8 sec (9.0-12.0) 11/27/17 23:55 INR 1.1 (<1.2) 11/27/17 23:55 APTT 22.4 sec (22.0-30.0) 11/27/17 23:55 Fibrinogen 436 mg/dL (200-500) 11/28/17 06:06 D-Dimer 1.27 mg/L FEU (<0.60) H 11/27/17 23:55 Sample Site [place] 12/01/17 04:00 ABG pH 7.43 (7.35-7.45) 12/01/17 04:00 ABG pCO2 37 mmHg (35-45) 12/01/17 04:00 ABG pO2 85 mmHg (83-108) 12/01/17 04:00 ABG HCO3 25 mmol/L (21-25) 12/01/17 04:00 ABG Total CO2 26 mmol/L (19-24) H 12/01/17 04:00 ABG O2 Saturation 96.0 % (94-97) 12/01/17 04:00 ABG Base Excess 0.6 mmol/L 12/01/17 04:00 Nico Test no 12/01/17 04:00 FiO2 35 % 12/01/17 04:00 Sodium 144 mmol/L (137-145) 12/03/17 05:00 Potassium 4.3 mmol/L (3.5-5.1) 12/03/17 05:00 Chloride 106 mmol/L (98-107) 12/03/17 05:00 Carbon Dioxide 29 mmol/L (22-30) 12/03/17 05:00 Anion Gap 9 mmol/L 12/03/17 05:00 BUN 26 mg/dL (7-17) H 12/03/17 05:00 Creatinine 0.68 mg/dL (0.52-1.04) 12/03/17 05:00 Est GFR (CKD-EPI)AfAm >90 (>60 ml/min/1.73 sqM) 12/03/17 05:00 Est GFR (CKD-EPI)NonAf 84 (>60 ml/min/1.73 sqM) 12/03/17 05:00 Glucose 139 mg/dL (74-99) H 12/03/17 05:00 POC Glucose (mg/dL) 192 mg/dL (75-99) H 12/03/17 20:02 POC Glu Tv Technician Cathy Cox 12/03/17 20:[address] Glu mg/dL 126 11/28/17 06:06 Hemoglobin A1c 6.0 % (4.0-6.0) 11/28/17 06:06 Lactic Ac Sepsis Rflx Y 11/26/17 10:13 Plasma Lactic Acid Ede 1.1 mmol/L (0.7-2.0) 11/26/17 14:14 Calcium 8.8 mg/dL (8.4-10.2) 12/03/17 05:00 Phosphorus 3.5 mg/dL (2.5-4.5) 12/03/17 05:00 Magnesium 2.0 mg/dL (1.6-2.3) 12/03/17 05:00 Total Bilirubin 0.9 mg/dL (0.2-1.3) 11/27/17 06:29 AST 18 U/L (14-36) 11/27/17 06:29 ALT 27 U/L (9-52) 11/27/17 06:29 Alkaline Phosphatase 43 U/L (38-126) 11/27/17 06:29 Total Creatine Kinase 86 U/L (30-135) 11/26/17 09:20 CK-MB (CK-2) 0.5 ng/mL (0.0-2.4) 11/26/17 09:20 CK-MB (CK-2) Rel Index 0.6 11/26/17 09:20 Troponin I <0.012 ng/mL (0.000-0.034) 11/26/17 20:56 Total Protein 6.2 g/dL (6.3-8.2) L 11/27/17 06:29 Albumin 3.9 g/dL (3.5-5.0) 11/27/17 06:29 Triglycerides 201 mg/dL (<150) H 11/27/17 06:29 Cholesterol 201 mg/dL (<200) H 11/27/17 06:29 LDL Cholesterol, Calc 128 mg/dL (0-99) H 11/27/17 06:29 HDL Cholesterol 33 mg/dL (40-60) L 11/27/17 06:29 Homocysteine 12.02 umol/L (4.00-14.00) 11/26/17 20:56 TSH 3.620 mIU/L (0.465-4.680) 12/02/17 05:00 Urine Color Yellow 11/28/17 00:15 Urine Appearance Turbid (Clear) H 11/28/17 00:15 Urine pH 5.5 (5.0-8.0) 11/28/17 00:15 Ur Specific [place] 1.024 (1.001-1.035) 11/28/17 00:15 Urine Protein 1+ (Negative) H 11/28/17 00:15 Urine Glucose (UA) Negative (Negative) 11/28/17 00:15 Urine Ketones Negative (Negative) 11/28/17 00:15 Urine Blood Large (Negative) H 11/28/17 00:15 Urine Nitrite Negative (Negative) 11/28/17 00:15 Urine Bilirubin Negative (Negative) 11/28/17 00:15 Urine Urobilinogen <2.0 mg/dL (<2.0) 11/28/17 00:15 Ur Leukocyte Esterase Large (Negative) H 11/28/17 00:15 Urine RBC 38 /hpf (0-5) H 11/28/17 00:15 Urine WBC 37 /hpf (0-5) H 11/28/17 00:15 Ur Squamous Epith Cells <1 /hpf (0-4) 11/26/17 09:20 Hyaline Casts 15 /lpf (0-2) H 11/28/17 00:15 Urine Mucus Rare /hpf (None) H 11/28/17 00:15 CSF Tube Number 4 11/28/17 15:30 CSF Volume 3.5 04/11/18 15:30 CSF Appearance Blood Tinged 11/28/17 15:30 CSF Color [place] 11/28/17 15:30 CSF RBC 1230 u/L (0-10) H 11/28/17 15:30 CSF Tot Nucleated Cells 170 u/L (0-5) H 11/28/17 15:30 CSF Mononuclear WBCs % 66 % 11/28/17 15:30 CSF Polynuclear WBCs % 34 % 11/28/17 15:30 CSF Glucose 97 mg/dL (40-70) H 11/28/17 15:30 CSF Total Protein 198 mg/dL (12-60) H 11/28/17 15:30 Vancomycin Trough 15.1 ug/mL 11/30/17 13:50 Levetiracetam 37.2 ug/mL (3.0-60.0) 12/01/17 04:30 West Nile Virus IgG Ab 0.03 INDEX (<1.30) 11/28/17 06:30 West Nile Virus IgM Ab 0.08 INDEX (<0.90) 11/28/17 06:30 HSV I DNA PCR Not detected (Not detected) 11/28/17 06:30 HSV II DNA PCR Not detected (Not detected) 11/28/17 06:30 HSV (PCR) Source Blood - EDTA 11/28/17 06:30 Influenza Type A RNA Not Detected (Not Detectd) 11/28/17 16:54 Influenza Type B (PCR) Not Detected (Not Detectd) 11/28/17 16:54 Virus Source (()) 11/28/17 16:54 Viral Test See Below 11/28/17 16:54 Virus Analysis Interp See Below 11/28/17 16:54 Miscellaneous Test Listeria Ab 11/28/17 06:30 Misc Test Result See Comment 11/28/17 06:30 Microbiology 11/28/17 01:45 Blood Blood Culture - Preliminary No Growth after 120 hours 11/28/17 02:05 Blood Blood Culture - Preliminary No Growth after 120 hours 11/28/17 15:30 Cerebral Spinal Fluid CSF Gram Stain - Final 11/28/17 15:30 Cerebral Spinal Fluid CSF Culture - Final 11/26/17 09:20 Blood Blood Culture Gram Stain - Final 11/26/17 09:20 Blood Blood Culture - Final Diphtheroid species 11/27/17 20:55 Sputum Gram Stain - Final 11/27/17 20:55 Sputum Sputum Culture - Final 11/26/17 09:20 Blood Blood Culture - Final 11/28/17 00:15 Urine,Catheterized Urine Culture - Final Assessment and Plan (1) Acute bacterial meningitis Narrative/Plan: Is noted the patient has had a rapid decline of her status associated with high- grade fever, altered mental status and respiratory failure requiring intubation and sedation with mechanical ventilation. The patient's family is present. We review the findings. There is evidence of fever with altered mental status and leukocytosis which is strongly consistent with a central nervous system infection. Lumbar puncture has now been performed and there is evidence of pleocytosis and consequently bacterial meningitis with seem to be most likely, and with the rash in 77-year-old could be consistent with meningococcal infection. We await the Gram stain to help further direct prophylactic therapy if needed. Antibiotic therapy was adjusted with 2 g of Rocephin every 12 hours, with the development of the rash ampicillin was discontinued, she has no alcoholism and seems to be a low risk for listeria, vancomycin is being utilized for now. With the concern for encephalitis acyclovir is also been initiated and will be continued until we have further data from her lumbar puncture. The family is aware of the severity and acuity of the illness and there is potential for long- term effects and potential even for . 11/29/2017 patient has some improvement in that she is no longer febrile and is less rigid. Oxygenation is stable and she has not and vasopressor therapy. Laboratory is contacted and the Gram stain reveals evidence of the many PMNs but no bacteria are seen. Other studies are pending. Blood cultures are negative so far. Leukocytosis is noted. The patient's skin lesions are stable and have not progressed. Antibiotic therapy continues. If the PCR comes back negative for HSV 1 and 2 as well as Varicela then acyclovir can be discontinued. 11/30/2017 the patient has had some further improvement. She is afebrile, her spasticity has improved and she follows command when she was a sedation holiday earlier in the day. Viral studies are negative for HSV 1, HSV-2 and Varicella and constantly acyclovir has been discontinued. The CSF Gram stain is negative and the culture is negative at this point in time. Of note the patient did receive intravenous antibiotic therapy for many hours for the lumbar puncture was actually performed. It is possible that we will not be able to find a pathogen. With negative blood cultures and rapid clearance of the CSF streptococcus pneumoniae would be the most likely, and statistically would be the most likely. No evidence of any listeria or meningo coccus at this time. Once culture is final will be able to discontinue isolation Fortunately the patient started to show some improvement this is related to the family that is [id number], her neurological recovery is still very difficult to ascertain at this point in time unclear if she had a further seizure again today. Of note West Nile testing is negative as expected epidemiologically. Antibiotic therapy continues at this time with vancomycin and high-dose Rocephin. 12/03/2017 reveals the patient with marked improvement. Her neurological status has recovered. She has been extubated and is now only on supplemental oxygen. She is eating her meal without difficulties. As noted awake alert oriented to person place and time without obvious focal sensory motor deficits. She is concerned because of her lack of memory for the last several days. We did let her know that she was on propofol and this is a usual event especially with meningitis. Given the patient was treated with antibiotic therapy for the lumbar puncture could be completed would make a negative CSF culture likely especially with Streptococcus pneumoniae. We'll request midline catheter placement and completion of 14 days of Rocephin. Current Visit: Yes Status: Acute Code(s): G00.9 - BACTERIAL MENINGITIS, UNSPECIFIED SNOMED Code(s): 66301473 (2) Fever Current Visit: Yes Status: Acute Code(s): R50.9 - FEVER, UNSPECIFIED SNOMED Code(s): 485710046 (3) Leukocytosis Current Visit: Yes Status: Acute Code(s): D72.829 - ELEVATED WHITE BLOOD CELL COUNT, UNSPECIFIED SNOMED Code(s): 501430599 (4) Seizure Current Visit: Yes Status: Acute Code(s): R56.9 - UNSPECIFIED CONVULSIONS SNOMED Code(s): 24040684
[2017-12-04] MEDS: CLEVIDIPINE BUTYRATE 25 MG in EMPTY BAG 1 BAG IV SCH (00:23)
[2017-12-04 04:37] LABS: HCT 32.7 % (34.0-46.0); HGB 10.8 gm/dL (11.4-16.0); MCH 28.2 pg (25.0-35.0); MCV 85.3 fL (80.0-100.0); Platelet Count 261 k/uL (150-450); RBC 3.83 m/uL (3.80-5.40); RDW 13.4 % (11.5-15.5); WBC 12.4 k/uL (3.8-10.6)
[2017-12-04 04:50] LABS: Anion Gap 11 mmol/L; Blood Urea Nitrogen 29 mg/dL (7-17); Calcium 8.8 mg/dL (8.4-10.2); Carbon Dioxide 24 mmol/L (22-30); Chloride 103 mmol/L (98-107); Glucose 121 mg/dL (74-99); Magnesium 1.8 mg/dL (1.6-2.3); Phosphorus 4.4 mg/dL (2.5-4.5); Potassium 3.6 mmol/L (3.5-5.1); Sodium 138 mmol/L (137-145)
[2017-12-04] MEDS: MAGNESIUM SULFATE-D5W PMX 1 GM in DEXTROSE/WATER 1 100ML.BAG IVPB SCH ×2 (05:26→06:56)
[2017-12-04] MEDS: LEVOTHYROXINE 88 MCG TAB PO SCH (05:30)
[2017-12-04] MEDS ORDERED: POTASSIUM CHLORIDE ER 20 MEQ TAB.ER PO SCH (06:00)
[2017-12-04 07:12] LABS: Glucose,Whole Blood 127 mg/dL (75-99)
[2017-12-04] MEDS: INSULIN ASPART 100 UNIT/ML 1 ML 10 ML VIAL SQ SCH ×4 (07:13→20:42)
[2017-12-04] MEDS: ASPIRIN 325 MG TAB PO SCH (08:10)
[2017-12-04] MEDS: PANTOPRAZOLE 40 MG TABLET PO SCH (08:10)
[2017-12-04] MEDS: DEXAMETHASONE SOD PHOSPHATE 4 MG/ML 1 ML VIAL IV SCH (08:10)
[2017-12-04] MEDS: levETIRAcetam 500 MG TAB PO SCH ×2 (08:10→20:42)
[2017-12-04] MEDS: cefTRIAXone IN SWFI 2,000 MG/20 ML SYRINGE IVP SCH ×2 (08:10→20:41)
[2017-12-04] MEDS: amLODIPine 5 MG TAB PO SCH (08:21)
[2017-12-04] MEDS: CHLORTHALIDONE 25 MG TAB PO SCH (08:21)
[2017-12-04] MEDS: ATENOLOL 50 MG TAB PO SCH ×2 (08:21→09:18)
[2017-12-04] MEDS: cloNIDine HCL 0.2 MG TAB PO SCH (08:21)
--- NOTE | 2017-12-04 08:29 | XR ---
EXAMINATION TYPE: XR chest 1V portable DATE OF EXAM: 12/04/2017 COMPARISON: 12/03/2017 HISTORY: Shortness of breath TECHNIQUE: Single frontal view of the chest is obtained. FINDINGS: Retrocardiac opacity is unchanged with obscuration of the left costophrenic angle. Remaind er the lungs are clear. Cardiomediastinal silhouette is again upper limits of normal. Osseous structu res are intact. IMPRESSION: Persistent retrocardiac opacity favored to represent a small left pleural effusion and a ssociated compressive atelectasis although pneumonia is possible in the appropriate clinical setting.
[2017-12-04] MEDS: IPRATROPIUM-ALBUTEROL 3 ML NEB INHALATION SCH ×4 (09:00→20:17)
[2017-12-04] MEDS: SODIUM CHLORIDE 0.9% 1,000 ML IV SCH (10:21)
[2017-12-04 12:08] LABS: Glucose,Whole Blood 142 mg/dL (75-99)
--- NOTE | 2017-12-04 13:29 | P.PN ---
Subjective Progress Note Date: 12/04/17 Principal diagnosis: acute [employer] infection likely in the form of meningitis, improving and the patient is currently afebrile and hemodynamically stable and neurologic function have been gradually improving 77-year-old female patient who initially presented to the hospital because of altered mentation. The patient was confused and was having difficulty with speech. Her vitals were stable at a time of admission. She had a white cell count of 14.3. The lactic acid level was at 2.4. Troponins were negative. CAT scan of the head showed no acute abnormalities. CAT scan of the abdomen and pelvis done to evaluate some lower abdominal discomfort and that came back negative. The EEG was done and while having the procedure the patient had some seizure activity for which she was placed on IV Keppra 1000 mg every 12 hours. She underwent a repeat CAT scan of the brain that showed no acute intracranial abnormalities. Lumbar puncture was done and the patient was covered with broad- spectrum antibiotics including a combination of IV Rocephin, IV vancomycin, IV acyclovir and IV ampicillin. The patient developed also fever of 103 and she also developed a petechial rash that was new. At that point she got moved to the intensive care unit. She was having altered mentation. She was intubated and placed on a mechanical ventilator. Note that she had a rapid decline in her neuro status with high-grade fever and altered mentation and respiratory failure requiring intubation and mechanical ventilation. The lumbar puncture showed evidence of pleocytosis yet the cultures came back all negative. The HSV by PCR was also negative for HSV meningitis. Upon subsequent follow-up, the patient's fever improved. She remained hemodynamically stable without the need for any pressors. She was extubated on 12/01/2017. There was a very high ongoing suspicion for [employer] infection. The working diagnosis still bacterial meningitis. The patient remains on a combination of Rocephin and vancomycin under the care of Dr. Roche. She did not have any further episodes of seizure activity. She is afebrile for now. She has hypertensive and currently she is on Drip. Neurologically she is fully recovered and she is alert and orientated 3. She has no good recollection of the events that led her to come in to the hospital and to the ICU. The blood culture was positive for diphtheroid species which is a contaminant. The CSF final culture was negative. The rest of the blood cultures came back all negative. On 12/04/2017 patient seen in follow-up in intensive care unit, estrogen she was extubated, so far she is tolerating extubation very well, denies any acute distress, denies any chest pain. Respirations are even and nonlabored. She is on room air with O2 sat at 92%. Hemodynamically stable, bradycardic on the monitor, remains in sinus mechanism, currently with a rate of 54 BPM. Last night she was noted to be bradycardic with a rate of 49 BPM. This morning blood pressure is better controlled, and the clonidine will be discontinued, her Norvasc will be increased to 10 mg daily and will continue with patient's home dose of atenolol. Continue chlorthalidone. Patient is tolerating diet, denies any acute complaints. Continues on IV antibiotics in the form of Rocephin, and vancomycin. ID service is managing the antibiotics. Blood cultures from 11/26/2017 showed diphtheroid species, follow blood cultures were negative, urine and CSF Gram stain and culture did not show any organisms. She has not had any recurrence of seizures, remains on oral Keppra 1000 mg by mouth twice a day. Denies any acute complaints, denies any fever or chills, neurologic status continues to improve. These labs were reviewed, the PVCs 12.4 , hemoglobin is 10.8, electrolytes are within normal limits, BUN is 29, creatinine is 0.70. Objective - Vital Signs Vital signs: Vital Signs Temp 97.7 F 12/04/17 08:00 Pulse 54 L 12/04/17 12:00 Resp 13 12/04/17 12:00 BP 130/58 12/04/17 12:00 Pulse Ox 92 L 12/04/17 12:00 Intake & Output 12/03/17 12/04/17 12/04/17 18:59 06:59 18:59 Intake Total 1042.067 970.567 218 Output Total 915 1500 970 Balance 127.067 -529.433 -752 Weight 102.1 kg 97.8 kg Intake: IV 253 596 218 0.9% Normal Saline 220 210 100 Magnesium Sulfate-D5w Pmx 100 100 1 gm In Dextrose/Water 1 100ml.bag @ 100 mls/hr IVPB Q1H [facility] Rx#: [id number] Normal Saline: Pressure 33 36 18 Bag Vancomycin 1,500 mg In 250 Sodium Chloride 0.9% 250 ml @ 125 mls/hr IVPB Q16H [facility] Rx#:[id number] Intake, IV Titration 69.067 14.567 Amount Clevidipine Butyrate 25 69.067 14.567 mg In Empty Bag 1 bag @ 1 MG/HR 2 mls/hr IV .Q24H [facility] Rx#:[id number] Oral 720 360 Output: Urine 915 1500 970 Other: Voiding Method Indwelling Catheter Indwelling Catheter Indwelling Catheter ABP, PAP, CO, CI - Last Documented Arterial Blood Pressure 155/49 - Exam General appearance: Present: cooperative, no acute distress - EENT Eyes: Present: anicteric sclerae, EOMI, PERRLA, dentition normal, normal appearance ENT: Present: NA/AT, normal oropharynx - Neck Neck: Present: normal ROM. Absent: lymphadenopathy, other, rigidity, stridor, thyromegaly - Respiratory Respiratory: bilateral: CTA, negative: diminished, dullness, rales, rhonchi, wheezing, prolonged expiration, prolonged inspiration, other - Cardiovascular Rhythm: regular Heart sounds: normal: S1 Abnormal Heart Sounds: Absent: systolic murmur, diastolic murmur, rub, S3 Gallop , S4 Gallop, click, other - Gastrointestinal General gastrointestinal: Present: normal bowel sounds, soft - Integumentary Integumentary: Present: decreased turgor, normal - Neurologic Neurologic: Present: CNII-XII intact. Absent: focal deficits - Musculoskeletal Musculoskeletal: Present: generalized weakness, strength equal bilaterally - Psychiatric Psychiatric: Present: A&O x's 3, appropriate affect - Labs CBC & Chem 7: 12/04/17 04:30 12/04/17 10:00 Labs: Abnormal Lab Results - Last 24 Hours (Table) 12/03/17 12/03/17 12/04/17 Range/Units 16:55 20:02 04:30 WBC 12.4 H (3.8-10.6) k/uL Hgb 10.8 L (11.4-16.0) gm/dL Hct 32.7 L (34.0-46.0) % BUN (7-17) mg/dL Glucose (74-99) mg/dL POC Glucose (mg/dL) 170 H 192 H (75-99) mg/dL 12/04/17 12/04/17 12/04/17 Range/Units 04:30 07:11 12:06 WBC (3.8-10.6) k/uL Hgb (11.4-16.0) gm/dL Hct (34.0-46.0) % BUN 29 H (7-17) mg/dL Glucose 121 H (74-99) mg/dL POC Glucose (mg/dL) 127 H 142 H (75-99) mg/dL Microbiology - Last 24 Hours (Table) 11/28/17 01:45 Blood Culture - Final Blood No Growth after 144 hours 11/28/17 02:05 Blood Culture - Final Blood No Growth after 144 hours Assessment and Plan Plan: Assessment: 1 acute [employer] infection likely in the form of meningitis, improving and the patient is currently afebrile and hemodynamically stable and neurologic function have been gradually improving 2 seizures of a new onset currently on IV Keppra, likely secondary to [employer] infection 3 intubation mechanical ventilation for airway protection, recovered and the patient is currently on 4 L of oxygen by nasal cannula 4 hyperlipidemia 5 hypertension currently on The proximal for blood pressure control and the patient is also on a combination of Tenomin, Norvasc, chlorthalidone, Catapres and labetalol on an estimated basis every 4-6 hours 6 hypothyroidism 7 overactive bladder Plan: Patient is tolerating extubation very well, continue current antibiotic coverage , continue encouraging deep breathing and coughing. Vital signs are stable, we will increase the Norvasc to 10 mg daily, we will discontinue the clonidine in view of patient's bradycardia. Continue with home dose of atenolol, continue chlorthalidone, we will add Vasotec at 2.5 mg IV push every 6 hours for systolic over 1 60 mmHg. Neurologically patient continues to improve, she is awake, alert, oriented 3. Cleviprex drip has been discontinued this morning. Patient is tolerating oral diet, vital signs remain stable. No seizure episodes , the Keppra was switched to oral. Patient can possibly transfer out of intensive care unit today to the [facility] if she continues to improve and not requiring any vasoactive drips for blood pressure control. I performed a history & physical examination of the patient and discussed their management with my nurse practitioner, Fauzia Parisi. I reviewed the nurse practitioner's note and agree with the documented findings and plan of care. Lung sounds are clear. The findings and the impression was discussed with the patient. I attest to the documentation by the nurse practitioner. Time with Patient: Greater than 30
--- NOTE | 2017-12-04 13:38 | P.PN ---
Subjective 77 years old female patient of Dr. Wilson with past medical history of hypertension, hyperlipidemia, hypothyroidism, overactive bladder presents in with confusion that started this morning. According to the family patient was not eating and drinking for the past 2 days. She woke up in the morning feeling confused, unable to speak appropriately. Patient was unable to comprehend and repeat appropriately. Her language was gibberish and lacked meaning. Patient denies any sensory or motor deficits. She denies any history of seizure or any similar episodes in the past. Patient denies any history of chest pain, palpitation, shortness of breath, abdominal pain, nausea or vomiting. No history of syncope or loss of consciousness prior to this episode. Patient is unable to provide much history is pleasantly confused. She does know where she is and can tell her name and date of . Vitals are stable with blood pressure slightly elevated 171/70. Saturating well on room air and afebrile. Patient did have a leukocytosis of 14.3 INR 1.1, lactic acid 2.4. Normal troponin. CT head negative for any acute abnormalities no masses seen. Did have prominent choroid plexus cyst. CT abdomen and pelvis was done as patient had some tenderness in the lower quadrant which was unremarkable. Due to patient's A. fib. Dysarthria MRI/MRA ordered. Neurology consulted from possible stroke versus brain mass. 11/27: Echocardiogram reveals EF of 55-60%, trace mitral regurgitation, trace tricuspid regurgitation. Patient has been seen by Dr. 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 Homocysteine level is normal at 12.02. Triglycerides 201, cholesterol 201, LDL 128 and HDL 34. Repeat troponins came back negative. Patient was unable to swallow but her a.m. medications were given. Patient is having difficulty following directions. We will change what we can over to IV. MRI is scheduled for 4 this afternoon. PT OT and speech therapy are all involved. EEG is pending. EEG 11/28: When patient went for EEG yesterday afternoon, she developed seizure activity while having the procedure done. The seizure activity stopped without any medication. She was subsequently post ictal and was transferred to the intensive care unit. She underwent MRI and MRI/MRA of the head and neck that showed no evidence of recent infarct. Patient was unarousable after this responded to pain stimuli. There was concern decorticated posturing at that time. Patient was started on Keppra 1000 mg IV twice daily. She also underwent a repeat CAT scan of the brain that showed cerebral atrophy. No acute intracranial abnormality seen. No sign of cortical infarct. No change. Repeat chest x-ray shows no developing left basilar atelectasis and/or infiltrate. LP was attempted by anesthesia which was unsuccessful. She continued to have posturing and respiratory status was declining and patient was intubated and placed on mechanical ventilation. There is order for interventional radiology to perform lumbar puncture. She is currently on antimicrobials in the form of Rocephin, vancomycin, acyclovir and ampicillin. Patient also developed fever up to 103 there was consult placed with Dr. Roche. Dr. Nash is intensive care management. 11/29: Repeat EEG was limited due to muscle artifact. No obvious epileptiform discharges. Lumbar puncture was finally obtained by interventional radiology with removal of 15 mL of slightly tinge spinal fluid with evidence of pleocytosis consistent with meningeal coccal infection. Dr. Roche as adjusted Rocephin to 2 g every 12 hours. Ampicillin was discontinued. Neurology continues to follow. Patient is on Keppra 1000 mg twice daily IV as well as rectal aspirin. Patient has been afebrile since yesterday at 8 AM. Vital signs have been stable and patient has not required vasopressors. She remains intubated and on mechanical ventilation. White count is down slightly from yesterday to 15, potassium is low at 2.8 and will be replaced by protocol. Influenza testing came back negative. Blood cultures remain with no growth. Cerebral spinal fluid cultures are in progress. 2 feedings have been started. 11/30. Patient noted to have some spontaneous movement. Sedation was withdrawn. Patient squeezed hand on command. Blood pressure continued to be high with systolic systolic 192/51 respiratory rate 14. Patient still intubated requiring minimal vent settings. Pupils are equal and responsive to light. CSF analysis suggest increased glucose increased routine. Cultures not growing anything so far. West Nile virus negative. Comprehensive viral panel negative. Continue a acyclovir, ceftriaxone stopped seizure-like activity noted by the nurse when patient had a sedation vacation and received 1 mg of Ativan. Continue Keppra 1000 mg twice daily. Further recommendation pending from neurology. 12/01: Patient remains in ICU, and was extubated a few hours ago, patient remains to be hypertensive, without any respiratory difficulties when seen, she has some generalized edema noted, Lasix IV 40 mg to be given today, cultures are currently pending, Dr. Roche and Dr. Nash following closely. Patient is lethargic when seen, no verbal communication from patient today reveal blood culture shows diphtheroid species from specimen 11/26/2017. cleviprex started for bp control 12/02: Patient was seen and evaluated today, daughters was at the bedside. Patient is doing well, she was extubated yesterday with no complications. Repeat x-ray shows continued improving aeration at the left base, residual atelectasis and infiltrate remains. She continues to be hypertensive, clonidine increased to 0.2 mg 3 times a day in hopes to wean off Clevidipine so she can be moved out of the ICU. She is awake and answering questions appropriately. 12/03: Patient was evaluated today, she no major concerns or complaints. Repeat chest x-ray shows persistent retrocardiac opacity . Represent small left pleural effusion and compressive atelectasis. Dr. Roche on consult who recommends placement of a midline catheter and completion of 14 days of Rocephin. Midline was placed morning with no complications. Clevidipine drip was off all night except for 45 minutes, this morning it has been off since 7 AM , blood pressure has been well controlled. We'll plan for ECF for rehab and completion of her antibiotics. Objective - Vital Signs Vital signs: Vital Signs Temp 97.7 F 12/04/17 08:00 Pulse 54 L 12/04/17 12:00 Resp 13 12/04/17 12:00 BP 130/58 12/04/17 12:00 Pulse Ox 92 L 12/04/17 12:00 Intake & Output 12/03/17 12/04/17 12/04/17 18:59 06:59 18:59 Intake Total 1042.067 970.567 218 Output Total 915 1500 970 Balance 127.067 -529.433 -752 Weight 102.1 kg 97.8 kg Intake: IV 253 596 218 0.9% Normal Saline 220 210 100 Magnesium Sulfate-D5w Pmx 100 100 1 gm In Dextrose/Water 1 100ml.bag @ 100 mls/hr IVPB Q1H [facility] Rx#: [id number] Normal Saline: Pressure 33 36 18 Bag Vancomycin 1,500 mg In 250 Sodium Chloride 0.9% 250 ml @ 125 mls/hr IVPB Q16H [facility] Rx#:[id number] Intake, IV Titration 69.067 14.567 Amount Clevidipine Butyrate 25 69.067 14.567 mg In Empty Bag 1 bag @ 1 MG/HR 2 mls/hr IV .Q24H [facility] Rx#:[id number] Oral 720 360 Output: Urine 915 1500 970 Other: Voiding Method Indwelling Catheter Indwelling Catheter Indwelling Catheter ABP, PAP, CO, CI - Last Documented Arterial Blood Pressure 155/49 - Exam - Constitutional General appearance: Present: cooperative, no acute distress - EENT Eyes: Present: anicteric sclerae, EOMI, PERRLA, dentition normal, normal appearance ENT: Present: NA/AT, normal oropharynx - Neck Neck: Present: normal ROM. Absent: lymphadenopathy, other, rigidity, stridor, thyromegaly - Respiratory Respiratory: bilateral: CTA, negative: diminished, dullness, rales, rhonchi, wheezing, prolonged expiration, prolonged inspiration, other - Cardiovascular Rhythm: regular Heart sounds: normal: S1 Abnormal Heart Sounds: Absent: systolic murmur, diastolic murmur, rub, S3 Gallop , S4 Gallop, click, other - Gastrointestinal General gastrointestinal: Present: normal bowel sounds, soft - Integumentary Integumentary: Present: decreased turgor, normal - Neurologic Neurologic: Present: CNII-XII intact. Absent: focal deficits - Musculoskeletal Musculoskeletal: Present: generalized weakness, strength equal bilaterally - Psychiatric Psychiatric: Present: A&O x's 3, appropriate affect - Labs CBC & Chem 7: 12/04/17 04:30 12/04/17 10:00 Labs: Abnormal Lab Results - Last 24 Hours (Table) 12/03/17 12/03/17 12/04/17 Range/Units 16:55 20:02 04:30 WBC 12.4 H (3.8-10.6) k/uL Hgb 10.8 L (11.4-16.0) gm/dL Hct 32.7 L (34.0-46.0) % BUN (7-17) mg/dL Glucose (74-99) mg/dL POC Glucose (mg/dL) 170 H 192 H (75-99) mg/dL 12/04/17 12/04/17 12/04/17 Range/Units 04:30 07:11 12:06 WBC (3.8-10.6) k/uL Hgb (11.4-16.0) gm/dL Hct (34.0-46.0) % BUN 29 H (7-17) mg/dL Glucose 121 H (74-99) mg/dL POC Glucose (mg/dL) 127 H 142 H (75-99) mg/dL Microbiology - Last 24 Hours (Table) 11/28/17 01:45 Blood Culture - Final Blood No Growth after 144 hours 11/28/17 02:05 Blood Culture - Final Blood No Growth after 144 hours Assessment and Plan Plan: 1. 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 Acute stroke has been ruled out. Neurology, pulmonary medicine, infectious disease consults in place. Patient is currently on antimicrobials in the form of ceftriaxone and vancomycin. Patient started on dexamethasone dose reduced to q24 hr Continue Keppra 1000 mg twice daily IV piggyback, Ativan 1 mg every 6 hours as needed for seizure. Midline catheter placed for completion of a 14 day course of Rocephin per IDs recommendations. 2. Acute hypoxic respiratory failure secondary to inability to protect her airway. Patient has been intubated and on mechanical ventilation, 12/[address] Nash is managing, doing well. 3. Hyperlipidemia. Lipid panel completed, on diet control. 4. hypertensive encephalothathy with hypertensive emergency, on clevidipine 25 mg IV every 24 hours had been stopped since last night. Norvasc 5mg daily, Atenolol 100mg daily, Chlorthalidone 25 mg daily, Clonidine 0.2mg TID and Lebetaolol 10mg Q30 minutes PRN. 5. Hypothyroidism continue levothyroxine 44 g on Sunday and 88 g rest of the days 6. Seizure, on Keppra 1000 mg IV every 12 hours, MRI/MRA showed no evidence of recent infarct or aneurysm, has age related cerebral atrophy, no stenosis and no internal carotid arteries bilaterally, LP showed meningitis cultures show no growth to date 7. Overactive bladder. Hold oxybutynin 10 mg by mouth daily 8. Bacteremia, with diphtheroids species unknown significance whether this is an important nosocomial infection, Dr. Roche is following 9. Anasarca, Lasix 40 mg IV to be given today, and will be clinical decided on a daily basis 10 Leukocytosis likely reactive. 11. GI prophylaxis with Protonix daily. 12. DVT prophylaxis with SCDs . CODE STATUS full code Discharge plan: Subacute rehab The above impression and plan of care have been discussed and directed by signing physician. Humera Vila nurse practitioner acting as scribe for signing physician.
[2017-12-04] MEDS: VANCOMYCIN 1,500 MG in SODIUM CHLORIDE 0.9% 250 ML IVPB SCH (16:08)
[2017-12-04 17:14] LABS: Glucose,Whole Blood 177 mg/dL (75-99)
[2017-12-04 20:02] LABS: Glucose,Whole Blood 156 mg/dL (75-99)
[2017-12-04] MEDS: MELATONIN 5 MG TABLET PO SCH (20:42)
--- NOTE | 2017-12-04 21:40 | P.PN ---
Subjective Progress Note Date: 12/04/17 Principal diagnosis: altered mental status 77 years old female came into [facility] emergency center on November 26 and according to the family was not eating and drinking for the past 2 days. She went to bed on Sunday evening and was feeling fine. She woke up in the morning not feeling well and had some abdominal discomfort for which she took pepto-bismol but there was no vomiting or diarrhea at that time. She then developed confusion and difficulty with her speech. Patient was unable to comprehend and repeat appropriately. Her language was gibberish and lacked meaning. Patient denies any sensory or motor deficits. She denies any history of seizure or any similar episodes in the past. Patient was pleasantly confused. She does know where she is and can tell her name and date of . She presented afebrile with white count of 14.3. Vitals are stable with blood pressure slightly elevated 171/70. Saturating well on room air and afebrile. Patient did have a leukocytosis of 14.3. Urinalysis showed a small amount of blood otherwise negative for infection. Lactic acid 2.4. Normal troponin. CT head negative for any acute abnormalities no masses seen. Did have prominent choroid plexus cyst. CT abdomen and pelvis was done as patient had some tenderness in the lower quadrant which was unremarkable. Patient was initially admitted to the selective care unit where she was seen by neurology. By the following morning patient had more confusion and was having difficulty following any commands. She was made nothing by mouth. Echocardiogram reveals EF of 55-60%, trace mitral regurgitation, trace tricuspid regurgitation. Homocysteine level is normal at 12.02. Triglycerides 201, cholesterol 201, LDL 128 and HDL 34. Repeat troponins came back negative. Patient went for EEG yesterday afternoon, she developed seizure activity while having the procedure done. The seizure activity stopped without any medication. She was subsequently post ictal and not responding normally. She underwent MRI and MRI/ MRA of the head and neck that showed no evidence of recent infarct. Patient was unarousable after this responded to pain stimuli. There was concern decorticated posturing at that time. Patient was started on Keppra 1000 mg IV twice daily. She also underwent a repeat CAT scan of the brain that showed cerebral atrophy. No acute intracranial abnormality seen. No sign of cortical infarct. No change. Repeat chest x-ray shows no developing left basilar atelectasis and/or infiltrate. She was transferred into the intensive care unit. LP was attempted by anesthesia which was unsuccessful. She continued to have posturing and respiratory status was declining and patient was intubated and placed on mechanical ventilation. Interventional radiology to perform diagnostic lumbar puncture. She is currently on antimicrobials in the form of Rocephin, vancomycin, acyclovir and ampicillin. Patient also developed fever up to 103 yesterday afternoon and patient also developed a petechial papule rash that was new.. Patient is followed by Dr. Nash is intensive care management. Family states the patient has not had any recent travel. She goes to [facility] to visit her daughter and went to [place] for Thanksgiving. Family denied any bird, bat exposure. One month ago she did have the flu and this is what she thought was going on on Sunday morning when she woke up. They deny any unusual animal exposures. 11/29/2017 reveals the patient to have improved fever. Temperature 96.3 today. She is hemodynamically stable and not in vasopressor therapy. She continues to have poor mental status and respiratory failure and remains intubated and sedated and mechanically ventilated. The patient appears to be more comfortable today. Did not seem to be having the episodes of spontaneous posturing movements. 11/30/2017 reveals evidence of some improvement. The patient's fever is resolved. She has actually become hypertensive and is requiring multiple agents to improve her blood pressure. She had a sedation holiday at which point in time she felt commands from the nurse, hand squeezing occurred. The patient was agitated and is again sedated and doing well with sedation, is synchronous with the ventilator without other acute changes being noted 12/03/2017 the patient is now had a marked improvement. Her mental status has recovered and she has been extubated and is doing well. Neurologically she is awake and alert started to person place and time. Still feels quite weak. 12/04/2017 patient continues to have improvement. Her significant hypertension has resolved. She had some transient bradycardia and with alteration of her cardiac medications is doing better. Having no headache. Anxiety is improved. She is without any acute new changes. Feeling quite well. We'll move out of the ICU per jigman. Objective - Vital Signs Vital signs: Vital Signs Temp 97.6 F 12/04/17 16:00 Pulse 72 12/04/17 20:40 Resp 15 12/04/17 19:00 BP 153/80 12/04/17 19:00 Pulse Ox 97 12/04/17 19:00 Intake & Output 12/04/17 12/04/17 12/05/17 06:59 18:59 06:59 Intake Total 970.567 350 20 Output Total 1500 1940 125 Balance -529.433 -1590 -105 Weight 97.8 kg Intake: IV 596 350 20 0.9% Normal Saline 210 220 20 Magnesium Sulfate-D5w Pmx 100 100 1 gm In Dextrose/Water 1 100ml.bag @ 100 mls/hr IVPB Q1H SANCHEZ Rx#: [id number] Normal Saline: Pressure 36 30 Bag Vancomycin 1,500 mg In 250 Sodium Chloride 0.9% 250 ml @ 125 mls/hr IVPB Q16H SANCHEZ Rx#:[id number] Intake, IV Titration 14.567 Amount Clevidipine Butyrate 25 14.567 mg In Empty Bag 1 bag @ 1 MG/HR 2 mls/hr IV .Q24H SANCHEZ Rx#:[id number] Oral 360 Output: Urine 1500 1940 125 Other: Voiding Method Indwelling Catheter Indwelling Catheter ABP, PAP, CO, CI - Last Documented Arterial Blood Pressure 154/47 - Exam Gen: This is a 77-year-old female. She appears to be comfortable. HEENT: Head is atraumatic, normocephalic. Pupils equal, round. Sclerae is anicteric. Mucous membranes are moist. NECK: Supple. No JVD. No lymphadenopathy. No thyromegaly. LUNGS: Diminished with a few scattered rhonchi. No intercostal retractions. HEART: Regular rate and rhythm. No murmur. ABDOMEN: Soft. Bowel sounds are present. No masses. No tenderness. SKIN: Patient has rash noted on her abdomen and extremities some areas it is petechial like is not blanchable or other areas papule-like. EXTREMITIES: No pedal edema. NEUROLOGICAL:, awake and alert oriented to person place and time. Able to move all extremities. Appears to have no acute gross focal sensory motor deficits. I much less anxious today. - Labs CBC & Chem 7: 12/04/17 04:30 12/04/17 10:00 Labs: Abnormal Lab Results - Last 24 Hours (Table) 12/04/17 12/04/17 12/04/17 Range/Units 04:30 04:30 07:11 WBC 12.4 H (3.8-10.6) k/uL Hgb 10.8 L (11.4-16.0) gm/dL Hct 32.7 L (34.0-46.0) % BUN 29 H (7-17) mg/dL Glucose 121 H (74-99) mg/dL POC Glucose (mg/dL) 127 H (75-99) mg/dL 12/04/17 12/04/17 12/04/17 Range/Units 12:06 17:13 20:00 WBC (3.8-10.6) k/uL Hgb (11.4-16.0) gm/dL Hct (34.0-46.0) % BUN (7-17) mg/dL Glucose (74-99) mg/dL POC Glucose (mg/dL) 142 H 177 H 156 H (75-99) mg/dL Microbiology - Last 24 Hours (Table) 11/28/17 01:45 Blood Culture - Final Blood No Growth after 144 hours 11/28/17 02:05 Blood Culture - Final Blood No Growth after 144 hours Laboratory Results WBC 12.4 k/uL (3.8-10.6) H 12/04/17 04:30 RBC 3.83 m/uL (3.80-5.40) 12/04/17 04:30 Hgb 10.8 gm/dL (11.4-16.0) L 12/04/17 04:30 Hct 32.7 % (34.0-46.0) L 12/04/17 04:30 MCV 85.3 fL (80.0-100.0) 12/04/17 04:30 MCH 28.2 pg (25.0-35.0) 12/04/17 04:30 MCHC 33.0 g/dL (31.0-37.0) 12/04/17 04:30 RDW 13.4 % (11.5-15.5) 12/04/17 04:30 Plt Count 261 k/uL (150-450) 12/04/17 04:30 Neutrophils % 87 % 11/30/17 04:50 Lymphocytes % 7 % 11/30/17 04:50 Monocytes % 5 % 11/30/17 04:50 Eosinophils % 0 % 11/30/17 04:50 Basophils % 0 % 11/30/17 04:50 Neutrophils # 9.7 k/uL (1.3-7.7) H 11/30/17 04:50 Lymphocytes # 0.8 k/uL (1.0-4.8) L 11/30/17 04:50 Monocytes # 0.5 k/uL (0-1.0) 11/30/17 04:50 Eosinophils # 0.0 k/uL (0-0.7) 11/30/17 04:50 Basophils # 0.0 k/uL (0-0.2) 11/30/17 04:50 Manual Slide Review Performed 11/28/17 06:06 Pathologist Review See comment A 11/28/17 06:06 PT 10.8 sec (9.0-12.0) 11/27/17 23:55 INR 1.1 (<1.2) 11/27/17 23:55 APTT 22.4 sec (22.0-30.0) 11/27/17 23:55 Fibrinogen 436 mg/dL (200-500) 11/28/17 06:06 D-Dimer 1.27 mg/L FEU (<0.60) H 11/27/17 23:55 Sample Site [place] 12/01/17 04:00 ABG pH 7.43 (7.35-7.45) 12/01/17 04:00 ABG pCO2 37 mmHg (35-45) 12/01/17 04:00 ABG pO2 85 mmHg (83-108) 12/01/17 04:00 ABG HCO3 25 mmol/L (21-25) 12/01/17 04:00 ABG Total CO2 26 mmol/L (19-24) H 12/01/17 04:00 ABG O2 Saturation 96.0 % (94-97) 12/01/17 04:00 ABG Base Excess 0.6 mmol/L 12/01/17 04:00 Nico Test no 12/01/17 04:00 FiO2 35 % 12/01/17 04:00 Sodium 138 mmol/L (137-145) 12/04/17 04:30 Potassium 3.9 mmol/L (3.5-5.1) 12/04/17 10:00 Chloride 103 mmol/L (98-107) 12/04/17 04:30 Carbon Dioxide 24 mmol/L (22-30) 12/04/17 04:30 Anion Gap 11 mmol/L 12/04/17 04:30 BUN 29 mg/dL (7-17) H 12/04/17 04:30 Creatinine 0.70 mg/dL (0.52-1.04) 12/04/17 04:30 Est GFR (CKD-EPI)AfAm >90 (>60 ml/min/1.73 sqM) 12/04/17 04:30 Est GFR (CKD-EPI)NonAf 83 (>60 ml/min/1.73 sqM) 12/04/17 04:30 Glucose 121 mg/dL (74-99) H 12/04/17 04:30 POC Glucose (mg/dL) 156 mg/dL (75-99) H 12/04/17 20:00 POC Glu Model [employer] ID Cathy Parisi 12/04/17 20:[address] Glu mg/dL 126 11/28/17 06:06 Hemoglobin A1c 6.0 % (4.0-6.0) 11/28/17 06:06 Lactic Ac Sepsis Rflx Y 11/26/17 10:13 Plasma Lactic Acid Ede 1.1 mmol/L (0.7-2.0) 11/26/17 14:14 Calcium 8.8 mg/dL (8.4-10.2) 12/04/17 04:30 Phosphorus 4.4 mg/dL (2.5-4.5) 12/04/17 04:30 Magnesium 1.8 mg/dL (1.6-2.3) 12/04/17 04:30 Total Bilirubin 0.9 mg/dL (0.2-1.3) 11/27/17 06:29 AST 18 U/L (14-36) 11/27/17 06:29 ALT 27 U/L (9-52) 11/27/17 06:29 Alkaline Phosphatase 43 U/L (38-126) 11/27/17 06:29 Total Creatine Kinase 86 U/L (30-135) 11/26/17 09:20 CK-MB (CK-2) 0.5 ng/mL (0.0-2.4) 11/26/17 09:20 CK-MB (CK-2) Rel Index 0.6 11/26/17 09:20 Troponin I <0.012 ng/mL (0.000-0.034) 11/26/17 20:56 Total Protein 6.2 g/dL (6.3-8.2) L 11/27/17 06:29 Albumin 3.9 g/dL (3.5-5.0) 11/27/17 06:29 Triglycerides 201 mg/dL (<150) H 11/27/17 06:29 Cholesterol 201 mg/dL (<200) H 11/27/17 06:29 LDL Cholesterol, Calc 128 mg/dL (0-99) H 11/27/17 06:29 HDL Cholesterol 33 mg/dL (40-60) L 11/27/17 06:29 Homocysteine 12.02 umol/L (4.00-14.00) 11/26/17 20:56 TSH 3.620 mIU/L (0.465-4.680) 12/02/17 05:00 Urine Color Yellow 11/28/17 00:15 Urine Appearance Turbid (Clear) H 11/28/17 00:15 Urine pH 5.5 (5.0-8.0) 11/28/17 00:15 Ur Specific [place] 1.024 (1.001-1.035) 11/28/17 00:15 Urine Protein 1+ (Negative) H 11/28/17 00:15 Urine Glucose (UA) Negative (Negative) 11/28/17 00:15 Urine Ketones Negative (Negative) 11/28/17 00:15 Urine Blood Large (Negative) H 11/28/17 00:15 Urine Nitrite Negative (Negative) 11/28/17 00:15 Urine Bilirubin Negative (Negative) 11/28/17 00:15 Urine Urobilinogen <2.0 mg/dL (<2.0) 11/28/17 00:15 Ur Leukocyte Esterase Large (Negative) H 11/28/17 00:15 Urine RBC 38 /hpf (0-5) H 11/28/17 00:15 Urine WBC 37 /hpf (0-5) H 11/28/17 00:15 Ur Squamous Epith Cells <1 /hpf (0-4) 11/26/17 09:20 Hyaline Casts 15 /lpf (0-2) H 11/28/17 00:15 Urine Mucus Rare /hpf (None) H 11/28/17 00:15 CSF Tube Number 4 11/28/17 15:30 CSF Volume 3.5 11/28/17 15:30 CSF Appearance Blood Tinged 11/28/17 15:30 CSF Color [place] 11/28/17 15:30 CSF RBC 1230 u/L (0-10) H 11/28/17 15:30 CSF Tot Nucleated Cells 170 u/L (0-5) H 11/28/17 15:30 CSF Mononuclear WBCs % 66 % 11/28/17 15:30 CSF Polynuclear WBCs % 34 % 11/28/17 15:30 CSF Glucose 97 mg/dL (40-70) H 11/28/17 15:30 CSF Total Protein 198 mg/dL (12-60) H 11/28/17 15:30 Vancomycin Trough 15.1 ug/mL 11/30/17 13:50 Levetiracetam 37.2 ug/mL (3.0-60.0) 12/01/17 04:30 West Nile Virus IgG Ab 0.03 INDEX (<1.30) 11/28/17 06:30 West Nile Virus IgM Ab 0.08 INDEX (<0.90) 11/28/17 06:30 West Nile RNA (RT-PCR) Negative 11/28/17 15:30 HSV I DNA PCR Not detected (Not detected) 11/28/17 06:30 HSV II DNA PCR Not detected (Not detected) 11/28/17 06:30 HSV (PCR) Source Blood - EDTA 11/28/17 06:30 Influenza Type A RNA Not Detected (Not Detectd) 11/28/17 16:54 Influenza Type B (PCR) Not Detected (Not Detectd) 11/28/17 16:54 Virus Source (()) 11/28/17 16:54 Viral Test See Below 11/28/17 16:54 Virus Analysis Interp See Below 11/28/17 16:54 Miscellaneous Test Listeria Ab 11/28/17 06:30 Misc Test Result See Comment 11/28/17 06:30 Microbiology 11/28/17 01:45 Blood Blood Culture - Final No Growth after 144 hours 11/28/17 02:05 Blood Blood Culture - Final No Growth after 144 hours 11/28/17 15:30 Cerebral Spinal Fluid CSF Gram Stain - Final 11/28/17 15:30 Cerebral Spinal Fluid CSF Culture - Final 11/26/17 09:20 Blood Blood Culture Gram Stain - Final 11/26/17 09:20 Blood Blood Culture - Final Diphtheroid species 11/27/17 20:55 Sputum Gram Stain - Final 11/27/17 20:55 Sputum Sputum Culture - Final 11/26/17 09:20 Blood Blood Culture - Final 11/28/17 00:15 Urine,Catheterized Urine Culture - Final Assessment and Plan (1) Acute bacterial meningitis Narrative/Plan: Is noted the patient has had a rapid decline of her status associated with high- grade fever, altered mental status and respiratory failure requiring intubation and sedation with mechanical ventilation. The patient's family is present. We review the findings. There is evidence of fever with altered mental status and leukocytosis which is strongly consistent with a central nervous system infection. Lumbar puncture has now been performed and there is evidence of pleocytosis and consequently bacterial meningitis with seem to be most likely, and with the rash in 77-year-old could be consistent with meningococcal infection. We await the Gram stain to help further direct prophylactic therapy if needed. Antibiotic therapy was adjusted with 2 g of Rocephin every 12 hours, with the development of the rash ampicillin was discontinued, she has no alcoholism and seems to be a low risk for listeria, vancomycin is being utilized for now. With the concern for encephalitis acyclovir is also been initiated and will be continued until we have further data from her lumbar puncture. The family is aware of the severity and acuity of the illness and there is potential for long- term effects and potential even for . 11/29/2017 patient has some improvement in that she is no longer febrile and is less rigid. Oxygenation is stable and she has not and vasopressor therapy. Laboratory is contacted and the Gram stain reveals evidence of the many PMNs but no bacteria are seen. Other studies are pending. Blood cultures are negative so far. Leukocytosis is noted. The patient's skin lesions are stable and have not progressed. Antibiotic therapy continues. If the PCR comes back negative for HSV 1 and 2 as well as Varicela then acyclovir can be discontinued. 11/30/2017 the patient has had some further improvement. She is afebrile, her spasticity has improved and she follows command when she was a sedation holiday earlier in the day. Viral studies are negative for HSV 1, HSV-2 and Varicella and constantly acyclovir has been discontinued. The CSF Gram stain is negative and the culture is negative at this point in time. Of note the patient did receive intravenous antibiotic therapy for many hours for the lumbar puncture was actually performed. It is possible that we will not be able to find a pathogen. With negative blood cultures and rapid clearance of the CSF streptococcus pneumoniae would be the most likely, and statistically would be the most likely. No evidence of any listeria or meningo coccus at this time. Once culture is final will be able to discontinue isolation Fortunately the patient started to show some improvement this is related to the family that is [id number], her neurological recovery is still very difficult to ascertain at this point in time unclear if she had a further seizure again today. Of note West Nile testing is negative as expected epidemiologically. Antibiotic therapy continues at this time with vancomycin and high-dose Rocephin. 12/03/2017 reveals the patient with marked improvement. Her neurological status has recovered. She has been extubated and is now only on supplemental oxygen. She is eating her meal without difficulties. As noted awake alert oriented to person place and time without obvious focal sensory motor deficits. She is concerned because of her lack of memory for the last several days. We did let her know that she was on propofol and this is a usual event especially with meningitis. Given the patient was treated with antibiotic therapy for the lumbar puncture could be completed would make a negative CSF culture likely especially with Streptococcus pneumoniae. We'll request midline catheter placement and completion of 14 days of Rocephin. 12/04/2017 patient continues with her marked improvement. Neurologically is awake alert oriented to person place and time with no acute gross focal sensory motor deficits. She is calm and not anxious today. Blood pressure is improved , bradycardias also resolved. Critical care will likely move her out of the ICU. Midline catheter is in place to complete HER-2 weeks of interest antibiotic therapy of Rocephin 2 g every 12 hours for her likely Streptococcus pneumoniae meningitis. The small brightly erythematous lesions that were present at admission continue to fade, most are no longer palpable they're nontender and resolving. Likely from the bases of her sepsis is admission. Current Visit: Yes Status: Acute Code(s): G00.9 - BACTERIAL MENINGITIS, UNSPECIFIED SNOMED Code(s): 88991698 (2) Fever Current Visit: Yes Status: Acute Code(s): R50.9 - FEVER, UNSPECIFIED SNOMED Code(s): 845538809 (3) Leukocytosis Current Visit: Yes Status: Acute Code(s): D72.829 - ELEVATED WHITE BLOOD CELL COUNT, UNSPECIFIED SNOMED Code(s): 059560869 (4) Seizure Current Visit: Yes Status: Acute Code(s): R56.9 - UNSPECIFIED CONVULSIONS SNOMED Code(s): 09709961
[2017-12-05] MEDS ORDERED: VANCOMYCIN TROUGH DUE 1 EACH MISC MISCELLANE ONE (05:00)
[2017-12-05] MEDS: ENALAPRILAT 1.25 MG/ML 1 ML VIAL IVP PRN (05:22)
[2017-12-05 05:34] LABS: Basophils # (A) 0.1 k/uL (0-0.2); Basophils % (A) 1 %; Eosinophils # (A) 0.5 k/uL (0-0.7); Eosinophils % (A) 4 %; HCT 34.4 % (34.0-46.0); HGB 11.7 gm/dL (11.4-16.0); Lymphocytes # (A) 3.3 k/uL (1.0-4.8); Lymphocytes % (A) 23 %; MCH 28.4 pg (25.0-35.0); MCHC 33.9 g/dL (31.0-37.0); MCV 83.8 fL (80.0-100.0); Mean Platelet Volume 7.5; Monocytes % (A) 7 %; Neutrophils # (A) 9.2 k/uL (1.3-7.7); Neutrophils % (A) 64 %; Platelet Count 294 k/uL (150-450); RDW 13.2 % (11.5-15.5); WBC 14.3 k/uL (3.8-10.6)
[2017-12-05] MEDS: LEVOTHYROXINE 88 MCG TAB PO SCH (05:39)
[2017-12-05 06:31] LABS: Calcium 9.1 mg/dL (8.4-10.2); Magnesium 1.8 mg/dL (1.6-2.3); Phosphorus 4.1 mg/dL (2.5-4.5); Potassium 3.7 mmol/L (3.5-5.1)
[2017-12-05] MEDS ORDERED: POTASSIUM CHLORIDE ER 20 MEQ TAB.ER PO SCH (07:00)
[2017-12-05 07:35] LABS: Glucose,Whole Blood 92 mg/dL (75-99)
[2017-12-05] MEDS: MAGNESIUM SULFATE-D5W PMX 1 GM in DEXTROSE/WATER 1 100ML.BAG IVPB SCH ×2 (08:07→08:55)
[2017-12-05] MEDS: PANTOPRAZOLE 40 MG TABLET PO SCH (08:08)
[2017-12-05] MEDS: amLODIPine 10 MG TAB PO SCH (08:08)
[2017-12-05] MEDS: ASPIRIN 325 MG TAB PO SCH (08:08)
[2017-12-05] MEDS: INSULIN ASPART 100 UNIT/ML 1 ML 10 ML VIAL SQ SCH ×4 (08:08→21:36)
[2017-12-05] MEDS: CHLORTHALIDONE 25 MG TAB PO SCH (08:10)
[2017-12-05] MEDS: DEXAMETHASONE SOD PHOSPHATE 4 MG/ML 1 ML VIAL IV SCH (08:10)
[2017-12-05] MEDS: levETIRAcetam 500 MG TAB PO SCH ×2 (08:10→20:38)
[2017-12-05] MEDS: IPRATROPIUM-ALBUTEROL 3 ML NEB INHALATION SCH ×4 (08:24→20:18)
--- NOTE | 2017-12-05 08:28 | XR ---
EXAMINATION TYPE: XR chest 1V portable DATE OF EXAM: 12/05/2017 Comparison: 12/04/2017 Clinical History: 77-year-old female shortness of breath Findings: Heart normal size. Aorta and pulmonary vasculature within normal limits. Small left pleural effusion with adjacent opacity similar to slightly decreased. Impression: Small left pleural effusion with adjacent atelectasis and/or consolidation, similar to slightly decre ased.
[2017-12-05] MEDS: ATENOLOL 50 MG TAB PO SCH (08:54)
[2017-12-05] MEDS: cefTRIAXone IN SWFI 2,000 MG/20 ML SYRINGE IVP SCH ×2 (08:55→20:38)
[2017-12-05] MEDS ORDERED: DEXAMETHASONE 2 MG TAB PO SCH (09:00)
[2017-12-05] MEDS: SODIUM CHLORIDE 0.9% 1,000 ML IV SCH (09:22)
[2017-12-05 12:00] LABS: Glucose,Whole Blood 179 mg/dL (75-99)
--- NOTE | 2017-12-05 14:01 | P.PN ---
Subjective 77 years old female patient of Dr. Wilson with past medical history of hypertension, hyperlipidemia, hypothyroidism, overactive bladder presents in with confusion that started this morning. According to the family patient was not eating and drinking for the past 2 days. She woke up in the morning feeling confused, unable to speak appropriately. Patient was unable to comprehend and repeat appropriately. Her language was gibberish and lacked meaning. Patient denies any sensory or motor deficits. She denies any history of seizure or any similar episodes in the past. Patient denies any history of chest pain, palpitation, shortness of breath, abdominal pain, nausea or vomiting. No history of syncope or loss of consciousness prior to this episode. Patient is unable to provide much history is pleasantly confused. She does know where she is and can tell her name and date of . Vitals are stable with blood pressure slightly elevated 171/70. Saturating well on room air and afebrile. Patient did have a leukocytosis of 14.3 INR 1.1, lactic acid 2.4. Normal troponin. CT head negative for any acute abnormalities no masses seen. Did have prominent choroid plexus cyst. CT abdomen and pelvis was done as patient had some tenderness in the lower quadrant which was unremarkable. Due to patient's A. fib. Dysarthria MRI/MRA ordered. Neurology consulted from possible stroke versus brain mass. 11/27: Echocardiogram reveals EF of 55-60%, trace mitral regurgitation, trace tricuspid regurgitation. Patient has been seen by Dr. 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 Homocysteine level is normal at 12.02. Triglycerides 201, cholesterol 201, LDL 128 and HDL 34. Repeat troponins came back negative. Patient was unable to swallow but her a.m. medications were given. Patient is having difficulty following directions. We will change what we can over to IV. MRI is scheduled for 4 this afternoon. PT OT and speech therapy are all involved. EEG is pending. EEG 11/28: When patient went for EEG yesterday afternoon, she developed seizure activity while having the procedure done. The seizure activity stopped without any medication. She was subsequently post ictal and was transferred to the intensive care unit. She underwent MRI and MRI/MRA of the head and neck that showed no evidence of recent infarct. Patient was unarousable after this responded to pain stimuli. There was concern decorticated posturing at that time. Patient was started on Keppra 1000 mg IV twice daily. She also underwent a repeat CAT scan of the brain that showed cerebral atrophy. No acute intracranial abnormality seen. No sign of cortical infarct. No change. Repeat chest x-ray shows no developing left basilar atelectasis and/or infiltrate. LP was attempted by anesthesia which was unsuccessful. She continued to have posturing and respiratory status was declining and patient was intubated and placed on mechanical ventilation. There is order for interventional radiology to perform lumbar puncture. She is currently on antimicrobials in the form of Rocephin, vancomycin, acyclovir and ampicillin. Patient also developed fever up to 103 there was consult placed with Dr. Roche. Dr. Nash is intensive care management. 11/29: Repeat EEG was limited due to muscle artifact. No obvious epileptiform discharges. Lumbar puncture was finally obtained by interventional radiology with removal of 15 mL of slightly tinge spinal fluid with evidence of pleocytosis consistent with meningeal coccal infection. Dr. Roche as adjusted Rocephin to 2 g every 12 hours. Ampicillin was discontinued. Neurology continues to follow. Patient is on Keppra 1000 mg twice daily IV as well as rectal aspirin. Patient has been afebrile since yesterday at 8 AM. Vital signs have been stable and patient has not required vasopressors. She remains intubated and on mechanical ventilation. White count is down slightly from yesterday to 15, potassium is low at 2.8 and will be replaced by protocol. Influenza testing came back negative. Blood cultures remain with no growth. Cerebral spinal fluid cultures are in progress. 2 feedings have been started. 11/30. Patient noted to have some spontaneous movement. Sedation was withdrawn. Patient squeezed hand on command. Blood pressure continued to be high with systolic systolic 192/51 respiratory rate 14. Patient still intubated requiring minimal vent settings. Pupils are equal and responsive to light. CSF analysis suggest increased glucose increased routine. Cultures not growing anything so far. West Nile virus negative. Comprehensive viral panel negative. Continue a acyclovir, ceftriaxone stopped seizure-like activity noted by the nurse when patient had a sedation vacation and received 1 mg of Ativan. Continue Keppra 1000 mg twice daily. Further recommendation pending from neurology. 12/01: Patient remains in ICU, and was extubated a few hours ago, patient remains to be hypertensive, without any respiratory difficulties when seen, she has some generalized edema noted, Lasix IV 40 mg to be given today, cultures are currently pending, Dr. Roche and Dr. Nash following closely. Patient is lethargic when seen, no verbal communication from patient today reveal blood culture shows diphtheroid species from specimen 11/26/2017. cleviprex started for bp control 12/03: Patient was seen and evaluated today, daughters was at the bedside. Patient is doing well, she was extubated yesterday with no complications. Repeat x-ray shows continued improving aeration at the left base, residual atelectasis and infiltrate remains. She continues to be hypertensive, clonidine increased to 0.2 mg 3 times a day in hopes to wean off Clevidipine so she can be moved out of the ICU. She is awake and answering questions appropriately. 12/04: Patient was evaluated today, she no major concerns or complaints. Repeat chest x-ray shows persistent retrocardiac opacity . Represent small left pleural effusion and compressive atelectasis. Dr. Roche on consult who recommends placement of a midline catheter and completion of 14 days of Rocephin. Midline was placed morning with no complications. Clevidipine drip was off all night except for 45 minutes, this morning it has been off since 7 AM , blood pressure has been well controlled. We'll plan for ECF for rehab and completion of her antibiotics. 12/05: Patient was evaluated, she is noted to be sitting up in the bed. Her blood pressure is 157/60 today, she is doing well off the clevidipine drip. She 'll be transferred out of the ICU to [facility]. Repeat chest x-ray shows small left pleural effusion with slight decrease from last x-ray. Again we'll plan for rehab and extended care facility for continuation of her IV antibiotics within the next day or two. Objective - Vital Signs Vital signs: Vital Signs Temp 98.1 F 12/05/17 12:00 Pulse 69 12/05/17 13:00 Resp 18 12/05/17 13:00 BP 157/68 12/05/17 13:00 Pulse Ox 96 12/05/17 13:00 Intake & Output 12/04/17 12/05/17 12/05/17 18:59 06:59 18:59 Intake Total 350 1080 140 Output Total 1940 2555 1320 Balance -1590 -1475 -1180 Weight 101.1 kg Intake: IV 350 240 140 0.9% Normal Saline 220 240 140 Magnesium Sulfate-D5w Pmx 100 1 gm In Dextrose/Water 1 100ml.bag @ 100 mls/hr IVPB Q1H [facility] Rx#: [id number] Normal Saline: Pressure 30 Bag Oral 840 Output: Urine 1940 2555 1320 Other: Voiding Method Indwelling Catheter Indwelling Catheter Indwelling Catheter ABP, PAP, CO, CI - Last Documented Arterial Blood Pressure 154/47 - Exam - Constitutional General appearance: Present: cooperative, no acute distress - EENT Eyes: Present: anicteric sclerae, EOMI, PERRLA, dentition normal, normal appearance ENT: normal oropharynx - Neck Neck: Present: normal ROM. Absent: lymphadenopathy, other, rigidity, stridor, thyromegaly - Respiratory Respiratory: bilateral: CTA, negative: diminished, dullness, rales, rhonchi, wheezing, prolonged expiration, prolonged inspiration, other - Cardiovascular Rhythm: regular Heart sounds: normal: S1 Abnormal Heart Sounds: Absent: systolic murmur, diastolic murmur, rub, S3 Gallop , S4 Gallop, click, other - Gastrointestinal General gastrointestinal: Present: normal bowel sounds, soft - Integumentary Integumentary: Present: decreased turgor, normal - Neurologic Neurologic: Present: CNII-XII intact. Absent: focal deficits - Musculoskeletal Musculoskeletal: Present: generalized weakness, strength equal bilaterally - Psychiatric Psychiatric: Present: A&O x's 3, appropriate affect - Labs CBC & Chem 7: 12/05/17 05:15 12/05/17 05:15 Labs: Abnormal Lab Results - Last 24 Hours (Table) 12/04/17 12/04/17 12/05/17 Range/Units 17:13 20:00 05:15 WBC (3.8-10.6) k/uL Neutrophils # (1.3-7.7) k/uL BUN 29 H (7-17) mg/dL Glucose 103 H (74-99) mg/dL POC Glucose (mg/dL) 177 H 156 H (75-99) mg/dL 12/05/17 12/05/17 Range/Units 05:15 11:58 WBC 14.3 H (3.8-10.6) k/uL Neutrophils # 9.2 H (1.3-7.7) k/uL BUN (7-17) mg/dL Glucose (74-99) mg/dL POC Glucose (mg/dL) 179 H (75-99) mg/dL Assessment and Plan Plan: 1. 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 Acute stroke has been ruled out. Neurology, pulmonary medicine, infectious disease consults in place. Patient is currently on antimicrobials in the form of ceftriaxone. Patient started on dexamethasone dose reduced to q24 hr Continue Keppra 1000 mg twice daily IV piggyback, Ativan 1 mg every 6 hours as needed for seizure. Midline catheter placed for completion of a 14 day course of Rocephin per IDs recommendations. 2. Acute hypoxic respiratory failure secondary to inability to protect her airway. Patient has been intubated and on mechanical ventilation, 12/[address] Nash is managing, doing well. 3. Hyperlipidemia. Lipid panel completed, on diet control. 4. hypertensive encephalothathy with hypertensive emergency, on clevidipine 25 mg IV every 24 hours had been stopped since last night. Norvasc 5mg daily, Atenolol 100mg daily, Chlorthalidone 25 mg daily, Clonidine 0.2mg TID and Vasotec 2.5 IV push every 6 hours PRN. 5. Hypothyroidism continue levothyroxine 44 g on Sunday and 88 g rest of the days 6. Seizure, on Keppra 1000 mg IV every 12 hours, MRI/MRA showed no evidence of recent infarct or aneurysm, has age related cerebral atrophy, no stenosis and no internal carotid arteries bilaterally, LP showed meningitis 7. Overactive bladder. Hold oxybutynin 10 mg by mouth daily 8. Bacteremia, with diphtheroids species unknown significance whether this is an important nosocomial infection, Dr. Roche is following 9. Anasarca, stable 10 Leukocytosis likely reactive. 11. GI prophylaxis with Protonix daily. 12. DVT prophylaxis with SCDs . CODE STATUS full code Discharge plan: Subacute rehab The above impression and plan of care have been discussed and directed by signing physician. Humera Vila nurse practitioner acting as scribe for signing physician.
[2017-12-05 17:00] LABS: Glucose,Whole Blood 155 mg/dL (75-99)
--- NOTE | 2017-12-05 17:44 | P.PN ---
Subjective Progress Note Date: 12/05/17 77-year-old female patient who initially presented to the hospital because of altered mentation. The patient was confused and was having difficulty with speech. Her vitals were stable at a time of admission. She had a white cell count of 14.3. The lactic acid level was at 2.4. Troponins were negative. CAT scan of the head showed no acute abnormalities. CAT scan of the abdomen and pelvis done to evaluate some lower abdominal discomfort and that came back negative. The EEG was done and while having the procedure the patient had some seizure activity for which she was placed on IV Keppra 1000 mg every 12 hours. She underwent a repeat CAT scan of the brain that showed no acute intracranial abnormalities. Lumbar puncture was done and the patient was covered with broad- spectrum antibiotics including a combination of IV Rocephin, IV vancomycin, IV acyclovir and IV ampicillin. The patient developed also fever of 103 and she also developed a petechial rash that was new. At that point she got moved to the intensive care unit. She was having altered mentation. She was intubated and placed on a mechanical ventilator. Note that she had a rapid decline in her neuro status with high-grade fever and altered mentation and respiratory failure requiring intubation and mechanical ventilation. The lumbar puncture showed evidence of pleocytosis yet the cultures came back all negative. The HSV by PCR was also negative for HSV meningitis. Upon subsequent follow-up, the patient's fever improved. She remained hemodynamically stable without the need for any pressors. She was extubated on 12/01/2017. There was a very high ongoing suspicion for [employer] infection. The working diagnosis still bacterial meningitis. The patient remains on a combination of Rocephin and vancomycin under the care of Dr. Roche. She did not have any further episodes of seizure activity. She is afebrile for now. She has hypertensive and currently she is on Drip. Neurologically she is fully recovered and she is alert and orientated 3. She has no good recollection of the events that led her to come in to the hospital and to the ICU. The blood culture was positive for diphtheroid species which is a contaminant. The CSF final culture was negative. The rest of the blood cultures came back all negative. On 12/04/2017 patient seen in follow-up in intensive care unit, estrogen she was extubated, so far she is tolerating extubation very well, denies any acute distress, denies any chest pain. Respirations are even and nonlabored. She is on room air with O2 sat at 92%. Hemodynamically stable, bradycardic on the monitor, remains in sinus mechanism, currently with a rate of 54 BPM. Last night she was noted to be bradycardic with a rate of 49 BPM. This morning blood pressure is better controlled, and the clonidine will be discontinued, her Norvasc will be increased to 10 mg daily and will continue with patient's home dose of atenolol. Continue chlorthalidone. Patient is tolerating diet, denies any acute complaints. Continues on IV antibiotics in the form of Rocephin, and vancomycin. ID service is managing the antibiotics. Blood cultures from 11/26/2017 showed diphtheroid species, follow blood cultures were negative, urine and CSF Gram stain and culture did not show any organisms. She has not had any recurrence of seizures, remains on oral Keppra 1000 mg by mouth twice a day. Denies any acute complaints, denies any fever or chills, neurologic status continues to improve. These labs were reviewed, the PVCs 12.4 , hemoglobin is 10.8, electrolytes are within normal limits, BUN is 29, creatinine is 0.70. On 12/05/2017 I'm seeing this patient for a follow-up. The patient is doing extremely well. The patient is awake and alert and following commands and answering questions appropriately. The plan is to proceed with IV Rocephin in regards to her meningitis which is thought to be of a pneumococcal type yet the final cultures of been established. No headache. No altered mentation. Blood pressures under better control. Her bradycardia is improved. No other significant events over the past 24 hours and the patient is resting comfortably in bed. She is also undergoing physical therapy. Objective - Vital Signs Vital signs: Vital Signs Temp 98.7 F 12/05/17 16:00 Pulse 75 12/05/17 17:00 Resp 20 12/05/17 17:00 BP 117/54 12/05/17 17:00 Pulse Ox 97 12/05/17 17:00 Intake & Output 12/04/17 12/05/17 12/05/17 18:59 06:59 18:59 Intake Total 350 1080 180 Output Total 1940 2555 1435 Balance -1590 -1475 -1255 Weight 101.1 kg Intake: IV 350 240 180 0.9% Normal Saline 220 240 180 Magnesium Sulfate-D5w Pmx 100 1 gm In Dextrose/Water 1 100ml.bag @ 100 mls/hr IVPB Q1H [facility] Rx#: [id number] Normal Saline: Pressure 30 Bag Oral 840 Output: Urine 1940 2555 1435 Other: Voiding Method Indwelling Catheter Indwelling Catheter Indwelling Catheter ABP, PAP, CO, CI - Last Documented Arterial Blood Pressure 154/47 - Exam General appearance: Present: cooperative, no acute distress - EENT Eyes: Present: anicteric sclerae, EOMI, PERRLA, dentition normal, normal appearance ENT: Present: NA/AT, normal oropharynx - Neck Neck: Present: normal ROM. Absent: lymphadenopathy, other, rigidity, stridor, thyromegaly - Respiratory Respiratory: bilateral: CTA, negative: diminished, dullness, rales, rhonchi, wheezing, prolonged expiration, prolonged inspiration, other - Cardiovascular Rhythm: regular Heart sounds: normal: S1 Abnormal Heart Sounds: Absent: systolic murmur, diastolic murmur, rub, S3 Gallop , S4 Gallop, click, other - Gastrointestinal General gastrointestinal: Present: normal bowel sounds, soft - Integumentary Integumentary: Present: decreased turgor, normal - Neurologic Neurologic: Present: CNII-XII intact. Absent: focal deficits - Musculoskeletal Musculoskeletal: Present: generalized weakness, strength equal bilaterally - Psychiatric Psychiatric: Present: A&O x's 3, appropriate affect - Labs CBC & Chem 7: 12/05/17 05:15 12/05/17 15:30 Labs: Abnormal Lab Results - Last 24 Hours (Table) 12/04/17 12/05/17 12/05/17 Range/Units 20:00 05:15 05:15 WBC 14.3 H (3.8-10.6) k/uL Neutrophils # 9.2 H (1.3-7.7) k/uL BUN 29 H (7-17) mg/dL Glucose 103 H (74-99) mg/dL POC Glucose (mg/dL) 156 H (75-99) mg/dL 12/05/17 12/05/17 Range/Units 11:58 16:58 WBC (3.8-10.6) k/uL Neutrophils # (1.3-7.7) k/uL BUN (7-17) mg/dL Glucose (74-99) mg/dL POC Glucose (mg/dL) 179 H 155 H (75-99) mg/dL Assessment and Plan Plan: Assessment 1 acute [employer] infection likely in the form of meningitis, improving and the patient is currently afebrile and hemodynamically stable and neurologic function have been gradually improving. The patient is back to her normal in terms of her mentation and she is afebrile without any neurologic deficits. She is undergoing physical therapy. 2 seizures of a new onset currently on Keppra, likely secondary to [employer] infection 3 intubation mechanical ventilation for airway protection, recovered and the patient is currently on 4 L of oxygen by nasal cannula 4 hyperlipidemia 5 hypertension currently on The proximal for blood pressure control and the patient is also on a combination of Tenomin, Norvasc, chlorthalidone, Catapres and labetalol on an estimated basis every 4-6 hours 6 hypothyroidism 7 overactive bladder Plan Continue the current antibiotic coverage. Continue Rocephin 2 g every 12 hours. Continue Keppra. Continue blood pressure medication for a pressure control. Continue physical therapy. Awaiting her transfer out of the intensive care unit.
[2017-12-05] MEDS: DOCUSATE 100 MG CAP PO SCH (20:38)
[2017-12-05] MEDS: MELATONIN 5 MG TABLET PO SCH (21:37)
[2017-12-05 21:38] LABS: Glucose,Whole Blood 120 mg/dL (75-99)
--- NOTE | 2017-12-05 22:20 | P.PN ---
Subjective Progress Note Date: 12/05/17 Principal diagnosis: altered mental status 77 years old female came into [facility] emergency center on November 26 and according to the family was not eating and drinking for the past 2 days. She went to bed on Sunday evening and was feeling fine. She woke up in the morning not feeling well and had some abdominal discomfort for which she took pepto-bismol but there was no vomiting or diarrhea at that time. She then developed confusion and difficulty with her speech. Patient was unable to comprehend and repeat appropriately. Her language was gibberish and lacked meaning. Patient denies any sensory or motor deficits. She denies any history of seizure or any similar episodes in the past. Patient was pleasantly confused. She does know where she is and can tell her name and date of . She presented afebrile with white count of 14.3. Vitals are stable with blood pressure slightly elevated 171/70. Saturating well on room air and afebrile. Patient did have a leukocytosis of 14.3. Urinalysis showed a small amount of blood otherwise negative for infection. Lactic acid 2.4. Normal troponin. CT head negative for any acute abnormalities no masses seen. Did have prominent choroid plexus cyst. CT abdomen and pelvis was done as patient had some tenderness in the lower quadrant which was unremarkable. Patient was initially admitted to the selective care unit where she was seen by neurology. By the following morning patient had more confusion and was having difficulty following any commands. She was made nothing by mouth. Echocardiogram reveals EF of 55-60%, trace mitral regurgitation, trace tricuspid regurgitation. Homocysteine level is normal at 12.02. Triglycerides 201, cholesterol 201, LDL 128 and HDL 34. Repeat troponins came back negative. Patient went for EEG yesterday afternoon, she developed seizure activity while having the procedure done. The seizure activity stopped without any medication. She was subsequently post ictal and not responding normally. She underwent MRI and MRI/ MRA of the head and neck that showed no evidence of recent infarct. Patient was unarousable after this responded to pain stimuli. There was concern decorticated posturing at that time. Patient was started on Keppra 1000 mg IV twice daily. She also underwent a repeat CAT scan of the brain that showed cerebral atrophy. No acute intracranial abnormality seen. No sign of cortical infarct. No change. Repeat chest x-ray shows no developing left basilar atelectasis and/or infiltrate. She was transferred into the intensive care unit. LP was attempted by anesthesia which was unsuccessful. She continued to have posturing and respiratory status was declining and patient was intubated and placed on mechanical ventilation. Interventional radiology to perform diagnostic lumbar puncture. She is currently on antimicrobials in the form of Rocephin, vancomycin, acyclovir and ampicillin. Patient also developed fever up to 103 yesterday afternoon and patient also developed a petechial papule rash that was new.. Patient is followed by Dr. Nash is intensive care management. Family states the patient has not had any recent travel. She goes to [facility] to visit her daughter and went to [place] for Thanksgiving. Family denied any bird, bat exposure. One month ago she did have the flu and this is what she thought was going on on Sunday morning when she woke up. They deny any unusual animal exposures. 11/29/2017 reveals the patient to have improved fever. Temperature 96.3 today. She is hemodynamically stable and not in vasopressor therapy. She continues to have poor mental status and respiratory failure and remains intubated and sedated and mechanically ventilated. The patient appears to be more comfortable today. Did not seem to be having the episodes of spontaneous posturing movements. 11/30/2017 reveals evidence of some improvement. The patient's fever is resolved. She has actually become hypertensive and is requiring multiple agents to improve her blood pressure. She had a sedation holiday at which point in time she felt commands from the nurse, hand squeezing occurred. The patient was agitated and is again sedated and doing well with sedation, is synchronous with the ventilator without other acute changes being noted 12/03/2017 the patient is now had a marked improvement. Her mental status has recovered and she has been extubated and is doing well. Neurologically she is awake and alert started to person place and time. Still feels quite weak. 12/04/2017 patient continues to have improvement. Her significant hypertension has resolved. She had some transient bradycardia and with alteration of her cardiac medications is doing better. Having no headache. Anxiety is improved. She is without any acute new changes. Feeling quite well. We'll move out of the ICU per cook helper juice. 12/05/2017 reveals a patient with further improvement. Sitting upright having her dinner, and having a good discussion with her . He is able to relate that her neurological status appears to be at baseline. She is conversational and witty. Objective - Vital Signs Vital signs: Vital Signs Temp 98.4 F 12/05/17 20:00 Pulse 63 12/05/17 20:27 Resp 14 12/05/17 20:00 BP 154/67 12/05/17 20:00 Pulse Ox 94 L 12/05/17 20:18 Intake & Output 12/05/17 12/05/17 12/06/17 06:59 18:59 06:59 Intake Total 1080 180 40 Output Total 2555 1435 60 Balance -1475 -1255 -20 Weight 101.1 kg Intake: IV 240 180 40 0.9% Normal Saline 240 180 40 Oral 840 Output: Urine 2555 1435 60 Other: Voiding Method Indwelling Catheter Indwelling Catheter ABP, PAP, CO, CI - Last Documented Arterial Blood Pressure 154/47 - Exam Gen: This is a 77-year-old female. She appears to be comfortable. HEENT: Head is atraumatic, normocephalic. Pupils equal, round. Sclerae is anicteric. Mucous membranes are moist. NECK: Supple. No JVD. No lymphadenopathy. No thyromegaly. LUNGS: Diminished with a few scattered rhonchi. No intercostal retractions. HEART: Regular rate and rhythm. No murmur. ABDOMEN: Soft. Bowel sounds are present. No masses. No tenderness. SKIN: Patient has rash noted on her abdomen and extremities some areas it is petechial like is not blanchable or other areas papule-like. EXTREMITIES: No pedal edema. NEUROLOGICAL:, awake and alert oriented to person place and time. Able to move all extremities. Appears to have no acute gross focal sensory motor deficits. I much less anxious today. - Labs CBC & Chem 7: 12/05/17 05:15 12/05/17 15:30 Labs: Abnormal Lab Results - Last 24 Hours (Table) 12/05/17 12/05/17 12/05/17 Range/Units 05:15 05:15 11:58 WBC 14.3 H (3.8-10.6) k/uL Neutrophils # 9.2 H (1.3-7.7) k/uL BUN 29 H (7-17) mg/dL Glucose 103 H (74-99) mg/dL POC Glucose (mg/dL) 179 H (75-99) mg/dL 12/05/17 12/05/17 Range/Units 16:58 21:35 WBC (3.8-10.6) k/uL Neutrophils # (1.3-7.7) k/uL BUN (7-17) mg/dL Glucose (74-99) mg/dL POC Glucose (mg/dL) 155 H 120 H (75-99) mg/dL Laboratory Results WBC 14.3 k/uL (3.8-10.6) H 12/05/17 05:15 RBC 4.10 m/uL (3.80-5.40) 12/05/17 05:15 Hgb 11.7 gm/dL (11.4-16.0) 12/05/17 05:15 Hct 34.4 % (34.0-46.0) 12/05/17 05:15 MCV 83.8 fL (80.0-100.0) 12/05/17 05:15 MCH 28.4 pg (25.0-35.0) 12/05/17 05:15 MCHC 33.9 g/dL (31.0-37.0) 12/05/17 05:15 RDW 13.2 % (11.5-15.5) 12/05/17 05:15 Plt Count 294 k/uL (150-450) 12/05/17 05:15 Neutrophils % 64 % 12/05/17 05:15 Lymphocytes % 23 % 12/05/17 05:15 Monocytes % 7 % 12/05/17 05:15 Eosinophils % 4 % 12/05/17 05:15 Basophils % 1 % 12/05/17 05:15 Neutrophils # 9.2 k/uL (1.3-7.7) H 12/05/17 05:15 Lymphocytes # 3.3 k/uL (1.0-4.8) 12/05/17 05:15 Monocytes # 1.0 k/uL (0-1.0) 12/05/17 05:15 Eosinophils # 0.5 k/uL (0-0.7) 12/05/17 05:15 Basophils # 0.1 k/uL (0-0.2) 12/05/17 05:15 Manual Slide Review Performed 11/28/17 06:06 Pathologist Review See comment A 11/28/17 06:06 PT 10.8 sec (9.0-12.0) 11/27/17 23:55 INR 1.1 (<1.2) 11/27/17 23:55 APTT 22.4 sec (22.0-30.0) 11/27/17 23:55 Fibrinogen 436 mg/dL (200-500) 11/28/17 06:06 D-Dimer 1.27 mg/L FEU (<0.60) H 11/27/17 23:55 Sample Site jorge 12/01/17 04:00 ABG pH 7.43 (7.35-7.45) 12/01/17 04:00 ABG pCO2 37 mmHg (35-45) 12/01/17 04:00 ABG pO2 85 mmHg (83-108) 12/01/17 04:00 ABG HCO3 25 mmol/L (21-25) 12/01/17 04:00 ABG Total CO2 26 mmol/L (19-24) H 12/01/17 04:00 ABG O2 Saturation 96.0 % (94-97) 12/01/17 04:00 ABG Base Excess 0.6 mmol/L 12/01/17 04:00 Nico Test no 12/01/17 04:00 FiO2 35 % 12/01/17 04:00 Sodium 141 mmol/L (137-145) 12/05/17 05:15 Potassium 4.6 mmol/L (3.5-5.1) 12/05/17 15:30 Chloride 103 mmol/L (98-107) 12/05/17 05:15 Carbon Dioxide 27 mmol/L (22-30) 12/05/17 05:15 Anion Gap 11 mmol/L 12/05/17 05:15 BUN 29 mg/dL (7-17) H 12/05/17 05:15 Creatinine 0.79 mg/dL (0.52-1.04) 12/05/17 05:15 Est GFR (CKD-EPI)AfAm 83 (>60 ml/min/1.73 sqM) 12/05/17 05:15 Est GFR (CKD-EPI)NonAf 72 (>60 ml/min/1.73 sqM) 12/05/17 05:15 Glucose 103 mg/dL (74-99) H 12/05/17 05:15 POC Glucose (mg/dL) 120 mg/dL (75-99) H 12/05/17 21:35 POC Glu Cardiology Clinical Consultant ID Dewayne Schreiber 12/05/17 21:[address] Glu mg/dL 126 11/28/17 06:06 Hemoglobin A1c 6.0 % (4.0-6.0) 11/28/17 06:06 Lactic Ac Sepsis Rflx Y 11/26/17 10:13 Plasma Lactic Acid Ede 1.1 mmol/L (0.7-2.0) 11/26/17 14:14 Calcium 9.1 mg/dL (8.4-10.2) 12/05/17 05:15 Phosphorus 4.1 mg/dL (2.5-4.5) 12/05/17 05:15 Magnesium 1.8 mg/dL (1.6-2.3) 12/05/17 05:15 Total Bilirubin 0.9 mg/dL (0.2-1.3) 11/27/17 06:29 AST 18 U/L (14-36) 11/27/17 06:29 ALT 27 U/L (9-52) 11/27/17 06:29 Alkaline Phosphatase 43 U/L (38-126) 11/27/17 06:29 Total Creatine Kinase 86 U/L (30-135) 11/26/17 09:20 CK-MB (CK-2) 0.5 ng/mL (0.0-2.4) 11/26/17 09:20 CK-MB (CK-2) Rel Index 0.6 11/26/17 09:20 Troponin I <0.012 ng/mL (0.000-0.034) 11/26/17 20:56 Total Protein 6.2 g/dL (6.3-8.2) L 11/27/17 06:29 Albumin 3.9 g/dL (3.5-5.0) 11/27/17 06:29 Triglycerides 201 mg/dL (<150) H 11/27/17 06:29 Cholesterol 201 mg/dL (<200) H 11/27/17 06:29 LDL Cholesterol, Calc 128 mg/dL (0-99) H 11/27/17 06:29 HDL Cholesterol 33 mg/dL (40-60) L 11/27/17 06:29 Homocysteine 12.02 umol/L (4.00-14.00) 11/26/17 20:56 TSH 3.620 mIU/L (0.465-4.680) 12/02/17 05:00 Urine Color Yellow 11/28/17 00:15 Urine Appearance Turbid (Clear) H 11/28/17 00:15 Urine pH 5.5 (5.0-8.0) 11/28/17 00:15 Ur Specific [place] 1.024 (1.001-1.035) 11/28/17 00:15 Urine Protein 1+ (Negative) H 11/28/17 00:15 Urine Glucose (UA) Negative (Negative) 11/28/17 00:15 Urine Ketones Negative (Negative) 11/28/17 00:15 Urine Blood Large (Negative) H 11/28/17 00:15 Urine Nitrite Negative (Negative) 11/28/17 00:15 Urine Bilirubin Negative (Negative) 11/28/17 00:15 Urine Urobilinogen <2.0 mg/dL (<2.0) 11/28/17 00:15 Ur Leukocyte Esterase Large (Negative) H 11/28/17 00:15 Urine RBC 38 /hpf (0-5) H 11/28/17 00:15 Urine WBC 37 /hpf (0-5) H 11/28/17 00:15 Ur Squamous Epith Cells <1 /hpf (0-4) 11/26/17 09:20 Hyaline Casts 15 /lpf (0-2) H 11/28/17 00:15 Urine Mucus Rare /hpf (None) H 11/28/17 00:15 CSF Tube Number 4 11/28/17 15:30 CSF Volume 3.5 11/28/17 15:30 CSF Appearance Blood Tinged 11/28/17 15:30 CSF Color [place] 11/28/17 15:30 CSF RBC 1230 u/L (0-10) H 11/28/17 15:30 CSF Tot Nucleated Cells 170 u/L (0-5) H 11/28/17 15:30 CSF Mononuclear WBCs % 66 % 11/28/17 15:30 CSF Polynuclear WBCs % 34 % 11/28/17 15:30 CSF Glucose 97 mg/dL (40-70) H 11/28/17 15:30 CSF Total Protein 198 mg/dL (12-60) H 11/28/17 15:30 Vancomycin Trough 19.7 ug/mL 12/05/17 05:15 Levetiracetam 37.2 ug/mL (3.0-60.0) 12/01/17 04:30 West Nile Virus IgG Ab 0.03 INDEX (<1.30) 11/28/17 06:30 West Nile Virus IgM Ab 0.08 INDEX (<0.90) 11/28/17 06:30 West Nile RNA (RT-PCR) Negative 11/28/17 15:30 HSV I DNA PCR Not detected (Not detected) 11/28/17 06:30 HSV II DNA PCR Not detected (Not detected) 11/28/17 06:30 HSV (PCR) Source Blood - EDTA 11/28/17 06:30 Influenza Type A RNA Not Detected (Not Detectd) 11/28/17 16:54 Influenza Type B (PCR) Not Detected (Not Detectd) 11/28/17 16:54 Virus Source (()) 11/28/17 16:54 Viral Test See Below 11/28/17 16:54 Virus Analysis Interp See Below 11/28/17 16:54 Miscellaneous Test Listeria Ab 11/28/17 06:30 Misc Test Result See Comment 11/28/17 06:30 Microbiology 11/28/17 01:45 Blood Blood Culture - Final No Growth after 144 hours 11/28/17 02:05 Blood Blood Culture - Final No Growth after 144 hours 11/28/17 15:30 Cerebral Spinal Fluid CSF Gram Stain - Final 11/28/17 15:30 Cerebral Spinal Fluid CSF Culture - Final 11/26/17 09:20 Blood Blood Culture Gram Stain - Final 11/26/17 09:20 Blood Blood Culture - Final Diphtheroid species 11/27/17 20:55 Sputum Gram Stain - Final 11/27/17 20:55 Sputum Sputum Culture - Final 11/26/17 09:20 Blood Blood Culture - Final 11/28/17 00:15 Urine,Catheterized Urine Culture - Final Assessment and Plan (1) Acute bacterial meningitis Narrative/Plan: Is noted the patient has had a rapid decline of her status associated with high- grade fever, altered mental status and respiratory failure requiring intubation and sedation with mechanical ventilation. The patient's family is present. We review the findings. There is evidence of fever with altered mental status and leukocytosis which is strongly consistent with a central nervous system infection. Lumbar puncture has now been performed and there is evidence of pleocytosis and consequently bacterial meningitis with seem to be most likely, and with the rash in 77-year-old could be consistent with meningococcal infection. We await the Gram stain to help further direct prophylactic therapy if needed. Antibiotic therapy was adjusted with 2 g of Rocephin every 12 hours, with the development of the rash ampicillin was discontinued, she has no alcoholism and seems to be a low risk for listeria, vancomycin is being utilized for now. With the concern for encephalitis acyclovir is also been initiated and will be continued until we have further data from her lumbar puncture. The family is aware of the severity and acuity of the illness and there is potential for long- term effects and potential even for . 11/29/2017 patient has some improvement in that she is no longer febrile and is less rigid. Oxygenation is stable and she has not and vasopressor therapy. Laboratory is contacted and the Gram stain reveals evidence of the many PMNs but no bacteria are seen. Other studies are pending. Blood cultures are negative so far. Leukocytosis is noted. The patient's skin lesions are stable and have not progressed. Antibiotic therapy continues. If the PCR comes back negative for HSV 1 and 2 as well as Varicela then acyclovir can be discontinued. 11/30/2017 the patient has had some further improvement. She is afebrile, her spasticity has improved and she follows command when she was a sedation holiday earlier in the day. Viral studies are negative for HSV 1, HSV-2 and Varicella and constantly acyclovir has been discontinued. The CSF Gram stain is negative and the culture is negative at this point in time. Of note the patient did receive intravenous antibiotic therapy for many hours for the lumbar puncture was actually performed. It is possible that we will not be able to find a pathogen. With negative blood cultures and rapid clearance of the CSF streptococcus pneumoniae would be the most likely, and statistically would be the most likely. No evidence of any listeria or meningo coccus at this time. Once culture is final will be able to discontinue isolation Fortunately the patient started to show some improvement this is related to the family that is [id number], her neurological recovery is still very difficult to ascertain at this point in time unclear if she had a further seizure again today. Of note West Nile testing is negative as expected epidemiologically. Antibiotic therapy continues at this time with vancomycin and high-dose Rocephin. 12/03/2017 reveals the patient with marked improvement. Her neurological status has recovered. She has been extubated and is now only on supplemental oxygen. She is eating her meal without difficulties. As noted awake alert oriented to person place and time without obvious focal sensory motor deficits. She is concerned because of her lack of memory for the last several days. We did let her know that she was on propofol and this is a usual event especially with meningitis. Given the patient was treated with antibiotic therapy for the lumbar puncture could be completed would make a negative CSF culture likely especially with Streptococcus pneumoniae. We'll request midline catheter placement and completion of 14 days of Rocephin. 12/04/2017 patient continues with her marked improvement. Neurologically is awake alert oriented to person place and time with no acute gross focal sensory motor deficits. She is calm and not anxious today. Blood pressure is improved , bradycardias also resolved. Critical care will likely move her out of the ICU. Midline catheter is in place to complete HER-2 weeks of interest antibiotic therapy of Rocephin 2 g every 12 hours for her likely Streptococcus pneumoniae meningitis. The small brightly erythematous lesions that were present at admission continue to fade, most are no longer palpable they're nontender and resolving. Likely from the bases of her sepsis is admission. 12/05/2017 reveals further improvement. The patient is awake and alert interacting well with her and showing her which he sense of humor. She feels very well and looks forward to going to rehab to improve her strength so she can get back to the care of her family. She is having no headache. Strength is improving. Appetite is well. No abdominal pain or diarrhea. Plan is to complete a total of 14 days of Rocephin for the likely Streptococcus pneumoniae meningitis. She'll have 7 days further treatment from today. Midline catheter placed for the completion of her antibiotics. It appears she' ll be going to the rehabilitation center at [facility] for her recovery. Current Visit: Yes Status: Acute Code(s): G00.9 - BACTERIAL MENINGITIS, UNSPECIFIED SNOMED Code(s): 01909798 (2) Fever Current Visit: Yes Status: Acute Code(s): R50.9 - FEVER, UNSPECIFIED SNOMED Code(s): 218477241 (3) Leukocytosis Current Visit: Yes Status: Acute Code(s): D72.829 - ELEVATED WHITE BLOOD CELL COUNT, UNSPECIFIED SNOMED Code(s): 922896328 (4) Seizure Current Visit: Yes Status: Acute Code(s): R56.9 - UNSPECIFIED CONVULSIONS SNOMED Code(s): 66766331
[2017-12-06 00:49] VITALS: RESP 16
[2017-12-06] MEDS: ENALAPRILAT 1.25 MG/ML 1 ML VIAL IVP PRN (01:13)
[2017-12-06] MEDS: LEVOTHYROXINE 88 MCG TAB PO SCH (06:23)
--- NOTE | 2017-12-06 06:30 | P.CONS ---
History of Present Illness - Chief Complaint Gait disturbance - History of Present Illness I had the op to see patient for inpatient rehab consultation with regard to gait disturbance. She was admitted November 26 with mental status change. Seen by Dr. Nash for pulmonary. Seen by Dr. Roche for diarrhea. Seen by Dr. Amado who diagnosed seizure and postictal. EEG within normal limits. Chest x-rays followed demonstrate small left pleural effusion with atelectasis. PT reports supervision for bed mobility but minimal assistance with second person for safety for transfers, gait 68 feet with roller walker, fatigues. OT reports supervision for upper dressing and minimal assistance for lower dressing and bathing. Moderate assistance for toileting and minimal assistance for transfers. Previous functional history as elicited from patient: 76-year-old right-handed white female who is lives in one form with . Retired. Patient then with cooking, laundry, driving, standing shower and gait without device. Dr. Wilson is regular doctor. Family history father with cancer. Review of Systems Review of systems: ENT: Denies sneezes or discharge. Eyes: Denies discharge or photophobia. Cardiac: Denies chest pain or palpitation. Pulmonary: Denies cough or shortness of breath. Breast: Denies discharge or lumps. Gastrointestinal: Denies nausea, emesis, constipation, diarrhea. Genitourinary: Denies discharge or frequency. Musculoskeletal: Denies muscle or bone aches. Neurologic: Lower extremity weakness and unsteadiness. Endocrine: Denies shakes or sweats. Oncology: Denies cancers. Dermatologic: Denies rash, itching, pruritus. ALLERGY/immunology: Denies sneezes, rashes. Past Medical History Past Medical History: Hyperlipidemia, Hypertension, Osteoarthritis (OA), Thyroid Disorder Additional Past Medical History / Comment(s): Incontinent of urine at times. History of Any Multi-Drug Resistant Organisms: None Reported Past Surgical History: Appendectomy, Hysterectomy, Joint Replacement, Orthopedic Surgery Additional Past Surgical History / Comment(s): L knee arthroscopy, L total knee arthroplasty, colonoscopy, bilateral cataract removal/lens toric Smoking Status: Never smoker - Past Family History Father Family Medical History: Cancer Additional Family Medical History / Comment(s): Father had liver cancer and at the age of 52 yrs. Mother Family Medical History: Coronary Artery Disease (CAD), CVA/TIA Additional Family Medical History / Comment(s): Family believes pt's mother of a IL at the age of 85 yrs. Sister(s) Family Medical History: Cancer (Lymphoma 20 years ago) Additional Family Medical History / Comment(s): Patient lives with his has been. She has 2 kids both healthy without any medical problems. She denies any use of cane or walker at home. Does not wear oxygen at night Medications and Allergies Home Medications Medication Instructions Recorded Confirmed Type Atenolol/Chlorthalidone [Tenoretic 1 tab PO DAILY 11/26/17 11/26/17 History 100 Tablet] Atorvastatin Calcium [Lipitor] 20 mg PO MOTUWETHFRSA 11/26/17 11/26/17 History Atorvastatin [Lipitor] 10 mg PO CRUZ 11/26/17 11/26/17 History Estradiol [Estrace] 1 mg PO MOWEFR 11/26/17 11/26/17 History Fish Oil/Dha/Epa [Fish Oil 1,200 1 cap PO DAILY 11/26/17 11/26/17 History mg Fish Oil] Gemfibrozil [Lopid] 600 mg PO AC-BID 11/26/17 11/26/17 History Glucosamine/Chondr Cruz A Sod [Osteo 1 tab PO BID 11/26/17 11/26/17 History Bi-Flex Caplet] Levothyroxine Sodium [Synthroid] 44 mcg PO CRUZ 11/26/17 11/26/17 History Levothyroxine Sodium [Synthroid] 88 mcg PO MOTUWETHFRSA 11/26/17 11/26/17 History Magnesium Oxide [Mag-Ox] 400 mg PO DAILY 11/26/17 11/26/17 History Potassium Chloride ER [K-Dur 10] 10 meq PO DAILY 11/26/17 11/26/17 History Solifenacin Succinate [Vesicare] 5 mg PO DAILY 11/26/17 11/26/17 History Vitamin E (Dl,Tocopheryl Acet) 400 unit PO DAILY 11/26/17 11/26/17 History [Vitamin E] Allergies Allergy/AdvReac Type Severity Reaction Status Date / Time No Known Allergies Allergy Verified 11/26/17 09:40 Physical Exam Vitals: Vital Signs Temp Pulse Pulse Resp BP BP Pulse Ox 12/06/17 04:59 64 160/73 12/06/17 00:48 98.2 F 94 16 175/85 96 12/06/17 00:15 98.0 F 68 16 97 12/05/17 20:27 63 12/05/17 20:18 70 94 L 12/05/17 20:00 98.4 F 66 14 154/67 94 L 12/05/17 19:00 72 14 142/62 96 12/05/17 18:00 77 18 140/60 96 12/05/17 17:00 75 20 117/54 97 12/05/17 16:00 98.7 F 72 13 131/58 96 12/05/17 15:45 72 12/05/17 15:37 67 12/05/17 15:00 71 14 119/57 95 12/05/17 14:00 79 18 135/55 95 12/05/17 13:00 69 18 157/68 96 12/05/17 12:02 72 12/05/17 12:00 98.1 F 63 17 158/59 100 12/05/17 11:52 70 12/05/17 11:00 70 21 133/60 96 12/05/17 10:00 71 13 140/56 94 L 12/05/17 09:00 74 23 105/62 95 12/05/17 08:34 68 12/05/17 08:24 66 12/05/17 08:00 98.0 F 68 11 L 145/60 96 12/05/17 07:00 60 12 149/59 95 Intake and Output 12/05/17 12/05/17 12/06/17 14:59 22:59 06:59 Intake Total 160 60 160 Output Total 1360 135 Balance -1200 -75 160 Intake: IV 160 60 0.9% Normal Saline 160 60 Intake, IV Titration 160 Amount Sodium Chloride 0.9% 1, 160 000 ml @ 20 mls/hr IV . Q24H [facility] Rx#:[id number] Output: Urine 1360 135 Other: Voiding Method Indwelling Catheter Indwelling Catheter # Voids 2 Skin: Mildly atrophic, intact. General: Medium build and comfortable appearance. Head: Normocephalic, atraumatic. Eyes: Symmetric. Pupils equal round. Ears: Symmetric. Hearing within normal limits. Mouth: Clear. Neck: Supple. Carotid without bruit. Cardiac: Regular rate and rhythm. Lungs: Clear anteriorly and posteriorly. Abdomen: Soft active nontender. Extremities: Normal tone. Neurological: Mental status: Alert, cooperative, pleasant. Cranial nerves: Symmetric facial tone and trapezius. Motor: Normal strength and isolation all 4 limbs. Sensation: Intact throughout. DTRs: Symmetric and equal throughout. Mobility: Bed mobility with standby assist. Results CBC & Chem 7: 12/05/17 05:15 12/05/17 15:30 Labs: Abnormal Lab Results - Last 24 Hours (Table) 12/05/17 12/05/17 12/05/17 Range/Units 05:15 11:58 16:58 BUN 29 H (7-17) mg/dL Glucose 103 H (74-99) mg/dL POC Glucose (mg/dL) 179 H 155 H (75-99) mg/dL 12/05/17 Range/Units 21:35 BUN (7-17) mg/dL Glucose (74-99) mg/dL POC Glucose (mg/dL) 120 H (75-99) mg/dL Microbiology - Last 24 Hours (Table) 12/05/17 19:30 Catheter Tip Culture - Preliminary Catheter Tip Chest x-ray: report reviewed (Followed and demonstrated small left pleural effusion with atelectasis.) Assessment and Plan (1) CVA (cerebral vascular accident) Current Visit: Yes Status: Acute Code(s): I63.9 - CEREBRAL INFARCTION, UNSPECIFIED SNOMED Code(s): 041449231 Plan: Impression: 1. Gait disturbance. 2. Stroke. 3. Seizure with postictal. 4. Hypertension. 5. Dyslipidemia. 6. Sarahy arthritis. 7. Thyroid disorder. Comments and plan: PT, OT are ongoing and ATM TECHNICIAN ordered. Safety concerns noted currently. Patient appears motivated and with good attitude for possible inpatient rehab.
[2017-12-06 06:54] LABS: Basophils # (A) 0.1 k/uL (0-0.2); Basophils % (A) 0 %; Eosinophils # (A) 0.5 k/uL (0-0.7); Eosinophils % (A) 3 %; HCT 35.7 % (34.0-46.0); HGB 11.6 gm/dL (11.4-16.0); Lymphocytes # (A) 3.8 k/uL (1.0-4.8); Lymphocytes % (A) 25 %; MCH 27.8 pg (25.0-35.0); MCHC 32.6 g/dL (31.0-37.0); MCV 85.4 fL (80.0-100.0); Mean Platelet Volume 7.9; Monocytes # (A) 1.1 k/uL (0-1.0); Monocytes % (A) 7 %; Neutrophils # (A) 9.6 k/uL (1.3-7.7); Neutrophils % (A) 63 %; Platelet Count 282 k/uL (150-450); RBC 4.18 m/uL (3.80-5.40); RDW 13.6 % (11.5-15.5); WBC 15.3 k/uL (3.8-10.6)
[2017-12-06 07:03] LABS: Glucose,Whole Blood 106 mg/dL (75-99)
[2017-12-06] MEDS: INSULIN ASPART 100 UNIT/ML 1 ML 10 ML VIAL SQ SCH ×2 (08:42→14:27)
[2017-12-06] MEDS: amLODIPine 10 MG TAB PO SCH (08:45)
[2017-12-06] MEDS: PANTOPRAZOLE 40 MG TABLET PO SCH (08:46)
[2017-12-06] MEDS: levETIRAcetam 500 MG TAB PO SCH (08:46)
[2017-12-06] MEDS: SODIUM CHLORIDE 0.9% 1,000 ML IV SCH (08:47)
[2017-12-06] MEDS: ATENOLOL 50 MG TAB PO SCH (08:47)
[2017-12-06] MEDS: ASPIRIN 325 MG TAB PO SCH (08:47)
[2017-12-06] MEDS: DOCUSATE 100 MG CAP PO SCH (08:49)
[2017-12-06] MEDS: IPRATROPIUM-ALBUTEROL 3 ML NEB INHALATION SCH ×2 (09:00→12:34)
[2017-12-06] MEDS ORDERED: DEXAMETHASONE 2 MG TAB PO SCH (09:00)
[2017-12-06] MEDS: CHLORTHALIDONE 25 MG TAB PO SCH (10:54)
[2017-12-06] MEDS: cefTRIAXone IN SWFI 2,000 MG/20 ML SYRINGE IVP SCH (10:54)
[2017-12-06 11:47] LABS: Glucose,Whole Blood 115 mg/dL (75-99)
--- NOTE | 2017-12-06 14:38 | P.PN ---
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 The patient was confused and was having difficulty with speech. Her vitals were stable at a time of admission. She had a white cell count of 14.3. The lactic acid level was at 2.4. Troponins were negative. CAT scan of the head showed no acute abnormalities. CAT scan of the abdomen and pelvis done to evaluate some lower abdominal discomfort and that came back negative. The EEG was done and while having the procedure the patient had some seizure activity for which she was placed on IV Keppra 1000 mg every 12 hours. She underwent a repeat CAT scan of the brain that showed no acute intracranial abnormalities. Lumbar puncture was done and the patient was covered with broad- spectrum antibiotics including a combination of IV Rocephin, IV vancomycin, IV acyclovir and IV ampicillin. The patient developed also fever of 103 and she also developed a petechial rash that was new. At that point she got moved to the intensive care unit. She was having altered mentation. She was intubated and placed on a mechanical ventilator. Note that she had a rapid decline in her neuro status with high-grade fever and altered mentation and respiratory failure requiring intubation and mechanical ventilation. The lumbar puncture showed evidence of pleocytosis yet the cultures came back all negative. The HSV by PCR was also negative for HSV meningitis. Upon subsequent follow-up, the patient's fever improved. She remained hemodynamically stable without the need for any pressors. She was extubated on 12/01/2017. There was a very high ongoing suspicion for RENAL DIALYSIS TECHNICIAN infection. The working diagnosis still bacterial meningitis. The patient remains on a combination of Rocephin and vancomycin under the care of Dr. Roche. She did not have any further episodes of seizure activity. She is afebrile for now. She has hypertensive and currently she is on Drip. Neurologically she is fully recovered and she is alert and orientated 3. She has no good recollection of the events that led her to come in to the hospital and to the ICU. The blood culture was positive for diphtheroid species which is a contaminant. The CSF final culture was negative. The rest of the blood cultures came back all negative. On 12/04/2017 patient seen in follow-up in intensive care unit, estrogen she was extubated, so far she is tolerating extubation very well, denies any acute distress, denies any chest pain. Respirations are even and nonlabored. She is on room air with O2 sat at 92%. Hemodynamically stable, bradycardic on the monitor, remains in sinus mechanism, currently with a rate of 54 BPM. Last night she was noted to be bradycardic with a rate of 49 BPM. This morning blood pressure is better controlled, and the clonidine will be discontinued, her Norvasc will be increased to 10 mg daily and will continue with patient's home dose of atenolol. Continue chlorthalidone. Patient is tolerating diet, denies any acute complaints. Continues on IV antibiotics in the form of Rocephin, and vancomycin. ID service is managing the antibiotics. Blood cultures from 11/26/2017 showed diphtheroid species, follow blood cultures were negative, urine and CSF Gram stain and culture did not show any organisms. She has not had any recurrence of seizures, remains on oral Keppra 1000 mg by mouth twice a day. Denies any acute complaints, denies any fever or chills, neurologic status continues to improve. These labs were reviewed, the PVCs 12.4 , hemoglobin is 10.8, electrolytes are within normal limits, BUN is 29, creatinine is 0.70. On 12/06/2016 patient seen in follow-up on the surgical floor. She is sitting up in the recliner, awake, alert, oriented 3. Mentation is back to normal. Denies any acute distress, denies any chest pain or dyspnea. Vital signs are stable, currently on room air, with O2 sat at 95%. Afebrile. Lung sounds are clear to auscultation, no peripheral edema noted. Today's lab shows WBC 15.3, hemoglobin of 11.6. Patient has ambulated with a walker, she states she is very weak, and she is being evaluated for inpatient rehabilitation. She remains on IV Rocephin for acute bacterial meningitis, ID service is following. Continues on oral Decadron, currently at 2 mg by mouth daily, will continue to taper down. Strength is improving, appetite is good, no abdominal pain or diarrhea. Objective - Vital Signs Vital signs: Vital Signs Temp 97.8 F 12/06/17 07:50 Pulse 72 12/06/17 12:48 Resp 16 12/06/17 00:48 BP 163/69 12/06/17 07:50 Pulse Ox 96 12/06/17 09:00 Intake & Output 12/05/17 12/06/17 12/06/17 18:59 06:59 18:59 Intake Total 180 200 750 Output Total 1435 60 Balance -1255 140 750 Intake: IV 180 40 0.9% Normal Saline 180 40 Intake, IV Titration 160 Amount Sodium Chloride 0.9% 1, 160 000 ml @ 20 mls/hr IV . Q24H [facility] Rx#:[id number] Oral 750 Output: Urine 1435 60 Other: Voiding Method Indwelling Catheter Indwelling Catheter # Voids 2 2 ABP, PAP, CO, CI - Last Documented Arterial Blood Pressure 154/47 - Exam General appearance: Present: cooperative, no acute distress - EENT Eyes: Present: anicteric sclerae, EOMI, PERRLA, dentition normal, normal appearance ENT: Present: NA/AT, normal oropharynx - Neck Neck: Present: normal ROM. Absent: lymphadenopathy, other, rigidity, stridor, thyromegaly - Respiratory Respiratory: bilateral: CTA, negative: diminished, dullness, rales, rhonchi, wheezing, prolonged expiration, prolonged inspiration, other - Cardiovascular Rhythm: regular Heart sounds: normal: S1 Abnormal Heart Sounds: Absent: systolic murmur, diastolic murmur, rub, S3 Gallop , S4 Gallop, click, other - Gastrointestinal General gastrointestinal: Present: normal bowel sounds, soft - Integumentary Integumentary: Present: decreased turgor, normal - Neurologic Neurologic: Present: CNII-XII intact. Absent: focal deficits - Musculoskeletal Musculoskeletal: Present: generalized weakness, strength equal bilaterally - Psychiatric Psychiatric: Present: A&O x's 3, appropriate affect - Labs CBC & Chem 7: 12/06/17 06:28 12/05/17 15:30 Labs: Abnormal Lab Results - Last 24 Hours (Table) 12/05/17 12/05/17 12/06/17 Range/Units 16:58 21:35 06:28 WBC 15.3 H (3.8-10.6) k/uL Neutrophils # 9.6 H (1.3-7.7) k/uL Monocytes # 1.1 H (0-1.0) k/uL POC Glucose (mg/dL) 155 H 120 H (75-99) mg/dL 12/06/17 12/06/17 Range/Units 06:56 11:14 WBC (3.8-10.6) k/uL Neutrophils # (1.3-7.7) k/uL Monocytes # (0-1.0) k/uL POC Glucose (mg/dL) 106 H 115 H (75-99) mg/dL Microbiology - Last 24 Hours (Table) 12/05/17 19:36 Wound Culture - Preliminary Catheter Site 12/05/17 19:30 Catheter Tip Culture - Preliminary Catheter Tip Assessment and Plan Plan: Assessment: 1 acute RENAL DIALYSIS TECHNICIAN infection secondary to acute bacterial meningitis, improving and the patient is currently afebrile and hemodynamically stable and neurologic function has improved, 2 seizures of a new onset currently on IV Keppra, likely secondary to RENAL DIALYSIS TECHNICIAN infection, and the patient has had no recurrence of seizure activity 3 intubation mechanical ventilation for airway protection, recovered and the patient is currently on room air 4 hyperlipidemia 5 hypertension currently better controlled 6 hypothyroidism 7 overactive bladder Plan: Patient continues to improve, her physical strength is improving, however does have residual generalized weakness, she is being evaluated for inpatient rehab. Neurologically patient has the recovered, no recurrence of seizures, and her mentation is normal. She denies any fever or chills, denies any dyspnea, denies any chest pain. Currently on room air, continue incentive spirometry use. Continue encouraging activity as tolerated. Patient remains on IV Rocephin for the treatment of acute bacterial meningitis. Continue weaning Decadron, currently at 2 mg daily for total of 5 days, then 1 mg daily for 5 more days then will discontinue. Patient remains stable, and we will sign off at this time, and follow the patient on as-needed basis. Thank you for this consultation. I performed a history & physical examination of the patient and discussed their management with my nurse practitioner, Fauzia Parisi. I reviewed the nurse practitioner's note and agree with the documented findings and plan of care. Lung sounds are clear. The findings and the impression was discussed with the patient. I attest to the documentation by the nurse practitioner. Time with Patient: Less than 30
[2017-12-06 14:50] VITALS: BP 141/55; PULSE 69; TEMP 98.5
--- NOTE | 2017-12-06 15:28 | P.DS ---
Providers Date of admission: 11/26/17 12:09 Expected date of discharge: 12/06/17 Attending physician: Garret Maldonado MD Consults: 11/26/17 12:09 Consult Physician Routine Consulting Provider: Mariia Amado Consult Reason/Comments: cva Do you want consulting provider notified?: Yes 11/27/17 16:43 Consult Physician Urgent Consulting Provider: Ilia Nash Consult Reason/Comments: [employer] Do you want consulting provider notified?: Yes 11/27/17 21:22 Consult Physician Routine Consulting Provider: Marc Roche Consult Reason/Comments: Increased temp, Do you want consulting provider notified?: Yes 12/05/17 14:13 Consult Physician Routine Consulting Provider: Ezequiel Davila Consult Reason/Comments: inpatient rehab Do you want consulting provider notified?: Yes Primary care physician: Burke Wilson [facility] Course: 77 years old female patient of Dr. Wilson with past medical history of hypertension, hyperlipidemia, hypothyroidism, overactive bladder presents in with confusion that started this morning. According to the family patient was not eating and drinking for the past 2 days. She woke up in the morning feeling confused, unable to speak appropriately. Patient was unable to comprehend and repeat appropriately. Her language was gibberish and lacked meaning. Patient denies any sensory or motor deficits. She denies any history of seizure or any similar episodes in the past. Patient denies any history of chest pain, palpitation, shortness of breath, abdominal pain, nausea or vomiting. No history of syncope or loss of consciousness prior to this episode. Patient is unable to provide much history is pleasantly confused. She does know where she is and can tell her name and date of . Vitals are stable with blood pressure slightly elevated 171/70. Saturating well on room air and afebrile. Patient did have a leukocytosis of 14.3 INR 1.1, lactic acid 2.4. Normal troponin. CT head negative for any acute abnormalities no masses seen. Did have prominent choroid plexus cyst. CT abdomen and pelvis was done as patient had some tenderness in the lower quadrant which was unremarkable. Due to patient's A. fib. Dysarthria MRI/MRA ordered. Neurology consulted from possible stroke versus brain mass. 11/27: Echocardiogram reveals EF of 55-60%, trace mitral regurgitation, trace tricuspid regurgitation. Patient has been seen by Dr. 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 Homocysteine level is normal at 12.02. Triglycerides 201, cholesterol 201, LDL 128 and HDL 34. Repeat troponins came back negative. Patient was unable to swallow but her a.m. medications were given. Patient is having difficulty following directions. We will change what we can over to IV. MRI is scheduled for 4 this afternoon. PT OT and speech therapy are all involved. EEG is pending. EEG 11/28: When patient went for EEG yesterday afternoon, she developed seizure activity while having the procedure done. The seizure activity stopped without any medication. She was subsequently post ictal and was transferred to the intensive care unit. She underwent MRI and MRI/MRA of the head and neck that showed no evidence of recent infarct. Patient was unarousable after this responded to pain stimuli. There was concern decorticated posturing at that time. Patient was started on Keppra 1000 mg IV twice daily. She also underwent a repeat CAT scan of the brain that showed cerebral atrophy. No acute intracranial abnormality seen. No sign of cortical infarct. No change. Repeat chest x-ray shows no developing left basilar atelectasis and/or infiltrate. LP was attempted by anesthesia which was unsuccessful. She continued to have posturing and respiratory status was declining and patient was intubated and placed on mechanical ventilation. There is order for interventional radiology to perform lumbar puncture. She is currently on antimicrobials in the form of Rocephin, vancomycin, acyclovir and ampicillin. Patient also developed fever up to 103 there was consult placed with Dr. Roche. Dr. Nash is intensive care management. 11/29: Repeat EEG was limited due to muscle artifact. No obvious epileptiform discharges. Lumbar puncture was finally obtained by interventional radiology with removal of 15 mL of slightly tinge spinal fluid with evidence of pleocytosis consistent with meningeal coccal infection. Dr. Roche as adjusted Rocephin to 2 g every 12 hours. Ampicillin was discontinued. Neurology continues to follow. Patient is on Keppra 1000 mg twice daily IV as well as rectal aspirin. Patient has been afebrile since yesterday at 8 AM. Vital signs have been stable and patient has not required vasopressors. She remains intubated and on mechanical ventilation. White count is down slightly from yesterday to 15, potassium is low at 2.8 and will be replaced by protocol. Influenza testing came back negative. Blood cultures remain with no growth. Cerebral spinal fluid cultures are in progress. 2 feedings have been started. 11/30. Patient noted to have some spontaneous movement. Sedation was withdrawn. Patient squeezed hand on command. Blood pressure continued to be high with systolic systolic 192/51 respiratory rate 14. Patient still intubated requiring minimal vent settings. Pupils are equal and responsive to light. CSF analysis suggest increased glucose increased routine. Cultures not growing anything so far. West Nile virus negative. Comprehensive viral panel negative. Continue a acyclovir, ceftriaxone stopped seizure-like activity noted by the nurse when patient had a sedation vacation and received 1 mg of Ativan. Continue Keppra 1000 mg twice daily. Further recommendation pending from neurology. 12/01: Patient remains in ICU, and was extubated a few hours ago, patient remains to be hypertensive, without any respiratory difficulties when seen, she has some generalized edema noted, Lasix IV 40 mg to be given today, cultures are currently pending, Dr. Roche and Dr. Nash following closely. Patient is lethargic when seen, no verbal communication from patient today reveal blood culture shows diphtheroid species from specimen 11/26/2017. cleviprex started for bp control 12/03: Patient was seen and evaluated today, daughters was at the bedside. Patient is doing well, she was extubated yesterday with no complications. Repeat x-ray shows continued improving aeration at the left base, residual atelectasis and infiltrate remains. She continues to be hypertensive, clonidine increased to 0.2 mg 3 times a day in hopes to wean off Clevidipine so she can be moved out of the ICU. She is awake and answering questions appropriately. 12/04: Patient was evaluated today, she no major concerns or complaints. Repeat chest x-ray shows persistent retrocardiac opacity . Represent small left pleural effusion and compressive atelectasis. Dr. Roche on consult who recommends placement of a midline catheter and completion of 14 days of Rocephin. Midline was placed morning with no complications. Clevidipine drip was off all night except for 45 minutes, this morning it has been off since 7 AM , blood pressure has been well controlled. We'll plan for ECF for rehab and completion of her antibiotics. 12/05: Patient was evaluated, she is noted to be sitting up in the bed. Her blood pressure is 157/60 today, she is doing well off the clevidipine drip. She 'll be transferred out of the ICU to [facility]. Repeat chest x-ray shows small left pleural effusion with slight decrease from last x-ray. Again we'll plan for rehab and extended care facility for continuation of her IV antibiotics within the next day or two. 12/06: Patient has been evaluated by Dr. Romero and accepted at [facility] for inpatient rehab. Pulmonary medicine has recommended Decadron with tapering dose. Patient's mental status remains improved. Patient will be discharged to rehab today in stable condition. Discharge diagnoses: 1. 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 Acute stroke has been ruled out. 2. Acute hypoxic respiratory failure secondary to inability to protect her airway. 3. Hyperlipidemia. 4. hypertensive encephalothathy with hypertensive emergency 5. Hypothyroidism 6. Seizure 7. Overactive bladder 8. Bacteremia, ruled out, contamination 9. Anasarca, stable 10 Leukocytosis likely reactive. Discharge plan: Inpatient rehab at [facility] Impression and plan of care have been directed as dictated by the signing physician. Linda Mera nurse practitioner acting as scribe for signing physician. Patient Condition at Discharge: Good Plan - Discharge Summary Discharge Rx Participant: No New Discharge Prescriptions: New amLODIPine [Norvasc] 10 mg PO DAILY tab cefTRIAXone [Rocephin] 2,000 mg IVP Q12HR #13 syringe Dexamethasone [Hexadrol] 2 mg PO DAILY tab levETIRAcetam [Keppra] 1,000 mg PO BID tab Melatonin 10 mg PO HS tablet Continue Vitamin E (Dl,Tocopheryl Acet) [Vitamin E] 400 unit PO DAILY Fish Oil/Dha/Epa [Fish Oil 1,200 mg Fish Oil] 1 cap PO DAILY Atenolol/Chlorthalidone [Tenoretic 100 Tablet] 1 tab PO DAILY Levothyroxine Sodium [Synthroid] 44 mcg PO CRUZ Levothyroxine Sodium [Synthroid] 88 mcg PO MOTUWETHFRSA Solifenacin Succinate [Vesicare] 5 mg PO DAILY Potassium Chloride ER [K-Dur 10] 10 meq PO DAILY Estradiol [Estrace] 1 mg PO MOWEFR Magnesium Oxide [Mag-Ox] 400 mg PO DAILY Gemfibrozil [Lopid] 600 mg PO AC-BID Atorvastatin [Lipitor] 10 mg PO CRUZ Atorvastatin Calcium [Lipitor] 20 mg PO MOTUWETHFRSA Discontinued Glucosamine/Chondr Cruz A Sod [Osteo Bi-Flex Caplet] 1 tab PO BID Discharge Medication List Atenolol/Chlorthalidone [Tenoretic 100 Tablet] 1 tab PO DAILY 11/26/17 [History] Atorvastatin Calcium [Lipitor] 20 mg PO MOTUWETHFRSA 11/26/17 [History] Atorvastatin [Lipitor] 10 mg PO CRUZ 11/26/17 [History] Estradiol [Estrace] 1 mg PO MOWEFR 11/26/17 [History] Fish Oil/Dha/Epa [Fish Oil 1,200 mg Fish Oil] 1 cap PO DAILY 11/26/17 [History] Gemfibrozil [Lopid] 600 mg PO AC-BID 11/26/17 [History] Levothyroxine Sodium [Synthroid] 44 mcg PO CRUZ 11/26/17 [History] Levothyroxine Sodium [Synthroid] 88 mcg PO MOTUWETHFRSA 11/26/17 [History] Magnesium Oxide [Mag-Ox] 400 mg PO DAILY 11/26/17 [History] Potassium Chloride ER [K-Dur 10] 10 meq PO DAILY 11/26/17 [History] Solifenacin Succinate [Vesicare] 5 mg PO DAILY 11/26/17 [History] Vitamin E (Dl,Tocopheryl Acet) [Vitamin E] 400 unit PO DAILY 11/26/17 [History] Dexamethasone [Hexadrol] 2 mg PO DAILY tab 12/06/17 [Rx] Melatonin 10 mg PO HS tablet 12/06/17 [Rx] amLODIPine [Norvasc] 10 mg PO DAILY tab 12/06/17 [Rx] cefTRIAXone [Rocephin] 2,000 mg IVP Q12HR #13 syringe 12/06/17 [Rx] levETIRAcetam [Keppra] 1,000 mg PO BID tab 12/06/17 [Rx] Follow up Appointment(s)/Referral(s): Burke Wilson MD [Primary Care Provider] - 1-2 days Mariia Amado MD [STAFF PHYSICIAN] - 1 Week Patient Instructions/Handouts: Stroke (DC) Discharge Disposition: OTHER INSTITUTION NOT DEFINED
--- NOTE | 2017-12-06 22:35 | P.PN ---
Subjective Progress Note Date: 12/06/17 Principal diagnosis: altered mental status 77 years old female came into [facility] emergency center on November 26 and according to the family was not eating and drinking for the past 2 days. She went to bed on Sunday evening and was feeling fine. She woke up in the morning not feeling well and had some abdominal discomfort for which she took pepto-bismol but there was no vomiting or diarrhea at that time. She then developed confusion and difficulty with her speech. Patient was unable to comprehend and repeat appropriately. Her language was gibberish and lacked meaning. Patient denies any sensory or motor deficits. She denies any history of seizure or any similar episodes in the past. Patient was pleasantly confused. She does know where she is and can tell her name and date of . She presented afebrile with white count of 14.3. Vitals are stable with blood pressure slightly elevated 171/70. Saturating well on room air and afebrile. Patient did have a leukocytosis of 14.3. Urinalysis showed a small amount of blood otherwise negative for infection. Lactic acid 2.4. Normal troponin. CT head negative for any acute abnormalities no masses seen. Did have prominent choroid plexus cyst. CT abdomen and pelvis was done as patient had some tenderness in the lower quadrant which was unremarkable. Patient was initially admitted to the selective care unit where she was seen by neurology. By the following morning patient had more confusion and was having difficulty following any commands. She was made nothing by mouth. Echocardiogram reveals EF of 55-60%, trace mitral regurgitation, trace tricuspid regurgitation. Homocysteine level is normal at 12.02. Triglycerides 201, cholesterol 201, LDL 128 and HDL 34. Repeat troponins came back negative. Patient went for EEG yesterday afternoon, she developed seizure activity while having the procedure done. The seizure activity stopped without any medication. She was subsequently post ictal and not responding normally. She underwent MRI and MRI/ MRA of the head and neck that showed no evidence of recent infarct. Patient was unarousable after this responded to pain stimuli. There was concern decorticated posturing at that time. Patient was started on Keppra 1000 mg IV twice daily. She also underwent a repeat CAT scan of the brain that showed cerebral atrophy. No acute intracranial abnormality seen. No sign of cortical infarct. No change. Repeat chest x-ray shows no developing left basilar atelectasis and/or infiltrate. She was transferred into the intensive care unit. LP was attempted by anesthesia which was unsuccessful. She continued to have posturing and respiratory status was declining and patient was intubated and placed on mechanical ventilation. Interventional radiology to perform diagnostic lumbar puncture. She is currently on antimicrobials in the form of Rocephin, vancomycin, acyclovir and ampicillin. Patient also developed fever up to 103 yesterday afternoon and patient also developed a petechial papule rash that was new.. Patient is followed by Dr. Nash is intensive care management. Family states the patient has not had any recent travel. She goes to [facility] to visit her daughter and went to [place] for Thanksgiving. Family denied any bird, bat exposure. One month ago she did have the flu and this is what she thought was going on on Sunday morning when she woke up. They deny any unusual animal exposures. 11/29/2017 reveals the patient to have improved fever. Temperature 96.3 today. She is hemodynamically stable and not in vasopressor therapy. She continues to have poor mental status and respiratory failure and remains intubated and sedated and mechanically ventilated. The patient appears to be more comfortable today. Did not seem to be having the episodes of spontaneous posturing movements. 11/30/2017 reveals evidence of some improvement. The patient's fever is resolved. She has actually become hypertensive and is requiring multiple agents to improve her blood pressure. She had a sedation holiday at which point in time she felt commands from the nurse, hand squeezing occurred. The patient was agitated and is again sedated and doing well with sedation, is synchronous with the ventilator without other acute changes being noted 12/03/2017 the patient is now had a marked improvement. Her mental status has recovered and she has been extubated and is doing well. Neurologically she is awake and alert started to person place and time. Still feels quite weak. 12/04/2017 patient continues to have improvement. Her significant hypertension has resolved. She had some transient bradycardia and with alteration of her cardiac medications is doing better. Having no headache. Anxiety is improved. She is without any acute new changes. Feeling quite well. We'll move out of the ICU per hides inspector. 12/05/2017 reveals a patient with further improvement. Sitting upright having her dinner, and having a good discussion with her . He is able to relate that her neurological status appears to be at baseline. She is conversational and witty. 12/06/2017 patient continues to have further improvement but does have significant weakness. Looks forward to transfer to rehab to finish her antibiotics and to regain her strength to become independent again Objective - Vital Signs Vital signs: Vital Signs Temp 98.5 F 12/06/17 14:49 Pulse 69 12/06/17 14:49 Resp 16 12/06/17 14:49 BP 141/55 12/06/17 14:49 Pulse Ox 96 12/06/17 14:49 Intake & Output 12/06/17 12/06/17 12/07/17 06:59 18:59 06:59 Intake Total 200 750 Output Total 60 Balance 140 750 Intake: IV 40 0.9% Normal Saline 40 Intake, IV Titration 160 Amount Sodium Chloride 0.9% 1, 160 000 ml @ 20 mls/hr IV . Q24H SANCHEZ Rx#:[id number] Oral 750 Output: Urine 60 Other: Voiding Method Indwelling Catheter Indwelling Catheter # Voids 2 2 ABP, PAP, CO, CI - Last Documented Arterial Blood Pressure 154/47 - Exam Gen: This is a 77-year-old female. She appears to be comfortable. HEENT: Head is atraumatic, normocephalic. Pupils equal, round. Sclerae is anicteric. Mucous membranes are moist. NECK: Supple. No JVD. No lymphadenopathy. No thyromegaly. LUNGS: Diminished with a few scattered rhonchi. No intercostal retractions. HEART: Regular rate and rhythm. No murmur. ABDOMEN: Soft. Bowel sounds are present. No masses. No tenderness. SKIN: Patient has rash noted on her abdomen and extremities some areas it is petechial like is not blanchable or other areas papule-like. EXTREMITIES: No pedal edema. NEUROLOGICAL:, awake and alert oriented to person place and time. Able to move all extremities. Appears to have no acute gross focal sensory motor deficits. - Labs CBC & Chem 7: 12/06/17 06:28 12/05/17 15:30 Labs: Abnormal Lab Results - Last 24 Hours (Table) 12/06/17 12/06/17 12/06/17 Range/Units 06:28 06:56 11:14 WBC 15.3 H (3.8-10.6) k/uL Neutrophils # 9.6 H (1.3-7.7) k/uL Monocytes # 1.1 H (0-1.0) k/uL POC Glucose (mg/dL) 106 H 115 H (75-99) mg/dL Microbiology - Last 24 Hours (Table) 12/05/17 19:30 Catheter Tip Culture - Preliminary Catheter Tip 12/05/17 19:36 Wound Culture - Preliminary Catheter Site Laboratory Results WBC 15.3 k/uL (3.8-10.6) H 12/06/17 06:28 RBC 4.18 m/uL (3.80-5.40) 12/06/17 06:28 Hgb 11.6 gm/dL (11.4-16.0) 12/06/17 06:28 Hct 35.7 % (34.0-46.0) 12/06/17 06:28 MCV 85.4 fL (80.0-100.0) 12/06/17 06:28 MCH 27.8 pg (25.0-35.0) 12/06/17 06:28 MCHC 32.6 g/dL (31.0-37.0) 12/06/17 06:28 RDW 13.6 % (11.5-15.5) 12/06/17 06:28 Plt Count 282 k/uL (150-450) 12/06/17 06:28 Neutrophils % 63 % 12/06/17 06:28 Lymphocytes % 25 % 12/06/17 06:28 Monocytes % 7 % 12/06/17 06:28 Eosinophils % 3 % 12/06/17 06:28 Basophils % 0 % 12/06/17 06:28 Neutrophils # 9.6 k/uL (1.3-7.7) H 12/06/17 06:28 Lymphocytes # 3.8 k/uL (1.0-4.8) 12/06/17 06:28 Monocytes # 1.1 k/uL (0-1.0) H 12/06/17 06:28 Eosinophils # 0.5 k/uL (0-0.7) 12/06/17 06:28 Basophils # 0.1 k/uL (0-0.2) 12/06/17 06:28 Manual Slide Review Performed 11/28/17 06:06 Pathologist Review See comment A 11/28/17 06:06 PT 10.8 sec (9.0-12.0) 11/27/17 23:55 INR 1.1 (<1.2) 11/27/17 23:55 APTT 22.4 sec (22.0-30.0) 11/27/17 23:55 Fibrinogen 436 mg/dL (200-500) 11/28/17 06:06 D-Dimer 1.27 mg/L FEU (<0.60) H 11/27/17 23:55 Sample Site jorge 12/01/17 04:00 ABG pH 7.43 (7.35-7.45) 12/01/17 04:00 ABG pCO2 37 mmHg (35-45) 12/01/17 04:00 ABG pO2 85 mmHg (83-108) 12/01/17 04:00 ABG HCO3 25 mmol/L (21-25) 12/01/17 04:00 ABG Total CO2 26 mmol/L (19-24) H 12/01/17 04:00 ABG O2 Saturation 96.0 % (94-97) 12/01/17 04:00 ABG Base Excess 0.6 mmol/L 12/01/17 04:00 Nico Test no 12/01/17 04:00 FiO2 35 % 12/01/17 04:00 Sodium 141 mmol/L (137-145) 12/05/17 05:15 Potassium 4.6 mmol/L (3.5-5.1) 12/05/17 15:30 Chloride 103 mmol/L (98-107) 12/05/17 05:15 Carbon Dioxide 27 mmol/L (22-30) 12/05/17 05:15 Anion Gap 11 mmol/L 12/05/17 05:15 BUN 29 mg/dL (7-17) H 12/05/17 05:15 Creatinine 0.79 mg/dL (0.52-1.04) 12/05/17 05:15 Est GFR (CKD-EPI)AfAm 83 (>60 ml/min/1.73 sqM) 12/05/17 05:15 Est GFR (CKD-EPI)NonAf 72 (>60 ml/min/1.73 sqM) 12/05/17 05:15 Glucose 103 mg/dL (74-99) H 12/05/17 05:15 POC Glucose (mg/dL) 115 mg/dL (75-99) H 12/06/17 11:14 POC Glu Physics Department Chair ID 12/06/17 11:[address] Glu mg/dL 126 11/28/17 06:06 Hemoglobin A1c 6.0 % (4.0-6.0) 11/28/17 06:06 Lactic Ac Sepsis Rflx Y 11/26/17 10:13 Plasma Lactic Acid Ede 1.1 mmol/L (0.7-2.0) 11/26/17 14:14 Calcium 9.1 mg/dL (8.4-10.2) 12/05/17 05:15 Phosphorus 4.1 mg/dL (2.5-4.5) 12/05/17 05:15 Magnesium 1.8 mg/dL (1.6-2.3) 12/06/17 06:28 Total Bilirubin 0.9 mg/dL (0.2-1.3) 11/27/17 06:29 AST 18 U/L (14-36) 11/27/17 06:29 ALT 27 U/L (9-52) 11/27/17 06:29 Alkaline Phosphatase 43 U/L (38-126) 11/27/17 06:29 Total Creatine Kinase 86 U/L (30-135) 11/26/17 09:20 CK-MB (CK-2) 0.5 ng/mL (0.0-2.4) 11/26/17 09:20 CK-MB (CK-2) Rel Index 0.6 11/26/17 09:20 Troponin I <0.012 ng/mL (0.000-0.034) 11/26/17 20:56 Total Protein 6.2 g/dL (6.3-8.2) L 11/27/17 06:29 Albumin 3.9 g/dL (3.5-5.0) 11/27/17 06:29 Triglycerides 201 mg/dL (<150) H 11/27/17 06:29 Cholesterol 201 mg/dL (<200) H 11/27/17 06:29 LDL Cholesterol, Calc 128 mg/dL (0-99) H 11/27/17 06:29 HDL Cholesterol 33 mg/dL (40-60) L 11/27/17 06:29 Homocysteine 12.02 umol/L (4.00-14.00) 11/26/17 20:56 TSH 3.620 mIU/L (0.465-4.680) 12/02/17 05:00 Urine Color Yellow 11/28/17 00:15 Urine Appearance Turbid (Clear) H 11/28/17 00:15 Urine pH 5.5 (5.0-8.0) 11/28/17 00:15 Ur Specific [place] 1.024 (1.001-1.035) 11/28/17 00:15 Urine Protein 1+ (Negative) H 11/28/17 00:15 Urine Glucose (UA) Negative (Negative) 11/28/17 00:15 Urine Ketones Negative (Negative) 11/28/17 00:15 Urine Blood Large (Negative) H 11/28/17 00:15 Urine Nitrite Negative (Negative) 11/28/17 00:15 Urine Bilirubin Negative (Negative) 11/28/17 00:15 Urine Urobilinogen <2.0 mg/dL (<2.0) 11/28/17 00:15 Ur Leukocyte Esterase Large (Negative) H 11/28/17 00:15 Urine RBC 38 /hpf (0-5) H 11/28/17 00:15 Urine WBC 37 /hpf (0-5) H 11/28/17 00:15 Ur Squamous Epith Cells <1 /hpf (0-4) 11/26/17 09:20 Hyaline Casts 15 /lpf (0-2) H 11/28/17 00:15 Urine Mucus Rare /hpf (None) H 11/28/17 00:15 CSF Tube Number 4 11/28/17 15:30 CSF Volume 3.5 11/28/17 15:30 CSF Appearance Blood Tinged 11/28/17 15:30 CSF Color Leonardo 11/28/17 15:30 CSF RBC 1230 u/L (0-10) H 11/28/17 15:30 CSF Tot Nucleated Cells 170 u/L (0-5) H 11/28/17 15:30 CSF Mononuclear WBCs % 66 % 11/28/17 15:30 CSF Polynuclear WBCs % 34 % 11/28/17 15:30 CSF Glucose 97 mg/dL (40-70) H 11/28/17 15:30 CSF Total Protein 198 mg/dL (12-60) H 11/28/17 15:30 Vancomycin Trough 19.7 ug/mL 12/05/17 05:15 Levetiracetam 37.2 ug/mL (3.0-60.0) 12/01/17 04:30 West Nile Virus IgG Ab 0.03 INDEX (<1.30) 11/28/17 06:30 West Nile Virus IgM Ab 0.08 INDEX (<0.90) 11/28/17 06:30 West Nile RNA (RT-PCR) Negative 11/28/17 15:30 HSV I DNA PCR Not detected (Not detected) 11/28/17 06:30 HSV II DNA PCR Not detected (Not detected) 11/28/17 06:30 HSV (PCR) Source Blood - EDTA 11/28/17 06:30 Influenza Type A RNA Not Detected (Not Detectd) 11/28/17 16:54 Influenza Type B (PCR) Not Detected (Not Detectd) 11/28/17 16:54 Virus Source (()) 11/28/17 16:54 Viral Test See Below 11/28/17 16:54 Virus Analysis Interp See Below 11/28/17 16:54 Miscellaneous Test Listeria Ab 11/28/17 06:30 Misc Test Result See Comment 11/28/17 06:30 Microbiology 12/05/17 19:30 Catheter Tip Catheter Tip Culture - Preliminary 12/05/17 19:36 Catheter Site Wound Culture - Preliminary 11/28/17 01:45 Blood Blood Culture - Final No Growth after 144 hours 11/28/17 02:05 Blood Blood Culture - Final No Growth after 144 hours 11/28/17 15:30 Cerebral Spinal Fluid CSF Gram Stain - Final 11/28/17 15:30 Cerebral Spinal Fluid CSF Culture - Final 11/26/17 09:20 Blood Blood Culture Gram Stain - Final 11/26/17 09:20 Blood Blood Culture - Final Diphtheroid species 11/27/17 20:55 Sputum Gram Stain - Final 11/27/17 20:55 Sputum Sputum Culture - Final 11/26/17 09:20 Blood Blood Culture - Final 11/28/17 00:15 Urine,Catheterized Urine Culture - Final Assessment and Plan (1) Acute bacterial meningitis Narrative/Plan: Is noted the patient has had a rapid decline of her status associated with high- grade fever, altered mental status and respiratory failure requiring intubation and sedation with mechanical ventilation. The patient's family is present. We review the findings. There is evidence of fever with altered mental status and leukocytosis which is strongly consistent with a central nervous system infection. Lumbar puncture has now been performed and there is evidence of pleocytosis and consequently bacterial meningitis with seem to be most likely, and with the rash in 77-year-old could be consistent with meningococcal infection. We await the Gram stain to help further direct prophylactic therapy if needed. Antibiotic therapy was adjusted with 2 g of Rocephin every 12 hours, with the development of the rash ampicillin was discontinued, she has no alcoholism and seems to be a low risk for listeria, vancomycin is being utilized for now. With the concern for encephalitis acyclovir is also been initiated and will be continued until we have further data from her lumbar puncture. The family is aware of the severity and acuity of the illness and there is potential for long- term effects and potential even for . 11/29/2017 patient has some improvement in that she is no longer febrile and is less rigid. Oxygenation is stable and she has not and vasopressor therapy. Laboratory is contacted and the Gram stain reveals evidence of the many PMNs but no bacteria are seen. Other studies are pending. Blood cultures are negative so far. Leukocytosis is noted. The patient's skin lesions are stable and have not progressed. Antibiotic therapy continues. If the PCR comes back negative for HSV 1 and 2 as well as Varicela then acyclovir can be discontinued. 11/30/2017 the patient has had some further improvement. She is afebrile, her spasticity has improved and she follows command when she was a sedation holiday earlier in the day. Viral studies are negative for HSV 1, HSV-2 and Varicella and constantly acyclovir has been discontinued. The CSF Gram stain is negative and the culture is negative at this point in time. Of note the patient did receive intravenous antibiotic therapy for many hours for the lumbar puncture was actually performed. It is possible that we will not be able to find a pathogen. With negative blood cultures and rapid clearance of the CSF streptococcus pneumoniae would be the most likely, and statistically would be the most likely. No evidence of any listeria or meningo coccus at this time. Once culture is final will be able to discontinue isolation Fortunately the patient started to show some improvement this is related to the family that is [id number], her neurological recovery is still very difficult to ascertain at this point in time unclear if she had a further seizure again today. Of note West Nile testing is negative as expected epidemiologically. Antibiotic therapy continues at this time with vancomycin and high-dose Rocephin. 12/03/2017 reveals the patient with marked improvement. Her neurological status has recovered. She has been extubated and is now only on supplemental oxygen. She is eating her meal without difficulties. As noted awake alert oriented to person place and time without obvious focal sensory motor deficits. She is concerned because of her lack of memory for the last several days. We did let her know that she was on propofol and this is a usual event especially with meningitis. Given the patient was treated with antibiotic therapy for the lumbar puncture could be completed would make a negative CSF culture likely especially with Streptococcus pneumoniae. We'll request midline catheter placement and completion of 14 days of Rocephin. 12/04/2017 patient continues with her marked improvement. Neurologically is awake alert oriented to person place and time with no acute gross focal sensory motor deficits. She is calm and not anxious today. Blood pressure is improved , bradycardias also resolved. Critical care will likely move her out of the ICU. Midline catheter is in place to complete HER-2 weeks of interest antibiotic therapy of Rocephin 2 g every 12 hours for her likely Streptococcus pneumoniae meningitis. The small brightly erythematous lesions that were present at admission continue to fade, most are no longer palpable they're nontender and resolving. Likely from the bases of her sepsis is admission. 12/05/2017 reveals further improvement. The patient is awake and alert interacting well with her and showing her which he sense of humor. She feels very well and looks forward to going to rehab to improve her strength so she can get back to the care of her family. She is having no headache. Strength is improving. Appetite is well. No abdominal pain or diarrhea. Plan is to complete a total of 14 days of Rocephin for the likely Streptococcus pneumoniae meningitis. She'll have 7 days further treatment from today. Midline catheter placed for the completion of her antibiotics. It appears she' ll be going to the rehabilitation center at [facility] for her recovery. 12/06/2017 patient continues to have improvement. Other than her weakness from her significant illness she is recovering well. No fevers or chills. Leukocytosis is improving as her Decadron doses are being reduced. She has 7 further days of antibiotic therapy to complete the treatment of her Streptococcus pneumoniae meningitis. She has a midline catheter in place the catheter removed at the end of her therapy. Rocephin 2 g every 12 hours for 7 days will complete her course of treatment. She'll transfer to [facility] inpatient rehabilitation program for regaining of her independence Status: Acute Code(s): G00.9 - BACTERIAL MENINGITIS, UNSPECIFIED SNOMED Code (s): 53172063 (2) Fever Status: Acute Code(s): R50.9 - FEVER, UNSPECIFIED SNOMED Code(s): 093316499 (3) Leukocytosis Status: Acute Code(s): D72.829 - ELEVATED WHITE BLOOD CELL COUNT, UNSPECIFIED SNOMED Code(s): 576856194 (4) Seizure Status: Acute Code(s): R56.9 - UNSPECIFIED CONVULSIONS SNOMED Code(s): 62250253
--- NOTE | 2017-12-07 14:47 | CDI ---
Last Revision, July 2017 Documentation Clarification Form Date: 12/07/17 From: Raina Lorenzo Dotty Saavedra, Back Gray Cloth Washer between 8:30 am & 5 pm Raoul Admit Date: 11/26/2017 12:09:00 PM Patient Name: Almita Henderson Visit Number: [id number] Discharge Date: 12/03/17 ATTENTION: The Clinical Documentation Specialists (CDI) and [facility] Coding Staff appreciate your assistance in clarifying documentation. Please respond to the clarification below the line at the bottom and electronically sign. The CDI & [facility] Coding staff will review the response and follow-up if needed. Please note: Queries are made part of the Legal Health Record. If you have any questions, please contact the author of this message via ITS. Dr. Garret Maldonado Atrial fibrillation is documented in the HP, DS and numerous progress notes. Home medicaton is Atenolo 1 tablet daily. EKG/telemetry: Sinus rhythm with 1st degree AV block In your professional opinion, can you please clarify the type of atrial fibrillation, if known? Chronic/Permanent Paroxysmal Persistent Other, please specify Unable to determine Please continue to document in your progress notes and discharge summary in order to capture severity of illness and risk of mortality. Include clinical findings that support your diagnosis. please be more specific. Do not recall any history of atrial fibrillation on this patient and it is not located in my discharge summary under discharge diagnoses MTDD
[2017-12-09] MEDS ORDERED: LEVOTHYROXINE 88 MCG TAB PO SCH (06:30)
[2017-12-11] MEDS ORDERED: DEXAMETHASONE 0.5 MG TAB PO SCH (09:00)
--- NOTE | 2017-12-13 14:47 | CDI ---
Last Revision, July 2017 Documentation Clarification Form Date: 12/13/17 From: Raina Lorenzo Dotty Saavedra, Scarrer between 8:30 am & 5 pm Raoul Admit Date: 11/26/2017 12:09:00 PM Patient Name: Almita Henderson Visit Number: [id number] Discharge Date: 12/06/17 ATTENTION: The Clinical Documentation Specialists (CDI) and [facility] Coding Staff appreciate your assistance in clarifying documentation. Please respond to the clarification below the line at the bottom and electronically sign. The CDI & [facility] Coding staff will review the response and follow-up if needed. Please note: Queries are made part of the Legal Health Record. If you have any questions, please contact the author of this message via ITS. Dr. Garret Maldonado Atrial fibrillation is documented in the HP under chief complaint "Due to patient's A. fib.", in DS under hospital course "Due to patient's A. Fib." and numerous progress notes the same "Due to patient's A. Fib." Home medicaton is Atenolol 1 tablet daily. EKG/telemetry: Sinus rhythm with 1st degree AV block In your professional opinion, can you please clarify the type of atrial fibrillation, if known? Chronic/Permanent Paroxysmal Persistent Other, please specify Unable to determine Please continue to document in your progress notes and discharge summary in order to capture severity of illness and risk of mortality. Include clinical findings that support your diagnosis. ___The documentation that you are referring to is a typo that does not fit with the rest of the sentence. There is no a fib. MTDD
== END 2017-12-06 15:59 | DRG 94 ==
LOC: EC 09:01 → SUPCPDRO 09:01 → 6SEL 12:09 → 6ICU 11-27 17:20 → 3SUR 12-06 00:47
PROVIDERS: ADMIT Internal Medicine; ATTEND Internal Medicine
PROC: 5A1945Z Respiratory Ventilation, 24-96 Consecutive Hours (ICD-10-PCS; principal; 2017-11-27)
PROC: 0BH17EZ Insertion of Endotracheal Airway into Trachea, Via Natural or Artificial Opening (ICD-10-PCS; 2017-11-27)
PROC: 0D9670Z Drainage of Stomach with Drainage Device, Via Natural or Artificial Opening (ICD-10-PCS; 2017-11-27)
PROC: 009U3ZX Drainage of Spinal Canal, Percutaneous Approach, Diagnostic (ICD-10-PCS; 2017-11-28)
PROC: 00JU3ZZ Inspection of Spinal Canal, Percutaneous Approach (ICD-10-PCS; 2017-11-28)
PROC: 3E0G76Z Introduction of Nutritional Substance into Upper GI, Via Natural or Artificial Opening (ICD-10-PCS; 2017-11-28)
PROC: 06HM33Z Insertion of Infusion Device into Right Femoral Vein, Percutaneous Approach (ICD-10-PCS; 2017-11-29)
PROC: 03HY32Z Insertion of Monitoring Device into Upper Artery, Percutaneous Approach (ICD-10-PCS; 2017-11-29)
PROC: 4A133B1 Monitoring of Arterial Pressure, Peripheral, Percutaneous Approach (ICD-10-PCS; 2017-11-29)
PROC: 4A133J1 Monitoring of Arterial Pulse, Peripheral, Percutaneous Approach (ICD-10-PCS; 2017-11-29)
DX: G00.1 Pneumococcal meningitis (principal); J96.01 Acute respiratory failure with hypoxia; E87.4 Mixed disorder of acid-base balance; A85.8 Other specified viral encephalitis; G93.41 Metabolic encephalopathy; I67.4 Hypertensive encephalopathy; R47.01 Aphasia; I16.1 Hypertensive emergency; J98.11 Atelectasis; R56.9 Unspecified convulsions; R60.1 Generalized edema; I10 Essential (primary) hypertension; E78.5 Hyperlipidemia, unspecified; E03.9 Hypothyroidism, unspecified; N32.81 Overactive bladder; G93.0 Cerebral cysts; M19.91 Primary osteoarthritis, unspecified site; R32 Unspecified urinary incontinence; R40.2362 Coma scale, best motor response, obeys commands, at arrival to emergency department; R40.2142 Coma scale, eyes open, spontaneous, at arrival to emergency department; R40.2242 Coma scale, best verbal response, confused conversation, at arrival to emergency department; R29.706 NIHSS score 6; R47.1 Dysarthria and anarthria; R26.9 Unspecified abnormalities of gait and mobility; F41.9 Anxiety disorder, unspecified; R13.10 Dysphagia, unspecified; R00.1 Bradycardia, unspecified; G31.9 Degenerative disease of nervous system, unspecified; Z79.890 Hormone replacement therapy; Z79.899 Other long term (current) drug therapy; Z90.710 Acquired absence of both cervix and uterus; Z96.652 Presence of left artificial knee joint; Z90.49 Acquired absence of other specified parts of digestive tract; Z98.42 Cataract extraction status, left eye; Z98.41 Cataract extraction status, right eye; Z96.1 Presence of intraocular lens; Z80.0 Family history of malignant neoplasm of digestive organs; Z82.49 Family history of ischemic heart disease and other diseases of the circulatory system; Z82.3 Family history of stroke; Z80.7 Family history of other malignant neoplasms of lymphoid, hematopoietic and related tissues
CPT/HCPCS: 00000; 36415; 36600; 62270; 70450; 70544; 70549; 70553; 71045; 71046; 74177; 80048; 80053; 80061; 80177; 80202; 81001; 82550; 82553; 82805; 82945; 83036; 83090; 83605; 83735; 84100; 84132; 84157; 84443; 84484; 85025; 85027; 85379; 85384; 85610; 85730; 86609; 86788; 86789; 87040; 87070; 87086; 87205; 87252; 87496; 87498; 87502; 87529; 87634; 87798; 88108; 89050; 93005; 93306; 94002; 94003; 94640; 94760; 95816; 95819; 99285

== ENCOUNTER 2021-03-01 20:10 | Inpatient (IN) | payer MEDICARE, BC ==
[2021-03-01 21:20] LABS: Basophils # (A) 0.1 k/uL (0-0.2); Basophils % (A) 1 %; Eosinophils # (A) 0.2 k/uL (0-0.7); Eosinophils % (A) 2 %; HCT 46.3 % (34.0-46.0); HGB 15.2 gm/dL (11.4-16.0); Lymphocytes % (A) 24 %; MCH 28.3 pg (25.0-35.0); MCHC 32.8 g/dL (31.0-37.0); MCV 86.4 fL (80.0-100.0); Mean Platelet Volume 7.8; Monocytes # (A) 0.7 k/uL (0-1.0); Monocytes % (A) 5 %; Neutrophils # (A) 8.4 k/uL (1.3-7.7); Neutrophils % (A) 66 %; Platelet Count 208 k/uL (150-450); RBC 5.36 m/uL (3.80-5.40); RDW 13.5 % (11.5-15.5); WBC 12.7 k/uL (3.8-10.6)
[2021-03-01 21:28] LABS: Albumin 4.4 g/dL (3.5-5.0); Potassium 3.7 mmol/L (3.5-5.1); Total Bilirubin 0.5 mg/dL (0.2-1.3); Total Protein 6.8 g/dL (6.3-8.2)
--- NOTE | 2021-03-01 22:01 | CT ---
EXAM: CT brain wo con CLINICAL HISTORY: Headache. COMPARISON: None TECHNIQUE: Contiguous axial noncontrast images of the brain were obtained. Coronal and sagittal refor mats were generated and reviewed. Automated dose control was used for this exam. FINDINGS: There is age indeterminate hypoattenuating area within the right occipital lobe. No acute intracrania l hemorrhage, midline shift or hydrocephalus. Otherwise white matter is grossly preserved Ventricular size and configuration is within normal limits for degree of parenchymal volume. The paranasal sinuses are clear. The mastoid air cells are clear. No evidence for calvarial fracture. IMPRESSION: Age-indeterminate right occipital lobe focal hypoattenuation. If there is concern for acute infarct, recommend MRI for further evaluation. No acute intracranial hemorrhage. Findings were reported to caring physician by me at time of dictation.
--- NOTE | 2021-03-01 22:42 | ED ---
General Adult HPI - General Chief complaint: Recheck/Abnormal Lab/Rx Stated complaint: High blood pressure Time Seen by Provider: 03/01/21 20:37 Source: patient Mode of arrival: ambulatory Limitations: no limitations - History of Present Illness Initial comments: Is an 80-year-old female with a history of hypertension who comes in the emergency department for concern for high blood pressure. Patient states that 2 days ago she developed a right-sided headache. She states that she took a Tylenol and this resolved however yesterday around 10 or 11am she states that she had a feeling of not feeling right and feeling off all day. She states that it sort of felt like she was dizzy however it is difficult for her to describe. This continued until today. This evening she noted that she was having some changes in her vision where she felt like there is movement in the left field of view. She states that this started around 5 PM. He states that she did take her blood pressure at this time and it was elevated. Patient states that she has no focal weakness, numbness, or tingling. She's had no difficulty with ambulation. She states that she called her primary doctor who advised her to take a second dose of her blood pressure medication however when her blood pressure remained elevated at home she decided to come emergency department. - Related Data Home Medications Medication Instructions Recorded Confirmed Vitamin E (Dl,Tocopheryl Acet) 400 unit PO DAILY 11/26/17 03/01/21 [Vitamin E (400 Iu = 180 mg)] estradioL [Estrace] 1 mg PO MOWEFR 11/26/17 03/01/21 Atenolol/Chlorthalidone 1 tab PO DAILY 03/01/21 03/01/21 [Atenolol-Chlorthalidone 100-25] Atorvastatin Calcium [Lipitor] 40 mg PO DAILY 03/01/21 03/01/21 Canagliflozin [Invokana] 100 mg PO DAILY 03/01/21 03/01/21 Cholecalciferol (Vitamin D3) 125 mcg PO DAILY 03/01/21 03/01/21 [Vitamin D3 (5000 Iu)] Levothyroxine Sodium [Synthroid] 112 mcg PO DAILY 03/01/21 03/01/21 Magnesium 250 mg PO DAILY 03/01/21 03/01/21 [place]-3 Acid Ethyl Esters [Lovaza] 1 gm PO BID 03/01/21 03/01/21 Potassium Chloride ER [K-Dur 20] 20 meq PO DAILY 03/01/21 03/01/21 Quinapril HCl [Accupril] 20 mg PO DAILY 03/01/21 03/01/21 Zinc 50 mg PO DAILY 03/01/21 03/01/21 Allergies Allergy/AdvReac Type Severity Reaction Status Date / Time No Known Allergies Allergy Verified 03/01/21 21:34 Review of Systems ROS Statement: Those systems with pertinent positive or pertinent negative responses have been documented in the HPI. ROS Other: All systems not noted in ROS Statement are negative. Past Medical History Past Medical History: Hyperlipidemia, Hypertension, Osteoarthritis (OA), Thyroid Disorder Additional Past Medical History / Comment(s): Incontinent of urine at times. History of Any Multi-Drug Resistant Organisms: None Reported Past Surgical History: Appendectomy, Hysterectomy, Joint Replacement, Orthopedic Surgery Additional Past Surgical History / Comment(s): L knee arthroscopy, L total knee arthroplasty, colonoscopy, bilateral cataract removal/lens toric Past Psychological History: No Psychological Hx Reported Smoking Status: Never smoker Past Alcohol Use History: Rare Past Drug Use History: None Reported - Past Family History Father Family Medical History: Cancer Additional Family Medical History / Comment(s): Father had liver cancer and at the age of 52 yrs. Mother Family Medical History: Coronary Artery Disease (CAD), CVA/TIA Additional Family Medical History / Comment(s): Family believes pt's mother of a AK at the age of 85 yrs. Sister(s) Family Medical History: Cancer (Lymphoma 20 years ago) Additional Family Medical History / Comment(s): Patient lives with his has been. She has 2 kids both healthy without any medical problems. She denies any use of cane or walker at home. Does not wear oxygen at night General Exam - General Exam Comments Initial Comments: Constitutional: Awake alert Appears comfortable Head: Normocephalic atraumatic Eyes: no conjunctival injection No scleral icterus EOMI Neck: No JVD Supple Heart: Regular rate rhythm normal S1-S2 no murmurs Lungs: Clear to auscultation bilaterally No wheezing No rales Abdomen: Soft nondistended nontender Extremities: Non edematous DP pulses intact Radial pulses intact Neuro: A&Ox3, the patient has a left sided hemianopsia on examination rest of her cranial nerves are intact, 5 out of 5 strength in upper and lower extremities bilaterally, normal finger to nose and heel to herrera testing. Sensation intact to light touch in all extremities Psych: Appropriate mood and affect Limitations: no limitations Course Vital Signs 03/01/21 20:11 Temperature 97.3 F L Pulse Rate 75 Respiratory 16 Rate Blood Pressure 189/78 O2 Sat by Pulse 96 Oximetry - Reevaluation(s) Reevaluation #1: 03/01/21 22:40 Appears to be R occipital lobe infarct. Difficult to discern exactly when the patients symptoms started. She states she has not felt right the last 2 days. She felt dizzy yesterday. Vision symptoms noticed today however reported to be resolved by the time she came into the hospital. However she does have a L hemianopsia but she does not notice it. CT scan already showing ischemic har[place] es. I suspect the stroke occurred sometime yesterday morning and was noticed this evening. Unclear timeline as to when it started exactly. I spoke with Dr. Whalen who stated that since symptoms seems to have started yesterday and already changes on CT, pt not a TPA candidate. He recommended a CTA. 03/01/21 22:53 Reevaluation #2: 03/01/21 23:29 Discussed CTA with radiologist. No LVO. 50% stenosis of L ICA. States infarct looks to be subacute. Medical Decision Making - Medical Decision Making Is an 78-year-old female who presents emergency department for headache, feelings of dizziness, visual changes. It seems that the symptoms started sometime in the last 48 hours. Likely started yesterday around 10 AM. The patient was found to have a left-sided hemianopsia on examination. No other focal findings on exam. The patient did have a CT performed that showed a right occipital lobe infarct. The patient was given aspirin. I spoke with Dr. man Jensen recommended a CTA however did state that the patient's not a TPA candidate because the patient was outside the time window. There is no critical stenosis or large vessel occlusion in the CTA. The patient can be admitted for further stroke workup. Dr. Grant on consult. Dr. Wilson except see admission. - Lab Data Result diagrams: 03/01/21 21:11 03/01/21 21:11 Lab Results 03/01/21 03/01/21 Range/Units 21:11 21:11 WBC 12.7 H (3.8-10.6) k/uL RBC 5.36 (3.80-5.40) m/uL Hgb 15.2 (11.4-16.0) gm/dL Hct 46.3 H (34.0-46.0) % MCV 86.4 (80.0-100.0) fL MCH 28.3 (25.0-35.0) pg MCHC 32.8 (31.0-37.0) g/dL RDW 13.5 (11.5-15.5) % Plt Count 208 (150-450) k/uL MPV 7.8 Neutrophils % 66 % Lymphocytes % 24 % Monocytes % 5 % Eosinophils % 2 % Basophils % 1 % Neutrophils # 8.4 H (1.3-7.7) k/uL Lymphocytes # 3.0 (1.0-4.8) k/uL Monocytes # 0.7 (0-1.0) k/uL Eosinophils # 0.2 (0-0.7) k/uL Basophils # 0.1 (0-0.2) k/uL Sodium 140 (137-145) mmol/L Potassium 3.7 (3.5-5.1) mmol/L Chloride 104 (98-107) mmol/L Carbon Dioxide 25 (22-30) mmol/L Anion Gap 11 mmol/L BUN 29 H (7-17) mg/dL Creatinine 1.00 (0.52-1.04) mg/dL Est GFR (CKD-EPI)AfAm 61 (>60 ml/min/1.73 sqM) Est GFR (CKD-EPI)NonAf 53 (>60 ml/min/1.73 sqM) Glucose 151 H (74-99) mg/dL Calcium 10.0 (8.4-10.2) mg/dL Total Bilirubin 0.5 (0.2-1.3) mg/dL AST 22 (14-36) U/L ALT 22 (4-34) U/L Alkaline Phosphatase 48 (38-126) U/L Total Protein 6.8 (6.3-8.2) g/dL Albumin 4.4 (3.5-5.0) g/dL Disposition Clinical Impression: CVA (cerebral vascular accident) Disposition: ADMITTED IP TO THIS HOSP Condition: Stable Referrals: Burke Wilson MD [Primary Care Provider] - 1-2 days
--- NOTE | 2021-03-01 23:28 | CT ---
EXAMINATION TYPE: CT angio head neck DATE OF EXAM: 03/01/2021 COMPARISON: None HISTORY: L hemianopsia CT DLP: 418.9 mGycm Automated exposure control for dose reduction was used. CONTRAST: Performed with IV Contrast, patient injected with 65 mL of Isovue 370. Images obtained from the aortic arch to the vertex of the brain with IV contrast. There are 3-D post processed images. There is normal branching pattern of the great vessels on the aortic arch. There is bilateral arteria l flow in the subclavian arteries. There is arterial flow in both vertebral arteries. There is arteri al flow in the common internal and external carotid arteries bilaterally. There is some plaque format ion at the origin of the left internal carotid artery with estimated 50% stenosis. There is plaque fo rmation and 50% stenosis origin of the right external carotid artery. There is no evidence of carotid or vertebral artery aneurysm or dissection. There is normal contrast opacification of the venous sinuses. There is arterial flow in the anterior middle and posterior cerebral arteries. There is no mass effect. I see no evidence of intracranial an eurysm or neovascularity. There is diminutive A1 segment of left anterior cerebral artery. There is n o mass effect. 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 No significant intracranial angiographic abnormality. There is some fusiform narrowing of the proxima l left anterior cerebral artery.
[2021-03-02] MEDS ORDERED: ACETAMINOPHEN TAB 325 MG TAB PO PRN (08:21)
[2021-03-02] MEDS: ASPIRIN 325 MG TAB PO SCH (09:18)
[2021-03-02] MEDS ORDERED: NON FORMULARY DRUG (Canagliflozin [Invokana] 100 MG Tablet) PO SCH (12:00)
[2021-03-02] MEDS ORDERED: lisinopriL 20 MG TAB PO SCH (12:00)
--- NOTE | 2021-03-02 12:19 | P.CNNES ---
History of Present Illness Consult date: 03/02/21 Requesting physician: Jelani Dudley Reason for Consult: CVA History of Present Illness: Patient is a 80-year-old female came to the hospital yesterday at 8:10 PM for visual disturbance. Patient states that on Sunday morning, one day prior to admission, patient woke up at 8 AM in usual state of health. At 10 AM she devel oped a headache on the right side pointing to the right temporal region and felt her vision was not right. She just did not feel right. She felt something was moving in her vision. Patient stayed home. She did not have any slurred speech, facial droop, or any numbness tingling focal weakness or balance issues. She stayed home. The next day (on the morning of arrival) she checked her blood pressure was running 195/89, 211/81. She spoke to her primary physician, who recommended her to take an extra tablet of blood pressure medication. Even after taking an extra tablet of blood pressure medication, her blood pressure stayed high. She therefore decided to come to the ER. Patient was not a candidate for TPA, as her symptoms have been present for greater than 24 hours. Vital signs on arrival blood pressure 189/78, pulse rate 75, temperature 97.3. CT head showed age indeterminate right occipital lobe focal hypoattenuation. There is concern for acute infarct, recommend MRI for further evaluation. No acute intracranial hemorrhage. CTA of the head and neck showed 50% stenosis of the left ICA. No significant intracranial angiographic abnormality. There is some fusiform narrowing of the proximal left anterior cerebral artery. Blood tests revealed WBC 12.7 hemoglobin 15.2, platelets 208. Chem-7 is normal. Hepatic panel normal. Patient's last A1c 6.5 on 01/20/2021. Fasting lipid panel with cholesterol 171, LDL 97.8, HDL 32 and triglycerides 206 on 01/20/2021. TFTs normal. Patient's home medications include Estrace, and atenolol/chlorthalidone, potassium, quinapril 20 mg, vitamin D, Lipitor 40 mg, levothyroxine and invokana. Patient does take Aspirin 81 mg qd since last 1 year (patient forgot to mention about aspirin to the nursing staff, therefore not listed in her home medication list). Patient has history of hypertension for 30 years, borderline diabetes. Never smoked. She does have hyperlipidemia. Patient states that in 2018 she suffered from bacterial meningitis for which she was hospitalized for 10 days, after which she had no residual deficits, except for some decreased vision in the left eye. She required a new pair of lenses. Patient also has some issues with the left ear, when she would hear "swishing sound", no tinnitus. She had an MRI done at outside facility on 12/10/2020, which was reported as normal. She does not have any pulsatile tinnitus, no vertigo. Patient states she also had history of a seizure in 2018 when she suffered from meningitis. Review of Systems As above in detail. All review of systems unremarkable. She does have some arthritis. Denies any chest pain shortness of breath wheezing or cough. Denies any abdominal pain nausea vomiting. She has visual issues, hearing issues on the left side. No fever or chills. No memory problems. No anxiety depression. Past Medical History Past Medical History: Hyperlipidemia, Hypertension, Osteoarthritis (OA), Thyroid Disorder Additional Past Medical History / Comment(s): Incontinent of urine at times, bacterial meningitis 2018 History of Any Multi-Drug Resistant Organisms: None Reported Past Surgical History: Appendectomy, Hysterectomy, Joint Replacement, Orthopedic Surgery Additional Past Surgical History / Comment(s): L knee arthroscopy, L total knee arthroplasty, colonoscopy, bilateral cataract removal/lens toric Past Anesthesia/Blood Transfusion Reactions: No Reported Reaction Past Psychological History: No Psychological Hx Reported Additional Psychological History / Comment(s): Pt resides with her spouse. She uses no assistive device. She drives. Smoking Status: Never smoker Past Alcohol Use History: Rare Past Drug Use History: None Reported - Past Family History Father Family Medical History: Cancer Additional Family Medical History / Comment(s): Father had liver cancer and at the age of 52 yrs. Mother Family Medical History: Coronary Artery Disease (CAD), CVA/TIA Additional Family Medical History / Comment(s): Family believes pt's mother of a OK at the age of 85 yrs. Sister(s) Family Medical History: Cancer Additional Family Medical History / Comment(s): Patient lives with his has been. She has 2 kids both healthy without any medical problems. She denies any use of cane or walker at home. Does not wear oxygen at night. Medications and Allergies Home Medications Medication Instructions Recorded Confirmed Type Vitamin E (Dl,Tocopheryl Acet) 400 unit PO DAILY 11/26/17 03/01/21 History [Vitamin E (400 Iu = 180 mg)] estradioL [Estrace] 1 mg PO MOWEFR 11/26/17 03/01/21 History Atenolol/Chlorthalidone 1 tab PO DAILY 03/01/21 03/01/21 History [Atenolol-Chlorthalidone 100-25] Atorvastatin Calcium [Lipitor] 40 mg PO DAILY 03/01/21 03/01/21 History Canagliflozin [Invokana] 100 mg PO DAILY 03/01/21 03/01/21 History Cholecalciferol (Vitamin D3) 125 mcg PO DAILY 03/01/21 03/01/21 History [Vitamin D3 (5000 Iu)] Levothyroxine Sodium [Synthroid] 112 mcg PO DAILY 03/01/21 03/01/21 History Magnesium 250 mg PO DAILY 03/01/21 03/01/21 History [place]-3 Acid Ethyl Esters [Lovaza] 1 gm PO BID 03/01/21 03/01/21 History Potassium Chloride ER [K-Dur 20] 20 meq PO DAILY 03/01/21 03/01/21 History Quinapril HCl [Accupril] 20 mg PO DAILY 03/01/21 03/01/21 History Zinc 50 mg PO DAILY 03/01/21 03/01/21 History Allergies Allergy/AdvReac Type Severity Reaction Status Date / Time No Known Allergies Allergy Verified 03/01/21 21:34 Physical Examination - Vital Signs Vital Signs: Vital Signs Temp Pulse Pulse Resp BP BP Pulse Ox 03/02/21 08:00 98.7 F 68 16 151/69 95 03/02/21 04:00 97.9 F 63 16 157/62 96 03/02/21 02:00 98.0 F 65 16 196/76 96 03/02/21 01:43 97.9 F 86 16 184/71 95 03/02/21 01:00 186/67 03/02/21 00:00 85 16 193/75 96 03/01/21 23:00 81 16 03/01/21 22:00 16 03/01/21 21:15 75 16 183/82 96 03/01/21 20:11 97.3 F L 75 16 189/78 96 Intake and Output 03/01/21 03/02/21 03/02/21 22:59 06:59 14:59 Intake Total 10 190 Balance 10 190 Intake: IV 10 10 Invasive Line 1 10 10 Oral 180 Other: Voiding Method Toilet Toilet # Voids 0 Weight 85.729 kg 84.9 kg Patient is an elderly female, in no acute distress. Patient is very pleasant. Patient is alert awake oriented to time place and person. Speech and language f unctions are normal. Attention, concentration and fund of knowledge is adequate. On cranial examination, pupils are round and reacting to light, visual sorensen revealed complete left homonymous hemianopia on confrontation. Her extraocular muscles are intact with no nystagmus. Face is symmetric, tongue protrudes to the midline. Palatal elevation and sensation normal, hearing is slightly decreased particularly on the left and shoulder shrug normal, facial sensation normal. On muscle strength testing, there is no pronator drift and the strength is normal in arms and legs distally and proximally. Deep tendon reflexes are 2 at the biceps, 1 brachioradialis, trace in the lower limbs and plantars downgoing bilaterally. Sensory to touch is equal with no neglect. Cerebellar function showed no ataxia for [id number] testing. No dysdiadochokinesia. Tone and bulk of muscles normal. Gait not checked. She has no issues with balance or gait. Patient does not use any assistive device. On general examination, there is no carotid bruit or murmur, S1-S2 audible. Abdomen is soft nontender. Chest is clear. Peripheral pulses are present. No edema. Results - Laboratory Findings CBC and BMP: 03/01/21 21:11 03/01/21 21:11 Abnormal Lab Findings: Abnormal Labs 03/01/21 03/01/21 21:11 21:11 WBC 12.7 H Hct 46.3 H Neutrophils # 8.4 H BUN 29 H Glucose 151 H Assessment and Plan Assessment: * Acute ischemic stroke right occipital lobe in [employer] territory, possibly embolic. * Hypertension * Hyperlipidemia Plan: * CTA of head and neck reported 50% stenosis of the left ICA. No significant intracranial angiographic abnormality. There is some fusiform narrowing of the proximal left NELY. * 2-D echo pending. * Hemoglobin A1c 6.5 on 01/20/2021. * Lipid panel with cholesterol 171, LDL 97.8, HDL 32 and triglycerides 206. Continue Lipitor 40 mg. * Discontinue Estrace at this point. * Aggressive control of blood pressure * Telemetry monitoring. * Patient will be placed on dual antiplatelet medication with aspirin 81 mg, Plavix 75 mg. After 3 weeks stop aspirin and maintain on Plavix 75 mg.
[2021-03-02] MEDS: CLOPIDOGREL 75 MG TAB PO SCH (13:12)
[2021-03-02] MEDS: ATORVASTATIN 40 MG TAB PO SCH (13:13)
[2021-03-02] MEDS: atenoloL 50 MG TAB PO SCH (13:14)
[2021-03-02] MEDS: CHLORTHALIDONE 25 MG TAB PO SCH (13:14)
[2021-03-02] MEDS ORDERED: INVOKANA 100 MG PO SCH (15:00)
[2021-03-02 15:27] LABS: Glucose,Whole Blood 125 mg/dL (75-99)
[2021-03-02 15:43] LABS: Chol/HDL Ratio 5.43; LDL Cholesterol,Calculated 103.4 mg/dL (0.0-131.0); VLDL Calculation 51.6 mg/dL (5.00-40.00)
--- NOTE | 2021-03-02 15:45 | P.HPIM ---
History of Present Illness H&P Date: 03/02/21 HISTORY OF PRESENT ILLNESS This is an 80-year-old female patient of Dr. Dr. Wilson with past medical history of hypertension, hyperlipidemia, diabetes mellitus type 2, vitamin D deficiency, hypothyroidism, generalized osteoarthritis, urinary incontinence. Patient presented to [facility] emergency center due to high blood pressure and right-sided headache been going on for 2 days. She been taking Tylenol which helped but then she was not feeling right on the day yesterday. She was dizzy. Last night she noticed she was having some changes in her vision that started around 5 PM. She checked her blood pressure at that time and it was elevated. She denied any weakness in her upper or lower extremities and no numbness or tingling. She had no difficulty ambulating. She did call the office yesterday stating that her blood pressure was high and she was advised to take an additional dose of quinapril but her blood pressure remained elevated and she came into the emergency center for evaluation. She was found to be afebrile, heart rate 75, blood pressure 189/78, pulse ox 96% on room air. Blood work revealed WBC 12.7, hemoglobin 15.2, platelet count 208. Electrolytes were normal. BUN 29 creatinine 1. Blood sugar 151. Liver function tests were normal. CAT scan of the brain revealed age indeterminate right occipital lobe focal hypoattenuation. There is concern for acute infarct recommend MRI. No acute intracranial hemorrhage. CTA of the head and neck revealed 50% stenosis of the left internal carotid artery. No significant intracranial angiographic abnormality. There is some fusiform narrowing at the proximal left anterior cerebral artery. Patient admitted to the cardiac stepdown unit and seen by neurology for an acute isch emic stroke right occipital lobe and the LEAD DATA ARCHITECT territory possibly embolic. Echocardiogram is pending. Recommendations from neurology is to continue aspirin 81 mg daily, Plavix 75 mg daily and after 3 weeks stop aspirin and continue patient on Plavix. REVIEW OF SYSTEMS Constitutional: No fever, no chills, no night sweats. No weight change. No weakness, fatigue or lethargy. No daytime sleepiness. EENT: No headache. No blurred vision or double vision,reported loss of vision. No loss of Hearing, no ringing in the ears, no dizziness. No nasal drainage or congestion. No epistaxis. No sore throat. Lungs: No shortness of breath, cough, no sputum production. No wheezing. Cardiovascular: No chest pain, no lower extremity edema. No palpitations. No paroxysmal nocturnal dyspnea. No orthopnea. No lightheadedness or dizziness. No syncopal episodes. Abdominal: No abdominal pain. No nausea, vomiting. No diarrhea. No constipation. No bloody or tarry stools.. No loss of appetite. Genitourinary: No dysuria, increased frequency, urgency. No urinary retention. Musculoskeletal: No myalgias. No muscle weakness, no gait dysfunction, no frequent falls. No back pain. No neck pain. Integumentary: No wounds, no lesions. No rash or pruritus. No unusual bru ising. No change in hair or nails. Neurologic: No aphasia. No facial droop. No change in mentation. No head injury. No headache. No paralysis. No paresthesia. Psychiatric: No depression. No anxiety. No mood swings. Endocrine: No abnormal blood sugars. No weight change. No excessive sweating or thirst. No cold intolerance. MEDICAL HISTORY Hypertension, hypertensive cardio vascular disease Diabetes mellitus type 2 Hyperlipidemia Vitamin D deficiency Hypothyroidism SURGICAL HISTORY APPENDECTOMY HYSTERECTOMY LEFT TOTAL KNEE ARTHROPLASTY BILATERAL CATARACT REMOVAL AND INTRAOCULAR LENS IMPLANTS COLONOSCOPY SOCIAL HISTORY Patient lives at home with her . She is a lifelong nonsmoker, rare alcohol use, no marijuana or illicit drug use. FAMILY HISTORY Father at age 52 from liver cancer. PHYSICAL EXAMINATION Gen: This is an 80-year-old female. Patient is resting in bed appears to be comfortable and in no acute distress. HEENT: Head is atraumatic, normocephalic. Pupils equal, round. left lateral homogenous hemianopia. Sclerae is anicteric. NECK: Supple. No JVD. No lymphadenopathy. No thyromegaly. LUNGS: Clear to auscultation. No wheezes or rhonchi. No intercostal retractions. HEART: Regular rate and rhythm. No murmur. ABDOMEN: Soft. Bowel sounds are present. No masses. No tenderness. EXTREMITIES: No pedal edema. No calf tenderness. NEUROLOGICAL: Patient is awake, alert and oriented x3. Cranial nerves 2 through 12 are grossly intact. ASSESSMENT AND PLAN 1. Acute ischemic stroke right occipital lobe and the LEAD DATA ARCHITECT territory, possible embolic. Echocardiogram is pending. Neurology consult is appreciated. Patient to continue aspirin 81 mg daily, Plavix 75 mg daily, after 3 weeks, discontinue aspirin and maintain patient on Plavix 75 mg daily. continue atorvastatin 40 mg daily. Hemoglobin A1c pending. 2. Hypertension, hypertensive cardio vascular disease. Continue atenolol 100 mg daily, [place] 25 mg daily, lisinopril 20 mg daily. 3. Diabetes mellitus type 2. Patient will be placed on NovoLog scale before meals and at bedtime. Family may bring in Invokana 100 mg daily from home. 4. Hyperlipidemia. Continue Lipitor 40 mg daily. 5. Vitamin D deficiency. Continue supplement. 6. Hypothyroidism. Continue levothyroxine 112 g daily. 7. GI prophylaxis. Protonix 40 mg oral daily. 8. DVT prophylaxis. SCDs and LEIGHANN hose. Patient will be admitted to the hospital for a minimum of 2 night stay. DISCHARGE PLAN Home. Impression and plan of care have been directed as dictated by the signing physician. Linda Mera nurse practitioner acting as scribe for signing physician. Past Medical History Past Medical History: Hyperlipidemia, Hypertension, Osteoarthritis (OA), Thyroid Disorder Additional Past Medical History / Comment(s): Incontinent of urine at times, bacterial meningitis 2018 History of Any Multi-Drug Resistant Organisms: None Reported Past Surgical History: Appendectomy, Hysterectomy, Joint Replacement, Orthopedic Surgery Additional Past Surgical History / Comment(s): L knee arthroscopy, L total knee arthroplasty, colonoscopy, bilateral cataract removal/lens toric Past Anesthesia/Blood Transfusion Reactions: No Reported Reaction Past Psychological History: No Psychological Hx Reported Additional Psychological History / Comment(s): Pt resides with her spouse. She uses no assistive device. She drives. Smoking Status: Never smoker Past Alcohol Use History: Rare Past Drug Use History: None Reported - Past Family History Father Family Medical History: Cancer Additional Family Medical History / Comment(s): Father had liver cancer and at the age of 52 yrs. Mother Family Medical History: Coronary Artery Disease (CAD), CVA/TIA Additional Family Medical History / Comment(s): Family believes pt's mother of a [place] at the age of 85 yrs. Sister(s) Family Medical History: Cancer Additional Family Medical History / Comment(s): Patient lives with his has been. She has 2 kids both healthy without any medical problems. She denies any use of cane or walker at home. Does not wear oxygen at night. Medications and Allergies Home Medications Medication Instructions Recorded Confirmed Type Vitamin E (Dl,Tocopheryl Acet) 400 unit PO DAILY 11/26/17 03/01/21 History [Vitamin E (400 Iu = 180 mg)] estradioL [Estrace] 1 mg PO MOWEFR 11/26/17 03/01/21 History Atenolol/Chlorthalidone 1 tab PO DAILY 03/01/21 03/01/21 History [Atenolol-Chlorthalidone 100-25] Atorvastatin Calcium [Lipitor] 40 mg PO DAILY 03/01/21 03/01/21 History Canagliflozin [Invokana] 100 mg PO DAILY 03/01/21 03/01/21 History Cholecalciferol (Vitamin D3) 125 mcg PO DAILY 03/01/21 03/01/21 History [Vitamin D3 (5000 Iu)] Levothyroxine Sodium [Synthroid] 112 mcg PO DAILY 03/01/21 03/01/21 History Magnesium 250 mg PO DAILY 03/01/21 03/01/21 History [place]-3 Acid Ethyl Esters [Lovaza] 1 gm PO BID 03/01/21 03/01/21 History Potassium Chloride ER [K-Dur 20] 20 meq PO DAILY 03/01/21 03/01/21 History Quinapril HCl [Accupril] 20 mg PO DAILY 03/01/21 03/01/21 History Zinc 50 mg PO DAILY 03/01/21 03/01/21 History Allergies Allergy/AdvReac Type Severity Reaction Status Date / Time No Known Allergies Allergy Verified 03/01/21 21:34 Physical Exam Vitals: Vital Signs Temp Pulse Pulse Resp BP BP Pulse Ox 03/02/21 04:00 97.9 F 63 16 157/62 96 03/02/21 02:00 98.0 F 65 16 196/76 96 03/02/21 01:43 97.9 F 86 16 184/71 95 03/02/21 01:00 186/67 03/02/21 00:00 85 16 193/75 96 03/01/21 23:00 81 16 03/01/21 22:00 16 03/01/21 21:15 75 16 183/82 96 03/01/21 20:11 97.3 F L 75 16 189/78 96 Intake and Output 03/01/21 03/02/21 03/02/21 22:59 06:59 14:59 Intake Total 10 180 Balance 10 180 Intake: IV 10 Invasive Line 1 10 Oral 180 Other: Voiding Method Toilet # Voids 0 Weight 85.729 kg 84.9 kg Results CBC & Chem 7: 03/01/21 21:11 03/01/21 21:11 Labs: Abnormal Lab Results - Last 24 Hours (Table) 03/01/21 03/01/21 Range/Units 21:11 21:11 WBC 12.7 H (3.8-10.6) k/uL Hct 46.3 H (34.0-46.0) % Neutrophils # 8.4 H (1.3-7.7) k/uL BUN 29 H (7-17) mg/dL Glucose 151 H (74-99) mg/dL Thrombosis Risk Factor Assmnt - Choose All That Apply Each Risk Factor Represents 3 Points: Age 75 years or older Each Risk Factor Represents 5 Points: Stroke (< 1 month) Thrombosis Risk Factor Assessment Total Risk Factor Score: 8 Thrombosis Risk Factor Assessment Level: High Risk
[2021-03-02 16:05] LABS: Hemoglobin A1C 6.3 % (4.0-6.0)
[2021-03-02 16:52] LABS: Glucose,Whole Blood 131 mg/dL (75-99)
[2021-03-02] MEDS: INSULIN ASPART (NovoLOG) 100 UNIT/ML VIAL SQ SCH ×2 (16:59→21:06)
[2021-03-02 19:56] LABS: Glucose,Whole Blood 167 mg/dL (75-99)
[2021-03-02] MEDS: CANAGLIFLOZIN 100 MG PO SCH (21:19)
[2021-03-03 04:19] VITALS: RESP 18; TEMP 98
[2021-03-03 06:03] LABS: Glucose,Whole Blood 134 mg/dL (75-99)
[2021-03-03] MEDS: INSULIN ASPART (NovoLOG) 100 UNIT/ML VIAL SQ SCH ×2 (06:06→13:29)
[2021-03-03] MEDS ORDERED: LEVOTHYROXINE 112 MCG TAB PO SCH (06:30)
[2021-03-03] MEDS ORDERED: PANTOPRAZOLE 40 MG TABLET PO SCH (07:30)
--- NOTE | 2021-03-03 08:16 | P.DS ---
Providers Date of admission: 03/01/21 23:33 Expected date of discharge: 03/03/21 Attending physician: Burke Wilson Consults: 03/01/21 23:33 Consult Physician Routine Consulting Provider: Dayna Whalen Consult Reason/Comments: CVA Do you want consulting provider notified?: Already Contacted Primary care physician: Burke Wilson [facility] Course: HISTORY OF PRESENT ILLNESS This is an 80-year-old female patient of Dr. Dr. Wilson with past medical history of hypertension, hyperlipidemia, diabetes mellitus type 2, vitamin D deficiency, hypothyroidism, generalized osteoarthritis, urinary incontinence. Patient presented to [facility] emergency center due to high blood pressure and right-sided headache been going on for 2 days. She been taking Tylenol which helped but then she was not feeling right on the day yesterday. She was dizzy. Last night she noticed she was having some changes in her vision that started around 5 PM. She checked her blood pressure at that time and it was elevated. She denied any weakness in her upper or lower extremities and no numbness or tingling. She had no difficulty ambulating. She did call the off ice yesterday stating that her blood pressure was high and she was advised to take an additional dose of quinapril but her blood pressure remained elevated and she came into the emergency center for evaluation. She was found to be afebrile, heart rate 75, blood pressure 189/78, pulse ox 96% on room air. Blood work revealed WBC 12.7, hemoglobin 15.2, platelet count 208. Electrolytes were normal. BUN 29 creatinine 1. Blood sugar 151. Liver function tests were normal. CAT scan of the brain revealed age indeterminate right occipital lobe focal hypoattenuation. There is concern for acute infarct recommend MRI. No acute intracranial hemorrhage. CTA of the head and neck revealed 50% stenosis of the left internal carotid artery. No significant intracranial angiographic abnormality. There is some fusiform narrowing at the proximal left anterior cerebral artery. Patient admitted to the cardiac stepdown unit and seen by neurology for an acute ischemic stroke right occipital lobe and the CONTROL TOWER OPERATOR territory possibly embolic. Echocardiogram is pending. Recommendations from neurology is to continue aspirin 81 mg daily, Plavix 75 mg daily and after 3 weeks stop aspirin and continue patient on Plavix. 03/03: Patient is seen today on the cardiac stepdown unit. She has no new complaints, no extremity weakness. No change in speech. Patient has been afebrile, heart rate 70, blood pressure 164/70, pulse ox 97% on room air. Blood sugars are running between 131 and 167. Echocardiogram reveals EF of 55-60% with moderate concentric left ventricular hypertrophy, mild mitral regurgitation, mild tricuspid regurgitation. Patient will be discharged home today in stable condition. ASSESSMENT AND PLAN 1. Acute ischemic stroke right occipital lobe and the CONTROL TOWER OPERATOR territory, possible embolic. 2. Hypertension, hypertensive cardio vascular disease. 3. Diabetes mellitus type 2. 4. Hyperlipidemia. 5. Vitamin D deficiency. 6. Hypothyroidism. 7. Carotid stenosis 50% of the left ICA. DISCHARGE PLAN Home. Impression and plan of care have been directed as dictated by the signing physician. Linda Mera nurse practitioner acting as scribe for signing physician. Patient Condition at Discharge: Stable Plan - Discharge Summary Discharge Rx Participant: No New Discharge Prescriptions: New Aspirin EC [Ecotrin Low Dose] 81 mg PO DAILY #21 tablet. Clopidogrel [Plavix] 75 mg PO DAILY #30 tab Continue Vitamin E (Dl,Tocopheryl Acet) [Vitamin E (400 Iu = 180 mg)] 400 unit PO DAILY Atenolol/Chlorthalidone [Atenolol-Chlorthalidone 100-25] 1 tab PO DAILY Potassium Chloride ER [K-Dur 20] 20 meq PO DAILY Cholecalciferol (Vitamin D3) [Vitamin D3 (5000 Iu)] 125 mcg PO DAILY Atorvastatin Calcium [Lipitor] 40 mg PO DAILY Zinc 50 mg PO DAILY [place]-3 Acid Ethyl Esters [Lovaza] 1 gm PO BID Magnesium 250 mg PO DAILY Levothyroxine Sodium [Synthroid] 112 mcg PO DAILY Canagliflozin [Invokana] 100 mg PO DAILY Changed Quinapril HCl [Accupril] 20 mg PO BID #60 tab Discontinued estradioL [Estrace] 1 mg PO MOWEFR Discharge Medication List Vitamin E (Dl,Tocopheryl Acet) [Vitamin E (400 Iu = 180 mg)] 400 unit PO DAILY 11/26/17 [History] Atenolol/Chlorthalidone [Atenolol-Chlorthalidone 100-25] 1 tab PO DAILY 03/01/21 [History] Atorvastatin Calcium [Lipitor] 40 mg PO DAILY 03/01/21 [History] Canagliflozin [Invokana] 100 mg PO DAILY 03/01/21 [History] Cholecalciferol (Vitamin D3) [Vitamin D3 (5000 Iu)] 125 mcg PO DAILY 03/01/21 [History] Levothyroxine Sodium [Synthroid] 112 mcg PO DAILY 03/01/21 [History] Magnesium 250 mg PO DAILY 03/01/21 [History] [place]-3 Acid Ethyl Esters [Lovaza] 1 gm PO BID 03/01/21 [History] Potassium Chloride ER [K-Dur 20] 20 meq PO DAILY 03/01/21 [History] Zinc 50 mg PO DAILY 03/01/21 [History] Aspirin EC [Ecotrin Low Dose] 81 mg PO DAILY #21 tablet. 03/03/21 [Rx] Clopidogrel [Plavix] 75 mg PO DAILY #30 tab 03/03/21 [Rx] Quinapril HCl [Accupril] 20 mg PO BID #60 tab 03/03/21 [Rx] Follow up Appointment(s)/Referral(s): Burke Wilson MD [Primary Care Provider] - 03/08/21 11:30 am Eugene Chin DO [STAFF PHYSICIAN] - 1 Week (office will call with follow up appointment date and time) Patient Instructions/Handouts: Ischemic Stroke (DC) Discharge Disposition: HOME SELF-CARE
[2021-03-03] MEDS ORDERED: MAGNESIUM OXIDE 400 MG TAB PO SCH (09:00)
[2021-03-03] MEDS ORDERED: CHOLECALCIFEROL 25 MCG (1000 IU) TABLET PO SCH (09:00)
[2021-03-03] MEDS ORDERED: lisinopriL 20 MG TAB PO SCH (09:00)
[2021-03-03] MEDS ORDERED: POTASSIUM CHLORIDE ER 20 MEQ TAB.ER PO SCH (09:00)
[2021-03-03] MEDS: CLOPIDOGREL 75 MG TAB PO SCH (09:12)
[2021-03-03] MEDS: ATORVASTATIN 40 MG TAB PO SCH (09:12)
[2021-03-03] MEDS: ASPIRIN 325 MG TAB PO SCH (09:12)
[2021-03-03] MEDS: atenoloL 50 MG TAB PO SCH (09:12)
[2021-03-03] MEDS: CHLORTHALIDONE 25 MG TAB PO SCH (09:20)
[2021-03-03 09:35] VITALS: PULSE 78
[2021-03-03 11:34] LABS: Glucose,Whole Blood 112 mg/dL (75-99)
[2021-03-03] MEDS: CANAGLIFLOZIN 100 MG PO SCH (13:29)
--- NOTE | 2021-03-03 14:07 | P.PN ---
Subjective Progress Note Date: 03/03/21 Agent offers no new complaints. Feeling well. Wants to go home. Patient's and daughter were also present. Objective - Vital Signs Vital signs: Vital Signs Temp 98.0 F 03/03/21 08:00 Pulse 78 03/03/21 08:00 Resp 18 03/03/21 08:00 BP 164/70 03/03/21 08:00 Pulse Ox 97 03/03/21 08:00 Intake & Output 03/02/21 03/03/21 03/03/21 18:59 06:59 18:59 Intake Total 680 220 Output Total 225 Balance 680 -225 220 Weight 84.4 kg Intake: IV 20 Invasive Line 1 20 Oral 660 220 Output: Urine 225 Other: Voiding Method Toilet Toilet # Voids 2 1 0 # Bowel Movements 0 - Exam Patient's examination is only significant for left-sided visual field deficit. In fact the visual field deficit now only involves the left upper quadrant. The left lower quadrant appears to have cleared up. Rest of the examination is nonfocal. - Labs CBC & Chem 7: 03/01/21 21:11 03/01/21 21:11 Labs: Abnormal Lab Results - Last 24 Hours (Table) 03/02/21 03/02/21 03/02/21 Range/Units 07:10 07:10 15:19 POC Glucose (mg/dL) 125 H (75-99) mg/dL Hemoglobin A1c 6.3 H (4.0-6.0) % Triglycerides 258.0 H (0.0-149.0) mg/dL VLDL Cholesterol, Calc 51.60 H (5.00-40.00) mg/dL HDL Cholesterol 35.0 L (40.0-60.0) mg/dL 03/02/21 03/02/21 03/03/21 Range/Units 16:51 19:48 06:02 POC Glucose (mg/dL) 131 H 167 H 134 H (75-99) mg/dL Hemoglobin A1c (4.0-6.0) % Triglycerides (0.0-149.0) mg/dL VLDL Cholesterol, Calc (5.00-40.00) mg/dL HDL Cholesterol (40.0-60.0) mg/dL 03/03/21 Range/Units 11:32 POC Glucose (mg/dL) 112 H (75-99) mg/dL Hemoglobin A1c (4.0-6.0) % Triglycerides (0.0-149.0) mg/dL VLDL Cholesterol, Calc (5.00-40.00) mg/dL HDL Cholesterol (40.0-60.0) mg/dL Assessment and Plan Assessment: * Acute ischemic stroke right occipital lobe in HOME DESIGNER territory, possibly embolic. * Hypertension * Hyperlipidemia Plan: * CTA of head and neck reported 50% stenosis of the left ICA. No significant intracranial angiographic abnormality. There is some fusiform narrowing of the proximal left NELY. * 2-D echo completed but the results is pending. * Hemoglobin A1c 6.5 on 01/20/2021. * Lipid panel with cholesterol 171, LDL 97.8, HDL 32 and triglycerides 206. Continue Lipitor 40 mg. * Discontinue Estrace at this point. * Aggressive control of blood pressure * Telemetry monitoring. * Patient will be placed on dual antiplatelet medication with aspirin 81 mg, Plavix 75 mg. After 3 weeks stop aspirin and maintain on Plavix 75 mg.
[2021-03-03 16:43] LABS: Glucose,Whole Blood 119 mg/dL (75-99)
[2021-03-03 17:12] VITALS: BP 160/68
--- NOTE | 2021-03-06 13:32 | ECHOF ---
Referral Reason:CVA, embolic MEASUREMENTS -------- HEIGHT: 172.7 cm WEIGHT: 71.2 kg BP: 151/69 RVIDd: 2.5 cm (< 3.3) IVSd: 1.3 cm (0.6 - 1.1) LVIDd: 2.9 cm (3.9 - 5.3) LVPWd: 1.5 cm (0.6 - 1.1) IVSs: 2.0 cm LVIDs: 1.3 cm LVPWs: 1.6 cm LAESV Index (A-L): 24.92 ml/m Ao Diam: 3.0 cm (2.0 - 3.7) AV Cusp: 1.6 cm (1.5 - 2.6) LA Diam: 2.9 cm (2.7 - 3.8) MV EXCURSION: 12.495 mm (> 18.000) MV EF SLOPE: 43 mm/s (70 - 150) EPSS: 0.4 cm MV E Kenton: 0.91 m/s MV DecT: 260 ms MV A [place]: 1.22 m/s MV E/A Ratio: 0.75 RAP: 5.00 mmHg RVSP: 22.33 mmHg FINDINGS -------- This was a technically good study. The left ventricular size is normal. There is moderate concentric left ventricular hypertrophy. O verall left ventricular systolic function is normal with, an EF between 55 - 60 %. Normal LAP Grade 1 Diastolic Dysfunction. The right ventricle is normal in size. The left atrial size is normal. Normal LA size by volume 22+/-6 ml/m2. The right atrial size is normal. Contrast study was performed with 2 iv injections of 8 ccs of agitated normal saline, at rest, and wi th cough. Interatrial and interventricular septum intact. The aortic valve is trileaflet and appears structurally normal. The mitral valve is normal. Mild mitral regurgitation is present. The tricuspid valve appears structurally normal. Mild tricuspid regurgitation present. Right vent ricular systolic pressure is normal at < 35 mmHg. There is no pulmonic regurgitation present. The aortic root size is normal. Normal inferior vena cava with normal inspiratory collapse consistent with estimated right atrial pre ssure of 5 mmHg. There is no pericardial effusion. CONCLUSIONS -------- 1. The left ventricular size is normal. 2. There is moderate concentric left ventricular hypertrophy. 3. Overall left ventricular systolic function is normal with, an EF between 55 - 60 %. 4. Normal LAP Grade 1 Diastolic Dysfunction. 5. Contrast study was performed with 2 iv injections of 8 ccs of agitated normal saline, at rest, and with cough. 6. Interatrial and interventricular septum intact. 7. Mild mitral regurgitation is present. 8. Mild tricuspid regurgitation present. 9. There is no pericardial effusion. GEM TECHNICIAN: Heide Dennis RDCS
== END 2021-03-03 17:28 | disposition home or self-care (01) | DRG 66 ==
LOC: EC 20:10 → 3SCARD 23:33
PROVIDERS: ADMIT Internal Medicine; ATTEND Internal Medicine
DX: I63.432 Cerebral infarction due to embolism of left posterior cerebral artery (principal); E03.9 Hypothyroidism, unspecified; E11.9 Type 2 diabetes mellitus without complications; E55.9 Vitamin D deficiency, unspecified; E78.5 Hyperlipidemia, unspecified; H54.7 Unspecified visual loss; I11.9 Hypertensive heart disease without heart failure; M15.9 Polyosteoarthritis, unspecified; Z79.02 Long term (current) use of antithrombotics/antiplatelets; Z79.82 Long term (current) use of aspirin; Z79.84 Long term (current) use of oral hypoglycemic drugs; Z79.890 Hormone replacement therapy; Z79.899 Other long term (current) drug therapy; Z80.0 Family history of malignant neoplasm of digestive organs; Z80.7 Family history of other malignant neoplasms of lymphoid, hematopoietic and related tissues; Z82.49 Family history of ischemic heart disease and other diseases of the circulatory system; Z86.61 Personal history of infections of the central nervous system; Z90.710 Acquired absence of both cervix and uterus; Z96.1 Presence of intraocular lens; Z96.652 Presence of left artificial knee joint; M19.90 Unspecified osteoarthritis, unspecified site
CPT/HCPCS: 36415; 70450; 70496; 70498; 80053; 80061; 83036; 85025; 93306; 99285